=== PATIENT | female | born 1950 | race Caucasian/White ===

== ENCOUNTER → 2018-01-22 10:02 | Outpatient (CLI) | payer MEDICARE, SELFPAY ==
--- NOTE | 2018-01-22 10:08 | RAD_ITS ---
STUDY: X-RAY - PELVIS REASON FOR EXAM: Female, 68 years old. Chronic pain TECHNIQUE: One view of the pelvis was obtained. COMPARISON: None. FINDINGS: There is a non-specific bowel gas pattern. Normal visualized soft tissue structures. There is narrowing with cortical sclerosis and osteophyte formation of the sacroiliac joint consistent with degenerative osteoarthritic changes. Normal visualized bilateral superior and inferior pubic rami. Normal pubic symphysis. Normal ischial tuberosities. Normal visualized right femoral head. Normal right acetabulum. There is mild articular joint space narrowing of the right hip. Normal visualized left femoral head. Normal left acetabulum. There is mild articular joint space narrowing of the left hip. RAD/Pelvis 1 or 2 Views IMPRESSION: Mild arthrosis, no demonstrated fracture Electronically Signed: Bryan Pope MD at 17:54 EDT , Service support ,
[2018-01-22 12:16] LABS: Erythrocyte Sedimentation Rate 23 mm/hr (0-30)
[2018-01-22 12:26] LABS: Absolute Lymphocyte Count 1.44 X10^3/ul (0.83-4.51); Absolute Neutrophil Count 7.7 X10^3/uL (2.0-7.7); Basophil# 0.03 X10^3/uL; Basophil% 0.3 % (0-1); Eosinophil# 0.04 X10^3/uL; Eosinophils% 0.4 % (0-5); Hematocrit 40.2 % (37-47); Hemoglobin 12.7 g/dl (12.0-15.0); Lymphocyte # 1.44 X10^3/ul (4.0); Lymphocyte % 14.5 % (19-41); Mean Corp Hgb Conc 31.6 g/gl (32-36); Mean Corpuscular Volume 85.4 fL (81-99); Mean Platelet Vol. 10.2 fl (6.2-12.0); Monocyte# 0.74 X10^3/uL; Monocyte% 7.5 % (0-10); Neutrophil # 7.67 X10^3/uL (2.7-7.7); Neutrophil % 77.2 % (47-70); Platelet Count 367 K/mm3 (150-450); RBC Distribution Width CV 13.5 % (11.6-14.6); Red Blood Count 4.71 M/mm3 (4.2-5.4); White Blood Count 9.9 K/mm3 (4.4-11.0)
[2018-01-22 12:29] LABS: POSITIVE COUNT NO; POSITIVE DIFFERENTIAL NO; POSITIVE MORPHOLOGY NO
[2018-01-22 12:33] LABS: ALB/GLOB Ratio 0.9 RATIO (0.9-2.4); AST(SGOT) 20 U/L (15-37); Alanine Aminotransfer ALT/SGPT 20 U/L (13-56); Albumin, Serum 3.7 g/dL (3.2-5.0); Alkaline Phosphatase 105 U/L (45-117); Anion Gap 11 (5-15); BUN 17 mg/dL (7-18); BUN/Creat Ratio 14.8 RATIO (10-20); CRP 4.86 mg/L (0.0-3.0); Calcium,Total 8.9 mg/dL (8.5-10.1); Chloride 98 mmol/L (98-107); Creatinine, Serum 1.15 mg/dL (0.55-1.02); EST Glomerular Filtration Rate 50 mL/min (>60); Est Glom Filt Rate - Afr Amer 60 mL/min (>60); Globulin 4.1 g/dL (2.2-4.2); Glucose 124 mg/dL (74-106); Potassium 3.8 mmol/L (3.5-5.1); Protein, Total 7.8 g/dL (6.4-8.2); Rheumatoid Factor < 10.0 IU/mL (<15); Sodium Level 134 mmol/L (136-145)
[2018-01-23 17:47] LABS: SJOGREN'S Anti-SS-A test < 0.2 AI (0.0-0.9); SJOGREN'S Anti-SS-B test < 0.2 AI (0.0-0.9)
[2018-01-24 16:31] LABS: ANTINUCLEAR ANTIBODIES DIRECT Negative (Negative)
[2018-01-28 10:35] LABS: CCP IgG Antibodies 5 units (0-19); HEPATITIS B SURFACE AG Negative (Negative); HLA B27 Negative (.); Hep B Surface Antibodies Non Reactive (.); Hep C Antibodies <0.1 s/co ratio (0.0-0.9)
== END ==
PROVIDERS: Family Provider Family Medicine; PCP Family Medicine; Referring Provider Internal Medicine Rheumatology; Visit Provider Internal Medicine Rheumatology
DX: L40.59 Other psoriatic arthropathy (principal); L40.8 Other psoriasis; M47.897 Other spondylosis, lumbosacral region; Q66.7 Congenital pes cavus; K21.9 Gastro-esophageal reflux disease without esophagitis; F41.9 Anxiety disorder, unspecified; F32.89 Other specified depressive episodes; R00.0 Tachycardia, unspecified
CPT/HCPCS: 36415; 72170; 80053; 81374; 85025; 85652; 86038; 86140; 86200; 86235; 86431; 86706; 86803; 87340

== ENCOUNTER → 2018-05-13 13:59 | Outpatient (CLI) | payer MEDICARE, SELFPAY ==
[2018-05-13 16:00] LABS: Absolute Neutrophil Count 7.6 X10^3/uL (2.0-7.7); Basophil# 0.04 X10^3/uL; Basophil% 0.4 % (0-1); Eosinophil# 0.14 X10^3/uL; Eosinophils% 1.3 % (0-5); Hematocrit 40.6 % (37-47); Hemoglobin 12.6 g/dl (12.0-15.0); Lymphocyte % 19.1 % (19-41); Mean Corpuscular Hgb 26.7 pg (27.0-32.0); Mean Platelet Vol. 10.2 fl (6.2-12.0); Monocyte# 0.71 X10^3/uL; Monocyte% 6.8 % (0-10); Neutrophil # 7.55 X10^3/uL (2.7-7.7); Neutrophil % 72.2 % (47-70); Platelet Count 373 K/mm3 (150-450); RBC Distribution Width CV 14.1 % (11.6-14.6); RBC Distribution Width SD 44.3 fl (35.1-43.9); Red Blood Count 4.72 M/mm3 (4.2-5.4); White Blood Count 10.5 K/mm3 (4.4-11.0)
[2018-05-13 16:03] LABS: POSITIVE COUNT NO; POSITIVE DIFFERENTIAL NO; POSITIVE MORPHOLOGY NO
[2018-05-13 16:21] LABS: AST(SGOT) 16 U/L (15-37); Alanine Aminotransfer ALT/SGPT 20 U/L (13-56); Albumin, Serum 3.8 g/dL (3.2-5.0); Alkaline Phosphatase 85 U/L (45-117); Anion Gap 7 (5-15); BUN 13 mg/dL (7-18); BUN/Creat Ratio 12.1 RATIO (10-20); Calcium,Total 8.9 mg/dL (8.5-10.1); Chloride 99 mmol/L (98-107); Creatinine, Serum 1.07 mg/dL (0.55-1.02); EST Glomerular Filtration Rate 54 mL/min (>60); Est Glom Filt Rate - Afr Amer 65 mL/min (>60); Glucose 189 mg/dL (74-106); Protein, Total 7.8 g/dL (6.4-8.2); Sodium Level 131 mmol/L (136-145)
== END ==
PROVIDERS: Family Provider Family Medicine; PCP Family Medicine; Referring Provider Internal Medicine Rheumatology; Visit Provider Internal Medicine Rheumatology
DX: L40.59 Other psoriatic arthropathy (principal); L40.8 Other psoriasis; M47.897 Other spondylosis, lumbosacral region; Q66.7 Congenital pes cavus; K21.9 Gastro-esophageal reflux disease without esophagitis; F41.9 Anxiety disorder, unspecified; F32.89 Other specified depressive episodes; R00.0 Tachycardia, unspecified
CPT/HCPCS: 36415; 80053; 85025

== ENCOUNTER → 2018-10-28 | Outpatient (CLI) | payer MEDICARE, SELFPAY ==
[2018-10-28 13:57] LABS: Absolute Lymphocyte Count 1.49 X10^3/uL (0.83-4.51); Absolute Neutrophil Count 5.3 X10^3/uL (2.0-7.7); Basophil# 0.07 X10^3/uL; Basophil% 0.9 % (0-1); Eosinophil# 0.46 X10^3/uL; Eosinophils% 5.9 % (0-5); Hematocrit 38.9 % (37-47); Hemoglobin 12.5 g/dL (12.0-15.0); Lymphocyte # 1.49 X10^3/ul (4.0); Lymphocyte % 19.1 % (19-41); Mean Corp Hgb Conc 32.1 g/dL (32-36); Mean Corpuscular Hgb 27.7 pg (27.0-32.0); Mean Corpuscular Volume 86.1 fL (81-99); Monocyte# 0.43 X10^3/uL; Monocyte% 5.5 % (0-10); NRBC Flagged by Analyzer 0 % (0-5); Neutrophil # 5.33 X10^3/uL (2.7-7.7); Neutrophil % 68.5 % (47-70); Platelet Count 321 K/mm3 (150-450); RBC Distribution Width CV 12.9 % (11.6-14.6); RBC Distribution Width SD 39.9 fl (35.1-43.9); Red Blood Count 4.52 M/mm3 (4.2-5.4); White Blood Count 7.8 K/mm3 (4.4-11.0)
[2018-10-28 14:13] LABS: ALB/GLOB Ratio 0.9 RATIO (0.9-2.4); AST(SGOT) 11 U/L (15-37); Alanine Aminotransfer ALT/SGPT 18 U/L (13-56); Albumin, Serum 3.5 g/dL (3.2-5.0); Alkaline Phosphatase 94 U/L (45-117); Anion Gap 9 (5-15); BUN 13 mg/dL (7-18); BUN/Creat Ratio 12.7 RATIO (10-20); Calcium,Total 9.1 mg/dL (8.5-10.1); Chloride 99 mmol/L (98-107); Creatinine, Serum 1.02 mg/dL (0.55-1.02); EST Glomerular Filtration Rate 57 mL/min (>60); Est Glom Filt Rate - Afr Amer 69 mL/min (>60); Globulin 4.1 g/dL (2.2-4.2); Glucose 136 mg/dL (74-106); Potassium 3.9 mmol/L (3.5-5.1); Protein, Total 7.6 g/dL (6.4-8.2); Sodium Level 133 mmol/L (136-145)
== END | disposition home or self-care (01) ==
LOC: MTLAB 11:08
PROVIDERS: Family Provider Family Medicine; PCP Family Medicine; Referring Provider Internal Medicine Rheumatology; Visit Provider Internal Medicine Rheumatology
DX: L40.59 Other psoriatic arthropathy (principal); L40.8 Other psoriasis; M47.897 Other spondylosis, lumbosacral region; Q66.7 Congenital pes cavus; K21.9 Gastro-esophageal reflux disease without esophagitis; F41.9 Anxiety disorder, unspecified; F32.89 Other specified depressive episodes; R00.0 Tachycardia, unspecified
CPT/HCPCS: 36415; 80053; 85025

== ENCOUNTER → 2019-06-09 08:48 | Outpatient (CLI) | payer MEDICARE, SELFPAY ==
--- NOTE | 2019-06-09 08:51 | RAD_ITS ---
STUDY: X-RAY - LUMBOSACRAL SPINE REASON FOR EXAM: Female, 69 years old. PAIN TECHNIQUE: 7 view(s) of the lumbosacral spine were obtained, including lateral flexion and extension views. COMPARISON: None FINDINGS: Normal lumbar lordosis. There is a 25 degree dextroscoliosis of the lumbar spine centered at L3. There is normal alignment of the vertebrae. Prior cement augmentation of the T12 vertebral fracture noted. There is multilevel endplate spondylosis of the lumbar vertebrae. There is mild depression of the superior L3 vertebral endplate. The mildly sclerotic margins suggest this is chronic. There is multi-level degenerative disc disease with multi-level disc space narrowing. Degenerative arthroses of the bilateral mid to lower lumbar facet joints. Normal bilateral sacral ala, sacroiliac joints, and visualized sacrum. There is degenerative narrowing of the pubic symphysis. Surgical clips of prior cholecystectomy are noted in the right upper quadrant abdomen. There are fluid levels in the nondistended right and transverse colon, which could reflect liquid fecal material or a regional ileus. Contrast likely bullous projects in the left pelvic soft tissues. RAD/L/S Spine w Bend Min 6 Vw IMPRESSION: 1. Degenerative changes of the spine, as detailed above. 2. Prior cement augmentation of the T12 vertebral fracture. There is slight depression of the superior L3 vertebral endplate, likely chronic. 3. Prior cholecystectomy. 4. There is liquid fecal material in the right and transverse colon versus mild regional ileus without distention. Electronically Signed: Bryan Berg MD at 18:06 EDT , Service support ,
--- NOTE | 2019-06-09 08:51 | RAD_ITS ---
STUDY: X-RAY EXAMINATION: SCOLIOSIS SERIES REASON FOR EXAM: Female, 69 years old. PAIN TECHNIQUE: Frontal view(s) of the thoracolumbar spine were obtained in the upright standing position. COMPARISON: Lateral view of the thoracolumbar spine also done today FINDINGS: There is a 13.15 degree levoscoliosis of the thoracic spine with the apex of the convexity at the T10-11 level. There is a 21.4 degree dextroscoliosis of the lumbar spine with the apex of the convexity at the L3 level. Normal kyphosis of the thoracic spine. There is multilevel endplate spondylosis of the thoracic vertebrae. The patient has undergone prior cement augmentation of the T12 vertebral fracture. There is mild disc space narrowing of the lower most thoracic spine. Normal lordosis of the lumbar spine. There is multilevel endplate spondylosis of the lumbar vertebrae. There is minor depression of the superior L3 vertebral endplate. There is multilevel disc space narrowing of the lumbar spine. Density with a transverse band of lucency overlapping the lower thoracic spine and cardiac silhouette may be a hiatal hernia. Surgical clips in the right upper quadrant of the abdomen are consistent with prior cholecystectomy. Incidental note of fluid levels in the nondistended right and transverse colon, which may reflect liquid fecal material or mild generalized ileus. RAD/Scoliosis 1 view IMPRESSION: 1. Mild mid lumbar dextroscoliosis and mild compensatory lower thoracic levoscoliosis. 2. Prior cement augmentation of a T12 vertebral fracture. 3. Slight depression of the superior L3 vertebral endplate, age uncertain. 4. Multilevel degenerative changes of the thoracolumbar spine, as described. 5. Prior cholecystectomy. 6. Possible hiatal hernia. 7. Liquid fecal material in the right and transverse colon versus mild regional ileus without distention. Electronically Signed: Bryan Berg MD at 20:03 EDT , Service support ,
--- NOTE | 2019-06-09 09:07 | RAD_ITS ---
STUDY: X-RAY EXAMINATION: SCOLIOSIS SERIES REASON FOR EXAM: Female, 69 years old. Lateral scoliosis study, AP was done earlier this am TECHNIQUE: Lateral view(s) of the thoracolumbar spine was obtained in the upright standing position. COMPARISON: Frontal view of the thoracolumbar spine also done today. FINDINGS: There is a 13.15 degree levoscoliosis of the thoracic spine with the apex of the convexity at the T10-11 level. There is a 21.4 degree dextroscoliosis of the lumbar spine with the apex of the convexity at the L3 level. Normal kyphosis of the thoracic spine. There is multilevel endplate spondylosis of the thoracic vertebrae. The patient has undergone prior cement augmentation of the T12 vertebral fracture. There is mild disc space narrowing of the lower most thoracic spine. Normal lordosis of the lumbar spine. There is multilevel endplate spondylosis of the lumbar vertebrae. There is minor depression of the superior L3 vertebral endplate. There is multilevel disc space narrowing of the lumbar spine. Density with a transverse band of lucency overlapping the lower thoracic spine and cardiac silhouette may be a hiatal hernia. Surgical clips in the right upper quadrant of the abdomen are consistent with prior cholecystectomy. Incidental note of fluid levels in the nondistended right and transverse colon, which may reflect liquid fecal material or mild generalized ileus. RAD/Scoliosis 1 view IMPRESSION: 1. Mild mid lumbar dextroscoliosis and mild compensatory lower thoracic levoscoliosis. 2. Prior cement augmentation of a T12 vertebral fracture. 3. Slight depression of the superior L3 vertebral endplate, age uncertain. 4. Multilevel degenerative changes of the thoracolumbar spine, as described. 5. Prior cholecystectomy. 6. Possible hiatal hernia. 7. Liquid fecal material in the right and transverse colon versus mild regional ileus without distention. Electronically Signed: Bryan Berg MD at 20:05 EDT , Service support ,
== END ==
PROVIDERS: PCP Family Medicine; Referring Provider Orthopaedic Surgery; Visit Provider Orthopaedic Surgery
DX: M54.9 Dorsalgia, unspecified (principal)
CPT/HCPCS: 72081; 72114

== ENCOUNTER → 2019-07-03 11:51 | Outpatient (CLI) | payer MEDICARE, SELFPAY ==
[2019-06-09 08:49] VITALS: BMI 28.7
[2019-07-03 15:14] LABS: Absolute Lymphocyte Count 1.49 X10^3/uL (0.83-4.51); Absolute Neutrophil Count 5.3 X10^3/uL (2.0-7.7); Basophil# 0.05 X10^3/uL; Basophil% 0.6 % (0-1); Eosinophil# 0.39 X10^3/uL; Lymphocyte # 1.49 X10^3/ul (4.0); Mean Corp Hgb Conc 31.6 g/dL (32-36); Mean Corpuscular Hgb 27.8 pg (27.0-32.0); Mean Corpuscular Volume 88.2 fL (81-99); Mean Platelet Vol. 10.1 fl (6.2-12.0); Monocyte# 0.59 X10^3/uL; Monocyte% 7.5 % (0-10); NRBC Flagged by Analyzer 0 % (0-5); Neutrophil % 67.6 % (47-70); Platelet Count 342 K/mm3 (150-450); RBC Distribution Width CV 13.2 % (11.6-14.6); RBC Distribution Width SD 42.7 fl (35.1-43.9); Red Blood Count 4.31 M/mm3 (4.2-5.4); White Blood Count 7.8 K/mm3 (4.4-11.0)
[2019-07-03 16:23] LABS: AST(SGOT) 19 U/L (15-37); Alanine Aminotransfer ALT/SGPT 22 U/L (13-56); Albumin, Serum 3.7 g/dL (3.2-5.0); Alkaline Phosphatase 82 U/L (45-117); Anion Gap 9 (5-15); BUN 16 mg/dL (7-18); BUN/Creat Ratio 16.1 RATIO (10-20); CRP 5.89 mg/L (0.0-3.0); Calcium,Total 9.1 mg/dL (8.5-10.1); Chloride 101 mmol/L (98-107); Creatinine, Serum 0.99 mg/dL (0.55-1.02); EST Glomerular Filtration Rate 59 mL/min (>60); Est Glom Filt Rate - Afr Amer 71 mL/min (>60); Globulin 3.8 g/dL (2.2-4.2); Glucose 105 mg/dL (74-106); Potassium 4.4 mmol/L (3.5-5.1); Protein, Total 7.5 g/dL (6.4-8.2); Sodium Level 133 mmol/L (136-145)
[2019-07-03 21:19] LABS: Erythrocyte Sedimentation Rate 16 mm/hr (0-30)
== END ==
PROVIDERS: PCP Family Medicine; Referring Provider Internal Medicine Rheumatology; Visit Provider Internal Medicine Rheumatology
DX: L40.59 Other psoriatic arthropathy (principal); L40.8 Other psoriasis; M47.897 Other spondylosis, lumbosacral region; K21.9 Gastro-esophageal reflux disease without esophagitis; F41.9 Anxiety disorder, unspecified; F32.89 Other specified depressive episodes; R00.0 Tachycardia, unspecified
CPT/HCPCS: 36415; 80053; 85025; 85652; 86140

== ENCOUNTER 2019-07-19 13:58 | Emergency (ER) | payer MEDICARE, SELFPAY ==
[2019-06-09 08:49] VITALS: BMI 28.7
[2019-07-19 14:01] VITALS: BP 117/75; PULSE 72; RESP 18; TEMP 37; O2SAT 98; BMI 31.2
[2019-07-19 14:07] VITALS: BP 117/75; PULSE 71; RESP 16; O2SAT 98
--- NOTE | 2019-07-19 14:17 | EKG12_ITS ---
Test Reason : DIZZINESS Blood Pressure : / mmHG Vent. Rate : 070 BPM Atrial Rate : 070 BPM P-R Int : 192 ms QRS Dur : 096 ms QT Int : 426 ms P-R-T Axes : 054 030 047 degrees QTc Int : 460 ms Normal sinus rhythm Normal ECG Confirmed by NEO QUINONES, JENNIFER ([id number]), photographic editor MERLY HOGUE ([id number]) on 07/22/2019 9:30:37 AM Referred By: TRICIA Confirmed By:JENNIFER LARSON MD
--- NOTE | 2019-07-19 14:17 | CT_ITS ---
STUDY: CT BRAIN WITHOUT CONTRAST REASON FOR EXAM: Female, 69 years old. Dizziness today, no fall or injury. RADIATION DOSAGE (If Supplied By Facility): CTDIvol = ( 44.99 ) mGy, DLP = ( 745.49 ) mGycm TECHNIQUE: Transaxial CT imaging of the brain was performed without administration of intravenous contrast material. Individualized dose optimization techniques were used for this CT. COMPARISON: None. FINDINGS: There is cerebral atrophy with widening of the extra-axial spaces and ventricular dilatation. There are areas of decreased attenuation within the white matter tracts of the supratentorial brain, consistent with microvascular disease changes. There is no intracranial hemorrhage. There are no findings of an acute ischemic infarction. Normal soft tissue structures. Normal visualized paranasal sinuses. CT/Brain/Head without Contrast IMPRESSION: Chronic involutional changes of the brain. Electronically Signed: Bobby Brar MD at 15:07 EDT Tel , Service support ,
[2019-07-19] MEDS: diazePAM 5 MG Tablet 2.5 MG PO (14:34)
[2019-07-19] MEDS: 0.9% Normal Saline 1,000 ML 1000 ML IV (14:34)
--- NOTE | 2019-07-19 14:38 | ED.DCSUM_ITS ---
- ER Visit Summary Date of Service: 07/19/19 Chief Complaint: Dizziness History of Present Illness: The patient is a 69 F who presents with dizziness that began today. Patient states it began suddenly. Patient states she felt like she was going to pass out. Patient states this is worse when she stands up and tries to move. Patient states it is also worse when she moves her head. Patient states her dizziness improves when she lays down. Patient admits to a headache and generalized weakness. Patient admits to nausea but denies any vomiting. Patient admits to chronic neck and back pain but denies any worsening pain. Patient denies any chest pain or palpitations. Patient denies any shortness of breath or cough. Physical Examination: Vital signs are stable. Patient is afebrile. Patient is in no acute distress. Pupils are equal, round, and reactive to light bilateral ly. Extraocular muscles are intact. There is some mild nystagmus with right lateral gaze. Oral mucosa is pink and moist. Oropharynx is clear. Neck is supple. Trachea is midline. There is no JVD. Heart was regular rate and rhythm. Lungs are clear and equal bilaterally. Abdomen is soft. Bowel sounds are normal. There is no tenderness. Cranial nerves II through XII are intact. There are no focal motor or sensory deficits noted. Test Results: EKG showed normal sinus rhythm with a rate of 70. There are no acute ST or T wave changes. CBC, comprehensive metabolic profile, and urinalysis were obtained and were all within normal limits. CT scan of the brain was obtained. There is no acute intracranial abnormality. This was interpreted by the radiologist and myself. Emergency Department Course and Treatment: Patient was given IV fluids and oral Valium here. Orthostatic vital signs were obtained and were within normal limits. Patient attempted ambulation however, her right knee was giving out on her. X-rays of the right knee were obtained. There is no acute fracture. Patient was placed in a knee immobilizer. Patient was given a walker. Since the patient was unable to get her venous duplex done today, she was given a dose of Lovenox and an outpatient order for venous duplex of her right lower extremi ty was ordered. Patient was given a prescription for Valium to take as needed for her dizziness. Patient was instructed to follow-up tomorrow as an outpatient for venous duplex of her right lower extremity. Patient was instructed to follow-up with her primary care physician in 5 to 7 days. Patient understood and was agreeable with the plan. All questions were answered. Disposition: Discharge home Impression: 1. Vertigo 2. Right knee pain This note was generated with [employer] dictation software. It may contain incorrect words, spelling, and punctuation that were not noted in review of the chart prior to signing ED Disposition - Plan for ED Patient: Disposition: Home or Assisted Living Diagnosis: Vertigo, Posterior right knee pain Instructions: ED Vertigo Unspecified, ED Knee Pain [facility] Prescriptions: Diazepam [Valium] 2 mg PO TID PRN PRN #10 tab PRN Reason: Vertigo Prescription Printed Referrals: Michelle Hess MD [Primary Care Provider] - 3-5 Days
[2019-07-19 14:47] LABS: Absolute Lymphocyte Count 0.68 X10^3/uL (0.83-4.51); Absolute Neutrophil Count 9.5 X10^3/uL (2.0-7.7); Basophil# 0.03 X10^3/uL; Basophil% 0.3 % (0-1); Eosinophil# 0.01 X10^3/uL; Eosinophils% 0.1 % (0-5); Hematocrit 39.6 % (37-47); Hemoglobin 12.7 g/dL (12.0-15.0); Lymphocyte # 0.68 X10^3/ul (4.0); Lymphocyte % 6.3 % (19-41); Mean Corp Hgb Conc 32.1 g/dL (32-36); Mean Corpuscular Volume 87.2 fL (81-99); Mean Platelet Vol. 9.3 fl (6.2-12.0); Monocyte# 0.45 X10^3/uL; Monocyte% 4.2 % (0-10); NRBC Flagged by Analyzer 0 % (0-5); Neutrophil # 9.51 X10^3/uL (2.7-7.7); Neutrophil % 88.7 % (47-70); Platelet Count 305 K/mm3 (150-450); RBC Distribution Width CV 13.1 % (11.6-14.6); Red Blood Count 4.54 M/mm3 (4.2-5.4); White Blood Count 10.7 K/mm3 (4.4-11.0)
[2019-07-19 15:02] VITALS: BP 115/61; BP 128/74; BP 138/75; PULSE 72; PULSE 73; PULSE 80
--- NOTE | 2019-07-19 15:04 | ED.RN ---
PT'S RIGHT LEG GAVE OUT PER PT IT'S NEVER DONE THAT BEFORE WHEN PT WAS GETTING BACK INTO BED AFTER ORTHOSTATIC VITAL SIGNS WERE OBTAINED.
[2019-07-19 15:06] LABS: ALB/GLOB Ratio 0.9 RATIO (0.9-2.4); AST(SGOT) 17 U/L (15-37); Alanine Aminotransfer ALT/SGPT 20 U/L (13-56); Albumin, Serum 3.7 g/dL (3.2-5.0); Alkaline Phosphatase 87 U/L (45-117); Anion Gap 9 (5-15); BUN 19 mg/dL (7-18); BUN/Creat Ratio 17.9 RATIO (10-20); Calcium,Total 9.1 mg/dL (8.5-10.1); Chloride 99 mmol/L (98-107); Creatinine, Serum 1.06 mg/dL (0.55-1.02); EST Glomerular Filtration Rate 54 mL/min (>60); Est Glom Filt Rate - Afr Amer 66 mL/min (>60); Estimated Creatinine Clearance 44.44 ml/min; Globulin 4.1 g/dL (2.2-4.2); Glucose 153 mg/dL (74-106); Potassium 3.9 mmol/L (3.5-5.1); Protein, Total 7.8 g/dL (6.4-8.2); Sodium Level 134 mmol/L (136-145)
[2019-07-19 15:21] LABS: Bacteria 0 SEEN /hpf (None Seen); Mucous, Urine 0 SEEN /hpf (<or=2+); Red Blood Cells-Urine 0 SEEN /hpf (0-5); White Blood Cells 0 SEEN /hpf (0-5)
[2019-07-19 15:30] LABS: Color, Urine Yellow (Yellow); Glucose, Dipstick Normal (Normal); Ketone-Dipstick Negative (Negative); Leukocyte Esterase-Dipstick Negative /ul (Negative); Nitrite-Dipstick Negative (Negative); Occult Blood-Urine Negative /ul (Negative); Protein-Dipstick 15 mg/dl (Negative); Urine Bilirubin Dipstick Negative (Negative); Urine Clarity Sl. Cloudy (Clear); Urine Urobilinogen Normal (Normal); Urine pH 6.5 (5.0 - 8.0)
[2019-07-19 15:38] LABS: Squamous Epithelial Cells - UA 0-5 SEEN /hpf (5-10)
[2019-07-19 16:00] VITALS: BP 119/67; PULSE 70; RESP 16; O2SAT 98
--- NOTE | 2019-07-19 16:17 | RAD_ITS ---
STUDY: X-RAY - RIGHT KNEE REASON FOR EXAM: Female, 69 years old. Right knee pain. TECHNIQUE: 2 view(s) of the knee. COMPARISON: None. FINDINGS: No acute fracture, dislocation or osseous destruction. No significant joint space narrowing. No significant productive changes. Mild soft tissue swelling medially. IMPRESSION: No acute fracture or dislocation. Electronically Signed: Ammon Villatoro, at 16:57 EDT Tel , Service support , RAD/Knee 1 or 2 Views
[2019-07-19 17:59] VITALS: BP 132/68; PULSE 72; RESP 16; O2SAT 98
[2019-07-19] MEDS: Enoxaparin 80 MG/0.8 ML Syringe SC (18:01)
[2019-07-19 18:03] VITALS: BP 132/68; PULSE 72; RESP 18; O2SAT 96
== END 2019-07-19 18:10 | disposition home or self-care (01) ==
PROVIDERS: Emergency Provider Emergency Medicine; PCP Family Medicine
DX: R42 Dizziness and giddiness (principal); M25.561 Pain in right knee; F41.9 Anxiety disorder, unspecified; K21.9 Gastro-esophageal reflux disease without esophagitis
CPT/HCPCS: 70450; 73560; 80053; 81001; 85025; 93005; 96360; 96361; 96372; 99285; J7030; A4216

== ENCOUNTER → 2019-07-20 12:43 | Outpatient (CLI) | payer MEDICARE, SELFPAY ==
[2019-07-19 14:01] VITALS: BMI 31.2
--- NOTE | 2019-07-20 12:46 | VDLE_ITS ---
Reason For Study: pain RIGHT GSV is normal. CFV is compressible, spontaneous, phasic, competent and demonstrates normal augmentation. FV is compressible, spontaneous, phasic, competent and demonstrates normal augmentation. POP V is compressible, spontaneous, phasic, competent and demonstrates normal augmentation. T/P Trunk is compressible. PTV is compressible. RT PerV is compressible. Procedure Exam performed in department. The exam was abbreviated due to the COVID 19 protocol. The exam was diagnostic. Interpretation Summary Deep veins of the right lower extremity are patent and compressible segmentally. There is no evidence of right lower extremity deep vein thrombosis. Valvular competence appears intact within the proximal deep venous system on the right . The right great saphenous vein appears patent and compressible segmentally. Ordering Physician: Jourdan Atkins Performed By: Anibal Robbins RVT
== END ==
PROVIDERS: PCP Family Medicine; Referring Provider Emergency Medicine; Visit Provider Emergency Medicine
DX: M79.604 Pain in right leg (principal)
CPT/HCPCS: 93971

== ENCOUNTER → 2019-09-01 10:53 | Outpatient (CLI) | payer MEDICARE, SELFPAY ==
[2019-08-31 16:09] VITALS: BMI 31.2
[2019-09-01 11:09] LABS: Mucous, Urine 0 SEEN /hpf (<or=2+); Red Blood Cells-Urine 0 SEEN /hpf (0-5)
[2019-09-01 11:12] LABS: Color, Urine Yellow (Yellow); Glucose, Dipstick Normal (Normal); Ketone-Dipstick Negative (Negative); Leukocyte Esterase-Dipstick 500 /ul (Negative); Nitrite-Dipstick Negative (Negative); Occult Blood-Urine 25 /ul (Negative); Protein-Dipstick 30 mg/dl (Negative); Specific Gravity, Urine 1.015 (1.002-1.030); Urine Bilirubin Dipstick Negative (Negative); Urine Clarity Sl. Cloudy (Clear); Urine Urobilinogen Normal (Normal)
[2019-09-01 11:17] LABS: White Blood Cells >100 SEEN /hpf (0-5)
[2019-09-01 11:18] LABS: Bacteria 2+ /hpf (None Seen); Squamous Epithelial Cells - UA 0-5 SEEN /hpf (5-10)
== END ==
PROVIDERS: PCP Family Medicine; Referring Provider Physician Assistant Surgical; Visit Provider Physician Assistant Surgical
DX: N39.0 Urinary tract infection, site not specified (principal); R30.0 Dysuria
CPT/HCPCS: 81001; 87077; 87086; 87088; 87186

== ENCOUNTER → 2020-01-01 10:29 | Outpatient (CLI) | payer MEDICARE, SELFPAY ==
[2019-11-04 13:34] VITALS: BMI 31.2
[2020-01-01 12:25] LABS: Absolute Lymphocyte Count 1.35 X10^3/uL (0.83-4.51); Absolute Neutrophil Count 4.9 X10^3/uL (2.0-7.7); Basophil# 0.06 X10^3/uL; Basophil% 0.8 % (0-1); Eosinophil# 0.19 X10^3/uL; Eosinophils% 2.7 % (0-5); Hematocrit 39.2 % (37-47); Hemoglobin 12.6 g/dL (12.0-15.0); Lymphocyte # 1.35 X10^3/ul (4.0); Mean Corp Hgb Conc 32.1 g/dL (32-36); Mean Corpuscular Hgb 28.2 pg (27.0-32.0); Mean Corpuscular Volume 87.7 fL (81-99); Monocyte# 0.59 X10^3/uL; Monocyte% 8.3 % (0-10); NRBC Flagged by Analyzer 0 % (0-5); Neutrophil # 4.92 X10^3/uL (2.7-7.7); Neutrophil % 69.1 % (47-70); Platelet Count 323 K/mm3 (150-450); RBC Distribution Width SD 41.9 fl (35.1-43.9); Red Blood Count 4.47 M/mm3 (4.2-5.4); White Blood Count 7.1 K/mm3 (4.4-11.0)
[2020-01-01 12:38] LABS: AST(SGOT) 15 U/L (15-37); Alanine Aminotransfer ALT/SGPT 20 U/L (13-56); Albumin, Serum 3.8 g/dL (3.2-5.0); Alkaline Phosphatase 92 U/L (45-117); Anion Gap 4 (5-15); BUN 15 mg/dL (7-18); BUN/Creat Ratio 15.7 RATIO (10-20); Calcium,Total 9.3 mg/dL (8.5-10.1); Chloride 98 mmol/L (98-107); Creatinine, Serum 0.95 mg/dL (0.55-1.02); EST Glomerular Filtration Rate 61 mL/min (>60); Est Glom Filt Rate - Afr Amer 74 mL/min (>60); Globulin 3.9 g/dL (2.2-4.2); Glucose 99 mg/dL (74-106); Potassium 4.3 mmol/L (3.5-5.1); Protein, Total 7.7 g/dL (6.4-8.2); Sodium Level 129 mmol/L (136-145)
== END ==
PROVIDERS: PCP Family Medicine; Visit Provider Family Medicine
DX: R55 Syncope and collapse (principal); N18.30 Chronic kidney disease, stage 3 unspecified
CPT/HCPCS: 36415; 80053; 85025

== ENCOUNTER → 2020-04-26 13:24 | Outpatient (CLI) | payer MEDICARE, SELFPAY ==
[2019-11-04 13:34] VITALS: BMI 31.2
[2020-04-26 15:44] LABS: Urine Sodium 46 mmol/L (Not Establ.)
[2020-04-26 16:06] LABS: ALB/GLOB Ratio 0.9 RATIO (0.9-2.4); AST(SGOT) 15 U/L (15-37); Alanine Aminotransfer ALT/SGPT 24 U/L (13-56); Albumin, Serum 3.9 g/dL (3.2-5.0); Alkaline Phosphatase 98 U/L (45-117); Anion Gap 6 (5-15); BUN 18 mg/dL (7-18); BUN/Creat Ratio 15.5 RATIO (10-20); Calcium,Total 9.4 mg/dL (8.5-10.1); Chloride 99 mmol/L (98-107); Creatinine, Serum 1.16 mg/dL (0.55-1.02); EST Glomerular Filtration Rate 49 mL/min (>60); Est Glom Filt Rate - Afr Amer 59 mL/min (>60); Globulin 4.3 g/dL (2.2-4.2); Glucose 99 mg/dL (74-106); Potassium 4.4 mmol/L (3.5-5.1); Protein, Total 8.2 g/dL (6.4-8.2); Sodium Level 132 mmol/L (136-145)
== END ==
PROVIDERS: PCP Family Medicine; Visit Provider Family Medicine
DX: E87.1 Hypo-osmolality and hyponatremia (principal)
CPT/HCPCS: 36415; 80053; 84300

== ENCOUNTER → 2020-06-02 14:15 | Outpatient (CLI) | payer MEDICARE, SELFPAY ==
[2019-11-04 13:34] VITALS: BMI 31.2
[2020-06-02 16:34] LABS: Anion Gap 6 (5-15); BUN 17 mg/dL (7-18); BUN/Creat Ratio 16.3 RATIO (10-20); Calcium,Total 9.1 mg/dL (8.5-10.1); Chloride 100 mmol/L (98-107); Creatinine, Serum 1.04 mg/dL (0.55-1.02); EST Glomerular Filtration Rate 56 mL/min (>60); Est Glom Filt Rate - Afr Amer 67 mL/min (>60); Glucose 96 mg/dL (74-106); Potassium 4.1 mmol/L (3.5-5.1); Sodium Level 133 mmol/L (136-145)
== END ==
PROVIDERS: PCP Family Medicine; Visit Provider Family Medicine
DX: E87.1 Hypo-osmolality and hyponatremia (principal)
CPT/HCPCS: 36415; 80048

== ENCOUNTER 2022-02-07 11:23 | Observation (INO) | payer MEDICARE, SELFPAY ==
[2022-02-07] VITALS (16 sets, daily range): BP systolic 75–127; BP diastolic 49–81; PULSE 84–129; RESP 16–19; TEMP 36.3–37.1; O2SAT 93–100; BMI 28.0; BMI 26.6
--- NOTE | 2022-02-07 11:58 | EKG12_ITS ---
Test Reason : SVT/CP Blood Pressure : / mmHG Vent. Rate : 103 BPM Atrial Rate : 103 BPM P-R Int : 198 ms QRS Dur : 092 ms QT Int : 356 ms P-R-T Axes : 063 044 059 degrees QTc Int : 466 ms Sinus tachycardia Low voltage QRS Borderline ECG Confirmed by TRENA QUINONES, LELE ([id number]), sound editor LAURA HARRINGTON ([id number]) on 02/13/2022 9:28:49 A M Referred By: CARMEN Confirmed By:RYDER ALBRECHT MD
--- NOTE | 2022-02-07 11:59 | EDS_ITS ---
HPI History of Present Illness Chief Complaint: Chest Pain Detail of Chief Complaint: Chest pain that started around 7 AM Informant: patient Narrative Narrative: Patient presents the emergency department complaint chest pain that started ar ound 7 AM. Patient was getting ready to make breakfast. She complains of a dull ache currently in the center of her chest with some radiation into her left arm. She feels short of breath. She had some mild nausea but no vomiting. She denies diaphoresis. Her states that she had a similar episode about a month ago and was seen at another facility where she had a stress test. Patient thinks that she may have a history of SVT. On EMS arrival patient was thought to be in SVT and was given 6 mg of adenosine and then she converted to a sinus rhythm. Patient currently rates her chest pain a 7 out of 10. Prior Similar Symptoms: Yes PFSH PFSH Medical History (Updated 02/07/22 @ 15:[address] Harpreet Smith, DO) Arthritis Depression Fatigue GERD (gastroesophageal reflux disease) HTN (hypertension) Knee pain Shoulder pain Home Medications omeprazole 20 mg capsule,delayed release 40 mg PO DAILY 06/09/19 [History Last Taken Unknown] atenolol 50 mg tablet 25 mg PO DAILY 08/31/19 [History Last Taken Unknown] dicyclomine 10 mg capsule 20 mg PO BID 08/31/19 [History Last Taken Unknown] sertraline 25 mg tablet 100 mg PO DAILY 08/31/19 [History Last Taken Unknown] bupropion HCl 150 mg 24 hr tablet, extended release 150 mg PO DAILY 02/07/22 [History Last Taken Unknown] Allergy/AdvReac Type Severity Reaction Status Date / Time No Known Allergies Allergy Verified 02/07/22 11:24 Family History Other CVA (cerebral vascular accident) Cancer Heart disease Surgical History Hx of kyphoplasty (~2017) Social History (Updated 11/04/19 @ 14:11 by Arnold WEBB, PA) Smoking Status: Never smoker ROS ROS ED Review of Systems ROS Unobtainable: other Constitutional Constitutional ED: Reports lethargy; Denies chills, fever(s), sweats or weight loss Eyes Eyes: Denies blurry vision, change in vision or diplopia ENT ENT ED: Denies rhinorrhea or sore throat Cardiovascular Cardiovascular: Reports chest pain and racing heartbeat; Denies orthopnea Respiratory/Chest Respiratory/Chest: Reports dyspnea; Denies cough, dyspnea on exertion, orthopnea or sputum Gastrointestinal Gastrointestinal: Denies abdominal pain, diarrhea, nausea or vomiting Genitourinary Genitourinary ED: Denies dysuria, hematuria or urinary frequency Musculoskeletal Musculoskeletal: Denies arthralgias, back pain, myalgias or neck pain Integumentary Denies abscess, Abrasions or rash Neurologic Neurologic: Denies headache(s) or weakness Psychiatric Psychiatric: Denies anxiety, depression or suicidal thoughts Endocrine Endocrinology: Denies polydipsia, polyphagia or polyuria Hematologic/Lymphatic Hematologic/Lymphatic: Denies easy bleeding, easy bruising or lymphadenopathy Allergic/Immunologic Allergic/Immunologic ED: Denies mouth swelling, tongue swelling or urticaria EXAM Physical Exam Const Vital Signs: 02/07/22 11:25 02/07/22 11:28 02/07/22 12:10 Temperature 98.0 F Temperature Source Oral Pulse Rate 104 H 94 Respiratory Rate 19 H Respiratory Effort Short of Breath Respiratory Pattern Normal Blood Pressure 127/70 H 113/72 Blood Pressure Mean 89 Pulse Ox 100 Oxygen Delivery Method Room Air 02/07/22 12:11 02/07/22 13:18 02/07/22 13:20 Temperature Temperature Source Pulse Rate 84 Respiratory Rate 17 Respiratory Effort Respiratory Pattern Blood Pressure 101/51 L 97/70 Blood Pressure Mean 67 79 Pulse Ox 98 98 Oxygen Delivery Method Room Air Room Air 02/07/22 14:30 Temperature Temperature Source Pulse Rate 94 Respiratory Rate 16 Respiratory Effort Respiratory Pattern Blood Pressure 119/70 Blood Pressure Mean 86 Pulse Ox 100 Oxygen Delivery Method Room Air Positive well nourished and well developed General Appearance ED: well developed and NAD HEENT Reports TM's clear and moist mucous membranes normocephalic and atraumatic; Negative for trauma or tenderness Tympanic Membrane ED: Yes TM's clear Eyes PERRL and EOMs intact bilaterally General Eye ED: Negative for pale conjunctiva or scleral icterus Neck no lymphadenopathy, supple and no JVD General: Negative for tenderness Chest Wall inspection of chest normal and palpation of chest normal Chest: Negative for tenderness Resp normal respiratory effort and clear to auscultation bilaterally Effort and Inspection: Negative for respiratory distress or pain with movement Auscultation: Negative for rhonchi, wheezes or diminished lung sounds Cardio regular rate, regular rhythm, S1 normal heart sound, S2 normal heart sound and no murmurs Peripheral Pulses: pulses 2+ throughout GI normal to inspection, nondistended, normoactive bowel sounds, soft to palpation, non-tender, non-distended and no masses Back/Spine no CVA tenderness and no thoracic nor lumbar tenderness Extremity normal to inspection General Extremety ED: Negative for edema General Extremity: Negative for edema Neuro oriented x3, CN's II-XII intact bilaterally, no sensory deficits noted and gait normal Sensorium / Orientation: awake, alert, oriented to person, oriented to place and oriented to time Motor Exam: strength 5/5 throughout and strength abnormal Psych mental status grossly normal Skin no rashes or lesions noted and no wounds Heart Score History: Moderately Suspicious ECG: Normal Age: >/= 65 years Risk Factors: 1 or 2 Risk Factors Troponin: </= Normal Limit Score: 4 MDM MDM MDM Narrative Medical decision making narrative: IV line established on arrival. Patient received sublingual nitro which did not improve her pain. She was given morphine 4 mg IV and Zofran. Patient had a n ormal CBC with differential and chemistries were unremarkable. D-dimer was normal at 0.46. Troponin was normal at 10. Delta troponin did increase by 30 points to 40 at 2 hours. Discussed case with devulcanizer charger on-call who recommended obtaining CTA of the chest to rule out dissection which was performed and was negative for dissection or PE. Patient does have a moderate sized hiatal hernia. Case discussed with hospitalist will evaluate patient for admission. Patient did have SVT on EKG performed by EMS and this resolved with 6 mg of adenosine. Lab Data Attestation: I reviewed the patient's lab results. Labs: Laboratory Results - last 24 hr 02/07/22 02/07/22 02/07/22 11:35 11:35 11:35 WBC 8.3 RBC 4.73 Hgb 13.3 Hct 41.9 MCV 88.6 MCH 28.1 MCHC 31.7 L RDW Std Deviation 41.8 RDW Coeff of Nataliia 12.9 Plt Count 284 MPV 10.3 Immature Gran % (Auto) 0.400 Neut % (Auto) 77.8 H Lymph % (Auto) 16.1 L Miller % (Auto) 5.1 Eos % (Auto) 0.0 Baso % (Auto) 0.6 Absolute Neuts (auto) 6.5 Absolute Lymphs (auto) 1.34 Nucleated RBC % 0 D-Dimer Quant (PE/DVT) 0.46 Sodium 139 Potassium 3.9 Chloride 106 Carbon Dioxide 21.0 Anion Gap 12 BUN 12 Creatinine 1.17 H Estim Creat Clear Calc 40.09 Est GFR (MDRD) Af Amer 58 L Est GFR (MDRD) Non-Af 48 L BUN/Creatinine Ratio 10.3 Glucose 137 H Calcium 8.9 Troponin I High Sens 10 02/07/22 14:32 WBC RBC Hgb Hct MCV MCH MCHC RDW Std Deviation RDW Coeff of Nataliia Plt Count MPV Immature Gran % (Auto) Neut % (Auto) Lymph % (Auto) Miller % (Auto) Eos % (Auto) Baso % (Auto) Absolute Neuts (auto) Absolute Lymphs (auto) Nucleated RBC % D-Dimer Quant (PE/DVT) Sodium Potassium Chloride Carbon Dioxide Anion Gap BUN Creatinine Estim Creat Clear Calc Est GFR (MDRD) Af Amer Est GFR (MDRD) Non-Af BUN/Creatinine Ratio Glucose Calcium Troponin I High Sens 40 Radiography Diagnostic Testing: Clinical Impression(s) from Imaging Studies Chest X-Ray 02/07/22 12:45 IMPRESSION: Hyperinflation. The lungs are clear. Moderate-sized hiatal hernia. Electronically Signed: Fabian Massey MD at 13:01 EST , Chest CTA 02/07/22 13:33 IMPRESSION: No evidence of pulmonary embolism. Mild degree of increased markings at the lung bases suggestive of mild degree of bibasilar atelectasis. Moderate sized hiatal hernia. Electronically Signed: Fabian Massey MD at 14:53 EST , 1 view chest x-ray obtained interpreted by myself as no acute disease process but was noted to have a hiatal hernia. Radiology in agreement. EKG Initial EKG: Attestation: I personally reviewed and interpreted this EKG as follows: Comments: Sinus rhythm with a ventricular rate of 103 bpm with low voltage. No acute ST segment changes noted. Discharge Plan Triage Chief Complaint: Chest Pain ED Provider: Harpreet Smith Dx/Rx/DC Orders Clinical Impression: Chest pain, SVT (supraventricular tachycardia), Hernia, hiatal, History of hypertension Prescriptions: No Action omeprazole 20 mg capsule,delayed release(DR/EC) 40 mg PO DAILY sertraline 25 mg tablet 100 mg PO DAILY dicyclomine 10 mg capsule 20 mg PO BID atenolol 50 mg tablet 25 mg PO DAILY bupropion HCl 150 mg tablet extended release 24 hr 150 mg PO DAILY Primary Care Provider: Michelle Hess Referrals: Michelle Hess MD [Primary Care Provider] - Disposition Disposition: Acute Care [facility]
[2022-02-07] MEDS: Nitroglycerin SL (ED/IMG/CATH) 0.4 MG TABLET SL (12:10)
[2022-02-07] MEDS: 0.9% Normal Saline 1,000 ML 150 ML IV (12:10)
[2022-02-07 12:13] LABS: Absolute Lymphocyte Count 1.34 X10^3/uL (0.83-4.51); Absolute Neutrophil Count 6.5 X10^3/uL (2.0-7.7); Basophil# 0.05 X10^3/uL; Basophil% 0.6 % (0-1); Hematocrit 41.9 % (37-47); Hemoglobin 13.3 g/dL (12.0-15.0); Lymphocyte # 1.34 X10^3/ul (0.83-4.51); Lymphocyte % 16.1 % (19-41); Mean Corp Hgb Conc 31.7 g/dL (32-36); Mean Corpuscular Hgb 28.1 pg (27.0-32.0); Mean Corpuscular Volume 88.6 fL (81-99); Mean Platelet Vol. 10.3 fl (6.2-12.0); Monocyte# 0.42 X10^3/uL; Monocyte% 5.1 % (0-10); NRBC Flagged by Analyzer 0 % (0-5); Neutrophil # 6.46 X10^3/uL (2.7-7.7); Neutrophil % 77.8 % (47-70); Platelet Count 284 K/mm3 (150-450); RBC Distribution Width CV 12.9 % (11.6-14.6); RBC Distribution Width SD 41.8 fl (35.1-43.9); Red Blood Count 4.73 M/mm3 (4.2-5.4); White Blood Count 8.3 K/mm3 (4.4-11.0)
[2022-02-07 12:27] LABS: D-Dimer Quantitative (DVT/PE) 0.46 FEU/ug/m (0.27-0.49)
[2022-02-07 12:28] LABS: Anion Gap 12 (5-15); BUN 12 mg/dL (7-18); BUN/Creat Ratio 10.3 RATIO (10-20); Calcium,Total 8.9 mg/dL (8.5-10.1); Chloride 106 mmol/L (98-107); Creatinine, Serum 1.17 mg/dL (0.55-1.02); EST Glomerular Filtration Rate 48 mL/min (>60); Est Glom Filt Rate - Afr Amer 58 mL/min (>60); Estimated Creatinine Clearance 40.09 ml/min; Glucose 137 mg/dL (74-106); Potassium 3.9 mmol/L (3.5-5.1); Sodium Level 139 mmol/L (136-145); Troponin-I HS (w/2H Reflex) 10 pg/mL (3.0-54.0)
--- NOTE | 2022-02-07 12:45 | RAD_ITS ---
STUDY: X-RAY CHEST REASON FOR EXAM: Female, 72 years old. Chest pain TECHNIQUE: Single AP portable view of the chest. COMPARISON: None. FINDINGS: EKG electrodes are seen. Hyperinflation. The lungs are clear. There is no demonstrated pleural abnormality. Normal size heart. Normal mediastinum and paolo. Normal visualized pulmonary arteries. There is atherosclerotic calcification of the aortic arch with tortuosity. There are diffuse degenerative changes of the visualized thoracic spine. Normal visualized ribs, clavicles, and shoulders. Moderate sized hiatal hernia. Prior cholecystectomy. RAD/Chest 1 View (Portable) IMPRESSION: Hyperinflation. The lungs are clear. Moderate-sized hiatal hernia. Electronically Signed: Fabian Massey MD at 13:01 EST ,
[2022-02-07] MEDS: Ondansetron 4 MG/2 ML Vial IV ×2 (13:15→14:44)
[2022-02-07] MEDS: Morphine 4 MG/ML Syringe IV (13:16)
--- NOTE | 2022-02-07 13:33 | CT_ITS ---
STUDY: CTA CHEST REASON FOR EXAM: Female, 72 years old. Chest pain. RADIATION DOSAGE (If Supplied By Facility): CTDIvol = ( 9.17 ) mGy, DLP = ( 347.34 ) mGycm TECHNIQUE: The examination was performed with the intravenous administration of IV 100mL Isovue-370. Post-processing of the angiographic images was performed, with multiplanar reformation and 3D reconstruction. Individualized dose optimization techniques were used for this CT. COMPARISON: Comparison is made with prior chest radiograph done earlier today. FINDINGS: Normal enhancement of the main pulmonary artery and right and left pulmonary arteries. Normal enhancement of the bilateral peripheral pulmonary arteries. There is no demonstrated pulmonary embolism. There is atherosclerotic calcification of the aortic arch with tortuosity. There is no demonstrated aortic dissection. Minimal degree of anterior pericardial thickening. No coronary artery calcification. Normal mediastinum. Normal hilar regions. Normal visualized trachea and bronchi. Hyperinflation. Minimal increased markings at the lung bases suggestive of bibasilar atelectasis. Normal pleura. Normal chest wall structures. There are degenerative changes of thoracic spine. Prior vertebroplasty and loss of height of the L1 vertebrae. The patient is status post cholecystectomy. Moderate sized hiatal hernia. CT/CTA Chest W/WO Contrast IMPRESSION: No evidence of pulmonary embolism. Mild degree of increased markings at the lung bases suggestive of mild degree of bibasilar atelectasis. Moderate sized hiatal hernia. Electronically Signed: Fabian Massey MD at 14:53 EST ,
[2022-02-07 14:08] LABS: Reflex Troponin-HS? (from REC) Y
[2022-02-07 14:54] LABS: Troponin-I HS 40 pg/mL (3.0-54.0)
--- NOTE | 2022-02-07 15:09 | NURSING ---
PCU CARINA CP, SVT, HIATAL HERNIA
--- NOTE | 2022-02-07 15:25 | RAD_ITS ---
STUDY: X-RAY CHEST REASON FOR EXAM: Female, 72 years old. Chest pain TECHNIQUE: Single AP portable view of the chest. COMPARISON: Comparison is made with prior study 02/07/2022 at 12:45 PM. FINDINGS: EKG electrodes are seen. The lungs are clear and expanded. There is no demonstrated pleural abnormality. Normal size heart. Normal mediastinum and paolo. Normal visualized pulmonary arteries. Normal visualized aortic arch and descending thoracic aorta. Normal visualized thoracic spine. Normal visualized ribs, clavicles, and shoulders. Hiatal hernia. RAD/Chest 1 View (Portable) IMPRESSION: Stable examination. Electronically Signed: Fabian Massey MD at 15:47 EST ,
--- NOTE | 2022-02-07 15:43 | HP.PCM.HOS_ITS ---
HPI - General General Date of Admission: 02/07/22 Date of Service: 02/07/22 Chief Complaint: chest pain HPI Narrative DEBORA BOURGEOIS, is a 72 F who presents with chest pain. Chest pain began this morning around 7 while she was just standing around, not doing anything exertional. She had had some coffee but did not finish it. Normally she drinks about 4 cups/day. Chest pain was midsternal as well as involving her abdomen with associated nausea. Did radiate down her left arm. Patient had a similar spell 2 months ago and was seen at [facility] and had a chemical stress test there that was negative though did show EF is 48%. EMS was called and patient was noted to be in SVT. She did receive 6 mg of adenosine and she was normal sinus thereafter. Patient does complain of intermittent palpitations. She does not know the frequency but it is happened several times. [facility] Medical History (Updated 02/07/22 @ 15:[address] Jourdan Brasher DO) Arthritis Depression Fatigue GERD (gastroesophageal reflux disease) HTN (hypertension) Knee pain Shoulder pain Home Medications omeprazole 20 mg capsule,delayed release 40 mg PO DAILY 06/09/19 [History Last Taken Unknown] atenolol 50 mg tablet 25 mg PO DAILY 08/31/19 [History Last Taken Unknown] dicyclomine 10 mg capsule 20 mg PO BID 08/31/19 [History Last Taken Unknown] sertraline 25 mg tablet 100 mg PO DAILY 08/31/19 [History Last Taken Unknown] bupropion HCl 150 mg 24 hr tablet, extended release 150 mg PO DAILY 02/07/22 [History Last Taken Unknown] Allergy/AdvReac Type Severity Reaction Status Date / Time No Known Allergies Allergy Verified 02/07/22 11:24 Family History Other CVA (cerebral vascular accident) Cancer Heart disease Surgical History Hx of kyphoplasty (~2017) Social History Smoking Status: Never smoker Vital Signs Vital Signs Vital Signs: 02/07/22 11:25 02/07/22 11:28 02/07/22 12:10 Temperature 36.7 C Temperature Source Oral Pulse Rate 104 H 94 Respiratory Rate 19 H Respiratory Effort Short of Breath Respiratory Pattern Normal Blood Pressure 127/70 H 113/72 Blood Pressure Mean 89 Pulse Ox 100 Oxygen Delivery Method Room Air 02/07/22 12:11 02/07/22 13:18 02/07/22 13:20 Temperature Temperature Source Pulse Rate 84 Respiratory Rate 17 Respiratory Effort Respiratory Pattern Blood Pressure 101/51 L 97/70 Blood Pressure Mean 67 79 Pulse Ox 98 98 Oxygen Delivery Method Room Air Room Air 02/07/22 14:30 02/07/22 15:10 02/07/22 15:10 Temperature Temperature Source Pulse Rate 94 86 Respiratory Rate 16 16 Respiratory Effort Respiratory Pattern Blood Pressure 119/70 122/77 H Blood Pressure Mean 86 92 Pulse Ox 100 98 98 Oxygen Delivery Method Room Air Room Air Room Air 02/07/22 15:16 Temperature 37.1 C Temperature Source Oral Pulse Rate 85 Respiratory Rate 16 Respiratory Effort Respiratory Pattern Blood Pressure 114/73 Blood Pressure Mean 86 Pulse Ox 98 Oxygen Delivery Method Room Air Weight Weight: 78.9 kg Body Mass Index (BMI) 28.0 Physical Exam Const alert and no apparent distress HEENT normocephalic and head/scalp atraumatic Resp normal respiratory effort, no retractions, no use of accessory muscles and clear to auscultation bilaterally Cardio regular rate, regular rhythm, S1 normal heart sound and S2 normal heart sound GI normal to inspection, nondistended, normoactive bowel sounds, soft to palpation, non-tender and non-distended Extremity normal to inspection Results Lab / Micro Data Result Diagrams: 02/07/22 11:35 02/07/22 11:35 Labs: Laboratory Results - last 24 hr 02/07/22 11:35: WBC 8.3, RBC 4.73, Hgb 13.3, Hct 41.9, MCV 88.6, MCH 28.1, MCHC 31.7 L, RDW Std Deviation 41.8, RDW Coeff of Nataliia 12.9, Plt Count 284, MPV 10.3, Immature Gran % (Auto) 0.400, Neut % (Auto) 77.8 H, Lymph % (Auto) 16.1 L, [place] % (Auto) 5.1, Eos % (Auto) 0.0, Baso % (Auto) 0.6, Absolute Neuts (auto) 6.5, Absolute Lymphs (auto) 1.34, Nucleated RBC % 0 02/07/22 11:35: Sodium 139, Potassium 3.9, Chloride 106, Carbon Dioxide 21.0, Anion Gap 12, BUN 12, Creatinine 1.17 H, Estim Creat Clear Calc 40.09, Est GFR (MDRD) Af Amer 58 L, Est GFR (MDRD) Non-Af 48 L, BUN/Creatinine Ratio 10.3, Glucose 137 H, Calcium 8.9, Troponin I High Sens 10 02/07/22 11:35: D-Dimer Quant (PE/DVT) 0.46 02/07/22 14:32: Troponin I High Sens 40 Radiology Impression Chest X-Ray 02/07/22 12:45 IMPRESSION: Hyperinflation. The lungs are clear. Moderate-sized hiatal hernia. Electronically Signed: Fabian Massey MD at 13:01 EST , Chest CTA 02/07/22 13:33 IMPRESSION: No evidence of pulmonary embolism. Mild degree of increased markings at the lung bases suggestive of mild degree of bibasilar atelectasis. Moderate sized hiatal hernia. Electronically Signed: Fabian Massey MD at 14:53 EST , Assessment & Plan Assessment/Plan (1) Unstable angina: PLAN: Atypical presentation. Could be cardiac but cannot rule out being related with her hiatal hernia. Patient received aspirin in the field. Continue with aspirin. Patient had a stress test performed on December 08 [facility] it was negative showed an EF of 40% at that time. Cardiology on consultation. Discussed with Dr. Baker. He will evaluate to see if any additional cardiac intervention would be necessary. Check an echocardiogram (2) SVT (supraventricular tachycardia): PLAN: Transient but may be intermittent as patient does complain of intermittent palpitations. Monitor on telemetry Change her atenolol to metoprolol tartrate 50 mg twice daily PLAN: Plan Chronic conditions * Hiatal hernia: Continue PPI * Depression: Continue with bupropion and sertraline VTE prophylaxis: Not indicated as patient is observation status CODE STATUS: Addressed with patient and her . Patient is DNR Comfort Care arrest Charges/Coding Visit Charges OBSV E&M: 59479 Initial observation care L2
--- NOTE | 2022-02-07 16:06 | ECHOD_ITS ---
Reason For Study: Chest pain Procedure This was a 2D Doppler, Color Flow transthoracic echocardiogram. The exam was of adequate technical quality. Exam performed portable in patient room. Left Ventricle Normal LV size. Left ventricular systolic function is normal. The estimated ejection fraction is 70 %. No evidence for diastolic dysfunction. No regional wall motion abnormalities noted. Right Ventricle Normal RV size. Normal systolic function. Atria Normal left atrium. Normal right atrium. No doppler evidence for ASD. Mitral Valve There is no mitral annular calcification. Normal mitral valve. Tricuspid Valve Normal tricuspid valve. Mild (1+) eccentric tricuspid valve insufficiency. Right ventricular systolic pressure estimated to be 20 mmHg. Aortic Valve Trisinus/trileaflet aortic valve. Normal aortic valve. Pulmonic Valve The pulmonic valve is not well visualized. Great Vessels Normal sized aortic root. Pericardium/Pleural No pericardial effusion. MMode/2D Measurements & Calculations LVIDd: 4.0 cm IVSd: 0.95 cm Ao root diam: 3.0 cm LVIDs: 2.1 cm LVPWd: 0.68 cm RVDd: 3.1 cm FS: 47.4 % LAV(MOD-bp): 29.3 ml LVAd ap4: 16.3 cm2 LVAd ap2: 19.1 cm2 LAV(MOD-bp) Indexed: 15.5 ml/m2 LVLd ap4: 6.8 cm LVLd ap2: 6.7 cm LAV(MOD-sp2): 29.7 ml EDV(MOD-sp4): 34.1 ml EDV(MOD-sp2): 45.3 ml LAV(MOD-sp4): 26.6 ml EDV(sp4-el): 33.1 ml EDV(sp2-el): 45.9 ml LVAs ap4: 8.0 cm2 LVAs ap2: 10.3 cm2 LVLs ap4: 5.8 cm LVLs ap2: 5.8 cm ESV(MOD-sp4): 9.8 ml ESV(MOD-sp2): 15.1 ml ESV(sp4-el): 9.3 ml ESV(sp2-el): 15.3 ml EF(MOD-sp4): 71.2 % EF(MOD-sp2): 66.6 % EF(sp4-el): 71.8 % SV(MOD-sp4): 24.3 ml SV(MOD-sp2): 30.2 ml SV(sp4-el): 23.8 ml LA dimension(2D): 3.1 cm LA A4 area: 13.2 cm2 RA A4 area: 9.8 cm2 Doppler Measurements & Calculations MV E max yoandy: 73.4 cm/sec Lat Peak E' Yoandy: 10.4 cm/sec Med Peak E' Yoandy: 7.4 cm/sec MV A max yoandy: 59.7 cm/sec E/E' lat: 7.1 E/E' med: 9.9 MV E/A: 1.2 Ao V2 max: 118.9 cm/sec LV V1 max: 101.3 cm/sec PA V2 max: 91.7 cm/sec Ao max P.7 mmHg LV V1 max P.1 mmHg TR max yoandy: 207.5 cm/sec TR max P.3 mmHg ECHO/Echo Complete Interpretation Summary Left ventricular systolic function is normal. The estimated ejection fraction is 70 %. Mild (1+) eccentric tricuspid valve insufficiency. Right ventricular systolic pressure estimated to be 20 mmHg. No evidence for diastolic dysfunction. Ordering Physician: Jourdan Brasher Referring Physician: Michelle Hess Performed By: Jessica Brizuela, JACKY
--- NOTE | 2022-02-07 17:09 | PCM.CONS.C ---
Assessment & Plan Assessment/Plan (1) Unstable angina: PLAN: The patient is thought to have symptoms compatible with unstable angina pectoris as there is been no other etiology, with the exception of potentially her hiatal hernia and GERD, to explain her symptoms. Her cardiac enzymes have been negative. Her ECG is demonstrated no acute ECG changes. Her previous noninvasive studies from the outside hospital are noted above. Her chest CT scan did not demonstrate evidence of thromboembolic disease or great vessel disease to explain her symptoms. Thus she has been recommended for further cardiovascular evaluation with diagnostic cardiac catheterization to evaluate for any obvious angiographically or hemodynamically significant CAD that may not of been detected on her noninvasive studies that would explain her symptoms. The procedure and risks have been discussed with her. She was agreeable to this approach. In the interim she will continue medical management as deemed appropriate. (2) SVT (supraventricular tachycardia): PLAN: The patient has a history of SVT. 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 At the present time she will continue medical therapy with her beta-vicente. Over time she can be considered for referral to electrophysiology for consideration for EPS/RFA. (3) History of hypertension: PLAN: The patient's blood pressure will need to be monitored with medications adjusted accordingly. (4) Hernia, hiatal: PLAN: Plan The patient does have a hiatal hernia. Its been reported as at least moderate in the size. She does appear to have a history of symptoms related to it. She may need a ventral evaluation by general surgery as to whether or not there is any other nonmedical options to assist with her hiatal hernia. Addt'l Comments The above was discussed and reviewed with the patient, her spouse, Dr. Soriano of the [facility] emergency department staff and Dr. Brasher of the [facility] staff. This note was generated using a voice recognition system and there may be incorrect words, spelling or punctuation that were not noted when reviewing the office note prior to saving. HPI Consult Data Date of Consult: 02/07/22 HPI Narrative HPI Narrative: DEBORA BOURGEOIS, is a 72 year old white female who presents for evaluation of chest discomfort and SVT. The patient states that she has had chest discomfort for at least the last 3 years. It usually involves her upper chest and radiates to her left upper extremity. It can be associated with the sensation of nausea. It is not usually associated with acute shortness of breath/dyspnea or diaphoresis. She does not complain of a history of orthopnea, PND, peripheral pitting edema, near-syncope or syncope. She states she does not even sense her SVT. Her states it appears to occur when she has her chest discomfort. It appears she was evaluated recently in November of this year at [facility] in [facility]. According to the information obtained she underwent evaluation with a transthoracic echocardiogram. This demonstrated the left ventricle to be normal with an estimated LVEF of 60 to 65%. There was trace MR reported. There was no pericardial effusion reported. The aortic root was reported as normal. She also underwent evaluation with a pharmacologic stress nuclear imaging study. Per the report this was considered negative for evidence of stress-induced myocardial ischemia or infarction. The reported LVEF was 48%. She also had a chest x-ray reported at that time. There did not appear to be any acute cardiopulmonary disease process reported. Today she had recurrent discomfort. She was evaluated by the EMS. She was noted to be in an underlying SVT. She received IV adenosine. According to the cardiac rhythm strips it appeared she had abrupt termination of her SVT and return to sinus rhythm. However despite her return to sinus rhythm she is continue to complain of her chest discomfort as noted above. Thus she underwent additional evaluation with a chest CTA. Per the report there was no evidence of pulmonary embolism, no aortic dissection, atherosclerotic calcification of the aortic arch, no coronary artery calcification reported, and a moderate sized hiatal hernia reported. She states she is aware of the hiatal hernia. She has been on medical management. She states she attempts to avoid foods that will irritate this. She also states that the head of her bed has been elevated to assist with her hiatal hernia. She believes she was told years ago that she was not a candidate at that time for any type of surgical intervention. Her ECG demonstrated sinus tachycardia with low voltage QRS. It appeared to demonstrate findings compatible with a hiatal hernia but otherwise no acute cardiopulmonary findings. In the emergency department she was treated medically. This did include IV morphine. [facility] Medical History (Updated 02/07/22 @ 15:[address] Jourdan Brasher, ) Arthritis Depression Fatigue GERD (gastroesophageal reflux disease) HTN (hypertension) Knee pain Shoulder pain Home Medications omeprazole 20 mg capsule,delayed release 40 mg PO DAILY 06/09/19 [History Last Taken Unknown] atenolol 50 mg tablet 25 mg PO DAILY 08/31/19 [History Last Taken Unknown] dicyclomine 10 mg capsule 20 mg PO BID 08/31/19 [History Last Taken Unknown] sertraline 25 mg tablet 100 mg PO DAILY 08/31/19 [History Last Taken Unknown] bupropion HCl 150 mg 24 hr tablet, extended release 150 mg PO DAILY 02/07/22 [History Last Taken Unknown] Allergy/AdvReac Type Severity Reaction Status Date / Time No Known Allergies Allergy Verified 02/07/22 11:24 Family History Other CVA (cerebral vascular accident) Cancer Heart disease Surgical History Hx of kyphoplasty (~2017) Social History Smoking Status: Never smoker ROS Constitutional Constitutional: Reports as per HPI Eyes Eyes: Reports as per HPI ENT HEENT: Reports as per HPI Cardiovascular Cardiovascular: Reports chest pain, chest pain at rest and nausea Respiratory/Chest Respiratory/Chest: Reports as per HPI Gastrointestinal Gastrointestinal: Reports dyspepsia Genitourinary Genitourinary: Reports as per HPI Musculoskeletal Musculoskeletal: Reports as per HPI Integumentary Integumentary: Reports as per HPI Neurologic Neurologic: Reports as per HPI Psychiatric Psychiatric: Reports as per HPI Physical Exam Const alert, oriented x3 and no apparent distress Orientation / Consciousness: awake HEENT normocephalic, head/scalp atraumatic and hearing grossly normal bilaterally Eyes PERRL, EOMs intact bilaterally, conjunctivae normal and no scleral icterus Neck full ROM, supple and no JVD Carotids: normal carotid upstroke Resp normal respiratory effort and clear to auscultation bilaterally Cardio regular rate, regular rhythm, S1 normal heart sound and S2 normal heart sound Palpation: normal PMI GI normal to inspection, nondistended, normoactive bowel sounds Extremity no pedal edema Skin no rashes or lesions noted Psych mental status grossly normal Risk Stratification Risk Stratification Applicable: Yes Age >/= 65: Yes >/= 3 CAD Risk Factors (HTN, HLD, DM, family hx of CAD, or current smoker): No Aspirin Use in the Past 7 Days: No Severe Angina (>/= episodes in 24 hours): Yes EKG ST Changes >/= 0.5mm: No Positive Cardiac Marker: No JUDITH Risk Stratification Score: 2 JUDITH % Risk: 8% Risk Procedure Criteria Type of Procedure Procedure Type: Elective Elective Risks - COVID COVID Risk Discussion: The surgeon/proceduralist and patient have discussed in detail the risk of exposure to and/or potential harm posed by the COVID-19 virus with having a surgery/procedure at this time versus the risk of delaying the surgery/procedure. It is not possible to know either the risk of delaying the surgery or procedure or chance of getting an infection with perfect accuracy, but a joint decision was made between the patient and the surgeon/proceduralist to proceed at this time with the scheduled surgery/procedure as indicated on the consent form. Objective Data Vital Signs: Vital Signs Temp Pulse Resp BP Pulse Ox O2 Del Method 98.7 F 85 16 114/73 98 Room Air 02/07/22 15:16 02/07/22 15:16 02/07/22 15:16 02/07/22 15:16 02/07/22 15:16 02/07/22 16:28 Oxygen Delivery Method Room Air Weight: 164 lb 14.492 oz Body Mass Index (BMI) 26.6 Intake & Output: Intake and Output for Last 24 Hours 02/05/22 02/06/22 02/07/22 23:59 23:59 23:59 Intake Total 1000 / 1000 Balance 1000 / 1000 Lab / Micro Data Result Diagrams: 02/07/22 11:35 02/07/22 11:35 Labs: Laboratory Results - last 24 hr 02/07/22 11:35: WBC 8.3, RBC 4.73, Hgb 13.3, Hct 41.9, MCV 88.6, MCH 28.1, MCHC 31.7 L, RDW Std Deviation 41.8, RDW Coeff of Nataliia 12.9, Plt Count 284, MPV 10.3, Immature Gran % (Auto) 0.400, Neut % (Auto) 77.8 H, Lymph % (Auto) 16.1 L, [place] % (Auto) 5.1, Eos % (Auto) 0.0, Baso % (Auto) 0.6, Absolute Neuts (auto) 6.5, Absolute Lymphs (auto) 1.34, Nucleated RBC % 0 02/07/22 11:35: Sodium 139, Potassium 3.9, Chloride 106, Carbon Dioxide 21.0, Anion Gap 12, BUN 12, Creatinine 1.17 H, Estim Creat Clear Calc 40.09, Est GFR (MDRD) Af Amer 58 L, Est GFR (MDRD) Non-Af 48 L, BUN/Creatinine Ratio 10.3, Glucose 137 H, Calcium 8.9, Troponin I High Sens 10 02/07/22 11:35: D-Dimer Quant (PE/DVT) 0.46 02/07/22 14:32: Troponin I High Sens 40 Cardiology Labs/Tests 02/07/22 11:35: WBC 8.3, RBC 4.73, Hgb 13.3, Hct 41.9, MCV 88.6, MCH 28.1, MCHC 31.7 L, Plt Count 284, MPV 10.3, Immature Gran % (Auto) 0.400, Neut % (Auto) 77.8 H, Lymph % (Auto) 16.1 L, [place] % (Auto) 5.1, Eos % (Auto) 0.0, Baso % (Auto) 0.6, Absolute Neuts (auto) 6.5, Nucleated RBC % 0 02/07/22 11:35: Sodium 139, Potassium 3.9, Chloride 106, Carbon Dioxide 21.0, Anion Gap 12, BUN 12, Creatinine 1.17 H, Est GFR (MDRD) Af Amer 58 L, Est GFR (MDRD) Non-Af 48 L, BUN/Creatinine Ratio 10.3, Glucose 137 H, Calcium 8.9 02/07/22 11:35: D-Dimer Quant (PE/DVT) 0.46 Rhythm: Sinus rhythm EKG: As noted above ECHO: As noted above Stress Test: As noted Radiography Diagnostic Testing: Radiology Impression Chest X-Ray 02/07/22 12:45 IMPRESSION: Hyperinflation. The lungs are clear. Moderate-sized hiatal hernia. Electronically Signed: Fabian Massey MD at 13:01 EST , Chest CTA 02/07/22 13:33 IMPRESSION: No evidence of pulmonary embolism. Mild degree of increased markings at the lung bases suggestive of mild degree of bibasilar atelectasis. Moderate sized hiatal hernia. Electronically Signed: Fabian Massey MD at 14:53 EST , Chest X-Ray 02/07/22 15:25 IMPRESSION: Stable examination. Electronically Signed: Fabian Massey MD at 15:47 EST ,
[2022-02-07] MEDS: Nitroglycerin Oint 1 INCH PACKET 0.5 INCH TD (18:25)
[2022-02-07] MEDS: Ensure Plus High Protein 120 ML LIQUID PO (18:30)
--- NOTE | 2022-02-07 18:35 | EKG12_ITS ---
Test Reason : cp Blood Pressure : / mmHG Vent. Rate : 082 BPM Atrial Rate : 082 BPM P-R Int : 200 ms QRS Dur : 092 ms QT Int : 358 ms P-R-T Axes : 059 011 049 degrees QTc Int : 418 ms Normal sinus rhythm Low voltage QRS Borderline ECG When compared with ECG of 07-FEB-2022 11:27, MANUAL COMPARISON REQUIRED, DATA IS UNCONFIRMED Confirmed by SANDOVAL QUINONES, GAVIOTA ([id number]), society editor LAURA HARRINGTON ([id number]) on 02/16/2022 7:21:58 AM Referred By: Gilda Confirmed By:GAVIOTA NICK MD
--- NOTE | 2022-02-07 18:40 | EKG12_ITS ---
Test Reason : cp Blood Pressure : / mmHG Vent. Rate : 124 BPM Atrial Rate : 125 BPM P-R Int : 000 ms QRS Dur : 102 ms QT Int : 340 ms P-R-T Axes : 000 043 126 degrees QTc Int : 488 ms Atrial fibrillation Nonspecific T wave abnormality Abnormal ECG When compared with ECG of 07-FEB-2022 17:32, MANUAL COMPARISON REQUIRED, DATA IS UNCONFIRMED Confirmed by SANDOVAL QUINONES, GAVIOTA ([id number]), editor department LAURA HARRINGTON ([id number]) on 02/20/2022 11:12:21 AM Referred By: Confirmed By:GAVIOTA NICK MD
[2022-02-07 18:48] LABS: Troponin-I HS 51 pg/mL (3.0-54.0)
[2022-02-07] MEDS: Ketorolac 15 MG/ML Vial IV (19:27)
[2022-02-07] MEDS: Enoxaparin 80 MG/0.8 ML Syringe 70 MG SC (19:27)
[2022-02-08] VITALS (26 sets, daily range): BP systolic 81–143; BP diastolic 50–74; PULSE 76–115; RESP 14–20; TEMP 36.6–36.8; O2SAT 93–100; BMI 26.6
--- NOTE | 2022-02-08 00:22 | PCM.HOSP.N ---
Hospitalist Note Patient with low BP, administered 500 cc bolus with repeat 105/81. Patient with recent transition to metoprolol 50 mg BID. Will hold metoprolol 50 mg and trial 25 mg x 1 as recent transition from atenolol for SVT. Rate currently 120s.
[2022-02-08] MEDS: 0.9% Saline Lock 10 ML Syringe IV (00:40)
[2022-02-08] MEDS: Ondansetron 4 MG/2 ML Vial IV ×2 (00:40→16:11)
[2022-02-08 04:32] LABS: Absolute Lymphocyte Count 1.77 X10^3/uL (0.83-4.51); Basophil# 0.06 X10^3/uL; Basophil% 0.8 % (0-1); Hematocrit 36.2 % (37-47); Hemoglobin 11.7 g/dL (12.0-15.0); Lymphocyte # 1.77 X10^3/ul (0.83-4.51); Lymphocyte % 24.2 % (19-41); Mean Corp Hgb Conc 32.3 g/dL (32-36); Mean Corpuscular Hgb 28.5 pg (27.0-32.0); Mean Corpuscular Volume 88.1 fL (81-99); Mean Platelet Vol. 10.4 fl (6.2-12.0); Monocyte# 0.45 X10^3/uL; Monocyte% 6.2 % (0-10); NRBC Flagged by Analyzer 0 % (0-5); Neutrophil # 5.02 X10^3/uL (2.7-7.7); Neutrophil % 68.7 % (47-70); Platelet Count 246 K/mm3 (150-450); RBC Distribution Width CV 13.3 % (11.6-14.6); Red Blood Count 4.11 M/mm3 (4.2-5.4); White Blood Count 7.3 K/mm3 (4.4-11.0)
[2022-02-08 05:05] LABS: Anion Gap 5 (5-15); BUN 12 mg/dL (7-18); BUN/Creat Ratio 10.7 RATIO (10-20); Calcium,Total 8.6 mg/dL (8.5-10.1); Chloride 108 mmol/L (98-107); Cholesterol 120 mg/dL (200); Creatinine, Serum 1.12 mg/dL (0.55-1.02); EST Glomerular Filtration Rate 51 mL/min (>60); Est Glom Filt Rate - Afr Amer 61 mL/min (>60); Estimated Creatinine Clearance 41.88 ml/min; Glucose 92 mg/dL (74-106); High Density Lipoprotein 54 mg/dL; Potassium 4.7 mmol/L (3.5-5.1); Sodium Level 138 mmol/L (136-145); Triglycerides 123 mg/dL; Very Low Density Lipoprotein 25 mg/dL (5-40)
[2022-02-08] MEDS: Aspirin E.C. 81 MG Tablet PO (05:27)
--- NOTE | 2022-02-08 07:23 | NURSING ---
This RN gave report to agricultural labor camp manager.
--- NOTE | 2022-02-08 08:39 | PN.CARD_ITS ---
Subjective Subjective The patient stated last evening she had episodes of her chest discomfort. She had been treated medically from a cardiac and noncardiac standpoint. From a noncardiac standpoint this included an attempt at anti-inflammatory therapy with IV Toradol. She states this may have helped somewhat . The patient is now status post diagnostic cardiac catheterization. In brief, her left ventriculogram demonstrated what appeared to be overall preserved LV wall motion and systolic function/LVEF. Her coronary anatomy demonstrated no angiographically significant/obstructive CAD. Objective Data Vital Signs: Vital Signs Temp Pulse Resp BP Pulse Ox O2 Del Method 97.9 F 81 18 99/60 98 Room Air 02/08/22 06:52 02/08/22 07:00 02/08/22 06:52 02/08/22 06:52 02/08/22 06:52 02/08/22 06:52 Oxygen Delivery Method Room Air Weight: 164 lb 14.492 oz Body Mass Index (BMI) 26.6 Intake & Output: Intake and Output for Last 24 Hours 02/06/22 02/07/22 02/08/22 23:59 23:59 23:59 Intake Total 1900 / 1900 Balance 1900 / 190 Lab / Micro Data Result Diagrams: 02/08/22 03:50 02/08/22 03:50 Labs: Laboratory Results - last 24 hr 02/07/22 11:35: WBC 8.3, RBC 4.73, Hgb 13.3, Hct 41.9, MCV 88.6, MCH 28.1, MCHC 31.7 L, RDW Std Deviation 41.8, RDW Coeff of Nataliia 12.9, Plt Count 284, MPV 10.3, Immature Gran % (Auto) 0.400, Neut % (Auto) 77.8 H, Lymph % (Auto) 16.1 L, [place] % (Auto) 5.1, Eos % (Auto) 0.0, Baso % (Auto) 0.6, Absolute Neuts (auto) 6.5, Absolute Lymphs (auto) 1.34, Nucleated RBC % 0 02/07/22 11:35: Sodium 139, Potassium 3.9, Chloride 106, Carbon Dioxide 21.0, Anion Gap 12, BUN 12, Creatinine 1.17 H, Estim Creat Clear Calc 40.09, Est GFR (MDRD) Af Amer 58 L, Est GFR (MDRD) Non-Af 48 L, BUN/Creatinine Ratio 10.3, Glucose 137 H, Calcium 8.9, Troponin I High Sens 10 02/07/22 11:35: D-Dimer Quant (PE/DVT) 0.46 02/07/22 14:32: Troponin I High Sens 40 02/07/22 18:10: Troponin I High Sens 51 02/08/22 03:50: WBC 7.3, RBC 4.11 L, Hgb 11.7 L, Hct 36.2 L, MCV 88.1, MCH 28.5, MCHC 32.3, RDW Std Deviation 43.0, RDW Coeff of Nataliia 13.3, Plt Count 246, MPV 10.4, Immature Gran % (Auto) 0.100, Neut % (Auto) 68.7, Lymph % (Auto) 24.2, [place] % (Auto) 6.2, Eos % (Auto) 0.0, Baso % (Auto) 0.8, Absolute Neuts (auto) 5.0, Absolute Lymphs (auto) 1.77, Nucleated RBC % 0 02/08/22 03:50: Sodium 138, Potassium 4.7, Chloride 108 H, Carbon Dioxide 25.0, Anion Gap 5, BUN 12, Creatinine 1.12 H, Estim Creat Clear Calc 41.88, Est GFR (MDRD) Af Amer 61, Est GFR (MDRD) Non-Af 51 L, BUN/Creatinine Ratio 10.7, Glucose 92, Calcium 8.6, Triglycerides 123, Cholesterol 120, LDL Cholesterol 41, VLDL Cholesterol 25, HDL Cholesterol 54 Cardiology Labs/Tests 02/07/22 11:35: WBC 8.3, RBC 4.73, Hgb 13.3, Hct 41.9, MCV 88.6, MCH 28.1, MCHC 31.7 L, Plt Count 284, MPV 10.3, Immature Gran % (Auto) 0.400, Neut % (Auto) 77.8 H, Lymph % (Auto) 16.1 L, [place] % (Auto) 5.1, Eos % (Auto) 0.0, Baso % (Auto) 0.6, Absolute Neuts (auto) 6.5, Nucleated RBC % 0 02/07/22 11:35: Sodium 139, Potassium 3.9, Chloride 106, Carbon Dioxide 21.0, Anion Gap 12, BUN 12, Creatinine 1.17 H, Est GFR (MDRD) Af Amer 58 L, Est GFR (MDRD) Non-Af 48 L, BUN/Creatinine Ratio 10.3, Glucose 137 H, Calcium 8.9 02/07/22 11:35: D-Dimer Quant (PE/DVT) 0.46 02/08/22 03:50: WBC 7.3, RBC 4.11 L, Hgb 11.7 L, Hct 36.2 L, MCV 88.1, MCH 28.5, MCHC 32.3, Plt Count 246, MPV 10.4, Immature Gran % (Auto) 0.100, Neut % (Auto) 68.7, Lymph % (Auto) 24.2, [place] % (Auto) 6.2, Eos % (Auto) 0.0, Baso % (Auto) 0.8, Absolute Neuts (auto) 5.0, Nucleated RBC % 0 02/08/22 03:50: Sodium 138, Potassium 4.7, Chloride 108 H, Carbon Dioxide 25.0, Anion Gap 5, BUN 12, Creatinine 1.12 H, Est GFR (MDRD) Af Amer 61, Est GFR (MDRD) Non-Af 51 L, BUN/Creatinine Ratio 10.7, Glucose 92, Calcium 8.6, Triglycerides 123, Cholesterol 120, LDL Cholesterol 41, VLDL Cholesterol 25, HDL Cholesterol 54 Rhythm: Sinus rhythm/sinus tachycardia Radiography Diagnostic Testing: Radiology Impression Chest X-Ray 02/07/22 12:45 IMPRESSION: Hyperinflation. The lungs are clear. Moderate-sized hiatal hernia. Electronically Signed: Fabian Massey MD at 13:01 EST , Chest CTA 02/07/22 13:33 IMPRESSION: No evidence of pulmonary embolism. Mild degree of increased markings at the lung bases suggestive of mild degree of bibasilar atelectasis. Moderate sized hiatal hernia. Electronically Signed: Fabian Massey MD at 14:53 EST , Chest X-Ray 02/07/22 15:25 IMPRESSION: Stable examination. Electronically Signed: Fabian Massey MD at 15:47 EST , Physical Exam Const alert, oriented x3 and no apparent distress Orientation / Consciousness: awake HEENT normocephalic, head/scalp atraumatic and hearing grossly normal bilaterally Eyes PERRL, EOMs intact bilaterally, conjunctivae normal and no scleral icterus Neck full ROM, supple and no JVD Carotids: normal carotid upstroke Resp normal respiratory effort and clear to auscultation bilaterally Cardio regular rate, regular rhythm, S1 normal heart sound and S2 normal heart sound Palpation: normal PMI GI normal to inspection, nondistended, normoactive bowel sounds Extremity no pedal edema Extremity Narrative: Right radial artery area: Positive TR band in place Skin no rashes or lesions noted Psych mental status grossly normal Assessment & Plan Assessment/Plan (1) Unstable angina: PLAN: The patient has undergone further objective cardiovascular evaluation. Her cardiac enzymes have remained negative. Her ECGs have demonstrated no acute ST/T wave changes. Her cardiac catheterization has demonstrated no angiographically significant/obstructive CAD. Thus there is concern that her symptoms are not related to underlying cardiovascular disease based upon her cardiac catheterization findings and no obvious evidence of ongoing myopericarditis. Thus she should be considered for further noncardiac evaluation of her chest discomfort. (2) SVT (supraventricular tachycardia): PLAN: The patient has a history of SVT. 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 At the present time she will continue medical therapy with her beta-vicente. Over time she can be considered for referral to electrophysiology for consideration for EPS/RFA. (3) History of hypertension: PLAN: The patient's blood pressure will need to be monitored with medications adjusted accordingly. (4) Hernia, hiatal: PLAN: Plan The patient does have a hiatal hernia. Its been reported as at least moderate in the size. She does appear to have a history of symptoms related to it. She may need a ventral evaluation by general surgery as to whether or not there is any other nonmedical options to assist with her hiatal hernia. Addt'l Comments The above was discussed and reviewed with the patient. This note was generated using a voice recognition system and there may be incorrect words, spelling or punctuation that were not noted when reviewing the office note prior to saving. Procedure Criteria Type of Procedure Procedure Type: Elective Elective Risks - COVID COVID Risk Discussion: The surgeon/proceduralist and patient have discussed in detail the risk of ex posure to and/or potential harm posed by the COVID-19 virus with having a surgery/procedure at this time versus the risk of delaying the surgery/procedure. It is not possible to know either the risk of delaying the surgery or procedure or chance of getting an infection with perfect accuracy, but a joint decision was made between the patient and the surgeon/proceduralist to proceed at this time with the scheduled surgery/procedure as indicated on the consent form.
--- NOTE | 2022-02-08 08:55 | CL.D_ITS ---
Patient Name: DEBORA BOURGEOIS Study Date: 02/08/2022 Performing: Balaji Baker MD Ht: 66 inches 167.64 cm : 1950 Wt: 165.1 lbs 74.8 kg Age: 72 Gender: female BSA: 1.84 PROCEDURE(S) PERFORMED DC01-(03082)LHC/COR/LV CLINICAL PROFILE AND INDICATIONS Indications: Worsening Angina, Suspected CAD, Cardiac Arrythmia Heart Failure: None Stress/Imaging Date: 12/01/2021tress Test with SPECT MPI: Negative Angina Classification Anginal Classification w/in 2 Weeks: CCS IV CAD Presentations: Unstable angina. CONCLUSIONS Normal Left Ventricular End Diastolic Pressure Normal LV size, wall motion,and systolic function LVEF: by LV gram 65 % Single vessel CAD of the RCA: non obstructive RECOMMENDATIONS Risk factor modification Medical therapy DESCRIPTION OF PROCEDURE The patient arrived to the procedure lab. The risks and benefits of the procedure as well as a full description of our services here and current unavailability of surgical backup were fully explained to the patient and/or their significant other prior to the catheterization. The Timeout was completed, verifying the correct patient and procedure. The patient's procedural site was prepped and draped in the usual fashion. Local anesthetic was given subcutaneously to right radial region with Lidocaine 2%. Using a modified Seldinger technique, arterial access was obtained via the right radial artery, a 6Fr sheath was inserted. Left Coronary Artery selective angiography was performed in multiple views using a 5 Fr. 4.0 Sherman catheter. Right Coronary Artery selective angiography was then performed in multiple views using a 5 Fr. 4.0 Sherman catheter. Left Ventriculography was performed in BALDWIN projection using a 5 Fr. Pigtail catheter. LV to AO pullback pressures were then recorded.The arterial sheath was pulled and a TR Band was applied for hemostasis. 10cc of air CORONARY ANGIOGRAPHY DOMINANCE: Right Dominant LEFT HEART ASSESSMENT Left Ventricular Ejection Fraction: by LV Gram 65 % Normal LV wall motion Normal Left Ventricular End Diastolic Pressure LVEDP: 10 mmHg LEFT MAIN: Angiographically normal LEFT ANTERIOR DESCENDING ARTERY: Angiographically normal CIRCUMFLEX ARTERY: Angiographically normal RIGHT CORONARY ARTERY: PROX RCA: Mild luminal irregularities AORTIC ROOT: Angiographically normal COMPLICATIONS No Complications PROCEDURE MEDICATIONS Fentanyl 50 mcg IV Versed 1 mg IV Oxygen: 2 L/min via nasal cannula Benadryl 50 mg IV @ 02/08/2022 08:34:40 Heparin given IA 02/08/2022 08:20:47 Verapamil 2.5mg, Ntg 100mcgs, 3000 units of Heparin given IA 02/08/2022 08:20:47 SUMMARY OF HEMODYNAMIC DATA Time AIR REST ECG 07:42:43 Art 125/61 (85) 08:02:22 AO 95/57 (77) SA 08:22:58 LV 114/-6, 14 08:27:54 LV 120/-9, 10 08:28:00 LV 113/-7, 12 08:28:44 LVp 110/-9, 11 08:28:51 AOp 114/45 (76) 08:28:56 Signed By Balaji Baker MD On 02/08/2022 08:55:01 Balaji Baker MD
[2022-02-08] MEDS: 0.9% Normal Saline 1,000 ML 75 ML IV ×2 (09:18→20:29)
[2022-02-08] MEDS: Ensure Plus High Protein 120 ML LIQUID PO ×3 (09:55→17:42)
[2022-02-08] MEDS: Pantoprazole Sodium 40 MG Tablet PO (09:58)
[2022-02-08] MEDS: Dicyclomine 10 MG Capsule 20 MG PO ×2 (09:58→22:37)
[2022-02-08] MEDS: Sertraline 100 MG Tablet PO (09:59)
[2022-02-08] MEDS: buPROPion (XL) 150 MG TABLET.XL PO (09:59)
[2022-02-08] MEDS: Calcium Carbonate 500 MG Tablet 1000 MG PO ×2 (11:47→16:00)
[2022-02-08] MEDS: Nitroglycerin Oint 1 INCH PACKET 0.5 INCH TD (13:12)
--- NOTE | 2022-02-08 15:21 | CASEMGMT ---
KLAUS CM in to complete MEJIA form with patient. RN YELENA explained MEJIA form to patient, patient voiced understanding. Patient signed MEJIA form and filed in chart. Patient provided with copy of signed MEJIA Form. Patient had no further questions or concerns at this time.
--- NOTE | 2022-02-08 17:04 | PN.HOSP_ITS ---
Subjective Subjective Follow-up as being/unstable angina/SVT: Patient was seen and examined. She underwent cardiac cath today that was e ssentially negative. Medical therapy was recommended. Discussed with cardiology, possible EPS referral later. Objective Data Objective Data Vital Signs: Vital Signs Temp Pulse Resp BP Pulse Ox O2 Del Method 97.9 F 97 16 143/74 H 97 Room Air 02/08/22 16:05 02/08/22 16:05 02/08/22 16:05 02/08/22 16:05 02/08/22 16:05 02/08/22 16:05 Oxygen Delivery Method Room Air Weight: 74.8 kg Body Mass Index (BMI) 26.6 Intake & Output: Intake and Output for Last 24 Hours 02/06/22 02/07/22 02/08/22 23:59 23:59 23:59 Intake Total 1899 / 1899 413.25 / 413.25 Balance 1899 413.25 / 413.25 Lab / Micro Data Result Diagrams: 02/08/22 03:50 02/08/22 03:50 Labs: Laboratory Results - last 24 hr 02/07/22 18:10: Troponin I High Sens 51 02/08/22 03:50: WBC 7.3, RBC 4.11 L, Hgb 11.7 L, Hct 36.2 L, MCV 88.1, MCH 28.5, MCHC 32.3, RDW Std Deviation 43.0, RDW Coeff of Nataliia 13.3, Plt Count 246, MPV 10.4, Immature Gran % (Auto) 0.100, Neut % (Auto) 68.7, Lymph % (Auto) 24.2, [place] % (Auto) 6.2, Eos % (Auto) 0.0, Baso % (Auto) 0.8, Absolute Neuts (auto) 5.0, Absolute Lymphs (auto) 1.77, Nucleated RBC % 0 02/08/22 03:50: Sodium 138, Potassium 4.7, Chloride 108 H, Carbon Dioxide 25.0, Anion Gap 5, BUN 12, Creatinine 1.12 H, Estim Creat Clear Calc 41.88, Est GFR (MDRD) Af Amer 61, Est GFR (MDRD) Non-Af 51 L, BUN/Creatinine Ratio 10.7, Glucose 92, Calcium 8.6, Triglycerides 123, Cholesterol 120, LDL Cholesterol 41, VLDL Cholesterol 25, HDL Cholesterol 54 Physical Exam Narrative Physical exam: General: Alert, Oriented x3, Cooperative, appears frail HEENT: Atraumatic Oral: Moist Mucosa Neck: Supple Lungs: Clear to auscultation Cardiovascular: HS I+II, regular, no murmurs Abdomen: Bowel Sounds Present, Soft, Non Tender Extremities: No edema Skin: No rashes, No breakdown Neurological: Grossly intact Psych/Mental Status: Appropriate Assessment & Plan Assessment/Plan (1) Unstable angina: (2) Chest pain: (3) SVT (supraventricular tachycardia): PLAN: Plan 1. Acute chest pain/unstable angina status post cardiac cath that was unremarkable Continue aspirin, metoprolol 2. SVT, being medically managed, continue beta-vicente 3. Depression, continue bupropion, Zoloft 4. DVT PPx- SCDs Charges/Coding Visit Charges OBSV E&M: 18320 Subsequent observation care L3
[2022-02-08] MEDS: Metoprolol Tartrate 50 MG Tablet PO (22:37)
[2022-02-09 03:27] VITALS: BP 121/59; PULSE 74; RESP 18; TEMP 37; O2SAT 95
[2022-02-09 05:00] VITALS: PULSE 73
[2022-02-09 06:40] VITALS: BP 132/66; PULSE 69
[2022-02-09 07:00] VITALS: PULSE 77
[2022-02-09 08:22] VITALS: PULSE 72
[2022-02-09] MEDS: Aspirin E.C. 81 MG Tablet PO (08:22)
[2022-02-09] MEDS: Metoprolol Tartrate 50 MG Tablet PO (08:22)
[2022-02-09] MEDS: Pantoprazole Sodium 40 MG Tablet PO (08:22)
[2022-02-09] MEDS: Dicyclomine 10 MG Capsule 20 MG PO (08:22)
[2022-02-09] MEDS: buPROPion (XL) 150 MG TABLET.XL PO (08:22)
[2022-02-09] MEDS: Calcium Carbonate 500 MG Tablet 1000 MG PO (08:22)
[2022-02-09] MEDS: Sertraline 100 MG Tablet PO (08:23)
--- NOTE | 2022-02-09 09:00 | PN.CARD_ITS ---
Subjective Subjective The patient is awake and alert. She denies any new acute complaints. Objective Data Vital Signs: Vital Signs Temp Pulse Resp BP Pulse Ox O2 Del Method 98.6 F 72 18 132/66 H 95 Room Air 02/09/22 03:27 02/09/22 08:22 02/09/22 03:27 02/09/22 06:40 02/09/22 03:27 02/09/22 03:30 Oxygen Delivery Method Room Air Weight: 164 lb 14.492 oz Body Mass Index (BMI) 26.6 Intake & Output: Intake and Output for Last 24 Hours 02/07/22 02/08/22 02/09/22 23:59 23:59 23:59 Intake Total 1900 / 1900 1372.00 / 1372.00 Balance 1900 / 1900 1372.00 / 1372.00 Lab / Micro Data Result Diagrams: 02/08/22 03:50 02/08/22 03:50 Cardiology Labs/Tests Rhythm: Sinus rhythm Radiography Diagnostic Testing: Radiology Impression Echocardiogram 02/07/22 16:06 Interpretation Summary Left ventricular systolic function is normal. The estimated ejection fraction is 70 %. Mild (1+) eccentric tricuspid valve insufficiency. Right ventricular systolic pressure estimated to be 20 mmHg. No evidence for diastolic dysfunction. Ordering Physician: Jourdan Brasher Referring Physician: Michelle Hess Performed By: Jessica Brizuela RDCS Physical Exam Const alert, oriented x3 and no apparent distress Orientation / Consciousness: awake HEENT normocephalic, head/scalp atraumatic and hearing grossly normal bilaterally Eyes PERRL, EOMs intact bilaterally, conjunctivae normal and no scleral icterus Neck full ROM, supple and no JVD Carotids: normal carotid upstroke Resp normal respiratory effort and clear to auscultation bilaterally Cardio regular rate, regular rhythm, S1 normal heart sound and S2 normal heart sound Palpation: normal PMI GI normal to inspection, nondistended, normoactive bowel sounds Extremity no pedal edema Extremity Narrative: Right radial artery area: Pulse 2+/4+: No bruit: No hematoma Skin no rashes or lesions noted Psych mental status grossly normal Assessment & Plan Assessment/Plan (1) Unstable angina: PLAN: The patient has undergone further objective cardiovascular evaluation. Her cardiac enzymes have remained negative. Her ECGs have demonstrated no acute ST/T wave changes. Her echocardiogram appeared to demonstrate overall preserved left ventricular size, wall motion, and systolic function (please see official report). Her cardiac catheterization has demonstrated no angiographically significant/obstructive CAD. Thus, it does not appear that the patient's symptoms are related to concerns of underlying atherosclerotic coronary disease, mild pericardial disease, great vessel disease, or thromboembolic disease. Thus she should be considered for further noncardiac evaluation of her chest discomfort. (2) SVT (supraventricular tachycardia): PLAN: The patient has a history of SVT. 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 At the present time she will continue medical therapy with her beta-vicente. Over time she can be considered for referral to electrophysiology for c onsideration for EPS/RFA. (3) History of hypertension: PLAN: The patient's blood pressure will need to be monitored with medications adjusted accordingly. (4) Hernia, hiatal: PLAN: Plan The patient does have a hiatal hernia. Its been reported as at least moderate in the size. She does appear to have a history of symptoms related to it. She may need a ventral evaluation by general surgery as to whether or not there is any other nonmedical options to assist with her hiatal hernia. Addt'l Comments The patient's case was discussed and reviewed with the patient and Dr. Cespedes. Thank you for allowing me to participate in the care of your patient. Please don't hesitate to call if any issues arise. This note was generated using a voice recognition system and there may be incorrect words, spelling or punctuation that were not noted when reviewing the office note prior to saving. Procedure Criteria Type of Procedure Procedure Type: Elective Elective Risks - COVID COVID Risk Discussion: The surgeon/proceduralist and patient have discussed in detail the risk of exposure to and/or potential harm posed by the COVID-19 virus with having a surgery/procedure at this time versus the risk of delaying the surgery/procedure. It is not possible to know either the risk of delaying the surgery or procedure or chance of getting an infection with perfect accuracy, but a joint decision was made between the patient and the surgeon/proceduralist to proceed at this time with the scheduled surgery/procedure as indicated on the consent form.
[2022-02-09 09:25] VITALS: BP 131/70; PULSE 70; RESP 14; TEMP 36.6; O2SAT 97
--- NOTE | 2022-02-09 10:52 | DCINST_ITS ---
Discharge Instructions Diet Discharge Diet: Low fat / Low cholesterol and 2000 mg Sodium Diet Activity Discharge Activity: Return to Normal Activity Follow Up Care Test Results: Test results from this visit will be discussed in further detail at your follow- up appointment, if applicable. Discharge Plan Admission Admit Date/Time: 02/07/22 15:33 Primary Reason for Your Visit: Chest pain Attending Provider: Jodie Cespedes Primary Care Provider: Michelle Hess Consulting Providers: Balaji Baker ; Jourdan Brasher Instructions Additional Instructions / Restrictions: Continue with all your medications as prescribed. Follow-up with your primary care doctor within 1 week. Follow-up with cardiology within 1 to 2 weeks. Discharge Orders/Prescriptions Prescriptions: Continued omeprazole 20 mg capsule,delayed release(DR/EC) 40 mg PO DAILY sertraline 25 mg tablet 100 mg PO DAILY dicyclomine 10 mg capsule 20 mg PO BID atenolol 50 mg tablet 25 mg PO DAILY bupropion HCl 150 mg tablet extended release 24 hr 150 mg PO DAILY Referrals / Follow Up: Michelle Hess MD [Primary Care Provider] - In 1 Week Balaji Baker MD [Med Staff - Active Staff] - Within 1 Week Disposition Disposition (needs filled in before D/C Order can be placed): Home, Self Care
--- NOTE | 2022-02-09 10:54 | PCM.DC.SUM ---
Providers Date of Admission: 02/07/22 Date of Discharge: 02/09/22 Primary Care Physician: Dr. Michelle Hess MD Consultations 02/07/22 16:06 Consult: Cardiology Routine Consulting Provider: Balaji Baker Reason for Consult: chest pain EMERGENT Consult: No MD Notified: Yes Date Notified: 02/07/22 Time Notified: 15:41 Method of Notification: Verbal Reason For Visit: UNSTABLE ANGINA Diagnosis Discharge Diagnosis (1) Unstable angina: Status: Acute Code(s): I20.0 - Unstable angina (2) SVT (supraventricular tachycardia): Status: Acute Code(s): I47.1 - Supraventricular tachycardia (3) History of hypertension: Status: Acute Code(s): Z86.79 - Personal history of other diseases of the circulatory system (4) Hernia, hiatal: Status: Acute Code(s): K44.9 - Diaphragmatic hernia without obstruction or gangrene Plan 1. Acute chest pain/unstable angina status post cardiac cath that was unremarkable Continue aspirin, metoprolol 2. SVT, being medically managed, continue beta-vicente 3. Depression, continue bupropion, Zoloft 4. DVT PPx- SCDs Medications at Discharge Home Medications omeprazole 20 mg capsule,delayed release 40 mg PO DAILY 06/09/19 dicyclomine 10 mg capsule 20 mg PO BID 08/31/19 sertraline 25 mg tablet 100 mg PO DAILY 08/31/19 bupropion HCl 150 mg 24 hr tablet, extended release 150 mg PO DAILY 02/07/22 metoprolol tartrate 50 mg tablet 50 mg PO BID 30 days #60 tabs 02/09/22 Hospital Course Operations None Procedures 2-D Echocardiogram and Cardiac catheterization Summary of Care Provided Minutes Spent on Discharge: 35 Hospital Course: 72-year-old female with past medical history of hypertension, GERD who comes in with complaints of chest pain that began on the morning of admission. Chest pain was midsternal, involved the abdomen, associated with nausea, radiated to left arm. Patient stated that she had a similar episode 2 months ago and had a stress test that was negative. Patient was found to be in SVT when the EMS got there. She received 6 mg of adenosine and was in normal sinus rhythm subsequently. Patient was admitted to the progressive care unit, cardiology was consulted for unstable angina as patient had persistent chest pain. CT of the chest did not show any acute PE. EKG did not show any acute ST-T change. Patient underwent cardiac catheterization 02/08/2022 that was unremarkable. 2D echo showed EF of 70%. Patient's chest discomfort improved with Tums. She was discharged on metoprolol instead of atenolol. She will follow-up with cardiology within 1 to 2 weeks. She was asked to follow-up for further evaluation of her moderate size hiatal hernia seen on CT of the chest. Physical Exam Narrative Physical exam: General: Alert, Oriented x3, Cooperative, appears frail HEENT: Atraumatic Oral: Moist Mucosa Neck: Supple Lungs: Clear to auscultation Cardiovascular: HS I+II, regular, no murmurs Abdomen: Bowel Sounds Present, Soft, Non Tender Extremities: No edema Skin: No rashes, No breakdown Neurological: Grossly intact Psych/Mental Status: Appropriate Weight / BMI Weight Weight: 74.8 kg Body Mass Index (BMI) 26.6 ABG / Lab / Microbiology Data Result Diagrams: 02/08/22 03:50 02/08/22 03:50 Radiography Diagnostic Testing: Radiology Impression Echocardiogram 02/07/22 16:06 Interpretation Summary Left ventricular systolic function is normal. The estimated ejection fraction is 70 %. Mild (1+) eccentric tricuspid valve insufficiency. Right ventricular systolic pressure estimated to be 20 mmHg. No evidence for diastolic dysfunction. Ordering Physician: Jourdan Brasher Referring Physician: Michelle Hess Performed By: Jessica Brizuela RDCS D/C Instructions Discharge Diet: Low fat / Low cholesterol and 2000 mg Sodium Diet Meaningful Use Info Meaningful Use Diagnoses (Choose all that apply): None applicable Discharge Plan Admission Admit Date/Time: 02/07/22 15:33 Primary Reason for Your Visit: Chest pain Attending Provider: Jodie Cespedes Primary Care Provider: Michelle Hess Consulting Providers: Balaji Baker ; Jourdan Brasher Instructions Additional Instructions / Restrictions: Continue with all your medications as prescribed. Follow-up with your primary care doctor within 1 week. Follow-up with cardiology within 1 to 2 weeks. Discharge Orders/Prescriptions Prescriptions: New metoprolol tartrate 50 mg tablet 50 mg PO BID 30 Days Qty: 60 0RF Continued omeprazole 20 mg capsule,delayed release(DR/EC) 40 mg PO DAILY sertraline 25 mg tablet 100 mg PO DAILY dicyclomine 10 mg capsule 20 mg PO BID bupropion HCl 150 mg tablet extended release 24 hr 150 mg PO DAILY Discontinued atenolol 50 mg tablet 25 mg PO DAILY Referrals / Follow Up: Michelle Hess MD [Primary Care Provider] - In 1 Week Balaji Baker MD [Med Staff - Active Staff] - Within 1 Week Disposition Disposition (needs filled in before D/C Order can be placed): Home, Self Care Charges/Coding Visit Charges Inpatient E&M: 37827 Disch Hosp
== END 2022-02-09 10:46 | disposition home or self-care (01) ==
LOC: ED 15:08 → PCU 16:01
PROVIDERS: Emergency Provider Emergency Medicine; PCP Family Medicine; Visit Provider Internal Medicine
DX: I25.110 Atherosclerotic heart disease of native coronary artery with unstable angina pectoris (principal); K44.9 Diaphragmatic hernia without obstruction or gangrene; I10 Essential (primary) hypertension; I95.9 Hypotension, unspecified; M19.90 Unspecified osteoarthritis, unspecified site; F32.A Depression, unspecified; Z79.899 Other long term (current) drug therapy; K21.9 Gastro-esophageal reflux disease without esophagitis
CPT/HCPCS: 36415; 71045; 71275; 80048; 80061; 84484; 85025; 85379; 93005; 93306; 93458; 96361; 96372; 96374; 96375; 96376; 97802; 99152; 99153; 99218; 99285; J7030; J7040; Q9967; A4216; C1769; C1894; G0378; J2405

== ENCOUNTER 2022-02-23 02:26 | Inpatient (IN) | payer MEDICARE, SELFPAY ==
[2022-02-23] VITALS (16 sets, daily range): BP systolic 100–161; BP diastolic 57–94; PULSE 67–87; RESP 18–20; TEMP 36.7–36.8; O2SAT 94–100; BMI 25.9
--- NOTE | 2022-02-23 03:20 | EKG12_ITS ---
Test Reason : CP ADMIT Blood Pressure : / mmHG Vent. Rate : 075 BPM Atrial Rate : 075 BPM P-R Int : 178 ms QRS Dur : 082 ms QT Int : 410 ms P-R-T Axes : 070 032 083 degrees QTc Int : 457 ms Normal sinus rhythm Nonspecific T wave abnormality Abnormal ECG When compared with ECG of 07-FEB-2022 18:40, Sinus rhythm has replaced Atrial fibrillation Vent. rate has decreased BY 49 BPM Nonspecific T wave abnormality now evident in Anterior leads Confirmed by GAVIOTA NICK MD ([id number]), material expeditor LAURA HARRINGTON ([id number]) on 02/26/2022 11:27:59 AM Referred By: Confirmed By:GAVIOTA NICK MD
--- NOTE | 2022-02-23 03:30 | PCM.HP.STD ---
HPI - General General Date of Admission: 02/23/22 Date of Service: 02/23/22 Chief Complaint: Chest pain HPI Narrative DEBORA BOURGEOIS, is a 72-year-old female with a significant history of unstable angina; hypertension and SVT who was transferred from [facility]. Reportedly patient reported to [facility] with chest pain. Associated with her symptoms was nausea and vomiting. Also patient does has had some shortness of breath. Patient report that her chest pain is substernal. The chest pain started suddenly on the same day of presentation (02/22/2022) to [facility]. The chest pain was persistent. She described chest pain as sharp. The chest pain was nonradiating. Intensity of the pain was 7 out of 10. She denies any aggravating or ameliorating factors to the chest pain. Initial high-sensitivity troponin at [facility] was 16.9. It increased to 38 and then 49.7 and then 57.1. Because patient follows up with cardiology and had heart cath (02/09/2020) at [facility]; [facility] ED physician discussed with Dr. Stratton hair designer. Per hair designer recommendation patient was given Lovenox and transferred to our hospital. Labs at [facility] included a white count of 16.3; H&H of 14/41; platelet of 475; sodium of 132; potassium 3.3; and creatinine of 1.23. [facility] Medical History Arthritis Depression Fatigue GERD (gastroesophageal reflux disease) HTN (hypertension) Knee pain Shoulder pain Home Medications omeprazole 20 mg capsule,delayed release 40 mg PO DAILY 06/09/19 [History Last Taken Unknown] dicyclomine 10 mg capsule 20 mg PO BID 08/31/19 [History Last Taken Unknown] sertraline 25 mg tablet 100 mg PO DAILY 08/31/19 [History Last Taken Unknown] bupropion HCl 150 mg 24 hr tablet, extended release 150 mg PO DAILY 02/07/22 [History Last Taken Unknown] metoprolol tartrate 50 mg tablet 50 mg PO BID 30 days #60 tabs 02/09/22 [Rx Last Taken Unknown] Allergy/AdvReac Type Severity Reaction Status Date / Time No Known Allergies Allergy Verified 02/07/22 11:24 Family History Other CVA (cerebral vascular accident) Cancer Heart disease Surgical History Hx of kyphoplasty (~2017) Social History Smoking Status: Never smoker ROS ROS Narrative Pertinent positives and pertinent negatives as noted in HPI. All other systems were reviewed and are negative Vital Signs Vital Signs Vital Signs: 02/23/22 02:43 02/23/22 03:00 02/23/22 03:23 Temperature 98.3 F Temperature Source Oral Pulse Rate 76 80 Respiratory Rate 20 H Respiratory Effort Normal Respiratory Depth Normal Respiratory Pattern Normal Blood Pressure 110/66 Blood Pressure Mean 80 Blood Pressure Source Monitor Blood Pressure Position Supine Blood Pressure Location Right Arm Pulse Ox 100 Oxygen Delivery Method Nasal Cannula Nasal Cannula Oxygen Flow Rate (L/min) 2 2 Weight Weight: 72.9 kg Body Mass Index (BMI) 25.9 Physical Exam Narrative Physical exam: General: Well-nourished, well-developed. Head: Normocephalic, atraumatic, no tenderness Eyes: Vision is grossly intact. EOMI ENT, no trauma, moist mucous membranes, no rhinorrhea Neck: Nontender, full range of motion. CVS: Regular rate and rhythm. S1-S2 present. No murmur, gallop or rub. Respiratory : Increased work of breathing. Clear to auscultation bilaterally, chest wall nontender, no wheezing Abdomen: Soft, nontender, nondistended, normal bowel sounds, no masses : Deferred Back: Nontender, no CVA tenderness, no midline spinal tenderness, deformities, step-offs Extremities: Nontender full range of motion, no trauma Skin: Normal color, no trauma, abrasions Neuro: Alert, oriented, cranial nerves II through XII grossly intact. Psychiatry: Normal mood. Normal affect. Not depressed. Not anxious. Assessment & Plan Assessment/Plan (1) NSTEMI, initial episode of care: PLAN: Plan Non-STEMI Place on a monitored bed at progressive care unit D-dimer at outside hospital 276 (normal 0-230) CT chest with contrast for PE at outside hospital no evidence of pulmonary embolism, no evidence of acute pulmonary abnormality, large hiatal hernia. Actual EKG tracing was independently visualized. EKG tracing showed T wave flattening in multiple leads which is unchanged from previous (02/07/2022) ASA 81 mg p.o. daily ordered SL NTG 0.4 mg prn as needed for chest pain ordered Morphine as needed for pain ordered Serial cardiac enzymes ordered Stat EKG as needed for chest pain Therapeutic dose of subcutaneous Lovenox ordered. Cardiology consult. On last hospitalization atenolol will change metoprolol. Metoprolol continued. HTN Blood pressure is stable Home metoprolol continued. Trend blood pressures. Depression Stable Hypokalemia Potassium 3.3 at outside hospital ED. Trend. DVT prophylaxis: Not indicated since the patient's is on Lovenox for non-STEMI. Charges/Coding Visit Charges Inpatient E&M: 81857 Init Hosp L2
[2022-02-23] MEDS: 0.9% Saline Lock 10 ML Syringe IV ×3 (04:13→12:41)
[2022-02-23] MEDS: Ondansetron 4 MG/2 ML Vial IV ×2 (04:14→12:24)
[2022-02-23] MEDS: Morphine 2 MG/ML Syringe IV ×2 (04:14→12:41)
[2022-02-23 05:06] LABS: Troponin-I HS 52 pg/mL (3.0-54.0)
[2022-02-23 05:16] LABS: Anion Gap 10 (5-15); BUN 15 mg/dL (7-18); BUN/Creat Ratio 14.9 RATIO (10-20); Calcium,Total 9.3 mg/dL (8.5-10.1); Chloride 95 mmol/L (98-107); Creatinine, Serum 1.01 mg/dL (0.55-1.02); EST Glomerular Filtration Rate 57 mL/min (>60); Est Glom Filt Rate - Afr Amer 69 mL/min (>60); Estimated Creatinine Clearance 46.44 ml/min; Glucose 113 mg/dL (74-106); Potassium 2.8 mmol/L (3.5-5.1); Sodium Level 133 mmol/L (136-145)
[2022-02-23 05:29] LABS: Absolute Lymphocyte Count 1.39 X10^3/uL (0.83-4.51); Absolute Neutrophil Count 10.9 X10^3/uL (2.0-7.7); Basophil# 0.02 X10^3/uL; Basophil% 0.2 % (0-1); Hematocrit 36.4 % (37-47); Hemoglobin 11.7 g/dL (12.0-15.0); Lymphocyte # 1.39 X10^3/ul (0.83-4.51); Lymphocyte % 10.5 % (19-41); Mean Corp Hgb Conc 32.1 g/dL (32-36); Mean Corpuscular Hgb 27.6 pg (27.0-32.0); Mean Corpuscular Volume 85.8 fL (81-99); Mean Platelet Vol. 9.9 fl (6.2-12.0); Monocyte# 0.91 X10^3/uL; Monocyte% 6.9 % (0-10); NRBC Flagged by Analyzer 0 % (0-5); Neutrophil # 10.92 X10^3/uL (2.7-7.7); Neutrophil % 82.1 % (47-70); Platelet Count 393 K/mm3 (150-450); RBC Distribution Width SD 40.3 fl (35.1-43.9); Red Blood Count 4.24 M/mm3 (4.2-5.4); White Blood Count 13.3 K/mm3 (4.4-11.0)
[2022-02-23 06:55] LABS: Troponin-I HS 50 pg/mL (3.0-54.0)
[2022-02-23] MEDS: Aspirin E.C. 81 MG Tablet PO (07:02)
[2022-02-23] MEDS: Metoprolol Tartrate 50 MG Tablet PO ×2 (07:02→20:48)
--- NOTE | 2022-02-23 07:51 | STEWCON_ITS ---
Reason For Study: Chest Pain Stress Results Protocol: Dobutamine Stress Echo With Definity Maximum Predicted HR: 147 bpm Target HR: 125 bpm % Maximum Predicted HR: 82 % Heart Stage Duration Rate BP Comment (mm:ss) (bpm) Baseline 62 117/666/10 Chest Pain; 3 ML Diluted Definity DSE 10 MCG 3:27 62 108/516/10 Chest Pain DSE 20 MCG 3:00 76 109/486/10 Chest Pain DSE 30 MCG 3:00 101 106/53Atropine 0.25 MG IVP At 8:40 Min; 6/10 Chest Pain DSE 40 7/10 Chest Pain; Vomitting; Dobutamine Terminiated D/T Hyperdynamic MCG 1:00 120 90/45Function Seen on Echo Recovery 86 107/606/10 Chest Pain Stress Duration: 10:27 mm:ss Maximum Stress HR: 120 bpm METS: 1 Baseline Echocardiogram Findings Stress Echo Wall motion Data Resting WM Intermediate WM Stress WM ECHO/Stress Test Echo W/Contrast Interpretation Summary Dobutamine stress echocardiogram. 72-year-old lady with a history of probable noncardiac chest pain.. Rest EKG demonstrates normal sinus rhythm with a rate of 68 bpm normal interval s are noted resting blood pressure is 117/66 mmHg. Dobutamine infusion was started at 10 mcg/kg/min and increased to a peak of 30 mcg/kg/min. 0.25 mg of atropine was administered. The patient attain ed a maximum heart rate of 120 bpm which was 81% of max impacted heart rate the maximum workload w as 1 metabolic equivalent. At rest and at peak infusion nonspecific ST changes were noted we d id not meet the criteria for ischemia. No clinical angina was noted. The test was terminated du e to termination of the test. Stress echocardiogram. Resting and stress echocardiographic images were obtaine d with Definity enhancement. The baseline echocardiogram demonstrated an ejection fraction of 6 0% with a low dose improving to 65% and a high dose at 80% with new chamber obliteration. No new w all motion abnormalities were noted to suggest ischemia. Conclusion: Dobutamine stress echo with no evidence of ischemia at an appropriate heart rat e. Ordering Physician: Atul Stratton Referring Physician: Atul Stratton Performed By: Lizzie Goncalves, JACKY, RVT
[2022-02-23] MEDS: Potassium Chloride Oral Tablet 20 MEQ 40 MEQ PO (08:32)
[2022-02-23] MEDS: Potassium Chloride 10mEq/100mL 10 MEQ/100 ML IV.SOLN. 100 MEQ IV BOLUS ×4 (08:32→15:02)
--- NOTE | 2022-02-23 09:12 | CON.PCM.CA_ITS ---
Assessment & Plan Assessment/Plan (1) Chest pain: PLAN: She presents with chest pain which is constant and likely noncardiac in etiology. Her cardiac enzymes here are normal. I will suggest that in view of her normal cardiac catheterization less than 2 weeks ago we perform some form of noninvasive stress testing and depending on the findings further recommendations will be made. I do not think that this is coronary in origin. Dobutamine stress echo demonstrated no evidence of ischemia. On the basis of the above I would recommend we discharged for outpatient follow-up. (2) History of hypertension: PLAN: She has a history of hypertension and the plan to be to continue the current medical therapy. (3) Hernia, hiatal: PLAN: She has a history of hiatal hernia. I would suggest that if her stress test is normal we aggressively manage this. HPI Consult Data Date of Consult: 02/23/22 HPI Narrative HPI Narrative: DEBORA BOURGEOIS, is a 72 F who presents to the emergency room in [facility] with chest discomfort. They apparently said that she has been having chest discomfort for over 2 days. According to them her cardiac enzyme pattern in the was abnormal and due to the relentless chest discomfort they decided to transfer her to the hospital here for further evaluation and management. She had been seen here on February [address] Balaji Baker MD and underwent a cardiac catheterization. This was reviewed and demonstrated no significant obstructive coronary disease. The ejection fraction was noted to be normal. Medical therapy was recommended. She also has a history of supraventricular tachyarrhythmia. In addition she does have a history of hiatal hernia and had discomfort that she points to is constant and epigastric. She has also had an echocardiogram in November of this year which demonstrated preserved ejection fraction of 60 to 65% with no evidence of pericardial effusion and trace mitral regurgitation. She has also had a chest CTA which demonstrated no evidence of coronary calcification and a moderate size hiatal hernia. EKG here was normal with no acute changes and cardiac enzymes high-sensitivity by markers here were negative x3. [facility] Medical History (Updated 02/23/22 @ 09:[address] Atul Stratton MD) Arthritis Depression Fatigue GERD (gastroesophageal reflux disease) HTN (hypertension) Knee pain Shoulder pain Home Medications omeprazole 20 mg capsule,delayed release 40 mg PO DAILY 06/09/19 [History Last Taken Unknown] dicyclomine 10 mg capsule 20 mg PO BID 08/31/19 [History Last Taken Unknown] sertraline 25 mg tablet 100 mg PO DAILY 08/31/19 [History Last Taken Unknown] bupropion HCl 150 mg 24 hr tablet, extended release 150 mg PO DAILY 02/07/22 [History Last Taken Unknown] metoprolol tartrate 50 mg tablet 50 mg PO BID 30 days #60 tabs 02/09/22 [Rx Last Taken Unknown] Allergy/AdvReac Type Severity Reaction Status Date / Time No Known Allergies Allergy Verified 02/07/22 11:24 Family History Other CVA (cerebral vascular accident) Cancer Heart disease Surgical History Hx of kyphoplasty (~2017) Social History Smoking Status: Never smoker ROS Constitutional Constitutional: Denies fever(s) or weight loss Eyes Eyes: Reports systems reviewed and no addt'l complaints, except as documented ENT HEENT: Reports systems reviewed and no addt'l complaints, except as documented Cardiovascular Cardiovascular: Reports chest pain at rest and chest pain with activity; Denies dyspnea at rest, dyspnea on exertion, edema, palpitations or paroxysmal nocturnal dyspnea Respiratory/Chest Respiratory/Chest: Denies dyspnea on exertion, productive cough, shortness of breath at rest or shortness of breath with exertion Gastrointestinal Gastrointestinal: Denies change in bowel habits, nausea, vomiting or weight changes Genitourinary Genitourinary: Denies difficulty urinating Musculoskeletal Musculoskeletal: Denies joint stiffness or muscle weakness Integumentary Integumentary: Denies lesions Neurologic Neurologic: Denies dizziness or syncope Psychiatric Psychiatric: Denies anxiety Endocrine Endocrinology: Denies excessive sweating or fatigue Hematologic/Lymphatic Hematologic/Lymphatic: Denies anemia Allergic/Immunologic Allergic/Immunologic: Denies seasonal rhinorrhea Physical Exam Const alert, oriented x3 and no apparent distress General Appearance: cooperative HEENT hearing grossly normal bilaterally Head and Scalp: atraumatic Eyes EOMs intact bilaterally Neck General: normal visual inspection Chest inspection of chest normal and palpation of chest normal Resp normal respiratory effort Auscultation: clear to auscultation bilaterally Cardio regular rate, regular rhythm, S1 normal heart sound and S2 normal heart sound Jugular Venous Distention: JVD GI normal to inspection, nondistended, normoactive bowel sounds Extremity normal capillary refill and no pedal edema Peripheral Pulses: Yes pulses 2+ throughout and femoral pulses present Skin no rashes or lesions noted Neuro oriented x3 and CN's II-XII intact bilaterally Psych Appearance: grossly normal and appropriate Risk Stratification Risk Stratification Applicable: Yes Age >/= 65: Yes >/= 3 CAD Risk Factors (HTN, HLD, DM, family hx of CAD, or current smoker): No Aspirin Use in the Past 7 Days: No Severe Angina (>/= episodes in 24 hours): No EKG ST Changes >/= 0.5mm: No Positive Cardiac Marker: No JUDITH Risk Stratification Score: 1 JUDITH % Risk: 5% Risk Objective Data Vital Signs: Vital Signs Temp Pulse Resp BP Pulse Ox O2 Del Method O2 Flow Rate 98.1 F 72 20 H 112/72 99 Room Air 2 02/23/22 05:13 02/23/22 07:02 02/23/22 05:13 02/23/22 05:13 02/23/22 05:13 02/23/22 07:29 02/23/22 03:23 Oxygen Flow Rate (L/min) 2 Oxygen Delivery Method Room Air Weight: 160 lb 11.472 oz Body Mass Index (BMI) 25.9 Intake & Output: Intake and Output for Last 24 Hours 02/21/22 02/22/22 02/23/22 23:59 23:59 23:59 Intake Total 120 / 120 Balance 120 / 120 Lab / Micro Data Result Diagrams: 02/23/22 04:42 02/23/22 04:42 Labs: Laboratory Results - last 24 hr 02/23/22 04:32: Troponin I High Sens 52 02/23/22 04:42: WBC 13.3 H, RBC 4.24, Hgb 11.7 L, Hct 36.4 L, MCV 85.8, MCH 27.6, MCHC 32.1, RDW Std Deviation 40.3, RDW Coeff of Nataliia 13.0, Plt Count 393, MPV 9.9, Immature Gran % (Auto) 0.300, Neut % (Auto) 82.1 H, Lymph % (Auto) 10.5 L, Coal % (Auto) 6.9, Eos % (Auto) 0.0, Baso % (Auto) 0.2, Absolute Neuts (auto) 10.9 H, Absolute Lymphs (auto) 1.39, Nucleated RBC % 0 02/23/22 04:42: Sodium 133 L, Potassium 2.8 L, Chloride 95 L, Carbon Dioxide 28.0, Anion Gap 10, BUN 15, Creatinine 1.01, Estim Creat Clear Calc 46.44, Est GFR (MDRD) Af Amer 69, Est GFR (MDRD) Non-Af 57 L, BUN/Creatinine Ratio 14.9, Glucose 113 H, Calcium 9.3 02/23/22 06:19: Troponin I High Sens 50 02/23/22 07:30: Magnesium 2.0 Cardiology Labs/Tests 02/23/22 04:42: WBC 13.3 H, RBC 4.24, Hgb 11.7 L, Hct 36.4 L, MCV 85.8, MCH 27.6, MCHC 32.1, Plt Count 393, MPV 9.9, Immature Gran % (Auto) 0.300, Neut % (Auto) 82.1 H, Lymph % (Auto) 10.5 L, Coal % (Auto) 6.9, Eos % (Auto) 0.0, Baso % (Auto) 0.2, Absolute Neuts (auto) 10.9 H, Nucleated RBC % 0 02/23/22 04:42: Sodium 133 L, Potassium 2.8 L, Chloride 95 L, Carbon Dioxide 28.0, Anion Gap 10, BUN 15, Creatinine 1.01, Est GFR (MDRD) Af Amer 69, Est GFR (MDRD) Non-Af 57 L, BUN/Creatinine Ratio 14.9, Glucose 113 H, Calcium 9.3 02/23/22 07:30: Magnesium 2.0 Rhythm: EKG: ECHO: Stress Test: Cardiac Cath: PCI: CT Surgery: Holter monitor: EPS: PPM: CXR: Chest CT Scan:
[2022-02-23] MEDS: FLU VACC QS2022-23(6MOS UP)/PF 60 MCG/0.5 ML SYRINGE IM (10:14)
[2022-02-23] MEDS: Dicyclomine 10 MG Capsule 20 MG PO ×2 (10:21→20:48)
[2022-02-23] MEDS: Sertraline 100 MG Tablet PO (10:21)
[2022-02-23] MEDS: Pantoprazole Sodium 40 MG Tablet PO ×2 (10:21→20:48)
[2022-02-23] MEDS: buPROPion (XL) 150 MG TABLET.XL PO (10:26)
[2022-02-23 10:58] LABS: Troponin-I HS 42 pg/mL (3.0-54.0)
--- NOTE | 2022-02-23 12:19 | EKG12_ITS ---
Test Reason : Blood Pressure : / mmHG Vent. Rate : 074 BPM Atrial Rate : 074 BPM P-R Int : 194 ms QRS Dur : 082 ms QT Int : 428 ms P-R-T Axes : 069 039 063 degrees QTc Int : 475 ms Normal sinus rhythm with sinus arrhythmia Normal ECG When compared with ECG of 23-FEB-2022 03:21, MANUAL COMPARISON REQUIRED, DATA IS UNCONFIRMED Confirmed by SANDOVAL QUINONES, GAVIOTA ([id number]), editorial specialist LAURA HARRINGTON ([id number]) on 02/27/2022 9:09:56 AM Referred By: CARINA Confirmed By:GAVIOTA NICK MD
[2022-02-23] MEDS: Nitroglycerin (INPATIENT USE) 0.4 MG TAB.SUBL SL ×3 (12:22→12:33)
--- NOTE | 2022-02-23 13:21 | CT_ITS ---
STUDY: CT CHEST WITH CONTRAST REASON FOR EXAM: Female, 72 years old. Chest pain RADIATION DOSAGE (If Supplied By Facility): CTDIvol = ( 11.15 ) mGy, DLP = ( 415.18 ) mGycm TECHNIQUE: Transaxial imaging was performed following intravenous administration of IV 100mL Isovue-370. Multiplanar coronal and sagittal images were reformatted. Individualized dose optimization techniques were used for this CT. COMPARISON: February 07, 2022 FINDINGS: CHEST There is mild lower lung linear scarring or atelectasis. There is no demonstrated pleural abnormality. Normal heart and pericardium. There is wall thickening of the esophagus. There is a large hiatal hernia. Normal hilar regions. Normal unenhanced pulmonary arteries. There is atherosclerotic calcification of the aortic arch with tortuosity and elongation of the aortic arch and descending thoracic aorta. There is degenerative change of the spine. There is compression fracture T12 with prior kyphoplasty There are cholecystectomy clips. CT/Chest WITH Contrast IMPRESSION: Lower lung scarring or atelectasis. No focal infiltrate. Hiatal hernia. Electronically Signed: Candido Mcclellan MD at 14:45 EST ,
[2022-02-23] MEDS: Mag Hydrox/Al Hydrox/Simeth 30 ML UDC PO (13:23)
--- NOTE | 2022-02-23 13:32 | PCM.PN.HOSP ---
Subjective Subjective Follow-up on chest pain/acute non-STEMI/severe hypokalemia: Patient was seen and examined. She complains of severe chest pain, substernal, dull, 9 out of 10, radiates to the back. Denies any dizziness or palpitations or diaphoresis. Patient underwent stress echo today that was unremarkable. Objective Data Objective Data Vital Signs: Vital Signs Temp Pulse Resp BP Pulse Ox O2 Del Method O2 Flow Rate 98.3 F 81 18 134/85 H 100 Room Air 2 02/23/22 12:39 02/23/22 12:39 02/23/22 12:39 02/23/22 12:39 02/23/22 12:39 02/23/22 12:39 02/23/22 03:23 Oxygen Flow Rate (L/min) 2 Oxygen Delivery Method Room Air Weight: 72.9 kg Body Mass Index (BMI) 25.9 Intake & Output: Intake and Output for Last 24 Hours 02/21/22 02/22/22 02/23/22 23:59 23:59 23:59 Intake Total 520 / 520 Balance 520 / 520 Medical Nutrition Assessment Dietitian: Malnutrition Criteria Met Start: 02/23/22 08:53 Freq: Status: Active Protocol: Document 02/23/22 08:53 (Rec: 02/23/22 08:53 [id number]) Nutrition Malnutrition Evidence of Malnutrition Exists Yes Malnutrition (severe): Chronic Evidenced By Suboptimal Energy Intake ( Severe),Weight Loss (Severe) Clinical Problem Chronic Disease or Condition Related Malnutrition Etiology severe, chronic malnutrition related to decreased appetite Signs/Symptoms as evidenced by pt reports of unintentional 19.3#/11% wt loss x 3 months; estimated PO intake meeting <75% of estimated energy needs x 3 months Status Active Problem Recommendation Dietitian Recommendations/Changes cardiac diet when medically indicated; will offer Ensure TID w/ meals for additional calories/protein if consumed when diet advanced given signs /symptoms of malnutrition. Lab / Micro Data Result Diagrams: 02/23/22 04:42 02/23/22 04:42 Labs: Laboratory Results - last 24 hr 02/23/22 04:32: Troponin I High Sens 52 02/23/22 04:42: WBC 13.3 H, RBC 4.24, Hgb 11.7 L, Hct 36.4 L, MCV 85.8, MCH 27.6, MCHC 32.1, RDW Std Deviation 40.3, RDW Coeff of Nataliia 13.0, Plt Count 393, MPV 9.9, Immature Gran % (Auto) 0.300, Neut % (Auto) 82.1 H, Lymph % (Auto) 10.5 L, Upson % (Auto) 6.9, Eos % (Auto) 0.0, Baso % (Auto) 0.2, Absolute Neuts (auto) 10.9 H, Absolute Lymphs (auto) 1.39, Nucleated RBC % 0 02/23/22 04:42: Sodium 133 L, Potassium 2.8 L, Chloride 95 L, Carbon Dioxide 28.0, Anion Gap 10, BUN 15, Creatinine 1.01, Estim Creat Clear Calc 46.44, Est GFR (MDRD) Af Amer 69, Est GFR (MDRD) Non-Af 57 L, BUN/Creatinine Ratio 14.9, Glucose 113 H, Calcium 9.3 02/23/22 06:19: Troponin I High Sens 50 02/23/22 07:30: Magnesium 2.0 02/23/22 10:25: Troponin I High Sens 42 Radiography Diagnostic Testing: Radiology Impression Stress Echocardiogram 02/23/22 07:51 Interpretation Summary Dobutamine stress echocardiogram. 72-year-old lady with a history of probable noncardiac chest pain.. Rest EKG demonstrates normal sinus rhythm with a rate of 68 bpm normal intervals are noted resting blood pressure is 117/66 mmHg. Dobutamine infusion was started at 10 mcg/kg/min and increased to a peak of 30 mcg/kg/min. 0.25 mg of atropine was administered. The patient attained a maximum heart rate of 120 bpm which was 81% of max impacted heart rate the maximum workload was 1 metabolic equivalent. At rest and at peak infusion nonspecific ST changes were noted we did not meet the criteria for ischemia. No clinical angina was noted. The test was terminated due to termination of the test. Stress echocardiogram. Resting and stress echocardiographic images were obtained with Definity enhancement. The baseline echocardiogram demonstrated an ejection fraction of 60% with a low dose improving to 65% and a high dose at 80% with new chamber obliteration. No new wall motion abnormalities were noted to suggest ischemia. Conclusion: Dobutamine stress echo with no evidence of ischemia at an appropriate heart rate. Ordering Physician: Atul Stratton Referring Physician: Atul Stratton Performed By: Lizzie Goncalves, JACKY, RVT Physical Exam Narrative Physical exam: General: Alert, Oriented x3, Cooperative, in mild distress HEENT: Atraumatic Oral: Moist Mucosa Neck: Supple Lungs: Diminished to auscultation Cardiovascular: HS I+II, regular, no murmurs Abdomen: Bowel Sounds Present, Soft, Non Tender Extremities: No edema Skin: No rashes, No breakdown Neurological: Grossly intact Psych/Mental Status: Appropriate Assessment & Plan Assessment/Plan (1) NSTEMI, initial episode of care: PLAN: Plan 1. Acute chest pain/non-STEMI, likely type II, Stress echo done today showed EF of 81%, no ischemic changes Cardiology consulted, continue aspirin, metoprolol 2. Persistent chest pain, likely secondary to esophagitis Large hiatal hernia, seen on CT abdominal/ pelvis Continue pantoprazole 40 mg p.o. twice daily, Mylanta as needed GI consult 3. Hypokalemia, replaced, recheck in a.m. 4. Hypertension, continue on metoprolol 5. Depression, continue bupropion, Zoloft 6. Severe protein calorie malnutrition, payroll coordinator consulted, continue supplements 7. DVT PPx - Lovenox SC daily Charges/Coding Visit Charges Inpatient E&M: 83351 Subs Hosp L3
[2022-02-23] MEDS: 0.9% Normal Saline 1,000 ML 125 ML IV ×2 (17:09→23:47)
--- NOTE | 2022-02-23 17:30 | CASEMGMT ---
RN YELENA SOLAR SALES ADVISOR CM to room to meet with patient for initial transition planning/care coordination assessment. KLAUS KIRK introduced self and role at [facility]. Pt voices understanding and consents to assessment at this time. Pt resting in bed in no distress at this time. Pt is A/O at this time and answers all questions appropriately. Care providers, pharmacy, and demographics verified/updated at this time. PCP: Specialists: Preferred Pharmacy: Insurance: Prescription Benefit: Living Will/HPOA: Pt does not currently have LW/HCPOA and declines info at this time. Pt made aware that he can contact SW as an out-pt and make appt in the future if he decides he would like to talk with someone about this or would like to utilize [facility] social work for advanced directive completion. Given [place] Worker Rac card with information and contact number. Pt expresses understanding. States does not have LW or HCPOA . Interested in more information but states does not want to talk with SW at this time to complete paperwork. Provided information on advanced directives and given [employer] rac card with number to call if chooses in the future to utilize [facility] social work for advanced directive completion. Educated patient that, if patient so chooses, can come back to [facility] and meet with a SW as an outpatient to complete health care advanced directives. Patient expresses understanding. LNOK: Living Arrangements: Transportation: Pt states drives self and states no transportation concerns at this time. DME: Denies using any DME and denies needs. States has the following DME: Pt states no need for further DME at this time. HHC/SNF: Pt wishes to return home and states has no concerns with going home at time of discharge. Pt states does not smoke or drink ETOH. CM to follow for home oxygen needs and any further discharge planning/needs. Pt voices no further concerns/needs at this time. Advised pt to ask for CM if any further questions/concerns/needs arise. Voices understanding. PLAN: Mary Beth BELL RN, CM
--- NOTE | 2022-02-23 18:00 | CASEMGMT ---
RN YELENA POLE CLASSIFIER CM to room to meet with patient for initial transition planning/care coordination assessment. KLAUS KIRK introduced self and role at [facility]. Pt voices understanding and consents to assessment at this time. Pt resting in bed in no distress at this time. @ bedside. Pt is A/O at this time and answers all questions appropriately. Care providers, pharmacy, and demographics verified/updated at this time. PCP:Dr Hess Specialists:[facility]--pt's 1st appt scheduled for Feb 28. Preferred Pharmacy: [facility] [place] [facility] Insurance: [employer] Prescription Benefit: Yes Living Will/HPOA: Has both LW and HCPOA, who is her [place] LNOK: , [place] Living Arrangements: Lives w/ in ranch-style home w/2 stairs to enter. Pt states does not usually go to the basement. Independent w/ADL's. Pt and share home mgmt tasks. Transportation: Pt states drives self and states no transportation concerns at this time. also drives. DME:States has the following DME: shower chair, cane. Has walker available, but does not use. Pt states no need for further DME at this time. HHC/SNF: No hx of either. No needs identified. Pt wishes to return home and states has no concerns with going home at time of discharge. CM to follow for any discharge planning/needs. Pt voices no further concerns/needs at this time. Advised pt to ask for CM if any further questions/concerns/needs arise. Voices understanding. PLAN: Home Mary Beth BELL RN, CM
[2022-02-24 02:41] VITALS: BP 114/62; PULSE 69; RESP 20; TEMP 36.8; O2SAT 93
[2022-02-24 03:00] VITALS: PULSE 69
[2022-02-24 04:36] VITALS: BP 130/58; PULSE 75; RESP 20; TEMP 36.6; O2SAT 95
[2022-02-24] MEDS: Enoxaparin 40 MG/0.4 ML Syringe SC (04:44)
[2022-02-24 07:00] VITALS: PULSE 75
[2022-02-24] MEDS: 0.9% Normal Saline 1,000 ML 125 ML IV (07:14)
--- NOTE | 2022-02-24 09:17 | PN.CARD_ITS ---
Subjective Subjective Patient seen and evaluated. Appears to be doing much better at this time. Has some element of sore throat. Objective Data Vital Signs: Vital Signs Temp Pulse Resp BP Pulse Ox O2 Del Method O2 Flow Rate 97.9 F 75 20 H 130/58 H 95 Room Air 2 02/24/22 04:36 02/24/22 07:00 02/24/22 04:36 02/24/22 04:36 02/24/22 04:36 02/24/22 08:27 02/23/22 03:23 Oxygen Flow Rate (L/min) 2 Oxygen Delivery Method Room Air Weight: 160 lb 11.472 oz Body Mass Index (BMI) 25.9 Intake & Output: Intake and Output for Last 24 Hours 02/22/22 02/23/22 02/24/22 23:59 23:59 23:59 Intake Total 1948.17 / 1948.17 931.25 / 931.25 Balance 1948.17 / 1948.17 931.25 / 931.25 Lab / Micro Data Result Diagrams: 02/23/22 04:42 02/23/22 04:42 Labs: Laboratory Results - last 24 hr 02/23/22 10:25: Troponin I High Sens 42 Cardiology Labs/Tests Rhythm: EKG: ECHO: Stress Test: Cardiac Cath: PCI: CT Surgery: Holter monitor: EPS: PPM: CXR: Chest CT Scan: Radiography Diagnostic Testing: Radiology Impression Stress Echocardiogram 02/23/22 07:51 Interpretation Summary Dobutamine stress echocardiogram. 72-year-old lady with a history of probable noncardiac chest pain.. Rest EKG demonstrates normal sinus rhythm with a rate of 68 bpm normal intervals are noted resting blood pressure is 117/66 mmHg. Dobutamine infusion was started at 10 mcg/kg/min and increased to a peak of 30 mcg/kg/min. 0.25 mg of atropine was administered. The patient attained a maximum heart rate of 120 bpm which was 81% of max impacted heart rate the maximum workload was 1 metabolic equivalent. At rest and at peak infusion nonspecific ST changes were noted we did not meet the criteria for ischemia. No clinical angina was noted. The test was terminated due to termination of the test. Stress echocardiogram. Resting and stress echocardiographic images were obtained with Definity enhancement. The baseline echocardiogram demonstrated an ejection fraction of 60% with a low dose improving to 65% and a high dose at 80% with new chamber obliteration. No new wall motion abnormalities were noted to suggest ischemia. Conclusion: Dobutamine stress echo with no evidence of ischemia at an appropriate heart rate. Ordering Physician: Atul Stratton Referring Physician: Atul Stratton Performed By: Lizzie Goncalves, RDCS, RVT Chest CT 02/23/22 13:21 IMPRESSION: Lower lung scarring or atelectasis. No focal infiltrate. Hiatal hernia. Electronically Signed: Candido Mcclellan MD at 14:45 EST , Physical Exam Const alert, oriented x3 and no apparent distress General Appearance: cooperative HEENT hearing grossly normal bilaterally Head and Scalp: atraumatic Eyes EOMs intact bilaterally Neck General: normal visual inspection Chest inspection of chest normal and palpation of chest normal Resp normal respiratory effort Auscultation: clear to auscultation bilaterally Cardio regular rate, regular rhythm, S1 normal heart sound and S2 normal heart sound Jugular Venous Distention: JVD GI normal to inspection, nondistended, normoactive bowel sounds Extremity normal capillary refill and no pedal edema Peripheral Pulses: Yes pulses 2+ throughout and femoral pulses present Skin no rashes or lesions noted Neuro oriented x3 and CN's II-XII intact bilaterally Psych Appearance: grossly normal and appropriate Assessment & Plan Assessment/Plan (1) Chest pain: PLAN: She presents with chest pain which is constant and likely noncardiac in etiology. Her cardiac enzymes here are normal. * She had undergone cardiac catheterization 2 weeks ago which had demonstrated essentially normal coronary arteries. Stress test performed during this visit demonstrated no evidence of ischemia. In addition she does have a large hiatal hernia. I suspect this is where the majority of her discomfort is coming from. She would need a GI evaluation at some point. * She can follow with cardiology as an outpatient. (2) History of hypertension: PLAN: She has a history of hypertension and the plan to be to continue the current medical therapy. (3) Hernia, hiatal: PLAN: She has a history of hiatal hernia.
[2022-02-24 09:29] LABS: Absolute Lymphocyte Count 0.84 X10^3/uL (0.83-4.51); Absolute Neutrophil Count 11.3 X10^3/uL (2.0-7.7); Basophil# 0.03 X10^3/uL; Basophil% 0.2 % (0-1); Hemoglobin 9.9 g/dL (12.0-15.0); Lymphocyte # 0.84 X10^3/ul (0.83-4.51); Lymphocyte % 6.5 % (19-41); Mean Corp Hgb Conc 30.9 g/dL (32-36); Mean Corpuscular Volume 90.7 fL (81-99); Mean Platelet Vol. 9.7 fl (6.2-12.0); Monocyte# 0.74 X10^3/uL; Monocyte% 5.7 % (0-10); NRBC Flagged by Analyzer 0 % (0-5); Neutrophil # 11.26 X10^3/uL (2.7-7.7); Neutrophil % 87.1 % (47-70); Platelet Count 333 K/mm3 (150-450); RBC Distribution Width CV 13.3 % (11.6-14.6); RBC Distribution Width SD 43.8 fl (35.1-43.9); Red Blood Count 3.53 M/mm3 (4.2-5.4); White Blood Count 12.9 K/mm3 (4.4-11.0)
[2022-02-24 09:35] VITALS: BP 119/66; PULSE 80; RESP 16; TEMP 36.7; O2SAT 100
[2022-02-24] MEDS: Metoprolol Tartrate 50 MG Tablet PO (09:35)
[2022-02-24] MEDS: Sertraline 100 MG Tablet PO (09:35)
[2022-02-24] MEDS: Dicyclomine 10 MG Capsule 20 MG PO (09:35)
[2022-02-24] MEDS: buPROPion (XL) 150 MG TABLET.XL PO (09:35)
[2022-02-24] MEDS: Pantoprazole Sodium 40 MG Tablet PO (09:35)
[2022-02-24] MEDS: Aspirin E.C. 81 MG Tablet PO (09:36)
[2022-02-24 09:57] LABS: ALB/GLOB Ratio 0.7 RATIO (0.9-2.4); AST(SGOT) 11 U/L (15-37); Alanine Aminotransfer ALT/SGPT 13 U/L (13-56); Albumin, Serum 2.5 g/dL (3.2-5.0); Alkaline Phosphatase 61 U/L (45-117); Anion Gap 5 (5-15); BUN 11 mg/dL (7-18); BUN/Creat Ratio 13.9 RATIO (10-20); Calcium,Total 8.4 mg/dL (8.5-10.1); Chloride 109 mmol/L (98-107); Creatinine, Serum 0.79 mg/dL (0.55-1.02); EST Glomerular Filtration Rate 75 mL/min (>60); Est Glom Filt Rate - Afr Amer 91 mL/min (>60); Globulin 3.8 g/dL (2.2-4.2); Glucose 112 mg/dL (74-106); Potassium 4.1 mmol/L (3.5-5.1); Protein, Total 6.3 g/dL (6.4-8.2); Sodium Level 138 mmol/L (136-145)
--- NOTE | 2022-02-24 10:26 | DCINST_ITS ---
Discharge Instructions Diet Discharge Diet: Low fat / Low cholesterol and 2000 mg Sodium Diet Activity Discharge Activity: Return to Normal Activity Follow Up Care Test Results: Test results from this visit will be discussed in further detail at your follow- up appointment, if applicable. Discharge Plan Admission Admit Date/Time: 02/23/22 10:27 Primary Reason for Your Visit: Acute chest pain Attending Provider: Jodie Cespedes Primary Care Provider: Michelle Hess Consulting Providers: Atul Stratton ; Louis Gilbert Instructions Additional Instructions / Restrictions: Take note of your new medications. Follow-up with your PCP within 1 week. Follow-up with GI - Dr. Metz within 1 month. Discharge Orders/Prescriptions Prescriptions: New pantoprazole 40 mg Tablet,Delayed Release (Dr/Ec) 40 mg PO BID 30 Days Qty: 60 0RF Continued sertraline 25 mg tablet 100 mg PO DAILY dicyclomine 10 mg capsule 20 mg PO BID bupropion HCl 150 mg tablet extended release 24 hr 150 mg PO DAILY metoprolol tartrate 50 mg tablet 50 mg PO BID 30 Days Qty: 60 0RF Discontinued omeprazole 20 mg capsule,delayed release(DR/EC) 40 mg PO DAILY Referrals / Follow Up: Michelle Hess MD [Primary Care Provider] - In 1 Week Juaquin Metz DO [Med Staff - Active Staff] - Within 1 Month Disposition Disposition (needs filled in before D/C Order can be placed): Home, Self Care
--- NOTE | 2022-02-24 10:30 | DS.PCM_ITS ---
Providers Date of Admission: 02/23/22 Date of Discharge: 02/24/22 Primary Care Physician: Dr. Michelle Hess MD Consultations 02/23/22 03:25 Consult: Cardiology Routine Consulting Provider: Atul Stratton Reason for Consult: Chest Pain EMERGENT Consult: No Notified: Yes Date Notified: 02/23/22 Time Notified: 06:23 Method of Notification: Text 02/23/22 16:51 Consult: Gastroenterology Routine Consulting Provider: [facility] Reason for Consult: Esophagitis EMERGENT Consult: No Notified: Yes Date Notified: 02/23/22 Time Notified: 16:57 Method of Notification: Text Reason For Visit: CHEST PAIN Diagnosis Discharge Diagnosis (1) Chest pain: Status: Acute Code(s): R07.9 - Chest pain, unspecified (2) History of hypertension: Status: Acute Code(s): Z86.79 - Personal history of other diseases of the circulatory system (3) Hernia, hiatal: Status: Acute Code(s): K44.9 - Diaphragmatic hernia without obstruction or gangrene Plan 1. Acute chest pain 2. Acute NSTEMI, Type 2 3. Esophagitis 4. Hypokalemia 5. Hypertension 6. Depression 7. Severe protein calorie malnutrition Medications at Discharge Home Medications dicyclomine 10 mg capsule 20 mg PO BID 08/31/19 sertraline 25 mg tablet 100 mg PO DAILY 08/31/19 bupropion HCl 150 mg 24 hr tablet, extended release 150 mg PO DAILY 02/07/22 metoprolol tartrate 50 mg tablet 50 mg PO BID 30 days #60 tabs 02/09/22 pantoprazole 40 mg tablet,delayed release 40 mg PO BID 30 days #60 tabs 02/24/22 Hospital Course Operations None Procedures Stress test Summary of Care Provided Minutes Spent on Discharge: 35 Hospital Course: 72-year-old female with past medical history of hypertension, unstable angina, SVT who was admitted to the hospital as a transfer from [facility]. Patient had presented with complaints of chest pain, nausea and vomiting. She describes the chest pain as substernal, persistent, sharp, nonradiating. High- sensitivity troponin done today was 16.9-->38-->49.7-->57.1. Her white cell count was 16.3, hemoglobin 14, platelet 475, sodium 132, potassium 3.2, creatinine 1.23. EKG had shown nonspecific ST-T changes. Patient was admitted to the progressive care unit, started on aspirin, therapeutic Lovenox. Potassium was replaced. Patient underwent stress echo that was unremarkable. She continued to have persistent chest pain. CTA of the chest was negative for acute PE or any severe compromise of her hiatal hernia. It showed a large hiatal hernia. Her esophagus appeared also inflamed. Patient was started on IV PPI and Mylanta. She generally improved. She was recommended to follow-up with her primary care doctor and also with GI as outpatient. She was asked to stay on a PPI. Physical Exam Narrative Physical exam: General: Alert, Oriented x3, Cooperative, appears improved HEENT: Atraumatic Oral: Moist Mucosa Neck: Supple Lungs: Diminished to auscultation Cardiovascular: HS I+II, regular, no murmurs Abdomen: Bowel Sounds Present, Soft, Non Tender Extremities: No edema Skin: No rashes, No breakdown Neurological: Grossly intact Psych/Mental Status: Appropriate Medical Records Data Medical Nutrition Assessment Dietitian: Malnutrition Criteria Met Start: 02/23/22 08:53 Freq: Status: Active Protocol: Document 02/23/22 08:53 AG (Rec: 02/23/22 08:53 AG [id number]) Nutrition Malnutrition Evidence of Malnutrition Exists Yes Malnutrition (severe): Chronic Evidenced By Suboptimal Energy Intake ( Severe),Weight Loss (Severe) Clinical Problem Chronic Disease or Condition Related Malnutrition Etiology severe, chronic malnutrition related to decreased appetite Signs/Symptoms as evidenced by pt reports of unintentional 19.3#/11% wt loss x 3 months; estimated PO intake meeting <75% of estimated energy needs x 3 months Status Active Problem Recommendation Dietitian Recommendations/Changes cardiac diet when medically indicated; will offer Ensure TID w/ meals for additional calories/protein if consumed when diet advanced given signs /symptoms of malnutrition. Weight / BMI Weight Weight: 72.9 kg Body Mass Index (BMI) 25.9 ABG / Lab / Microbiology Data Result Diagrams: 02/24/22 09:06 02/24/22 09:06 Laboratory: Laboratory Results - last 24 hr 02/23/22 10:25: Troponin I High Sens 42 02/24/22 09:06: WBC 12.9 H, RBC 3.53 L, Hgb 9.9 L, Hct 32.0 L, MCV 90.7 D, MCH 28.0, MCHC 30.9 L, RDW Std Deviation 43.8, RDW Coeff of Nataliia 13.3, Plt Count 333, MPV 9.7, Immature Gran % (Auto) 0.500, Neut % (Auto) 87.1 H, Lymph % (Auto) 6.5 L, Cass % (Auto) 5.7, Eos % (Auto) 0.0, Baso % (Auto) 0.2, Absolute Neuts (auto) 11.3 H, Absolute Lymphs (auto) 0.84, Nucleated RBC % 0 02/24/22 09:06: Sodium 138, Potassium 4.1, Chloride 109 H, Carbon Dioxide 24.0, Anion Gap 5, BUN 11, Creatinine 0.79, Estim Creat Clear Calc 46.90, Est GFR (MDRD) Af Amer 91, Est GFR (MDRD) Non-Af 75, BUN/Creatinine Ratio 13.9, Glucose 112 H, Calcium 8.4 L, Total Bilirubin 0.40, AST 11 L, ALT 13, Alkaline Phosphatase 61, Total Protein 6.3 L, Albumin 2.5 L, Globulin 3.8, Albumin/Globulin Ratio 0.7 L Radiography Diagnostic Testing: Radiology Impression Stress Echocardiogram 02/23/22 07:51 Interpretation Summary Dobutamine stress echocardiogram. 72-year-old lady with a history of probable noncardiac chest pain.. Rest EKG demonstrates normal sinus rhythm with a rate of 68 bpm normal intervals are noted resting blood pressure is 117/66 mmHg. Dobutamine infusion was started at 10 mcg/kg/min and increased to a peak of 30 mcg/kg/min. 0.25 mg of atropine was administered. The patient attained a maximum heart rate of 120 bpm which was 81% of max impacted heart rate the maximum workload was 1 metabolic equivalent. At rest and at peak infusion nonspecific ST changes were noted we did not meet the criteria for ischemia. No clinical angina was noted. The test was terminated due to termination of the test. Stress echocardiogram. Resting and stress echocardiographic images were obtained with Definity enhancement. The baseline echocardiogram demonstrated an ejection fraction of 60% with a low dose improving to 65% and a high dose at 80% with new chamber obliteration. No new wall motion abnormalities were noted to suggest ischemia. Conclusion: Dobutamine stress echo with no evidence of ischemia at an appropriate heart rate. Ordering Physician: Atul Stratton Referring Physician: Atul Stratton Performed By: Lizzie Goncalves, JACKY, RVT Chest CT 02/23/22 13:21 IMPRESSION: Lower lung scarring or atelectasis. No focal infiltrate. Hiatal hernia. Electronically Signed: Candido Mcclellan MD at 14:45 EST Reading Location ID and State: [address] [place] [address] , Service support , D/C Instructions Discharge Diet: Low fat / Low cholesterol and 2000 mg Sodium Diet Meaningful Use Info Meaningful Use Diagnoses (Choose all that apply): None applicable Discharge Plan Admission Admit Date/Time: 02/23/22 10:27 Primary Reason for Your Visit: Acute chest pain Attending Provider: Jodie Cespedes Primary Care Provider: Michelle Hess Consulting Providers: Atul Stratton ; Louis Gilbert Instructions Additional Instructions / Restrictions: Take note of your new medications. Follow-up with your PCP within 1 week. Follow-up with GI - Dr. Metz within 1 month. Discharge Orders/Prescriptions Prescriptions: New pantoprazole 40 mg Tablet,Delayed Release (Dr/Ec) 40 mg PO BID 30 Days Qty: 60 0RF Continued sertraline 25 mg tablet 100 mg PO DAILY dicyclomine 10 mg capsule 20 mg PO BID bupropion HCl 150 mg tablet extended release 24 hr 150 mg PO DAILY metoprolol tartrate 50 mg tablet 50 mg PO BID 30 Days Qty: 60 0RF Discontinued omeprazole 20 mg capsule,delayed release(DR/EC) 40 mg PO DAILY Referrals / Follow Up: Michelle Hess MD [Primary Care Provider] - In 1 Week Juaquin Metz DO [Med Staff - Active Staff] - Within 1 Month Disposition Disposition (needs filled in before D/C Order can be placed): Home, Self Care Charges/Coding Visit Charges Inpatient E&M: 52164 Disch Hosp
== END 2022-02-24 11:21 | disposition home or self-care (01) | DRG 391 ==
PROVIDERS: Admitting Provider Hospitalist; PCP Family Medicine; Visit Provider Internal Medicine
DX: K21.00 Gastro-esophageal reflux disease with esophagitis, without bleeding (principal); I21.A1 Myocardial infarction type 2; E43 Unspecified severe protein-calorie malnutrition; E87.6 Hypokalemia; I10 Essential (primary) hypertension; K44.9 Diaphragmatic hernia without obstruction or gangrene; R07.9 Chest pain, unspecified; Z79.82 Long term (current) use of aspirin; Z82.3 Family history of stroke; F32.A Depression, unspecified; Z68.25 Body mass index [BMI] 25.0-25.9, adult; Z86.79 Personal history of other diseases of the circulatory system; Z23 Encounter for immunization
CPT/HCPCS: 36415; 71260; 80048; 80053; 83735; 84484; 85025; 93005; 93017; 93350; 97802; G0008; J7030; J7040; Q9957; Q9967; 90686; A4216; C8928; J2405

== ENCOUNTER 2022-03-02 08:01 | Emergency (ER) | payer MEDICARE, SELFPAY ==
[2022-03-02 08:02] VITALS: BP 119/69; PULSE 86; RESP 15; TEMP 36.5; O2SAT 95; BMI 26.6
[2022-03-02 08:05] VITALS: BP 119/69; PULSE 86; RESP 15; TEMP 36.5; O2SAT 95
--- NOTE | 2022-03-02 08:17 | EKG12_ITS ---
Test Reason : CHEST PAIN Blood Pressure : / mmHG Vent. Rate : 085 BPM Atrial Rate : 085 BPM P-R Int : 170 ms QRS Dur : 084 ms QT Int : 396 ms P-R-T Axes : 061 014 047 degrees QTc Int : 471 ms Normal sinus rhythm Normal ECG Confirmed by SANDOVAL QUINONES, GAVIOTA ([id number]), order editor LAURA HARRINGTON ([id number]) on 03/06/2022 11:39:39 AM Referred By: Confirmed By:GAVIOTA NICK MD
--- NOTE | 2022-03-02 08:18 | EDS_ITS ---
HPI History of Present Illness Chief Complaint: Chest Pain Informant: patient and EMS Narrative Narrative: 72-year-old female presenting to the emergency room for chest pain. The patient was recently admitted for chest pain, and had a negative stress echo. Started on PPI therapy for esophagitis he says she states that for the past 7 hours she has had a constant chest pressure. It does not make her short of breath or sweating. or [place] is negative she notes that she has had a cough since yesterday with a sore throat. No sputum production. No vomiting or diarrhea. [facility] Medical History (Updated 03/02/22 @ 09:[address] Dex Vences DO) Arthritis Depression Fatigue GERD (gastroesophageal reflux disease) HTN (hypertension) Knee pain Shoulder pain Home Medications dicyclomine 10 mg capsule 20 mg PO BID 08/31/19 [History Last Taken Unknown] sertraline 25 mg tablet 100 mg PO DAILY 08/31/19 [History Last Taken Unknown] bupropion HCl 150 mg 24 hr tablet, extended release 150 mg PO DAILY 02/07/22 [History Last Taken Unknown] metoprolol tartrate 50 mg tablet 50 mg PO BID 30 days #60 tabs 02/09/22 [Rx Last Taken Unknown] pantoprazole 40 mg tablet,delayed release 40 mg PO BID 30 days #60 tabs 02/24/22 [Rx Last Taken Unknown] Allergy/AdvReac Type Severity Reaction Status Date / Time No Known Allergies Allergy Verified 03/02/22 08:06 Family History Other CVA (cerebral vascular accident) Cancer Heart disease Surgical History Hx of kyphoplasty (~2017) Social History (Updated 03/02/22 @ 08:[address] Dex Vences DO) Smoking Status: Never smoker substance use type: does not use ROS ROS ED Constitutional Constitutional ED: Denies chills or weight loss Eyes Eyes: Denies change in vision or diplopia ENT ENT ED: Reports sore throat; Denies ear pain or rhinorrhea Cardiovascular Cardiovascular: Reports chest pain; Denies orthopnea, palpitations or racing heartbeat Respiratory/Chest Respiratory/Chest: Reports cough; Denies dyspnea or orthopnea Gastrointestinal Gastrointestinal: Denies abdominal pain, diarrhea, nausea or vomiting Genitourinary Genitourinary ED: Denies dysuria, hematuria or urinary frequency Musculoskeletal Musculoskeletal: Denies arthralgias or myalgias Integumentary Denies abscess or rash Neurologic Neurologic: Denies headache(s) or weakness Psychiatric Psychiatric: Denies anxiety, depression, suicidal ideation or suicidal thoughts Endocrine Endocrinology: Denies polydipsia, polyphagia or polyuria Allergic/Immunologic Allergic/Immunologic ED: Denies mouth swelling, tongue swelling or urticaria EXAM Physical Exam Const Vital Signs: 03/02/22 08:02 03/02/22 08:05 03/02/22 08:06 Temperature 97.7 F L 97.7 F L Temperature Source Temporal Temporal Pulse Rate 86 86 Respiratory Rate 15 15 Respiratory Effort Normal Non-Labored Respiratory Pattern Normal Blood Pressure 119/69 119/69 Blood Pressure Mean 85 85 Pulse Ox 95 95 Oxygen Delivery Method Room Air Room Air 03/02/22 08:30 03/02/22 08:30 Temperature Temperature Source Pulse Rate 85 Respiratory Rate 16 Respiratory Effort Respiratory Pattern Blood Pressure Blood Pressure Mean Pulse Ox 93 Oxygen Delivery Method Room Air Positive well nourished and well developed General Appearance ED: well developed HEENT Reports normocephalic, head/scalp atraumatic and moist mucous membranes Eyes PERRL and EOMs intact bilaterally Neck no lymphadenopathy, supple and no JVD Resp normal respiratory effort and clear to auscultation bilaterally Cardio regular rate, regular rhythm and no murmurs GI normal to inspection, nondistended, normoactive bowel sounds and non-tender Palpation: soft Back/Spine no CVA tenderness and normal ROM Extremity normal to inspection General Extremety ED: Negative for edema General Extremity: Negative for edema Neuro oriented x3 and CN's II-XII intact bilaterally Sensorium / Orientation: alert Motor Exam: strength 5/5 throughout Psych mental status grossly normal Mood & Affect: Negative for depressed or tearful Skin no rashes or lesions noted and no wounds MDM MDM MDM Narrative Medical decision making narrative: ASIC blood work was obtained. Troponin of 59. Chest x-ray on my interpretation shows no acute findings. EKG is a normal sinus rhythm. She is influenza A positive. Patient received a breathing treatment. At this point I think the patient can be discharged home with supportive care Lab Data Attestation: I reviewed the patient's lab results. Labs: Laboratory Results - last 24 hr 03/02/22 03/02/22 08:30 08:30 WBC 7.1 RBC 4.65 Hgb 12.8 Hct 38.7 MCV 83.2 MCH 27.5 MCHC 33.1 RDW Std Deviation 39.2 RDW Coeff of Nataliia 13.1 Plt Count 422 MPV 9.6 Immature Gran % (Auto) 0.300 Neut % (Auto) 79.8 H Lymph % (Auto) 10.5 L Burke % (Auto) 9.0 Eos % (Auto) 0.0 Baso % (Auto) 0.4 Absolute Neuts (auto) 5.7 Absolute Lymphs (auto) 0.75 L Nucleated RBC % 0 Sodium 132 L Potassium 2.9 L Chloride 97 L Carbon Dioxide 25.0 Anion Gap 10 BUN 12 Creatinine 0.85 Estim Creat Clear Calc 55.18 Est GFR (MDRD) Af Amer 84 Est GFR (MDRD) Non-Af 70 BUN/Creatinine Ratio 14.1 Glucose 105 Calcium 9.0 Troponin I High Sens 59 H Radiography Diagnostic Testing: Clinical Impression(s) from Imaging Studies Chest X-Ray 03/02/22 08:37 IMPRESSION: Mild increased markings at the left lung base suggestive of linear atelectasis with blunting of the left costophrenic angle. Hiatal hernia. Electronically Signed: Fabian Massey MD at 9:30 EST Reading Location ID and State: [address] [place] [address] , Service support , Discharge Plan Triage Chief Complaint: Chest Pain ED Provider: Dex Vences Dx/Rx/DC Orders Clinical Impression: Chest pain, Influenza A Instructions: ED Influenza (Adult) Prescriptions: No Action sertraline 25 mg tablet 100 mg PO DAILY dicyclomine 10 mg capsule 20 mg PO BID bupropion HCl 150 mg tablet extended release 24 hr 150 mg PO DAILY metoprolol tartrate 50 mg tablet 50 mg PO BID 30 Days Qty: 60 0RF pantoprazole 40 mg Tablet,Delayed Release (Dr/Ec) 40 mg PO BID 30 Days Qty: 60 0RF Primary Care Provider: Michelle Hess Referrals: Michelle Hess MD [Primary Care Provider] - As Needed Disposition Disposition: Home, Self Care
[2022-03-02] MEDS: Ipratropium/Albuterol Sulfate 3 ML AMPUL.NEB INHALATION (08:29)
[2022-03-02 08:30] VITALS: PULSE 85; RESP 16; O2SAT 93
--- NOTE | 2022-03-02 08:37 | RAD_ITS ---
STUDY: X-RAY CHEST REASON FOR EXAM: Female, 72 years old. Chest pain TECHNIQUE: Single AP portable view of the chest. COMPARISON: Comparison is made with prior study dated 02/22/2022. FINDINGS: EKG electrodes are seen. Stable elevation of the left hemidiaphragm with blunting of the left costophrenic angle. Minimal linear atelectasis at the left lung base. Normal size heart. Normal mediastinum and paolo. Normal visualized pulmonary arteries. There is atherosclerotic calcification of the aortic arch with tortuosity. There are diffuse degenerative changes of the visualized thoracic spine. There is degenerative osteoarthritis of the bilateral shoulders. Hiatal hernia. RAD/Chest 1 View (Portable) IMPRESSION: Mild increased markings at the left lung base suggestive of linear atelectasis with blunting of the left costophrenic angle. Hiatal hernia. Electronically Signed: Fabian Massey MD at 9:30 EST ,
[2022-03-02 08:39] LABS: Absolute Lymphocyte Count 0.75 X10^3/uL (0.83-4.51); Absolute Neutrophil Count 5.7 X10^3/uL (2.0-7.7); Basophil# 0.03 X10^3/uL; Basophil% 0.4 % (0-1); Hematocrit 38.7 % (37-47); Hemoglobin 12.8 g/dL (12.0-15.0); Lymphocyte # 0.75 X10^3/ul (0.83-4.51); Lymphocyte % 10.5 % (19-41); Mean Corp Hgb Conc 33.1 g/dL (32-36); Mean Corpuscular Hgb 27.5 pg (27.0-32.0); Mean Corpuscular Volume 83.2 fL (81-99); Mean Platelet Vol. 9.6 fl (6.2-12.0); Monocyte# 0.64 X10^3/uL; NRBC Flagged by Analyzer 0 % (0-5); Neutrophil # 5.67 X10^3/uL (2.7-7.7); Neutrophil % 79.8 % (47-70); Platelet Count 422 K/mm3 (150-450); RBC Distribution Width CV 13.1 % (11.6-14.6); RBC Distribution Width SD 39.2 fl (35.1-43.9); Red Blood Count 4.65 M/mm3 (4.2-5.4); White Blood Count 7.1 K/mm3 (4.4-11.0)
[2022-03-02 08:59] LABS: Anion Gap 10 (5-15); BUN 12 mg/dL (7-18); BUN/Creat Ratio 14.1 RATIO (10-20); Chloride 97 mmol/L (98-107); Creatinine, Serum 0.85 mg/dL (0.55-1.02); EST Glomerular Filtration Rate 70 mL/min (>60); Est Glom Filt Rate - Afr Amer 84 mL/min (>60); Estimated Creatinine Clearance 55.18 ml/min; Glucose 105 mg/dL (74-106); Potassium 2.9 mmol/L (3.5-5.1); Sodium Level 132 mmol/L (136-145); Troponin-I HS (w/2H Reflex) 59 pg/mL (3.0-54.0)
[2022-03-02 09:52] VITALS: BP 113/63; PULSE 89; RESP 20; O2SAT 95
[2022-03-02 10:32] LABS: Reflex Troponin-HS? (from REC) Y
== END 2022-03-02 09:54 | disposition home or self-care (01) ==
PROVIDERS: Emergency Provider Emergency Medicine; PCP Family Medicine; Visit Provider Emergency Medicine
DX: R07.9 Chest pain, unspecified (principal); J10.1 Influenza due to other identified influenza virus with other respiratory manifestations
CPT/HCPCS: 99285; 71045; 80048; 84484; 85025; 87428; 93005; 94640

== ENCOUNTER 2022-03-02 19:36 | Emergency (ER) | payer MEDICARE, SELFPAY ==
[2022-03-02 19:38] VITALS: BP 95/71; PULSE 137; RESP 26; TEMP 36.2; O2SAT 93; BMI 26.7
--- NOTE | 2022-03-02 20:15 | RAD_ITS ---
STUDY: X-RAY CHEST REASON FOR EXAM: Female, 72 years old. Chest pain. Weakness and palpitations. Influenza positive. TECHNIQUE: Single AP portable view of the chest. COMPARISON: March 02, 2022 (0838 hours) FINDINGS: The lungs are unchanged. There is minimally increased markings at the left lung base. There is no demonstrated pleural abnormality. Normal size heart. Normal mediastinum and paolo. Normal visualized pulmonary arteries. Normal visualized aortic arch and descending thoracic aorta. There are diffuse degenerative changes of the visualized thoracic spine. Normal visualized ribs, clavicles, and shoulders. Retrocardiac hiatal hernia. There is no demonstrated abnormality of the visualized soft tissue structures of the upper abdomen. RAD/Chest 1 View (Portable) IMPRESSION: No interval change. Electronically Signed: Jaime Walker DO at 20:42 EST ,
[2022-03-02] MEDS: 0.9% Normal Saline 1,000 ML 999 ML IV (20:16)
[2022-03-02 20:21] LABS: Absolute Lymphocyte Count 1.01 X10^3/uL (0.83-4.51); Absolute Neutrophil Count 9.5 X10^3/uL (2.0-7.7); Basophil# 0.02 X10^3/uL; Basophil% 0.2 % (0-1); Hematocrit 39.2 % (37-47); Hemoglobin 12.9 g/dL (12.0-15.0); Lymphocyte # 1.01 X10^3/ul (0.83-4.51); Lymphocyte % 8.9 % (19-41); Mean Corp Hgb Conc 32.9 g/dL (32-36); Mean Corpuscular Hgb 27.7 pg (27.0-32.0); Mean Corpuscular Volume 84.3 fL (81-99); Mean Platelet Vol. 9.2 fl (6.2-12.0); Monocyte# 0.81 X10^3/uL; Monocyte% 7.1 % (0-10); NRBC Flagged by Analyzer 0 % (0-5); Neutrophil # 9.45 X10^3/uL (2.7-7.7); Neutrophil % 83.3 % (47-70); Platelet Count 484 K/mm3 (150-450); RBC Distribution Width CV 13.1 % (11.6-14.6); RBC Distribution Width SD 40.1 fl (35.1-43.9); Red Blood Count 4.65 M/mm3 (4.2-5.4); White Blood Count 11.4 K/mm3 (4.4-11.0)
[2022-03-02] MEDS: dilTIAZem 25 MG/5 ML Vial 10 MG IV BOLUS (20:21)
--- NOTE | 2022-03-02 20:36 | EDS_ITS ---
HPI <TRACEY Ritchie - Last Filed: 03/02/22 22:30> History of Present Illness Chief Complaint: Weakness Narrative Narrative: Patient presents with her daughter today with diffuse chest pain that she states is worsened with coughing and breathing. Patient has Afib RVR per EMS. Daughter states her mom has slight dementia and is not the best historian. Patient presented earlier today with a similar complaint of chest pain and tested positive for flu A and was ultimately discharged home this afternoon. Earlier this evening patient became nauseous and started vomiting and began to feel more weak prompting her to return. She has been unable to keep much fluid and food down. Patient states she does feel slightly short of breath but denies abdominal pain, diarrhea, and fever. PFSH <TRACEY Ritchie - Last Filed: 03/02/22 22:30> [facility] Medical History (Updated 03/02/22 @ 22:[address] Irving Good, DO) Arthritis Depression Fatigue GERD (gastroesophageal reflux disease) HTN (hypertension) Knee pain Shoulder pain Home Medications dicyclomine 10 mg capsule 20 mg PO BID 08/31/19 [History Last Taken Unknown] sertraline 25 mg tablet 100 mg PO DAILY 08/31/19 [History Last Taken Unknown] apixaban 5 mg (74 tabs) tablets in a dose pack (Eliquis DVT-PE Treat 30D Start) 5 mg PO BID #74 tabs 03/02/22 [Rx Last Taken Unknown] atenolol 25 mg tablet 25 mg PO BID #60 tabs 03/02/22 [Rx Last Taken Unknown] atenolol 25 mg tablet 25 mg PO DAILY 03/02/22 [History Last Taken Unknown] duloxetine 20 mg capsule,delayed release sprinkle 20 mg PO DAILY 03/02/22 [History Last Taken Unknown] omeprazole 20 mg capsule,delayed release 20 mg PO BID 03/02/22 [History Last Taken Unknown] Allergy/AdvReac Type Severity Reaction Status Date / Time No Known Allergies Allergy Verified 03/02/22 08:06 Family History Other CVA (cerebral vascular accident) Cancer Heart disease Surgical History Hx of kyphoplasty (~2017) Social History Smoking Status: Never smoker substance use type: does not use ROS <TRACEY Ritchie - Last Filed: 03/02/22 22:30> ROS ED Constitutional Constitutional ED: Denies chills, fever(s) or sweats Eyes Eyes: Denies blurry vision, change in vision or diplopia ENT ENT ED: Denies nasal congestion, rhinorrhea or sore throat Cardiovascular Cardiovascular: Reports chest pain and racing heartbeat; Denies palpitations Respiratory/Chest Respiratory/Chest: Reports cough, dyspnea, shortness of breath at rest and shortness of breath with exertion; Denies wheezing Gastrointestinal Gastrointestinal: Reports nausea and vomiting; Denies abdominal pain, diarrhea or hematemesis Genitourinary Genitourinary ED: Denies dysuria, hematuria or urinary frequency Musculoskeletal Musculoskeletal: Denies arthralgias, myalgias or neck pain Integumentary Denies abscess, Abrasions or rash Neurologic Neurologic: Reports weakness; Denies headache(s) or paresthesias Psychiatric Psychiatric: Denies anxiety or depression EXAM <TRACEY Ritchie - Last Filed: 03/02/22 22:30> Physical Exam Const Vital Signs: 03/02/22 19:38 03/02/22 19:51 03/02/22 21:52 Temperature 97.2 F L Temperature Source Temporal Pulse Rate 137 H 107 H Respiratory Rate 26 H 16 Respiratory Effort Normal Non-Labored Blood Pressure 95/71 102/73 Blood Pressure Mean 79 82 Pulse Ox 93 98 Oxygen Delivery Method Room Air Room Air Positive well nourished and well developed Constitutional Narrative: Patient appears uncomfortable. General Appearance ED: well developed HEENT Reports TM's clear and dry mucous membranes Negative for trauma or tenderness Tympanic Membrane ED: Yes TM's clear Mouth ED: Yes dry mucous membranes Mouth: dry mucous membranes Eyes PERRL and EOMs intact bilaterally Neck no lymphadenopathy, supple and no JVD General: Negative for tenderness Chest Wall inspection of chest normal and palpation of chest normal Resp Resp Narrative: Slightly tachypneic. Crackles in all lung delgado from mucous. Cardio no murmurs Rate: tachycardic Rhythm: abnormal rhythm irregularly irregular (Atrial fibrillation. ) GI non-tender, non-distended and no masses Palpation: soft Back/Spine no CVA tenderness Cervical Spine: Negative for cervical spine tenderness Thoracic Spine / Upper Back: Negative for thoracic spinal tenderness Lumbar Spine / Lower Back: Negative for lumbar spinal tenderness Extremity normal to inspection Neuro no sensory deficits noted Sensorium / Orientation: alert Motor Exam: strength 5/5 throughout Psych mental status grossly normal Skin no rashes or lesions noted, no wounds and skin turgor normal <Dr. Irving Good DO - Last Filed: 03/02/22 23:11> Physical Exam Const Vital Signs: 03/02/22 19:38 03/02/22 19:51 03/02/22 21:52 Temperature 97.2 F L Temperature Source Temporal Pulse Rate 137 H 107 H Respiratory Rate 26 H 16 Respiratory Effort Normal Non-Labored Blood Pressure 95/71 102/73 Blood Pressure Mean 79 82 Pulse Ox 93 98 Oxygen Delivery Method Room Air Room Air MDM <TRACEY Ritchie - Last Filed: 03/02/22 22:30> [facility] MDM Narrative Medical decision making narrative: Upon arrival patient was tachycardic at 137 and was given a dose of Cardizem which then dropped her heart rate to 107. Patient has been given potassium replacement. Lab Data Attestation: I reviewed the patient's lab results. Lab results narrative: Hypokalemia. Troponin 36. Elevated white blood count compared to this morning. Elevated platelets compared to this morning. Elevated neutrophils and decreased lymphocytes. Labs: Laboratory Results - last 24 hr 03/02/22 03/02/22 03/02/22 19:48 19:49 19:49 WBC 11.4 H RBC 4.65 Hgb 12.9 Hct 39.2 MCV 84.3 MCH 27.7 MCHC 32.9 RDW Std Deviation 40.1 RDW Coeff of Nataliia 13.1 Plt Count 484 H MPV 9.2 Immature Gran % (Auto) 0.500 Neut % (Auto) 83.3 H Lymph % (Auto) 8.9 L [place] % (Auto) 7.1 Eos % (Auto) 0.0 Baso % (Auto) 0.2 Absolute Neuts (auto) 9.5 H Absolute Lymphs (auto) 1.01 Nucleated RBC % 0 D-Dimer Quant (PE/DVT) Cancelled Sodium 133 L Potassium 2.6 L* Chloride 98 Carbon Dioxide 24.0 Anion Gap 11 BUN 16 Creatinine 1.04 H Estim Creat Clear Calc 45.10 Est GFR (MDRD) Af Amer 67 Est GFR (MDRD) Non-Af 55 L BUN/Creatinine Ratio 15.4 Glucose 152 H Lactic Acid Calcium 9.3 Magnesium Total Bilirubin 0.30 AST 22 ALT 23 Alkaline Phosphatase 64 Troponin I High Sens 36 Total Protein 7.2 Albumin 2.8 L Globulin 4.4 H Albumin/Globulin Ratio 0.6 L Urine Color Urine Clarity Urine pH Ur Specific [place] Urine Protein Urine Glucose (UA) Urine Ketones Urine Occult Blood Urine Nitrite Urine Bilirubin Urine Urobilinogen Ur Leukocyte Esterase Urine RBC Urine WBC Ur Squamous Epith Cells Urine Bacteria Hyaline Casts Urine Mucus 03/02/22 03/02/22 03/02/22 19:49 20:40 21:27 WBC RBC Hgb Hct MCV MCH MCHC RDW Std Deviation RDW Coeff of Nataliia Plt Count MPV Immature Gran % (Auto) Neut % (Auto) Lymph % (Auto) [place] % (Auto) Eos % (Auto) Baso % (Auto) Absolute Neuts (auto) Absolute Lymphs (auto) Nucleated RBC % D-Dimer Quant (PE/DVT) Sodium Potassium Chloride Carbon Dioxide Anion Gap BUN Creatinine Estim Creat Clear Calc Est GFR (MDRD) Af Amer Est GFR (MDRD) Non-Af BUN/Creatinine Ratio Glucose Lactic Acid 1.5 Calcium Magnesium 2.0 Total Bilirubin AST ALT Alkaline Phosphatase Troponin I High Sens Total Protein Albumin Globulin Albumin/Globulin Ratio Urine Color Yellow Urine Clarity Cloudy Urine pH 5.0 Ur Specific [place] 1.020 Urine Protein 30 H Urine Glucose (UA) Normal Urine Ketones 50 H Urine Occult Blood 150 H Urine Nitrite Negative Urine Bilirubin 1 H Urine Urobilinogen Normal Ur Leukocyte Esterase 500 H Urine RBC 0-5 SEEN Urine WBC 0-5 SEEN Ur Squamous Epith Cells 5-10 SEEN Urine Bacteria 2+ Hyaline Casts 0-5 SEEN Urine Mucus 0 SEEN Radiography Diagnostic Testing: Clinical Impression(s) from Imaging Studies Chest X-Ray 03/02/22 20:15 IMPRESSION: No interval change. Electronically Signed: Jaime Walker DO at 20:42 EST Reading Location ID and State: [facility] / [place] Tel [phone], Service support , Chest x-ray reviewed. I agree with radiologist impressions. This has also been reviewed by attending ED physician. EKG Initial EKG: Attestation: I personally reviewed and interpreted this EKG as follows: Interpretation: Atrial Fibrillation Comments: [address] elevation. This has also been reviewed by attending ED physician. <Dr. Irving Good, DO - Last Filed: 03/02/22 23:11> [facility] Lab Data Labs: Laboratory Results - last 24 hr 03/02/22 03/02/22 03/02/22 19:48 19:49 19:49 WBC 11.4 H RBC 4.65 Hgb 12.9 Hct 39.2 MCV 84.3 MCH 27.7 MCHC 32.9 RDW Std Deviation 40.1 RDW Coeff of Nataliia 13.1 Plt Count 484 H MPV 9.2 Immature Gran % (Auto) 0.500 Neut % (Auto) 83.3 H Lymph % (Auto) 8.9 L [place] % (Auto) 7.1 Eos % (Auto) 0.0 Baso % (Auto) 0.2 Absolute Neuts (auto) 9.5 H Absolute Lymphs (auto) 1.01 Nucleated RBC % 0 D-Dimer Quant (PE/DVT) Cancelled Sodium 133 L Potassium 2.6 L* Chloride 98 Carbon Dioxide 24.0 Anion Gap 11 BUN 16 Creatinine 1.04 H Estim Creat Clear Calc 45.10 Est GFR (MDRD) Af Amer 67 Est GFR (MDRD) Non-Af 55 L BUN/Creatinine Ratio 15.4 Glucose 152 H Lactic Acid Calcium 9.3 Magnesium Total Bilirubin 0.30 AST 22 ALT 23 Alkaline Phosphatase 64 Troponin I High Sens 36 Total Protein 7.2 Albumin 2.8 L Globulin 4.4 H Albumin/Globulin Ratio 0.6 L Urine Color Urine Clarity Urine pH Ur Specific [place] Urine Protein Urine Glucose (UA) Urine Ketones Urine Occult Blood Urine Nitrite Urine Bilirubin Urine Urobilinogen Ur Leukocyte Esterase Urine RBC Urine WBC Ur Squamous Epith Cells Urine Bacteria Hyaline Casts Urine Mucus 03/02/22 03/02/22 03/02/22 19:49 20:40 21:27 WBC RBC Hgb Hct MCV MCH MCHC RDW Std Deviation RDW Coeff of Nataliia Plt Count MPV Immature Gran % (Auto) Neut % (Auto) Lymph % (Auto) [place] % (Auto) Eos % (Auto) Baso % (Auto) Absolute Neuts (auto) Absolute Lymphs (auto) Nucleated RBC % D-Dimer Quant (PE/DVT) Sodium Potassium Chloride Carbon Dioxide Anion Gap BUN Creatinine Estim Creat Clear Calc Est GFR (MDRD) Af Amer Est GFR (MDRD) Non-Af BUN/Creatinine Ratio Glucose Lactic Acid 1.5 Calcium Magnesium 2.0 Total Bilirubin AST ALT Alkaline Phosphatase Troponin I High Sens Total Protein Albumin Globulin Albumin/Globulin Ratio Urine Color Yellow Urine Clarity Cloudy Urine pH 5.0 Ur Specific [place] 1.020 Urine Protein 30 H Urine Glucose (UA) Normal Urine Ketones 50 H Urine Occult Blood 150 H Urine Nitrite Negative Urine Bilirubin 1 H Urine Urobilinogen Normal Ur Leukocyte Esterase 500 H Urine RBC 0-5 SEEN Urine WBC 0-5 SEEN Ur Squamous Epith Cells 5-10 SEEN Urine Bacteria 2+ Hyaline Casts 0-5 SEEN Urine Mucus 0 SEEN Radiography Diagnostic Testing: Clinical Impression(s) from Imaging Studies Chest X-Ray 03/02/22 20:15 IMPRESSION: No interval change. Electronically Signed: Jaime Walker DO at 20:42 EST Reading Location ID and State: [address] [place] [address] Tel [phone], Service support , Treatment and Re-Evaluation Narrative: This patient was seen with a PA/ABALONE PROCESSOR Individually assessed they patient including history and physical. I have reviewed everything on the chart that is available and agree with the documentation provided by the PA/ABALONE PROCESSOR including discussion about the assessment, treatment plan, discussion, and return precautions. Patient presenting with chest pain. Initial EKG showed atrial fibrillation with a ventricular rate of 123 beats per without sign of ST elevation or depression. Patient has history of SVT and she is on atenolol. She did not take this this evening. She was seen earlier in the ED after several hours of chest pain and essentially sent home. She recently had a cardiac catheterization which showed angiographically normal vessels. She had a stress test which was normal, she had a echocardiogram which was also normal. She had a cardiac evaluation in the hospital here at [place]. I do not believe she needs further cardiac testing. Initially she was tachycardic and after 10 mg of Cardizem her heart rate improved. She is now sinus rhythm from 70-80 on the monitor. Her CBC shows a mild leukocytosis 11.4. Hemoglobin hematocrit are stable. Platelets slightly elevated at 484. Creatinine slightly elevated from earlier she was given a liter of IV fluids. Potassium again is low at 2.6. She was given 40 mEq of potassium here in the ED. Her magnesium level was normal. Patient did test positive for influenza a earlier today. She would be outside the treatment window for this as his symptoms have been going on for several days. Atrial fib rillation is new. I spoke with Dr. Gorman who recommended increasing her atenolol to twice a day. She will also be started on Eliquis. Risk benefits were discussed with her at length. She acknowledged understanding. Discharge Plan Triage Chief Complaint: Weakness ED Midlevel Provider: Alvina Winn ED Provider: Irving Good Dx/Rx/DC Orders Clinical Impression: Influenza A, Chest pain, Hypokalemia, A-fib Prescriptions: New atenolol 25 mg tablet 25 mg PO BID Qty: 60 0RF Eliquis DVT-PE Treat 30D Start 5 mg (74 tabs) tablets,dose pack 5 mg PO BID Qty: 74 0RF Rx Instructions: 10 mg p.o. twice daily x1 week then 5 mg p.o. twice daily No Action sertraline 25 mg tablet 100 mg PO DAILY dicyclomine 10 mg capsule 20 mg PO BID atenolol 25 mg tablet 25 mg PO DAILY omeprazole 20 mg Capsule,Delayed Release(Dr/Ec) 20 mg PO BID duloxetine 20 mg Capsule, Delayed Rel Sprinkle 20 mg PO DAILY Primary Care Provider: Michelle Hess Referrals: Michelle Hess MD [Primary Care Provider] - Disposition Disposition: Home, Self Care
--- NOTE | 2022-03-02 20:41 | EKG12_ITS ---
Test Reason : DYSRHYTHMIA Blood Pressure : / mmHG Vent. Rate : 123 BPM Atrial Rate : 120 BPM P-R Int : 000 ms QRS Dur : 082 ms QT Int : 316 ms P-R-T Axes : 000 025 054 degrees QTc Int : 452 ms Atrial fibrillation Abnormal ECG Confirmed by SANDOVAL QUINONES, GAVIOTA ([id number]), medical transcription editor LARUA HARRINGTON ([id number]) on 03/06/2022 11:56:00 AM Referred By: VALENTINA Confirmed By:GAVIOTA NICK MD
[2022-03-02] MEDS: Ondansetron 4 MG/2 ML Vial IV (20:45)
[2022-03-02 20:54] LABS: ALB/GLOB Ratio 0.6 RATIO (0.9-2.4); AST(SGOT) 22 U/L (15-37); Alanine Aminotransfer ALT/SGPT 23 U/L (13-56); Albumin, Serum 2.8 g/dL (3.2-5.0); Alkaline Phosphatase 64 U/L (45-117); Anion Gap 11 (5-15); BUN 16 mg/dL (7-18); BUN/Creat Ratio 15.4 RATIO (10-20); Calcium,Total 9.3 mg/dL (8.5-10.1); Chloride 98 mmol/L (98-107); Creatinine, Serum 1.04 mg/dL (0.55-1.02); EST Glomerular Filtration Rate 55 mL/min (>60); Est Glom Filt Rate - Afr Amer 67 mL/min (>60); Globulin 4.4 g/dL (2.2-4.2); Glucose 152 mg/dL (74-106); Potassium 2.6 mmol/L (3.5-5.1); Protein, Total 7.2 g/dL (6.4-8.2); Sodium Level 133 mmol/L (136-145); Troponin-I HS 36 pg/mL (3.0-54.0)
[2022-03-02 21:21] LABS: Lactic Acid 1.5 mmol/L (0.4-1.9)
[2022-03-02 21:31] LABS: Mucous, Urine 0 SEEN /hpf (<or=2+)
[2022-03-02 21:38] LABS: Color, Urine Yellow (Yellow); Glucose, Dipstick Normal (Normal); Ketone-Dipstick 50 mg/dl (Negative); Leukocyte Esterase-Dipstick 500 /ul (Negative); Nitrite-Dipstick Negative (Negative); Occult Blood-Urine 150 /ul (Negative); Protein-Dipstick 30 mg/dl (Negative); Urine Bilirubin Dipstick 1 mg/dL (Negative); Urine Clarity Cloudy (Clear); Urine Urobilinogen Normal (Normal)
[2022-03-02 21:43] LABS: Hyaline Cast 0-5 SEEN /lpf (0-5)
[2022-03-02 21:44] LABS: Red Blood Cells-Urine 0-5 SEEN /hpf (0-5); Squamous Epithelial Cells - UA 5-10 SEEN /hpf (5-10); White Blood Cells 0-5 SEEN /hpf (0-5)
[2022-03-02 21:45] LABS: Bacteria 2+ /hpf (None Seen)
[2022-03-02] MEDS: Potassium Chloride Oral Tablet 20 MEQ 40 MEQ PO (21:51)
[2022-03-02 21:52] VITALS: BP 102/73; PULSE 107; RESP 16; O2SAT 98
[2022-03-02] MEDS: APIXABAN 5 MG TABLET 10 MG PO (23:31)
[2022-03-02] MEDS: Atenolol 25 MG Tablet PO (23:31)
== END 2022-03-02 23:41 | disposition home or self-care (01) ==
PROVIDERS: Physician Assistant; Emergency Provider Student in an Organized Health Care Education/Training Program; PCP Family Medicine; Visit Provider Student in an Organized Health Care Education/Training Program
DX: J10.1 Influenza due to other identified influenza virus with other respiratory manifestations (principal); I48.91 Unspecified atrial fibrillation; R07.9 Chest pain, unspecified; E87.6 Hypokalemia; K21.9 Gastro-esophageal reflux disease without esophagitis; Z79.899 Other long term (current) drug therapy
CPT/HCPCS: 71045; 80048; 80053; 81001; 83605; 83735; 84484; 85025; 87428; 93005; 94640; 96374; 96375; 99284; 99285; A4216; J2405

== ENCOUNTER 2022-03-10 16:02 | Inpatient (IN) | payer MEDICARE, SELFPAY ==
[2022-03-10] VITALS (7 sets, daily range): BP systolic 108–138; BP diastolic 54–74; PULSE 55–74; RESP 15–20; TEMP 36.6–37.1; O2SAT 97–100; BMI 27.9
--- NOTE | 2022-03-10 16:26 | EKG12_ITS ---
Test Reason : Blood Pressure : / mmHG Vent. Rate : 062 BPM Atrial Rate : 062 BPM P-R Int : 152 ms QRS Dur : 084 ms QT Int : 450 ms P-R-T Axes : 064 034 059 degrees QTc Int : 456 ms Normal sinus rhythm Normal ECG Confirmed by SANDOVAL QUINONES, GAVIOTA ([id number]), medical transcription editor LAURA HARRINGTON ([id number]) on 03/13/2022 11:20:45 AM Referred By: Confirmed By:GAVIOTA NICK MD
--- NOTE | 2022-03-10 16:28 | EX.ED.DYSGE1 ---
HPI History of Present Illness Chief Complaint: General Illness Informant: patient and spouse/S.O. Onset/Context/Timing Onset: Weeks Context: Gradual Onset Timing: Continuous Current Severity: Moderate Maximum Severity: Moderate Narrative Narrative: 72-year-old female history of A. fib on Eliquis and hypertension. She has been ill for the last 2 weeks. She has been seen in the hospital at least once but not admitted. states that she just progressively gets worse they feel that she is dehydrated. Is it is getting more weak to the point she is unable to even stand and walk in the last 2 days. She has been having diarrhea to the point where she soils her self. No vomiting previously was having fevers which have resolved. She was told somewhere along the line in the last 2 weeks that she had influenza but does not know if she was tested. She denies any dysuria. Prior similar symptoms: Yes Recent Illness/Hospitalization: No [facility] Medical History (Updated 03/10/22 @ 17:[address] Stephanie Oconnell, DO) Arthritis Depression Fatigue GERD (gastroesophageal reflux disease) HTN (hypertension) Knee pain Shoulder pain Home Medications dicyclomine 10 mg capsule 20 mg PO BID 08/31/19 [History Last Taken Unknown] sertraline 25 mg tablet 100 mg PO DAILY 08/31/19 [History Last Taken Unknown] apixaban 5 mg (74 tabs) tablets in a dose pack (Eliquis DVT-PE Treat 30D Start) 5 mg PO BID #74 tabs 03/02/22 [Rx Last Taken Unknown] atenolol 25 mg tablet 25 mg PO BID #60 tabs 03/02/22 [Rx Last Taken Unknown] atenolol 25 mg tablet 25 mg PO DAILY 03/02/22 [History Last Taken Unknown] duloxetine 20 mg capsule,delayed release sprinkle 20 mg PO DAILY 03/02/22 [History Last Taken Unknown] omeprazole 20 mg capsule,delayed release 20 mg PO BID 03/02/22 [History Last Taken Unknown] Allergy/AdvReac Type Severity Reaction Status Date / Time No Known Allergies Allergy Verified 03/02/22 08:06 Family History Other CVA (cerebral vascular accident) Cancer Heart disease Surgical History Hx of kyphoplasty (~2017) Social History Smoking Status: Never smoker substance use type: does not use ROS ROS ED ROS Narrative Diarrhea. Weakness. Review of Systems ROS Unobtainable: Denies due to encephalopathy Constitutional Constitutional ED: Reports fever(s) and subjective; Denies chills Eyes Eyes: Denies blurry vision ENT ENT ED: Denies ear pain or rhinorrhea Cardiovascular Cardiovascular: Denies chest pain Respiratory/Chest Respiratory/Chest: Reports cough Gastrointestinal Gastrointestinal: Reports diarrhea; Denies abdominal pain, constipation, melena, nausea or vomiting Genitourinary Genitourinary ED: Denies dysuria or hematuria Musculoskeletal Musculoskeletal: Denies arthralgias Integumentary Denies abscess Neurologic Neurologic: Denies headache(s) Psychiatric Psychiatric: Denies anxiety Endocrine Endocrinology: Denies cold intolerance Hematologic/Lymphatic Hematologic/Lymphatic: Reports none Allergic/Immunologic Allergic/Immunologic ED: Denies mouth swelling or tongue swelling EXAM Physical Exam Narrative Exam Narrative: 72-year-old female vital signs are stable. Her pulse ox high percent on room air. She does not appear to be hypoxic. H EENT exam dry mucous membranes. Neck nontender no lymphadenopathy. Lungs [place] right base. No rales or wheezing. Heart regular rhythm rate about 65 no murmur. Chest were nontender. Abdomen soft nontender. Normal bowel sounds no peritoneal signs. Moving all 4 extremities. Normal regional account director strength. Normal dorsi plantar flexion there is no edema. Back nontender. Neurologically she is awake and alert. No focal motor deficits. I did not attempt to stand the patient. Const Vital Signs: 03/10/22 16:02 03/10/22 16:03 03/10/22 16:06 Temperature 98.2 F Temperature Source Oral Pulse Rate 74 58 L Respiratory Rate 15 19 H Respiratory Effort Normal Respiratory Pattern Normal Blood Pressure 138/66 H Blood Pressure Mean 90 Pulse Ox 97 100 Oxygen Delivery Method Room Air Room Air 03/10/22 17:09 Temperature 98.2 F Temperature Source Temporal Pulse Rate 55 L Respiratory Rate 20 H Respiratory Effort Respiratory Pattern Blood Pressure 108/74 Blood Pressure Mean 85 Pulse Ox 97 Oxygen Delivery Method Room Air Positive well nourished and well developed; Negative for obese, cachectic, contractures or unkempt General Appearance ED: well developed and NAD; Negative for unkempt, cachectic, contractures, cyanotic or diaphoretic Nutritional Appearance: Negative for cachectic or obese HEENT Reports dry mucous membranes; Denies moist mucous membranes Negative for trauma or tenderness Mouth ED: Yes dry mucous membranes Mouth: dry mucous membranes Eyes PERRL and EOMs intact bilaterally General Eye ED: Negative for pale conjunctiva or scleral icterus Neck no lymphadenopathy, supple and no JVD General: Negative for tenderness Chest Wall inspection of chest normal and palpation of chest normal Chest: Negative for other Resp normal respiratory effort and clear to auscultation bilaterally Effort and Inspection: Negative for retractions Auscultation: Negative for rales, rhonchi or wheezes Cardio regular rate, regular rhythm, S1 normal heart sound, S2 normal heart sound and no murmurs GI normal to inspection, nondistended, normoactive bowel sounds, non-tender, non-distended and no masses Inspection: Negative for abdominal distention Auscultation: normoactive bowel sounds Palpation: soft; Negative for tender, guarding, mass or rebound tenderness present Back/Spine no CVA tenderness General Back: Negative for CVA tenderness Cervical Spine: Negative for cervical spine tenderness Thoracic Spine / Upper Back: Negative for thoracic spinal tenderness or paraspinal muscle tenderness Lumbar Spine / Lower Back: Negative for lumbar spinal tenderness Extremity normal to inspection General Extremety ED: Negative for tenderness Neuro oriented x3 and CN's II-XII intact bilaterally Sensorium / Orientation: alert; Negative for orientation impaired Motor Exam: strength 5/5 throughout; Negative for general weakness or strength abnormal Psych mental status grossly normal Appearance: Negative for unkempt Attitude: No agitated Mood & Affect: Negative for depressed or anxious Skin no rashes or lesions noted and no wounds Rashes: No rashes noted Trauma: Negative for abrasion Wounds: Negative for wounds noted MDM MDM MDM Narrative Medical decision making narrative: 72-year-old female has been ill for 2 weeks. Think she either has a viral syndrome and possibly had influenza. Now she has a cough, generalized weakness diarrhea and feels dehydrated. She is too weak to even get up walk at home. She will be started on IV fluids. Screening labs and chest x-ray are being obtained. I do agree clinically she looks dehydrated. She may or may not have pneumonia versus other etiologies. She will need to be admitted. Repeat exam unchanged. Patient was tested around 8 days ago and had influenza A. I spoken to the hospitalist and she will be admitted for further thrive, general weakness, diarrhea, influenza and unable to ambulate. Patient was treated with IV fluids for dehydration. She will be started on Rocephin for UTI. Hospitalist will admit her. Lab Data Attestation: I reviewed the patient's lab results. Lab results narrative: CBC shows an elevated white count of 14.1. H&H 12.7 and 30.6. Lactic acid 1.1. Chest x-ray negative. Lactic acid is normal 1.1. Chemistries show potassium of 3.1. Gap of 12. BUN of 20 creatinine 0.8. Glucose 94. Urinalysis looks infected with bacteria 4+ 5-10 white cells positive nitrates and dehydration with ketones. Urine culture be sent. She will be started on antibiotics. Labs: Laboratory Results - last 24 hr 03/10/22 03/10/22 03/10/22 16:01 16:07 16:07 WBC 14.1 H RBC 4.55 Hgb 12.7 Hct 38.6 MCV 84.8 MCH 27.9 MCHC 32.9 RDW Std Deviation 40.1 RDW Coeff of Nataliia 13.3 Plt Count 470 H MPV 10.9 Immature Gran % (Auto) 0.400 Neut % (Auto) 79.9 H Lymph % (Auto) 10.2 L Hawkins % (Auto) 9.2 Eos % (Auto) 0.0 Baso % (Auto) 0.3 Absolute Neuts (auto) 11.3 H Absolute Lymphs (auto) 1.44 Nucleated RBC % 0 Sodium 139 Potassium 3.1 L Chloride 105 Carbon Dioxide 22.0 Anion Gap 12 BUN 20 H Creatinine 0.84 Estim Creat Clear Calc 55.84 Est GFR (MDRD) Af Amer 86 Est GFR (MDRD) Non-Af 71 BUN/Creatinine Ratio 23.9 H Glucose 94 Lactic Acid 1.1 Calcium 9.3 Urine Color Urine Clarity Urine pH Ur Specific Paulina Urine Protein Urine Glucose (UA) Urine Ketones Urine Occult Blood Urine Nitrite Urine Bilirubin Urine Urobilinogen Ur Leukocyte Esterase Urine RBC Urine WBC Ur Squamous Epith Cells Urine Bacteria Urine Mucus 03/10/22 17:00 WBC RBC Hgb Hct MCV MCH MCHC RDW Std Deviation RDW Coeff of Nataliia Plt Count MPV Immature Gran % (Auto) Neut % (Auto) Lymph % (Auto) Hawkins % (Auto) Eos % (Auto) Baso % (Auto) Absolute Neuts (auto) Absolute Lymphs (auto) Nucleated RBC % Sodium Potassium Chloride Carbon Dioxide Anion Gap BUN Creatinine Estim Creat Clear Calc Est GFR (MDRD) Af Amer Est GFR (MDRD) Non-Af BUN/Creatinine Ratio Glucose Lactic Acid Calcium Urine Color Yellow Urine Clarity Sl. Cloudy Urine pH 6.0 Ur Specific Paulina 1.020 Urine Protein 30 H Urine Glucose (UA) Normal Urine Ketones 150 A* Urine Occult Blood 10 H Urine Nitrite Positive H Urine Bilirubin 1 H Urine Urobilinogen 4 H Ur Leukocyte Esterase 100 H Urine RBC 0 SEEN Urine WBC 5-10 SEEN Ur Squamous Epith Cells 0 SEEN Urine Bacteria 4+ Urine Mucus 0 SEEN Radiography Chest X-Ray - ED: 1 View, Read by ED Physician, Heart, Lungs, Mediastinum, Bony Structures, No Acute Disease and Chronic Changes Diagnostic Testing: Clinical Impression(s) from Imaging Studies Chest X-Ray 03/10/22 16:37 IMPRESSION: Poor inspiration with some bibasilar atelectasis. Electronically Signed: Jamarcus Cook MD at 17:04 EST , Chest x-ray, portable, single view interpreted by myself and radiologist shows no acute abnormality. Rhythm Strip Rhythm Strip: Sinus Rhythm Rate: 88 Ectopy: None EKG Initial EKG: Attestation: I personally reviewed and interpreted this EKG as follows: Interpretation: Sinus Rhythm and No Acute Injury Pattern Comments: Normal sinus rhythm rate 88 no acute signs of IL or ischemia. Discharge Plan Dx/Rx/DC Orders Clinical Impression: Generalized weakness, Unable to ambulate, Acute dehydration, Influenza A, Diarrhea, Chronic anticoagulation, Acute UTI Disposition Disposition: [facility]
[2022-03-10] MEDS: 0.9% Normal Saline 1,000 ML 1000 ML IV ×2 (16:33→17:35)
--- NOTE | 2022-03-10 16:37 | RAD_ITS ---
STUDY: X-RAY CHEST REASON FOR EXAM: Female, 72 years old. productive cough TECHNIQUE: Single AP portable view of the chest. COMPARISON: 03/02/2022 FINDINGS: Poor inspiration with some bibasilar atelectasis. There is no demonstrated pleural abnormality. There is moderate cardiac enlargement. Normal mediastinum and paolo. Normal visualized pulmonary arteries. Normal visualized aortic arch and descending thoracic aorta. Normal visualized thoracic spine. Normal visualized ribs, clavicles, and shoulders. There is no demonstrated abnormality of the visualized soft tissue structures of the upper abdomen. RAD/Chest 1 View (Portable) IMPRESSION: Poor inspiration with some bibasilar atelectasis. Electronically Signed: Jamarcus Cook MD at 17:04 EST ,
[2022-03-10 16:43] LABS: Absolute Lymphocyte Count 1.44 X10^3/uL (0.83-4.51); Absolute Neutrophil Count 11.3 X10^3/uL (2.0-7.7); Basophil# 0.04 X10^3/uL; Basophil% 0.3 % (0-1); Hematocrit 38.6 % (37-47); Hemoglobin 12.7 g/dL (12.0-15.0); Lymphocyte # 1.44 X10^3/ul (0.83-4.51); Lymphocyte % 10.2 % (19-41); Mean Corp Hgb Conc 32.9 g/dL (32-36); Mean Corpuscular Hgb 27.9 pg (27.0-32.0); Mean Corpuscular Volume 84.8 fL (81-99); Mean Platelet Vol. 10.9 fl (6.2-12.0); Monocyte% 9.2 % (0-10); NRBC Flagged by Analyzer 0 % (0-5); Neutrophil # 11.28 X10^3/uL (2.7-7.7); Neutrophil % 79.9 % (47-70); Platelet Count 470 K/mm3 (150-450); RBC Distribution Width CV 13.3 % (11.6-14.6); RBC Distribution Width SD 40.1 fl (35.1-43.9); Red Blood Count 4.55 M/mm3 (4.2-5.4); White Blood Count 14.1 K/mm3 (4.4-11.0)
[2022-03-10 16:52] LABS: Lactic Acid 1.1 mmol/L (0.4-1.9)
[2022-03-10 17:02] LABS: Mucous, Urine 0 SEEN /hpf (<or=2+); Red Blood Cells-Urine 0 SEEN /hpf (0-5); Squamous Epithelial Cells - UA 0 SEEN /hpf (5-10)
--- NOTE | 2022-03-10 17:11 | HP.PCM.HOS_ITS ---
HPI - General General Date of Admission: 03/10/22 Date of Service: 03/10/22 Chief Complaint: Generalized weakness HPI Narrative DEBOAR BOURGEOIS, is a 72 F who presented to the emergency department was coming hospital on 03/10/2022 with a chief complaint of generalized weakness and concern for dehydration. Patient reports that she was seen in the emergency department earlier within the last 2 weeks and diagnosed with flu a at that time. It appears upon review of documentation that she presented with weakness at that time as well and was having some difficulty cough with coughing and breathing. Her daughter did report at that time she has some slight dementia and is not the best historian. She was sent home at that time and then repre sented in the evening because she developed some nausea and vomiting. She was in A. fib at that time and was given some Cardizem and her rate was controlled and then she eventually self converted to normal sinus rhythm. They did increase her atenolol at that time and she was started on Eliquis. She was not given Tamiflu as her symptoms at this time of presentation were outside of the window for treatment. Since that point time her reports that she is progressively gotten worse and within the last 2 days she has been unable to even stand or walk. She has been having some diarrhea to the point where she soils herself but no vomiting. She was not on antibiotics anytime recently. She has had no ongoing fever or chills and no dysuria. Some cough with some productivity. She does not complain of any nausea and states her p.o. intake is down just because she does not feel like eating. She has general malaise and generalized weakness. Vital signs at the time of presentation demonstrate temperature of 98.2, heart rate of 58, blood pressure of 138/66, respiratory rate was 19, oxygen saturations 100% on room air. CBC shows a mild leukocytosis with a white count of 14.1 and a thrombocytosis with a platelet count of 470,000 as well as a left shift with a 79.9% neutrophilia. Her lactic acid was 1.1. Her chemistry panel showed normal renal function with a slightly elevated BUN and hypokalemia with a potassium of 3.1 but was otherwise unremarkable.. Her UA demonstrated dehydration with a specific gravity of 1.02 elevated ketones at 150, occult blood, nitrite, leuk esterase with 5-10 white blood cells per high-power field as well as 4+ bacteria. Her chest x-ray shows bibasilar atelectasis and poor inspiratory effort but no infiltrate or any other cardiopulmonary abnormality. EKG was normal sinus rhythm with a heart rate of 88 and no ectopy. Given her inability to ambulate and decreased ability to take care of herself at home she was admitted for ongoing treatment. [facility] Medical History (Updated 03/10/22 @ 17:[address] Stephanie Oconnell DO) Arthritis Chronic anticoagulation Depression Fatigue GERD (gastroesophageal reflux disease) Hernia, hiatal HTN (hypertension) Knee pain Shoulder pain SVT (supraventricular tachycardia) Home Medications dicyclomine 10 mg capsule 20 mg PO BID 08/31/19 [History Last Taken Unknown] sertraline 25 mg tablet 100 mg PO DAILY 08/31/19 [History Last Taken Unknown] apixaban 5 mg (74 tabs) tablets in a dose pack ([employer] DVT-PE Treat 30D Start) 5 mg PO BID #74 tabs 03/02/22 [Rx Last Taken Unknown] atenolol 25 mg tablet 25 mg PO BID #60 tabs 03/02/22 [Rx Last Taken Unknown] atenolol 25 mg tablet 25 mg PO DAILY 03/02/22 [History Last Taken Unknown] duloxetine 20 mg capsule,delayed release sprinkle 20 mg PO DAILY 03/02/22 [History Last Taken Unknown] omeprazole 20 mg capsule,delayed release 20 mg PO BID 03/02/22 [History Last Taken Unknown] Allergy/AdvReac Type Severity Reaction Status Date / Time No Known Allergies Allergy Verified 03/02/22 08:06 Family History Other CVA (cerebral vascular accident) Cancer Heart disease Surgical History Hx of kyphoplasty (~2017) Social History (Updated 03/10/22 @ 17:[address] Stephanie Oconnell DO) household members: spouse housing: house Smoking Status: Never smoker alcohol intake: never substance use type: does not use ROS Constitutional Constitutional: Reports anorexia, fatigue, malaise and weakness; Denies change in weight, chills, fever(s), night sweats or other Eyes Eyes: Denies blurry vision, change in eye color, change in vision, discharge from eye(s), double vision, erythema, eye pain, loss of vision or other ENT HEENT: Denies abnormal hearing, dysphagia, ear pain, epistaxis, headache(s), hearing loss, nasal congestion, nasal discharge, post nasal drip, sinus pressure, sore throat or other Cardiovascular Cardiovascular: Denies chest pain, claudication, dyspnea on exertion, edema, lightheadedness, orthopnea, palpitations, paroxysmal nocturnal dyspnea, rapid heart rate, syncope or other Respiratory/Chest Respiratory/Chest: Reports cough and productive cough; Denies dyspnea, excessive phlegm production, hemoptysis, shortness of breath at rest, shortness of breath with exertion, wheezing or other Gastrointestinal Gastrointestinal: Reports diarrhea; Denies abdominal pain, coffee ground emesis, constipation, dyspepsia, hematemesis, hematochezia, loose stools, melena, naus ea, vomiting or other Genitourinary Genitourinary: Denies burning urination, difficulty urinating, dysuria, hematuria, nocturia, urinary frequency, urinary hesitancy, urinary incontinence, urinary urgency or other Musculoskeletal Musculoskeletal: Reports myalgias; Denies arthralgias, back pain, joint pain, joint stiffness, joint swelling, neck pain or other Neurologic Neurologic: Denies abnormal gait, abnormal speech, confusion, disequilibrium, dizziness, focal weakness, headache(s), numbness, paresthesias, seizure-like activity, seizures, syncope, tingling, tremor(s) or other Psychiatric Psychiatric: Reports depression; Denies anxiety, homicidal ideation, suicidal ideation or other Endocrine Endocrinology: Denies change in body appearance, cold intolerance, excessive sweating, heat intolerance, polydipsia, polyuria or other Hematologic/Lymphatic Hematologic/Lymphatic: Denies anemia, easy bleeding, easy bruising, lymphadenopathy or other Allergic/Immunologic Allergic/Immunologic: Denies rhinitis, hives, eczemia, asthma or other Vital Signs Vital Signs Vital Signs: 03/10/22 16:02 03/10/22 16:03 03/10/22 16:06 Temperature 98.2 F Temperature Source Oral Pulse Rate 74 58 L Respiratory Rate 15 19 H Respiratory Effort Normal Respiratory Pattern Normal Blood Pressure 138/66 H Blood Pressure Mean 90 Pulse Ox 97 100 Oxygen Delivery Method Room Air Room Air Weight Weight: 78.6 kg Body Mass Index (BMI) 27.9 Physical Exam Const alert, oriented x3 and no apparent distress Constitutional Narrative: Elderly white female lying in bed, at bedside, patient appears ill but nontoxic General Appearance: cooperative HEENT normocephalic, head/scalp atraumatic and hearing grossly normal bilaterally HEENT Narrative: Dentition is poor, Mallampati is 2, mucous membranes are slightly dry, no thrush Eyes PERRL, EOMs intact bilaterally and conjunctivae normal Eyes Narrative: No scleral icterus Neck no lymphadenopathy, supple, no JVD and no carotid bruits Neck Narrative: Trachea midline, neck is short and thick, no thyroid enlargement Resp normal respiratory effort, no retractions, no use of accessory muscles and clear to auscultation bilaterally Auscultation: Negative for crackles, rhonchi or wheezes Cardio regular rate, regular rhythm, S1 normal heart sound, S2 normal heart sound, no murmurs, no rub, no gallops and no clicks GI normal to inspection, nondistended, normoactive bowel sounds, soft to palpation and non-tender Extremity no clubbing, cyanosis or edema Extremity Narrative: 2+ pedal pulses Skin no rashes or lesions noted, no wounds, skin turgor normal, no jaundice, no petechiae and no mottling Neuro oriented x3, CN's II-XII intact bilaterally, moves all extremities and no focal motor deficits Neuro Narrative: Significant generalized weakness but no focal deficits Sensorium / Orientation: awake, alert, oriented to person, oriented to place and oriented to time Speech: speech normal Psych Psych Narrative: Affect is flat Results Lab / Micro Data Result Diagrams: 03/10/22 16:07 03/10/22 16:07 Labs: Laboratory Results - last 24 hr 03/10/22 16:01: Lactic Acid 1.1 03/10/22 16:07: WBC 14.1 H, RBC 4.55, Hgb 12.7, Hct 38.6, MCV 84.8, MCH 27.9, MCHC 32.9, RDW Std Deviation 40.1, RDW Coeff of Nataliia 13.3, Plt Count 470 H, MPV 10.9, Immature Gran % (Auto) 0.400, Neut % (Auto) 79.9 H, Lymph % (Auto) 10.2 L, Rice % (Auto) 9.2, Eos % (Auto) 0.0, Baso % (Auto) 0.3, Absolute Neuts (auto) 11.3 H, Absolute Lymphs (auto) 1.44, Nucleated RBC % 0 Radiology Impression Chest X-Ray 03/10/22 16:37 IMPRESSION: Poor inspiration with some bibasilar atelectasis. Electronically Signed: Jamarcus Cook MD at 17:04 EST , Assessment & Plan Assessment/Plan (1) Generalized weakness: (2) Unable to ambulate: (3) Influenza A: (4) Diarrhea: (5) Urinary tract infection: QUALIFIERS: Hematuria presence: without hematuria Urinary tract infection type: acute cystitis Qualified Code(s): N30.00 - Acute cystitis without hematuria (6) Leukocytosis: (7) Hypokalemia: (8) Acute dehydration: PLAN: Plan Debility/inability ambulate -Likely related to decreased p.o. intake, recent influenza infection, urinary tract infection, ongoing diarrhea -We will address the above -Consult PT/OT -May need placement at discharge depending on progress with therapy services Influenza A -Symptoms for almost 2 weeks now -Flu symptoms seem to be improving overall -Patient with cough--> check strep pneumo and Legionella antigens/check sputum culture -Patient will currently be on ceftriaxone for UTI will broaden coverage if any positive results from above -Mucinex -Acapella/I-S -We will give another liter IV fluids after ER bolus at 75 cc/h then reevaluate -Out of the window for Tamiflu -Continue supportive care -On room air with oxygen saturations at 97% Probable urinary tract infection -UA is consistent with UTI -Obtain culture -Start ceftriaxone 1 g daily Poor p.o. intake without malnutrition -Start supplements -Patient without any GI symptoms other than diarrhea -No abdominal pain, nausea, or vomiting -Strongly encourage p.o. intake even if she is not all that hungry Diarrhea -Check enteric panel -Check C. difficile -If the above are negative will start Imodium -Check TSH Hypokalemia -40 mill equivalents p.o. potassium -Repeat lab in a.m. Leukocytosis -Multifactorial -See above -Repeat CBC in a.m. PAF -Currently normal sinus rhythm -Monitor clinically -Continue home beta-vicente -Continue home Eliquis GERD -Continue home PPI Depression -Continue home duloxetine -Continue home sertraline Osteoarthritis -As needed Tylenol DVT prophylaxis -apixaban CODE STATUS -DNR CCA with no intubation -Check a.m. magnesium level Charges/Coding Visit Charges Inpatient E&M: 22807 Init Hosp L3
[2022-03-10 17:22] LABS: Color, Urine Yellow (Yellow); Glucose, Dipstick Normal (Normal); Leukocyte Esterase-Dipstick 100 /ul (Negative); Nitrite-Dipstick Positive (Negative); Occult Blood-Urine 10 /ul (Negative); Protein-Dipstick 30 mg/dl (Negative); Urine Bilirubin Dipstick 1 mg/dL (Negative); Urine Clarity Sl. Cloudy (Clear); Urine Urobilinogen 4 mg/dl (Normal)
[2022-03-10 17:23] LABS: Ketone-Dipstick 150 mg/dl (Negative)
[2022-03-10 17:26] LABS: Anion Gap 12 (5-15); BUN 20 mg/dL (7-18); BUN/Creat Ratio 23.9 RATIO (10-20); Calcium,Total 9.3 mg/dL (8.5-10.1); Chloride 105 mmol/L (98-107); Creatinine, Serum 0.84 mg/dL (0.55-1.02); EST Glomerular Filtration Rate 71 mL/min (>60); Est Glom Filt Rate - Afr Amer 86 mL/min (>60); Estimated Creatinine Clearance 55.84 ml/min; Glucose 94 mg/dL (74-106); Potassium 3.1 mmol/L (3.5-5.1); Sodium Level 139 mmol/L (136-145)
[2022-03-10 17:32] LABS: Bacteria 4+ /hpf (None Seen); White Blood Cells 5-10 SEEN /hpf (0-5)
--- NOTE | 2022-03-10 18:31 | ED.RN ---
Called pharmacy for the rocephin but another person took patient to the floor so will tube to floor when it arrives
[2022-03-10] MEDS: Potassium Chloride Oral Tablet 20 MEQ 40 MEQ PO (19:00)
[2022-03-10] MEDS: Ceftriaxone 1 GM/50 ML BAG IV (19:43)
[2022-03-10] MEDS: guaiFENesin 600 MG Tablet PO (19:54)
[2022-03-10] MEDS: Lactated Ringers 1,000 ML 75 ML IV (20:20)
[2022-03-10] MEDS: Menthol/Lanolin/Calamine/Znox 113 GM Tube 1 APPLIC TOPICAL (22:20)
--- NOTE | 2022-03-10 22:27 | NURSING ---
walked into pt room. bath wipes all over the floor. Pt had bm in diaper and had it off. Pt cleaned herself up. Then told this nurse she didn't know why this happen. bed exit applied. Informed pt we have to know when she has bm so we can test it. Pt verbalized understanding. Bm on sheet. sheet removed
[2022-03-11] VITALS (7 sets, daily range): BP systolic 106–122; BP diastolic 43–57; PULSE 59–83; RESP 18; TEMP 36.7–37.2; O2SAT 98–100
[2022-03-11 06:02] LABS: Absolute Lymphocyte Count 0.95 X10^3/uL (0.83-4.51); Absolute Neutrophil Count 8.1 X10^3/uL (2.0-7.7); Basophil# 0.03 X10^3/uL; Basophil% 0.3 % (0-1); Eosinophil# 0.01 X10^3/uL; Eosinophils% 0.1 % (0-5); Hematocrit 33.1 % (37-47); Hemoglobin 10.8 g/dL (12.0-15.0); Lymphocyte # 0.95 X10^3/ul (0.83-4.51); Lymphocyte % 9.5 % (19-41); Mean Corp Hgb Conc 32.6 g/dL (32-36); Mean Corpuscular Hgb 28.3 pg (27.0-32.0); Mean Corpuscular Volume 86.9 fL (81-99); Mean Platelet Vol. 10.3 fl (6.2-12.0); Monocyte# 0.84 X10^3/uL; Monocyte% 8.4 % (0-10); NRBC Flagged by Analyzer 0 % (0-5); Neutrophil % 81.2 % (47-70); Platelet Count 318 K/mm3 (150-450); RBC Distribution Width CV 13.3 % (11.6-14.6); RBC Distribution Width SD 41.4 fl (35.1-43.9); Red Blood Count 3.81 M/mm3 (4.2-5.4)
[2022-03-11 06:43] LABS: ALB/GLOB Ratio 0.7 RATIO (0.9-2.4); AST(SGOT) 18 U/L (15-37); Alanine Aminotransfer ALT/SGPT 13 U/L (13-56); Albumin, Serum 2.4 g/dL (3.2-5.0); Alkaline Phosphatase 52 U/L (45-117); Anion Gap 10 (5-15); BUN 12 mg/dL (7-18); BUN/Creat Ratio 20.3 RATIO (10-20); Calcium,Total 8.1 mg/dL (8.5-10.1); Chloride 107 mmol/L (98-107); Creatinine, Serum 0.59 mg/dL (0.55-1.02); EST Glomerular Filtration Rate 106 mL/min (>60); Est Glom Filt Rate - Afr Amer 128 mL/min (>60); Globulin 3.6 g/dL (2.2-4.2); Glucose 86 mg/dL (74-106); Magnesium 1.5 mg/dL (1.6-2.6); Phosphorus 2.6 mg/dL (2.5-4.9); Potassium 3.1 mmol/L (3.5-5.1); Sodium Level 137 mmol/L (136-145); Thyroid Stim Hormone (TSH) 0.82 uIU/mL (0.358-3.74)
[2022-03-11] MEDS: Potassium Chloride Oral Tablet 20 MEQ 40 MEQ PO (08:45)
[2022-03-11] MEDS: guaiFENesin 600 MG Tablet PO ×2 (08:45→22:48)
[2022-03-11] MEDS: Ceftriaxone 1 GM/50 ML BAG IV (11:36)
[2022-03-11] MEDS: 0.9% Saline Lock 10 ML Syringe IV ×3 (11:37→22:48)
--- NOTE | 2022-03-11 13:40 | PN.HOSP_ITS ---
Subjective Subjective Patient states she may feel little bit better today. Has not ordered breakfast as she states she just does not feel like eating. I strongly encouraged her to try to eat some so she does not continue not to have any nutrition. She is taking in fluids. No diarrhea since admission. Has not yet been out of bed and therapy services has not yet been by to see her. Objective Data Objective Data Vital Signs: Vital Signs Temp Pulse Resp BP Pulse Ox O2 Del Method 98.1 F 59 L 18 106/46 L 100 Room Air 03/11/22 11:23 03/11/22 11:23 03/11/22 11:23 03/11/22 11:23 03/11/22 11:23 03/11/22 11:23 Oxygen Delivery Method Room Air Weight: 78.6 kg Body Mass Index (BMI) 27.9 Intake & Output: Intake and Output for Last 24 Hours 03/09/22 03/10/22 03/11/22 23:59 23:59 23:59 Intake Total 2109 Balance 2109 Lab / Micro Data Result Diagrams: 03/11/22 05:46 03/11/22 05:46 Labs: Laboratory Results - last 24 hr 03/10/22 16:01: Lactic Acid 1.1 03/10/22 16:07: WBC 14.1 H, RBC 4.55, Hgb 12.7, Hct 38.6, MCV 84.8, MCH 27.9, MCHC 32.9, RDW Std Deviation 40.1, RDW Coeff of Nataliia 13.3, Plt Count 470 H, MPV 10.9, Immature Gran % (Auto) 0.400, Neut % (Auto) 79.9 H, Lymph % (Auto) 10.2 L, Twiggs % (Auto) 9.2, Eos % (Auto) 0.0, Baso % (Auto) 0.3, Absolute Neuts (auto) 1 1.3 H, Absolute Lymphs (auto) 1.44, Nucleated RBC % 0 03/10/22 16:07: Sodium 139, Potassium 3.1 L, Chloride 105, Carbon Dioxide 22.0, Anion Gap 12, BUN 20 H, Creatinine 0.84, Estim Creat Clear Calc 55.84, Est GFR (MDRD) Af Amer 86, Est GFR (MDRD) Non-Af 71, BUN/Creatinine Ratio 23.9 H, Glucose 94, Calcium 9.3 03/10/22 17:00: Urine Color Yellow, Urine Clarity Sl. Cloudy, Urine pH 6.0, Ur Specific Hendricks 1.020, Urine Protein 30 H, Urine Glucose (UA) Normal, Urine Ketones 150 A*, Urine Occult Blood 10 H, Urine Nitrite Positive H, Urine Bilirubin 1 H, Urine Urobilinogen 4 H, Ur Leukocyte Esterase 100 H, Urine RBC 0 SEEN, Urine WBC 5-10 SEEN, Ur Squamous Epith Cells 0 SEEN, Urine Bacteria 4+, Urine Mucus 0 SEEN 03/11/22 05:46: WBC 10.0, RBC 3.81 L, Hgb 10.8 L, Hct 33.1 L, MCV 86.9, MCH 28.3, MCHC 32.6, RDW Std Deviation 41.4, RDW Coeff of Nataliia 13.3, Plt Count 318, MPV 10.3, Immature Gran % (Auto) 0.500, Neut % (Auto) 81.2 H, Lymph % (Auto) 9.5 L, Twiggs % (Auto) 8.4, Eos % (Auto) 0.1, Baso % (Auto) 0.3, Absolute Neuts (auto) 8.1 H, Absolute Lymphs (auto) 0.95, Nucleated RBC % 0 03/11/22 05:46: Sodium 137, Potassium 3.1 L, Chloride 107, Carbon Dioxide 20.0 L , Anion Gap 10, BUN 12, Creatinine 0.59, Estim Creat Clear Calc 46.90, Est GFR (MDRD) Af Amer 128, Est GFR (MDRD) Non-Af 106, BUN/Creatinine Ratio 20.3 H, Glucose 86, Calcium 8.1 L, Phosphorus 2.6, Magnesium 1.5 L, Total Bilirubin 0.50, AST 18, ALT 13, Alkaline Phosphatase 52, Total Protein 6.0 L, Albumin 2.4 L, Globulin 3.6, Albumin/Globulin Ratio 0.7 L, TSH 0.82 Micro: Microbiology 03/10/22 17:00 Urine, Catheterized Urine Culture - Preliminary Presumptive E. coli 03/10/22 17:00 Urine, Random Legionella Antigen - Final 03/10/22 17:00 Urine, Random Streptococcus pneumoniae Antigen (M - Final Radiography Diagnostic Testing: Radiology Impression Chest X-Ray 03/10/22 16:37 IMPRESSION: Poor inspiration with some bibasilar atelectasis. Electronically Signed: Jamarcus Cook MD at 17:04 EST , Rhythm Strip Rhythm Strip: Sinus Rhythm Rate: 88 Ectopy: None Physical Exam Const alert, oriented x3 and no apparent distress Constitutional Narrative: Elderly white female lying in bed, at bedside, patient does appear of is she feeling somewhat better today, affect is still flat General Appearance: cooperative HEENT normocephalic, head/scalp atraumatic and hearing grossly normal bilaterally HEENT Narrative: Mallampati 2, no thrush Resp normal respiratory effort, no retractions, no use of accessory muscles and clear to auscultation bilaterally Auscultation: Negative for crackles, rhonchi or wheezes Cardio regular rate, regular rhythm, S1 normal heart sound, S2 normal heart sound, no murmurs, no rub, no gallops and no clicks GI normal to inspection, nondistended, normoactive bowel sounds, soft to palpation and non-tender Extremity no clubbing, cyanosis or edema Extremity Narrative: 2+ pedal pulses Neuro oriented x3, moves all extremities and no focal motor deficits Neuro Narrative: Significant generalized weakness but no focal deficits Sensorium / Orientation: awake, alert, oriented to person, oriented to place and oriented to time Speech: speech normal Psych Psych Narrative: Affect is flat Assessment & Plan Assessment/Plan (1) Generalized weakness: (2) Unable to ambulate: (3) Influenza A: (4) Diarrhea: (5) Urinary tract infection: QUALIFIERS: Urinary tract infection type: acute cystitis Hematu hortencia presence: without hematuria Qualified Code(s): N30.00 - Acute cystitis without hematuria (6) Leukocytosis: (7) Hypokalemia: (8) Acute dehydration: (9) Hypomagnesemia: PLAN: Plan Debility/inability ambulate -Likely related to decreased p.o. intake, recent influenza infection, urinary tract infection, ongoing diarrhea -We will address the above -Consult PT/OT--> still pending -May need placement at discharge depending on progress with therapy services Influenza A -Symptoms for almost 2 weeks now -Flu symptoms seem to be improving overall -Patient with cough--> check strep pneumo and Legionella antigens/check sputum culture -Patient will currently be on ceftriaxone for UTI will broaden coverage if any positive results from above -Mucinex -Acapella/I-S -Out of the window for Tamiflu -Continue supportive care -On room air with oxygen saturations at 97% E. coli urinary tract infection -UA is consistent with UTI -Culture shows E. coli with greater than 100,000 CFU per mL -Continue ceftriaxone 1 g daily await sensitivities Poor p.o. intake without malnutrition -Continue supplements -Patient without any GI symptoms other than diarrhea -No abdominal pain, nausea, or vomiting -Strongly encourage p.o. intake even if she is not all that hungry--> discussed with her again today and encouraged her to order food, also discussed with nursing so that they could continually encourage her Diarrhea -Resolved -Unable to obtain enteric panel or C. difficile as she is not had any liquid stool since admission -He was states within normal limits Hypokalemia - remains hypokalemic with a potassium of 3.1 -Repeat 40 mill equivalent oral dosing -Replace magnesium -Repeat lab in a.m. Hypomagnesemia -IV mag bolus -Repeat lab in a.m. Leukocytosis -Resolved PAF -Remains in normal sinus rhythm -Monitor clinically -Continue home beta-vicente -Continue home Eliquis GERD -Continue home PPI Depression -Continue home duloxetine -Continue home sertraline Osteoarthritis -As needed Tylenol DVT prophylaxis -apixaban CODE STATUS -DNR CCA with no intubation Charges/Coding Visit Charges Inpatient E&M: 83928 Subs Hosp L2
[2022-03-11] MEDS: Ondansetron 4 MG/2 ML Vial IV (14:02)
[2022-03-12] VITALS (10 sets, daily range): BP systolic 112–133; BP diastolic 56–65; PULSE 60–68; RESP 16–18; TEMP 36.5–37.2; O2SAT 93–99
[2022-03-12 06:32] LABS: Absolute Neutrophil Count 5.7 X10^3/uL (2.0-7.7); Basophil# 0.02 X10^3/uL; Basophil% 0.3 % (0-1); Eosinophil# 0.01 X10^3/uL; Eosinophils% 0.1 % (0-5); Hematocrit 33.6 % (37-47); Hemoglobin 10.9 g/dL (12.0-15.0); Lymphocyte % 11.2 % (19-41); Mean Corp Hgb Conc 32.4 g/dL (32-36); Mean Corpuscular Hgb 28.2 pg (27.0-32.0); Mean Platelet Vol. 10.6 fl (6.2-12.0); Monocyte# 0.57 X10^3/uL; NRBC Flagged by Analyzer 0 % (0-5); Neutrophil # 5.74 X10^3/uL (2.7-7.7); Neutrophil % 80.1 % (47-70); Platelet Count 305 K/mm3 (150-450); RBC Distribution Width CV 13.5 % (11.6-14.6); RBC Distribution Width SD 41.8 fl (35.1-43.9); Red Blood Count 3.86 M/mm3 (4.2-5.4); White Blood Count 7.2 K/mm3 (4.4-11.0)
[2022-03-12 07:00] LABS: Anion Gap 6 (5-15); BUN 7 mg/dL (7-18); BUN/Creat Ratio 10.8 RATIO (10-20); Calcium,Total 8.3 mg/dL (8.5-10.1); Chloride 107 mmol/L (98-107); Creatinine, Serum 0.65 mg/dL (0.55-1.02); EST Glomerular Filtration Rate 95 mL/min (>60); Est Glom Filt Rate - Afr Amer 115 mL/min (>60); Glucose 97 mg/dL (74-106); Magnesium 1.9 mg/dL (1.6-2.6); Potassium 3.2 mmol/L (3.5-5.1); Sodium Level 138 mmol/L (136-145)
[2022-03-12] MEDS: Potassium Chloride Oral Tablet 20 MEQ 40 MEQ PO (08:45)
[2022-03-12] MEDS: guaiFENesin 600 MG Tablet PO ×2 (08:45→21:02)
[2022-03-12] MEDS: Ceftriaxone 1 GM/50 ML BAG IV (09:44)
[2022-03-12] MEDS: 0.9% Saline Lock 10 ML Syringe IV ×3 (09:44→21:02)
--- NOTE | 2022-03-12 11:00 | CASEMGMT ---
Addendum entered by Kristyn Mckenzie 03/12/22 14:11: KLAUS KIRK back into pt room to check on plan for dc. Pt states she has not had a chance to discuss with her yet. She states she will yet today and RN YELENA will check back tomorrow. Original Note: KLAUS KIRK Assessment: Face to Face with pt for initial transition planning/care coordination assessment. RN YELENA introduced self and role at [facility], pt voices understanding and consents to assessment. Pt is A/O x4 and answers all questions appropriately at this time. Pt lying in bed in no distress. Pt at bedside. Care providers, pharmacy, and demographics verified/updated. Admitting Dx: debility/inability to ambulate PCP:Jimena Specialists:Pt denies. [facility] Insurance: [employer] [facility] Prescription Benefit: yes LNOK: [place] Trinidad, ; Rhona Awad, dtr Living Arrangements: Pt lives with in a single story house with 2 steps to enter with a rail as well as a ramp. Pt reports she is I in ADL's at home. She denies concerns at home. Transportation: Pt drives self and denies concerns with transportation. DME/HHC/SNF: Pt has a cane that she uses and a FWW that she does not. Pt denies hx of HHC or SNF stays. Pt states no concerns with going home at time of dc. Discussed therapy options as pt admitting dx is debility and inability to ambulate. Pt denies need for this although is shaking his head yes. Patient was provided a list of HHC providers including quality and resource use data and consistent with the patient?s preferred geographic region, medical needs, and insurance network were provided from the [employer] Guide. Pt and to discuss if she feels she could go to outpt therapy or need HHC. KLAUS KIRK to check back. Pt states no further concerns/needs. CM to follow. Advised pt to ask CM if any further question/concerns/needs arise, voices understanding. Pt Goal: Home Plan: Home with HHC therapy vs outpt
[2022-03-12] MEDS: Ondansetron 4 MG/2 ML Vial IV (12:23)
--- NOTE | 2022-03-12 14:35 | PN.HOSP_ITS ---
Subjective Subjective Patient seen and examined. was by her bedside. She still complained of feeling weak and had a cough which was nonproductive. She had no other complaints and review of symptoms otherwise negative. Objective Data Objective Data Vital Signs: Vital Signs Temp Pulse Resp BP Pulse Ox O2 Del Method 97.7 F L 68 16 133/59 H 99 Room Air 03/12/22 14:31 03/12/22 14:31 03/12/22 14:31 03/12/22 14:31 03/12/22 14:31 03/12/22 14:31 Oxygen Delivery Method Room Air Weight: 173 lb 4.533 oz Body Mass Index (BMI) 27.9 Intake & Output: Intake and Output for Last 24 Hours 03/10/22 03/11/22 03/12/22 23:59 23:59 23:59 Intake Total 2109 2714 / 2714 500 / 500 Output Total 150 / 150 Balance 21094 / 4 350 / 350 Lab / Micro Data Result Diagrams: 03/12/22 06:16 03/12/22 06:16 Labs: Laboratory Results - last 24 hr 03/12/22 06:16: WBC 7.2, RBC 3.86 L, Hgb 10.9 L, Hct 33.6 L, MCV 87.0, MCH 28.2, MCHC 32.4, RDW Std Deviation 41.8, RDW Coeff of Nataliia 13.5, Plt Count 305, MPV 10.6, Immature Gran % (Auto) 0.300, Neut % (Auto) 80.1 H, Lymph % (Auto) 11.2 L, T[place] % (Auto) 8.0, Eos % (Auto) 0.1, Baso % (Auto) 0.3, Absolute Neuts (auto) 5.7, Absolute Lymphs (auto) 0.80 L, Nucleated RBC % 0 03/12/22 06:16: Sodium 138, Potassium 3.2 L, Chloride 107, Carbon Dioxide 25.0, Anion Gap 6, BUN 7, Creatinine 0.65, Estim Creat Clear Calc 46.90, Est GFR (MDRD) Af Amer 115, Est GFR (MDRD) Non-Af 95, BUN/Creatinine Ratio 10.8, Glucose 97, Calcium 8.3 L, Magnesium 1.9 Micro: Microbiology 03/10/22 17:00 Urine, Catheterized Urine Culture - Final Presumptive E. coli 03/10/22 17:00 Urine, Random Legionella Antigen - Final 03/10/22 17:00 Urine, Random Streptococcus pneumoniae Antigen (M - Final Rhythm Strip Rhythm Strip: Sinus Rhythm Rate: 88 Ectopy: None Physical Exam Const alert, oriented x3 and no apparent distress HEENT head/scalp atraumatic, moist oral mucous membranes and oropharynx normal Mouth: oral and palatal mucosa normal Eyes PERRL, EOMs intact bilaterally and conjunctivae normal Neck no lymphadenopathy and supple Resp normal respiratory effort, no retractions, no use of accessory muscles and clear to auscultation bilaterally Cardio regular rate, regular rhythm, S1 normal heart sound, S2 normal heart sound and no murmurs GI normal to inspection, nondistended, normoactive bowel sounds, soft to palpation, non-tender and non-distended Palpation: tender Extremity normal to inspection, full ROM and no clubbing, cyanosis or edema Neuro oriented x3, CN's II-XII intact bilaterally, moves all extremities and no focal motor deficits Sensorium / Orientation: awake and alert Motor Exam: strength 5/5 throughout Psych affect normal Assessment & Plan Assessment/Plan (1) Hypomagnesemia: (2) Hypokalemia: (3) Generalized weakness: (4) Influenza A: PLAN: Plan #Debility due to UTI and influenza infection * PT.OT On board. Was out of window for tamiflu * fall precautions * #Influenza infection * was out of window for tamiflu * still coughing * on breathing treatment with bronchodilators. * oxygen as needed, and titrate oxygen to maintain sats >90% * * #E coli: urine culture grew E coli. On IV ceftriaxone #Decreased oral intake * encourage oral intake. * #Diarrhea: improving. Encourage oral intake. #Hypokalemia: potassium is 3.2. Will replace and trend. #Hypomagnesemia: resolved #Paroxysmal afib: on metoprolol. On eliquis #GERD: On PPI #Depression: On duloxetine and sertraline #osteoarthritis: on tylenol DVT prophylaxis; on eliquis Charges/Coding Visit Charges Inpatient E&M: 13371 Subs Hosp L2
[2022-03-13] VITALS (8 sets, daily range): BP systolic 96–129; BP diastolic 52–64; PULSE 62–77; RESP 14–18; TEMP 36.3–36.9; O2SAT 97–100
[2022-03-13 06:55] LABS: Absolute Lymphocyte Count 0.88 X10^3/uL (0.83-4.51); Absolute Neutrophil Count 6.8 X10^3/uL (2.0-7.7); Basophil# 0.03 X10^3/uL; Basophil% 0.4 % (0-1); Hematocrit 32.6 % (37-47); Hemoglobin 10.7 g/dL (12.0-15.0); Lymphocyte # 0.88 X10^3/ul (0.83-4.51); Lymphocyte % 10.5 % (19-41); Mean Corp Hgb Conc 32.8 g/dL (32-36); Mean Corpuscular Hgb 28.4 pg (27.0-32.0); Mean Corpuscular Volume 86.5 fL (81-99); Mean Platelet Vol. 11.2 fl (6.2-12.0); Monocyte# 0.64 X10^3/uL; Monocyte% 7.6 % (0-10); NRBC Flagged by Analyzer 0 % (0-5); Neutrophil # 6.81 X10^3/uL (2.7-7.7); Neutrophil % 81.1 % (47-70); POSITIVE COUNT YES; Platelet Count 303 K/mm3 (150-450); RBC Distribution Width CV 13.8 % (11.6-14.6); RBC Distribution Width SD 42.4 fl (35.1-43.9); Red Blood Count 3.77 M/mm3 (4.2-5.4); White Blood Count 8.4 K/mm3 (4.4-11.0)
[2022-03-13 06:59] LABS: Differential Indicated SCAN CRITERIA MET
[2022-03-13 07:35] LABS: Anion Gap 11 (5-15); BUN 8 mg/dL (7-18); BUN/Creat Ratio 13.3 RATIO (10-20); Calcium,Total 8.7 mg/dL (8.5-10.1); Chloride 107 mmol/L (98-107); EST Glomerular Filtration Rate 104 mL/min (>60); Est Glom Filt Rate - Afr Amer 126 mL/min (>60); Glucose 89 mg/dL (74-106); Potassium 2.9 mmol/L (3.5-5.1); Sodium Level 140 mmol/L (136-145)
[2022-03-13] MEDS: Potassium Chloride 10mEq/100mL 10 MEQ/100 ML IV.SOLN. 100 MEQ IV BOLUS ×4 (08:18→12:25)
[2022-03-13] MEDS: guaiFENesin 600 MG Tablet PO ×2 (08:22→21:37)
[2022-03-13] MEDS: Cefdinir 300 MG Capsule PO ×2 (08:29→21:37)
[2022-03-13] MEDS: APIXABAN 5 MG TABLET PO ×2 (10:03→21:37)
--- NOTE | 2022-03-13 10:29 | ST.MBS ---
Modified Barium Swallow - Patient Information Study Date: 03/13/22 Study Time: 14:00 Direct Billable Minutes: 70 Total Minutes procedure & reportin Diagnosis: Acute dehydration (E86.0), Influenza A (J10.1) Referring Physician: Melania Gates Reason for Referral: Objectively assess swallow function, assess risk for aspiration, and determine recommendations for least restrictive diet textures and compensatory strategies to improve safety of swallow. Medical History: Samir Trinidad is a 72-year-old female who presented to the [facility] ED 03/10/2022 with a chief complaint of generalized weakness and concern for dehydration. Patient reports that she was seen in the emergency department within the last 2 weeks and diagnosed with flu a at that time. At that time, she had presented with weakness, cough, and difficulty breathing. She was sent home and represented with nausea and vomiting. She was found to be in A. fib and was treated with Cardizem. Since that ED visit, reports she has gotten progressively worse and that she could not stand or walk in the past two days. Associated with her symptoms is diarrhea, but no vomiting. Her chest x-ray shows bibasilar atelectasis and poor inspiratory effort but no infiltrate or any other cardiopulmonary abnormality. She was admitted for management of generalized weakness and influenza A amongst other comorbidities. PMH includes dementia (per daughter), depression, fatigue, GERD, hiatal hernia, HTN, and SVT. SEE EMR for full PMH. Patient was referred for ST consult 03/13/2022. Pt had intermittent wet vocal quality with thin liquids and delayed cough. She regurgitated 3/5 sips. Coughing and regurgitation of 1/2 puree trials. [employer] recommended a Modified Barium Swallow Study to be completed to objectively assess pharyngoesophageal swallow function. Pt has a history of GERD and hiatal hernia. Reports a 30 lb weight loss over the past 6 months. Suspect etiology of dysphagia to be esophageal in nature w/ potential penetration of thin liquid during intake and risk for penetration/aspiration of retrograde bolus flow postprandially. Recommend to continue current diet of regular textures/thin liquids pending MBS completion as the patient is self-limiting her own intake. Current Diet Ordered: Regular textures / Thin liquids Dentition: Partials - upper partials - not with patient for the study Mental Status: WNL - Able to follow commands appropriately for the study Respiratory Status: Oxygenating on Room Air - Penetration-Aspiration Scale Penetration-Aspiration Scale: OBJECTIVE ASSESSMENT OF SWALLOW FUNCTION (QUANTITATIVE ? PER TRIAL): PENETRATION / ASPIRATION SCALE (MELARA): 1 = does not enter airway 2 = enters airway/above vocal folds/ejected 3 = enters airway/above vocal folds/not ejected 4 = enters airway/contacts vocal folds/ejected 5 = enters airway/contacts vocal folds/not ejected 6 = enters airway/below vocal folds/ejected 7 = enters airway/below vocal folds/not ejected despite effort 8 = enters airway/below vocal folds/no effort VIDEOFLOROSCOPIC SCALE SCORE (MELARA): Grade I = aspiration of material that has penetrated into the laryngeal vestibule, intact cough reflex Grade II = aspiration < 10 % of the bolus, intact cough reflex Grade III = aspiration of < 10 % of the bolus, reduced cough reflex or aspiration of > 10 % of the bolus, intact cough reflex Grade IV = aspiration of > 10 % of the bolus, reduced cough reflex - Penetration-Aspiration Scale Score Thin Liquid via teaspoon Result: 1= does not enter airway Thin Liquid via teaspoon Trial 2 Result: 2= enter airway/above vocal folds/ejected Thin Liquid via small single sip from cup with esophageal screen Result: 2= enter airway/above vocal folds/ejected Thin Liquid via sequential sips from cup Result: 2= enter airway/above vocal folds/ejected [place] Thick Liquid via small single sip from cup Result: 1= does not enter airway [place] Thick Liquid via small single sip from cup Result: 1= does not enter airway Pudding via teaspoon Result: 1= does not enter airway 1/2 Cookie with esophageal screen Result: 1= does not enter airway Thin Liquid via sequential sips from straw Result: 2= enter airway/above vocal folds/ejected - Oral Phase Labial Seal: No Labial Escape Tongue Control During Bolus Hold: Posterior escape of less than half of bolus Bolus Preparation/Mastication: Slow prolonged chewing/mashing with complete recollection Bolus Transport/Lingual Motion: Delayed initiation of tongue motion Oral Residue: Residue collection on oral structures - cleared independently with use of second swallow as needed - Pharyngeal Phase Initiation of Pharyngeal Swallow: Bolus head in pyriforms - thin Soft Palate Elevation: No bolus between soft palate and pharyngeal wall Laryngeal Elevation: Partial superior movement thyroid cart/partial apprx aryt-epig petiole Anterior Hyoid Excursion: Partial anterior movement Epiglottic Movement: Complete inversion Laryngeal Vestibule Closure at Height of Swallow: Incomplete; narrow column of air/contrast in laryngeal vestibule Pharyngeal Stripping Wave: Present - diminished Pharyngoesophageal Segment Opening: Parital distension and partial duration; parital obstruction of flow Tongue Base Retraction: Narrow column of contrast between tongue base & post. pharyngeal wall Pharyngeal Residue: Trace residue within or on pharyngeal structures - Esophageal Phase Esophageal Clearance: Complete clearance - trace cookie coating in mid esophagus - Treatment Strategies Effects of treatment strategies attemped:: N/A - Diagnosis/Impression Diagnosis: Mild oropharyngeal phase dysphagia (R13.12) Impression: The oral phase is primarily marked by... -Decreased bolus control with <1/2 of the bolus spilling posteriorly to the pyriforms prior to swallow onset observed with thin liquids. -Prolonged, but adequate mastication of cookie. The pharyngeal phase is primarily marked by... -Mildly decreased airway closure during the swallow due to mildly decreased anterior hyoid excursion and laryngeal elevation. -Mildly decreased tongue base retraction and pharyngeal stripping wave with resulting trace-mild pharyngeal residues after the swallow. -Trace laryngeal penetration of various thin liquid trials, which fully ejected from the laryngeal vestibule after the swallow. No aspiration observed during the study. - Recommendations Diet: Regular Textures, Thin Liquids Compensatory Strategies: Small Bites, Small Sips, Slow Rate, Sitting upright, Remain sitting upright for 30 minutes after PO intake Recommend Repeat Modified Barium Swallow: No Need for Skilled Speech Therapy Services: Yes Comment: Will recommend the patient for continued dysphagia therapy to address mild deficits in oropharyngeal swallow function. Will recommend the patient for oropharyngeal strengthening to improve tongue base retraction, laryngeal elevation, hyoid excursion, and pharyngeal contraction (Clarice, CTAR, Alberto, Effortful). The patient would benefit from education regarding recommended compensatory strategies to decrease risk for reflux and aspiration. Would also consider the patient for reflux management education. Education Completed: 1. Described result of evaluation., 2. Pt understands evaluation & agrees with goals and treatment plan., 7. Pt requires further education on strategies & risks. Comment: [employer] reviewed results and recommendations of Mini ENRIQUE, including esophageal screens revealing trace retention of cookie, timely esophageal clearance, no retrograde flow of barium observed. Per RN, pt has significantly decreased regurgitation from yesterday. Would strongly consider GI consult if worsening regurgitation; however, based on MBSS and improving reflux symptoms per RN, it is not warranted at this time. - Status Active ST Patient: Active - Contact Information [facility] Speech Therapy:: Padmini Perkins M.A. [facility] Speech-Language Pathologist [facility] [address] [place] [address] [email or web address] [phone] 03/13/22 10:45
--- NOTE | 2022-03-13 11:06 | PN.HOSP_ITS ---
Subjective Subjective Patient seen and examined. She had no active complaints today. Per nurse, patient has been having some problems with swallowing. Speech therapy on board. Review of systems otherwise negative. Objective Data Objective Data Vital Signs: Vital Signs Temp Pulse Resp BP Pulse Ox O2 Del Method 97.4 F L 62 16 112/60 100 Room Air 03/13/22 08:04 03/13/22 08:04 03/13/22 08:04 03/13/22 08:04 03/13/22 08:04 03/13/22 08:04 Oxygen Delivery Method Room Air Weight: 173 lb 4.533 oz Body Mass Index (BMI) 27.9 Intake & Output: Intake and Output for Last 24 Hours 03/11/22 03/12/22 03/13/22 23:59 23:59 23:59 Intake Total 2714 / 2714 900 / 900 400 / 400 Output Total 150 / 150 Balance 2714 / 2714 750 / 750 400 / 400 Lab / Micro Data Result Diagrams: 03/13/22 06:30 03/13/22 06:30 Labs: Laboratory Results - last 24 hr 03/13/22 06:30: WBC 8.4, RBC 3.77 L, Hgb 10.7 L, Hct 32.6 L, MCV 86.5, MCH 28.4, MCHC 32.8, RDW Std Deviation 42.4, RDW Coeff of Nataliia 13.8, Plt Count 303, MPV 11.2, Immature Gran % (Auto) 0.400, Neut % (Auto) 81.1 H, Lymph % (Auto) 10.5 L, Mills % (Auto) 7.6, Eos % (Auto) 0.0, Baso % (Auto) 0.4, Absolute Neuts (auto) 6.8, Absolute Lymphs (auto) 0.88, Nucleated RBC % 0 03/13/22 06:30: Sodium 140, Potassium 2.9 L, Chloride 107, Carbon Dioxide 22.0, Anion Gap 11, BUN 8, Creatinine 0.60, Estim Creat Clear Calc 46.90, Est GFR (MDRD) Af Amer 126, Est GFR (MDRD) Non-Af 104, BUN/Creatinine Ratio 13.3, Glucose 89, Calcium 8.7 Micro: Microbiology 03/10/22 17:00 Urine, Catheterized Urine Culture - Final Presumptive E. coli 03/10/22 17:00 Urine, Random Legionella Antigen - Final 03/10/22 17:00 Urine, Random Streptococcus pneumoniae Antigen (M - Final Rhythm Strip Rhythm Strip: Sinus Rhythm Rate: 88 Ectopy: None Physical Exam Const alert, oriented x3 and no apparent distress Constitutional Narrative: Elderly white female lying in bed, at bedside, patient does appear of is she feeling somewhat better today, affect is still flat General Appearance: cooperative HEENT normocephalic, head/scalp atraumatic, hearing grossly normal bilaterally, moist oral mucous membranes and oropharynx normal Head and Scalp: normocephalic Mouth: oral and palatal mucosa normal Eyes PERRL, EOMs intact bilaterally and conjunctivae normal Eyes Narrative: No scleral icterus Neck no lymphadenopathy, supple, no JVD and no carotid bruits Resp normal respiratory effort, no retractions, no use of accessory muscles and clear to auscultation bilaterally Auscultation: Negative for crackles, rhonchi or wheezes Cardio regular rate, regular rhythm, S1 normal heart sound, S2 normal heart sound, no murmurs, no rub, no gallops and no clicks GI normal to inspection, nondistended, normoactive bowel sounds, soft to palpation, non-tender and non-distended Palpation: tender Extremity normal to inspection, full ROM and no clubbing, cyanosis or edema Skin no rashes or lesions noted, no wounds, skin turgor normal, no jaundice, no petechiae and no mottling Neuro oriented x3, CN's II-XII intact bilaterally, moves all extremities and no focal motor deficits Sensorium / Orientation: awake, alert, oriented to person, oriented to place and oriented to time Speech: speech normal Motor Exam: strength 5/5 throughout Psych Psych Narrative: Affect is flat Assessment & Plan Assessment/Plan (1) Hypomagnesemia: (2) Hypokalemia: (3) Generalized weakness: (4) Influenza A: PLAN: Plan #Debility due to UTI and influenza infection * PT.OT On board. Was out of window for tamiflu * fall precautions * #Influenza infection * was out of window for tamiflu * coughing has improved * breathing treatment with bronchodilators. * oxygen as needed, and titrate oxygen to maintain sats >90% * * #E coli: urine culture grew E coli. On IV ceftriaxone; switched to PO cefdinir today #Dysphagia * patient complaining of difficulty with swallowing. * Speech therapy on board. For modified barium swallow today. * #Diarrhea: Resolved. #Hypokalemia: Potassium is 2.9 today. Replace and trend. Check magnesium. #Hypomagnesemia: resolved #Paroxysmal afib: on metoprolol. On eliquis #GERD: On PPI #Depression: On duloxetine and sertraline #osteoarthritis: on tylenol DVT prophylaxis; on eliquis Charges/Coding Visit Charges Inpatient E&M: 45499 Subs Hosp L2
--- NOTE | 2022-03-13 11:37 | CASEMGMT ---
KLAUS CM in to pt room, at bedside, pt states she is not interested in any therapy whether it be at home or outpt. Pt states they have equipment at home pt can use. Deny further homegoing needs.
[2022-03-13 11:42] LABS: Magnesium 1.9 mg/dL (1.6-2.6)
--- NOTE | 2022-03-13 14:10 | NURSING ---
pt to x ray
[2022-03-13] MEDS: Dicyclomine 10 MG Capsule 20 MG PO ×2 (15:22→21:37)
[2022-03-13] MEDS: Acetaminophen 325 MG Tablet 650 MG PO (17:36)
[2022-03-13] MEDS: Atorvastatin Calcium 10 MG Tablet PO (21:37)
[2022-03-13] MEDS: Pantoprazole Sodium 20 MG Tablet PO (21:37)
[2022-03-13] MEDS: Atenolol 25 MG Tablet PO (21:37)
[2022-03-14 02:45] VITALS: BP 119/65; PULSE 60; RESP 14; TEMP 36.6; O2SAT 99
[2022-03-14 04:12] VITALS: BP 119/65; PULSE 60; RESP 14; TEMP 36.6; O2SAT 99
[2022-03-14] MEDS: Menthol/Lanolin/Calamine/Znox 113 GM Tube 1 APPLIC TOPICAL (06:10)
[2022-03-14] MEDS: Dicyclomine 10 MG Capsule 20 MG PO ×2 (06:10→11:07)
[2022-03-14 07:52] LABS: Absolute Lymphocyte Count 0.87 X10^3/uL (0.83-4.51); Absolute Neutrophil Count 4.8 X10^3/uL (2.0-7.7); Basophil# 0.04 X10^3/uL; Basophil% 0.6 % (0-1); Hematocrit 32.5 % (37-47); Hemoglobin 10.4 g/dL (12.0-15.0); Lymphocyte # 0.87 X10^3/ul (0.83-4.51); Lymphocyte % 14.1 % (19-41); Mean Corpuscular Hgb 27.7 pg (27.0-32.0); Mean Corpuscular Volume 86.7 fL (81-99); Monocyte# 0.51 X10^3/uL; Monocyte% 8.2 % (0-10); NRBC Flagged by Analyzer 0 % (0-5); Neutrophil # 4.76 X10^3/uL (2.7-7.7); Neutrophil % 76.9 % (47-70); Platelet Count 310 K/mm3 (150-450); RBC Distribution Width CV 13.9 % (11.6-14.6); RBC Distribution Width SD 42.9 fl (35.1-43.9); Red Blood Count 3.75 M/mm3 (4.2-5.4); White Blood Count 6.2 K/mm3 (4.4-11.0)
[2022-03-14 08:14] LABS: Anion Gap 5 (5-15); BUN 7 mg/dL (7-18); BUN/Creat Ratio 13.1 RATIO (10-20); Calcium,Total 8.6 mg/dL (8.5-10.1); Chloride 107 mmol/L (98-107); Creatinine, Serum 0.54 mg/dL (0.55-1.02); EST Glomerular Filtration Rate 119 mL/min (>60); Est Glom Filt Rate - Afr Amer 144 mL/min (>60); Glucose 91 mg/dL (74-106); Potassium 3.1 mmol/L (3.5-5.1); Sodium Level 137 mmol/L (136-145)
[2022-03-14 08:16] VITALS: O2SAT 95
[2022-03-14 08:57] VITALS: BP 114/64; PULSE 60; RESP 18; TEMP 36.7; O2SAT 97
[2022-03-14] MEDS: guaiFENesin 600 MG Tablet PO (09:06)
[2022-03-14] MEDS: Cefdinir 300 MG Capsule PO (09:06)
[2022-03-14] MEDS: APIXABAN 5 MG TABLET PO (09:06)
[2022-03-14] MEDS: Atenolol 25 MG Tablet PO (09:07)
[2022-03-14] MEDS: Pantoprazole Sodium 20 MG Tablet PO (09:07)
[2022-03-14] MEDS: Sertraline 100 MG Tablet PO (09:07)
--- NOTE | 2022-03-14 10:31 | DS.PCM_ITS ---
Providers Date of Admission: 03/10/22 Date of Discharge: 03/14/22 Primary Care Physician: Dr. Michelle Hess MD Reason For Visit: DEBILITY/INABILITY TO AMBULATE Diagnosis Discharge Diagnosis (1) Hypomagnesemia: Status: Acute Code(s): E83.42 - Hypomagnesemia (2) Hypokalemia: Status: Acute Code(s): E87.6 - Hypokalemia (3) Generalized weakness: Status: Acute Code(s): R53.1 - Weakness (4) Influenza A: Status: Acute Code(s): J10.1 - Influenza due to other identified influenza virus with other respiratory manifestations Medications at Discharge Home Medications dicyclomine 10 mg capsule 20 mg PO ACHS Check with primary doctor 08/31/19 sertraline 25 mg tablet 100 mg PO DAILY depression 08/31/19 apixaban 5 mg (74 tabs) tablets in a dose pack (Vizibility DVT-PE Treat 30D Start) 5 mg PO BID #74 tabs 03/02/22 omeprazole 20 mg capsule,delayed release 20 mg PO BID gerd 03/02/22 atenolol 25 mg tablet 25 mg PO BID heart 03/13/22 atorvastatin 10 mg tablet 10 mg PO QHS cholesterol 03/13/22 pantoprazole 40 mg tablet,delayed release 40 mg PO DAILY gerd 03/13/22 cefdinir 300 mg capsule 300 mg PO Q12 #3 caps 03/14/22 potassium chloride 20 mEq tablet,extended release 40 meq PO DAILY #10 tabs 03/14/22 Hospital Course Operations None Procedures - (modified barium swallow) Summary of Care Provided Minutes Spent on Discharge: 45 Hospital Course: Patient is a 72 y/o F with a PMh as outlined who was admitted via the ED on 03/14/2022 with a complaint of generalised weakness. She had been seen in the ED ~ 2 weeks ago and was diagnosed with influenza. She was discharged home at that time. She subsequently presented again with the above mentioned symptoms and was found to be iun afib. She wasnt given tamiflu. She was discharged home but came back again because she had deteriorated and gotten weaker at home, so brought her back to the hospital. She had some associated diarrhea, but denied fever or chills. She was admitted and managed for debility and weakness due to influenza infection. She was out of window for tamiflu . SHe was hydrated with IVF. Hospital course was complicated by hypokalemia and hypomagnesemia, and also had UTI per urinalysis. She was started on IV ceftriaxone. Urine culture grew E coli. Hospital course was complicated by dysphagia; modified barium swallow showed mild oropharyngeal dysphagia. SHe was put on a modified diet; she remained stable and was discharged home on 03/14/2022. She is to follow up with her PCP within 1-2 weeks. Patient seen and examined. She had no active complaints and felt much better. Review of systems is otherwise negative. Labs and vitals reviewed. Home meds reviewed and reconciled. She was discharged on PO cefdinir to complete a course of antibiotics. Physical Exam Const alert, oriented x3 and no apparent distress General Appearance: cooperative and comfortable Orientation / Consciousness: awake Exam Limitations: no limitations HEENT normocephalic, head/scalp atraumatic, hearing grossly normal bilaterally, moist oral mucous membranes and oropharynx normal Mouth: oral and palatal mucosa normal Eyes PERRL, EOMs intact bilaterally and conjunctivae normal Eyes Narrative: No scleral icterus Neck no lymphadenopathy, supple, no JVD and no carotid bruits Resp normal respiratory effort, no retractions, no use of accessory muscles and clear to auscultation bilaterally Auscultation: Negative for crackles, rhonchi or wheezes Cardio regular rate, regular rhythm, S1 normal heart sound, S2 normal heart sound, no murmurs, no rub, no gallops and no clicks GI normal to inspection, nondistended, normoactive bowel sounds, soft to palpation, non-tender and non-distended Palpation: tender Extremity normal to inspection, full ROM and no clubbing, cyanosis or edema Skin no rashes or lesions noted, no wounds, skin turgor normal, no jaundice, no petechiae and no mottling Neuro oriented x3, CN's II-XII intact bilaterally, moves all extremities and no focal motor deficits Sensorium / Orientation: awake, alert, oriented to person, oriented to place and oriented to time Speech: speech normal Motor Exam: strength 5/5 throughout Psych affect normal Psych Narrative: Affect is flat Weight / BMI Weight Weight: 173 lb 4.533 oz Body Mass Index (BMI) 27.9 ABG / Lab / Microbiology Data Result Diagrams: 03/14/22 06:38 03/14/22 06:38 Laboratory: Laboratory Results - last 24 hr 03/13/22 06:30: Magnesium 1.9 03/14/22 06:38: WBC 6.2, RBC 3.75 L, Hgb 10.4 L, Hct 32.5 L, MCV 86.7, MCH 27.7, MCHC 32.0, RDW Std Deviation 42.9, RDW Coeff of Nataliia 13.9, Plt Count 310, MPV 11.0, Immature Gran % (Auto) 0.200, Neut % (Auto) 76.9 H, Lymph % (Auto) 14.1 L, Amelia % (Auto) 8.2, Eos % (Auto) 0.0, Baso % (Auto) 0.6, Absolute Neuts (auto) 4.8, Absolute Lymphs (auto) 0.87, Nucleated RBC % 0 03/14/22 06:38: Sodium 137, Potassium 3.1 L, Chloride 107, Carbon Dioxide 25.0, Anion Gap 5, BUN 7, Creatinine 0.54 L, Estim Creat Clear Calc 46.90, Est GFR (MDRD) Af Amer 144, Est GFR (MDRD) Non-Af 119, BUN/Creatinine Ratio 13.1, Glucose 91, Calcium 8.6 Microbiology: Microbiology 03/10/22 17:00 Urine, Catheterized Urine Culture - Final Presumptive E. coli 03/10/22 17:00 Urine, Random Legionella Antigen - Final 03/10/22 17:00 Urine, Random Streptococcus pneumoniae Antigen (M - Final D/C Instructions Discharge Diet: Low fat / Low cholesterol Weight Bearing Status: Weight bearing as tolerated Call your doctor if you observe: Shortness of breath, Dizziness, Swelling in the ankles, Chest pain and Increased palpitations (irregular heartbeat) Meaningful Use Info Meaningful Use Diagnoses (Choose all that apply): None applicable Discharge Plan Admission Admit Date/Time: 03/10/22 17:27 Primary Reason for Your Visit: debility, dysphagia Attending Provider: Melania Gates Primary Care Provider: Michelle Hess Consulting Providers: Stephanie Oconnell Instructions Patient Instructions: ED Weakness (Uncertain Cause) Discharge Orders/Prescriptions Prescriptions: New cefdinir 300 mg Capsule 300 mg PO Q12 Qty: 3 0RF potassium chloride 20 mEq tablet extended release 40 meq PO DAILY Qty: 10 0RF Continued sertraline 25 mg tablet 100 mg PO DAILY dicyclomine 10 mg capsule 20 mg PO ACHS omeprazole 20 mg Capsule,Delayed Release(Dr/Ec) 20 mg PO BID Eliquis DVT-PE Treat 30D Start 5 mg (74 tabs) tablets,dose pack 5 mg PO BID Qty: 74 0RF Rx Instructions: 10 mg p.o. twice daily x1 week then 5 mg p.o. twice daily atenolol 25 mg tablet 25 mg PO BID pantoprazole 40 mg Tablet,Delayed Release (Dr/Ec) 40 mg PO DAILY atorvastatin 10 mg tablet 10 mg PO QHS Referrals / Follow Up: Michelle Hess MD [Primary Care Provider] - 03/22/22 2:40 pm Disposition Disposition (needs filled in before D/C Order can be placed): Home Health Service Charges/Coding Visit Charges Inpatient E&M: 53881 Disch Hosp
--- NOTE | 2022-03-14 10:46 | CASEMGMT ---
Noted pt has dc in. RN CM in to pt room, pt present, pt denies homegoing needs.
--- NOTE | 2022-03-14 12:31 | PHA.DC.MC ---
Pharmacy Service has performed discharge medication reconciliation and counseling for this patient. 1. CEFDINIR 300MG PO BID 2. POTASSIUM CHLORIDE 40MEQ PO DAILY X 5 DAYS The patient's discharge medication list was reviewed for discrepancies and discrepancies were resolved. Home Medications dicyclomine 10 mg capsule 20 mg PO ACHS Check with primary doctor 08/31/19 sertraline 25 mg tablet 100 mg PO DAILY depression 08/31/19 apixaban 5 mg (74 tabs) tablets in a dose pack ([email or web address] DVT-PE Treat 30D Start) 5 mg PO BID #74 tabs 03/02/22 omeprazole 20 mg capsule,delayed release 20 mg PO BID gerd 03/02/22 atenolol 25 mg tablet 25 mg PO BID heart 03/13/22 atorvastatin 10 mg tablet 10 mg PO QHS cholesterol 03/13/22 pantoprazole 40 mg tablet,delayed release 40 mg PO DAILY gerd 03/13/22 cefdinir 300 mg capsule 300 mg PO Q12 #3 caps 03/14/22 potassium chloride 20 mEq tablet,extended release 40 meq PO DAILY #10 tabs 03/14/22 The patient was counseled on the following discharge medications and changes in medications for homegoing were reviewed. The Reason for Use, instructions for use, and potential side effects were reviewed for all new medications. The patient's questions regarding all of their medications were answered. The patient was able to verbally demonstrate an understanding of their discharge medications.
== END 2022-03-14 11:30 | disposition home or self-care (01) | DRG 194 ==
LOC: ED 17:14 → MS3 17:49
PROVIDERS: Admitting Provider Internal Medicine; Emergency Provider Emergency Medicine; PCP Family Medicine; Visit Provider Student in an Organized Health Care Education/Training Program
DX: J10.1 Influenza due to other identified influenza virus with other respiratory manifestations (principal); N30.00 Acute cystitis without hematuria; E83.42 Hypomagnesemia; I48.0 Paroxysmal atrial fibrillation; E86.0 Dehydration; E87.6 Hypokalemia; K21.9 Gastro-esophageal reflux disease without esophagitis; I10 Essential (primary) hypertension; M19.90 Unspecified osteoarthritis, unspecified site; B96.20 Unspecified Escherichia coli [E. coli] as the cause of diseases classified elsewhere; F32.A Depression, unspecified; Z66 Do not resuscitate; Z79.01 Long term (current) use of anticoagulants; Z79.899 Other long term (current) drug therapy; R13.12 Dysphagia, oropharyngeal phase
CPT/HCPCS: 36415; 71045; 74230; 80048; 80053; 81001; 83605; 83735; 84100; 84443; 85025; 87086; 87088; 87186; 87449; 92610; 92611; 93005; 94667; 94668; 97110; 97162; 97165; 97530; 97535; 97802; 99285; J7030; J7120; A4216; J2405

== ENCOUNTER 2022-03-19 10:22 | Emergency (ER) | payer MEDICARE, SELFPAY ==
[2022-03-19 10:23] VITALS: BP 112/85; PULSE 64; RESP 15; TEMP 36.4; O2SAT 100; BMI 27.4
[2022-03-19 10:25] VITALS: BP 112/85; PULSE 64; RESP 15; TEMP 36.4; O2SAT 100
--- NOTE | 2022-03-19 10:53 | EKG12_ITS ---
Test Reason : CP Blood Pressure : / mmHG Vent. Rate : 063 BPM Atrial Rate : 063 BPM P-R Int : 160 ms QRS Dur : 078 ms QT Int : 400 ms P-R-T Axes : 047 016 058 degrees QTc Int : 409 ms Normal sinus rhythm Low voltage QRS Borderline ECG Confirmed by NEO QUINONES, JENNIFER ([id number]), department editor LAURA HARRINGTON ([id number]) on 03/21/2022 10:44:37 AM Referred By: ROB Confirmed By:JENNIFER LARSON MD
--- NOTE | 2022-03-19 10:54 | EDS_ITS ---
HPI History of Present Illness Chief Complaint: Chest Pain Informant: patient and spouse/S.O. Onset/Context/Timing Onset: Today and Hours Activity at onset: gradual Timing: Continuous Quality: Positive for Dull Location: Substernal and Left Chest Current Severity: Mild Maximum Severity: Mild Worsened By: Nothing Relieved By: Nothing Associated Symptoms: Negative for Nausea, Vomiting, Diaphoresis, Dyspnea, Cough, Fever, Lightheadedness, Acid Reflux or Palpitations Narrative Narrative: 72-year-old female history of A. fib, hypertension, SVT on Eliquis. Recent admission for UTI on 1209. States she was discharged last Saturday. Complaining of a lower sternal left-sided chest discomfort. Does not radiate to her neck, back or jaw. No associated shortness of breath, diaphoresis or nausea. States she typically does not get pain like this. states she does have a hiatal hernia. Prior Similar Symptoms: No Recent Illness/Hospitalization: No CVD Risk Factors: Positive for Hypertension; Negative for Diabetes, Hypercholesterolemia or Smoking PE Risk Factors: Positive for Recent Immobilization; Negative for Recent Travel/Surgery, Prior DVT or PE, Cancer or OCP + Smoking + >/=35 TAD Risk Factors: Positive for Marfan's Syndrome PFSH PFS Medical History Arthritis Chronic anticoagulation Depression Fatigue GERD (gastroesophageal reflux disease) Hernia, hiatal HTN (hypertension) Knee pain Shoulder pain SVT (supraventricular tachycardia) Home Medications dicyclomine 10 mg capsule 20 mg PO ACHS Check with primary doctor 08/31/19 [History Last Taken 03/10/22] sertraline 25 mg tablet 100 mg PO DAILY depression 08/31/19 [History Last Taken 03/10/22] apixaban 5 mg (74 tabs) tablets in a dose pack (Eliquis DVT-PE Treat 30D Start) 5 mg PO BID #74 tabs 03/02/22 [Rx Last Taken 03/10/22] omeprazole 20 mg capsule,delayed release 20 mg PO BID gerd 03/02/22 [History Last Taken 03/10/22] atenolol 25 mg tablet 25 mg PO BID heart 03/13/22 [History Last Taken 03/10/22] atorvastatin 10 mg tablet 10 mg PO QHS cholesterol 03/13/22 [History Last Taken 03/10/22] pantoprazole 40 mg tablet,delayed release 40 mg PO DAILY gerd 03/13/22 [History Last Taken 03/10/22] cefdinir 300 mg capsule 300 mg PO Q12 #3 caps 03/14/22 [Rx Last Taken Unknown] potassium chloride 20 mEq tablet,extended release 40 meq PO DAILY #10 tabs 03/14/22 [Rx Last Taken Unknown] Allergy/AdvReac Type Severity Reaction Status Date / Time No Known Allergies Allergy Verified 03/19/22 10:29 Family History Other CVA (cerebral vascular accident) Cancer Heart disease Surgical History Hx of kyphoplasty (~2017) Social History household members: spouse housing: house Smoking Status: Never smoker alcohol intake: never substance use type: does not use ROS ROS ED ROS Narrative Chest pain. No other symptoms. Review of Systems ROS Unobtainable: Denies due to encephalopathy Constitutional Constitutional ED: Denies chills or fever(s) Eyes Eyes: Reports none; Denies blurry vision ENT ENT ED: Denies ear pain, rhinorrhea or sore throat Cardiovascular Cardiovascular: Reports as per HPI and chest pain; Denies palpitations or racing heartbeat Respiratory/Chest Respiratory/Chest: Denies cough or dyspnea Gastrointestinal Gastrointestinal: Denies abdominal pain, nausea or vomiting Genitourinary Genitourinary ED: Denies dysuria or hematuria Musculoskeletal Musculoskeletal: Denies arthralgias or back pain Integumentary Denies abscess or Abrasions Neurologic Neurologic: Denies headache(s) Psychiatric Psychiatric: Denies anxiety Endocrine Endocrinology: Denies cold intolerance Hematologic/Lymphatic Hematologic/Lymphatic: Denies easy bleeding Allergic/Immunologic Allergic/Immunologic ED: Denies mouth swelling or tongue swelling EXAM Physical Exam Narrative Exam Narrative: 72-year-old female no acute distress. Vital signs stable afebrile. Pulse ox high percent on room air no hypoxia. H EENT exam unremarkable. Neck nontender no JVD. Lungs clear to auscultation bilaterally. Heart regular rhythm rate about 65 no murmur. Abdomen soft nontender normal bowel sounds no peritoneal signs. Chest wall she does have some reproducible sternal left-sided chest discomfort. There is no ecchymosis or bruising. No subcu air or crepitance. Moving all 4 extremities. Calves are nontender without edema or cords. Radial pulses are equal symmetrical. 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 Normal dorsi plantar flexion. Neurologically she is awake and alert with no focal motor deficits. Const Vital Signs: 03/19/22 10:23 03/19/22 10:25 03/19/22 10:29 Temperature 97.6 F L 97.6 F L Temperature Source Temporal Temporal Pulse Rate 64 64 Respiratory Rate 15 15 Respiratory Effort Normal Non-Labored Blood Pressure 112/85 H 112/85 H Blood Pressure Mean 94 94 Pulse Ox 100 100 Oxygen Delivery Method Room Air Room Air 03/19/22 10:59 03/19/22 11:24 03/19/22 12:07 Temperature Temperature Source Pulse Rate 63 62 Respiratory Rate 17 19 H Respiratory Effort Blood Pressure 114/80 105/69 Blood Pressure Mean 91 81 Pulse Ox 96 96 Oxygen Delivery Method Room Air Room Air Room Air Positive well nourished and well developed; Negative for obese, cachectic, contractures or unkempt General Appearance ED: well developed and NAD; Negative for unkempt, cachectic, contractures or pallor Nutritional Appearance: Negative for cachectic or obese HEENT Reports moist mucous membranes normocephalic and atraumatic; Negative for trauma or tenderness Eyes PERRL and EOMs intact bilaterally General Eye ED: Negative for pale conjunctiva or scleral icterus Neck no lymphadenopathy, supple and no JVD General: Negative for tenderness Chest Wall inspection of chest normal and palpation of chest normal Chest: Negative for tenderness Resp normal respiratory effort and clear to auscultation bilaterally Effort and Inspection: Negative for respiratory distress Auscultation: Negative for rales, rhonchi or wheezes Cardio regular rate, regular rhythm, S1 normal heart sound, S2 normal heart sound and no murmurs Rate: Negative for bradycardia or tachycardic Rhythm: Negative for abnormal rhythm Peripheral Pulses: pulses 2+ throughout GI normal to inspection, nondistended, normoactive bowel sounds, soft to palpation, non-tender, non-distended and no masses Auscultation: Negative for hyperactive bowel sounds Palpation: Negative for splenomegaly, mass or other Back/Spine no CVA tenderness and no thoracic nor lumbar tenderness General Back: Negative for CVA tenderness Cervical Spine: Negative for cervical spine tenderness Extremity normal to inspection General Extremety ED: Negative for edema or pulses abnormal General Extremity: Negative for edema or pulses abnormal Neuro oriented x3 and CN's II-XII intact bilaterally Sensorium / Orientation: awake, alert, oriented to person, oriented to place and oriented to time; Negative for confused, lethargic or stuporous Motor Exam: strength 5/5 throughout Psych mental status grossly normal Appearance: Negative for unkempt Attitude: No agitated Mood & Affect: Negative for depressed or anxious Skin no rashes or lesions noted and no wounds General Skin Exam: Negative for jaundice or pallor Rashes: No rashes noted Trauma: abrasion and laceration Heart Score History: Slightly/Non-Suspicious ECG: Normal Age: >/= 65 years Risk Factors: 1 or 2 Risk Factors Troponin: </= Normal Limit Score: 3 MDM MDM MDM Narrative Medical decision making narrative: 72-year-old with atypical chest pain. There is some reproducible chest wall pain. She undergo a cardiac work-up. She has a history of hiatal hernia will also be given a GI cocktail Protonix and see if that does anything for her discomfort. Exam otherwise is benign. Repeat exam patient doing well at 12:30 PM. We went over all of her test results her and her and myself. I think this is from her hiatal hernia. Her symptoms improved after the Protonix and GI cocktail. They do not want a wait for a second troponin and she will be discharged home. Lab Data Attestation: I reviewed the patient's lab results. Lab results narrative: CBC unremarkable. White count of 7.5. H&H 12.6 and 39. Electrolytes show a gap of 8 and a normal BUN and creatinine. First troponin 7. Chest x-ray shows chronic changes no hiatal hernia. Labs: Laboratory Results - last 24 hr 03/19/22 03/19/22 10:50 10:50 WBC 7.5 RBC 4.52 Hgb 12.6 Hct 39.3 MCV 86.9 MCH 27.9 MCHC 32.1 RDW Std Deviation 44.8 H RDW Coeff of Nataliia 14.5 Plt Count 353 MPV 10.9 Immature Gran % (Auto) 0.400 Neut % (Auto) 73.3 H Lymph % (Auto) 16.5 L [place] % (Auto) 9.3 Eos % (Auto) 0.0 Baso % (Auto) 0.5 Absolute Neuts (auto) 5.5 Absolute Lymphs (auto) 1.23 Nucleated RBC % 0 Sodium 135 L Potassium 4.4 Chloride 103 Carbon Dioxide 24.0 Anion Gap 8 BUN 12 Creatinine 0.88 Estim Creat Clear Calc 53.30 Est GFR (MDRD) Af Amer 81 Est GFR (MDRD) Non-Af 67 BUN/Creatinine Ratio 13.7 Glucose 112 H Calcium 9.2 Troponin I High Sens 7 Radiography Chest X-Ray - ED: 1 View, Read by ED Physician, Read by Radiologist, Heart, Lungs, Mediastinum, Bony Structures, No Acute Disease and Chronic Changes Diagnostic Testing: Clinical Impression(s) from Imaging Studies Chest X-Ray 03/19/22 11:05 IMPRESSION: Large hiatal hernia. Stable mild increased markings in the medial aspect of the left lung base suggestive of scarring. Electronically Signed: Fbaian Massey MD at 11:25 EST , Chest x-ray, portable, single view interpreted both by myself and radiologist shows hiatal hernia. Chronic changes. No acute process. Rhythm Strip Rhythm Strip: Sinus Rhythm Rate: 63 Ectopy: None EKG Initial EKG: Attestation: I personally reviewed and interpreted this EKG as follows: Interpretation: Sinus Rhythm and No Acute Injury Pattern Comments: Normal sinus rhythm rate of 63 no acute signs of RI or ischemia. Discharge Plan Triage Chief Complaint: Chest Pain ED Provider: Raul Dixon Dx/Rx/DC Orders Clinical Impression: Chest pain, Acid reflux Instructions: ED Chest Pain, Uncertain Cause, ED GERD (Adult) Prescriptions: No Action sertraline 25 mg tablet 100 mg PO DAILY dicyclomine 10 mg capsule 20 mg PO ACHS omeprazole 20 mg Capsule,Delayed Release(Dr/Ec) 20 mg PO BID Eliquis DVT-PE Treat 30D Start 5 mg (74 tabs) tablets,dose pack 5 mg PO BID Qty: 74 0RF Rx Instructions: 10 mg p.o. twice daily x1 week then 5 mg p.o. twice daily atenolol 25 mg tablet 25 mg PO BID pantoprazole 40 mg Tablet,Delayed Release (Dr/Ec) 40 mg PO DAILY atorvastatin 10 mg tablet 10 mg PO QHS cefdinir 300 mg Capsule 300 mg PO Q12 Qty: 3 0RF potassium chloride 20 mEq tablet extended release 40 meq PO DAILY Qty: 10 0RF Primary Care Provider: Michelle Hess Referrals: Michelle Hess MD [Primary Care Provider] - 3-5 Days if not improving Activity Restrictions/Additional Instructions: Chest pain you had seems to be secondary to your hiatal hernia and reflux. Your labs, EKG and chest x-ray are unremarkable. I do not think this is your heart. Continue your Prilosec. Follow-up with your doctor if not improving or return if worse. Disposition Disposition: Home, Self Care
[2022-03-19] MEDS: Pantoprazole Sodium 40 MG Tablet PO (11:04)
[2022-03-19 11:05] LABS: Absolute Lymphocyte Count 1.23 X10^3/uL (0.83-4.51); Absolute Neutrophil Count 5.5 X10^3/uL (2.0-7.7); Basophil# 0.04 X10^3/uL; Basophil% 0.5 % (0-1); Hematocrit 39.3 % (37-47); Hemoglobin 12.6 g/dL (12.0-15.0); Lymphocyte # 1.23 X10^3/ul (0.83-4.51); Lymphocyte % 16.5 % (19-41); Mean Corp Hgb Conc 32.1 g/dL (32-36); Mean Corpuscular Hgb 27.9 pg (27.0-32.0); Mean Corpuscular Volume 86.9 fL (81-99); Mean Platelet Vol. 10.9 fl (6.2-12.0); Monocyte# 0.69 X10^3/uL; Monocyte% 9.3 % (0-10); NRBC Flagged by Analyzer 0 % (0-5); Neutrophil # 5.46 X10^3/uL (2.7-7.7); Neutrophil % 73.3 % (47-70); Platelet Count 353 K/mm3 (150-450); RBC Distribution Width CV 14.5 % (11.6-14.6); RBC Distribution Width SD 44.8 fl (35.1-43.9); Red Blood Count 4.52 M/mm3 (4.2-5.4); White Blood Count 7.5 K/mm3 (4.4-11.0)
--- NOTE | 2022-03-19 11:05 | RAD_ITS ---
STUDY: X-RAY CHEST REASON FOR EXAM: Female, 72 years old. Chest pain TECHNIQUE: Single AP portable view of the chest. COMPARISON: Comparison is made with prior examination dated 03/10/2022. FINDINGS: EKG electrodes are seen. Stable mild increased markings at the left lung base suggestive of a linear atelectasis and/or scarring. There is no demonstrated pleural abnormality. Normal size heart. Normal mediastinum and paolo. Normal visualized pulmonary arteries. There is atherosclerotic calcification of the aortic arch with tortuosity. There are diffuse degenerative changes of the visualized thoracic spine. Normal visualized ribs, clavicles, and shoulders. Large hiatal hernia. RAD/Chest 1 View (Portable) IMPRESSION: Large hiatal hernia. Stable mild increased markings in the medial aspect of the left lung base suggestive of scarring. Electronically Signed: Fabian Massey MD at 11:25 EST ,
[2022-03-19] MEDS: Mag Hydrox/Al Hydrox/Simeth 30 ML UDC PO (11:06)
[2022-03-19 11:22] LABS: Anion Gap 8 (5-15); BUN 12 mg/dL (7-18); BUN/Creat Ratio 13.7 RATIO (10-20); Calcium,Total 9.2 mg/dL (8.5-10.1); Chloride 103 mmol/L (98-107); Creatinine, Serum 0.88 mg/dL (0.55-1.02); EST Glomerular Filtration Rate 67 mL/min (>60); Est Glom Filt Rate - Afr Amer 81 mL/min (>60); Glucose 112 mg/dL (74-106); Potassium 4.4 mmol/L (3.5-5.1); Sodium Level 135 mmol/L (136-145); Troponin-I HS (w/2H Reflex) 7 pg/mL (3.0-54.0)
[2022-03-19 11:24] VITALS: BP 114/80; PULSE 63; RESP 17; O2SAT 96
[2022-03-19 12:07] VITALS: BP 105/69; PULSE 62; RESP 19; O2SAT 96
[2022-03-19 12:59] LABS: Reflex Troponin-HS? (from REC) Y
== END 2022-03-19 13:57 | disposition home or self-care (01) ==
PROVIDERS: Emergency Provider Emergency Medicine; PCP Family Medicine; Visit Provider Emergency Medicine
DX: R07.9 Chest pain, unspecified (principal); I48.91 Unspecified atrial fibrillation; Q87.40 Marfan syndrome, unspecified; K21.9 Gastro-esophageal reflux disease without esophagitis; K44.9 Diaphragmatic hernia without obstruction or gangrene; I10 Essential (primary) hypertension; Z79.01 Long term (current) use of anticoagulants; N39.0 Urinary tract infection, site not specified
CPT/HCPCS: 71045; 80048; 84484; 85025; 93005; 99285; A4216

== ENCOUNTER 2022-04-06 13:33 | Inpatient (IN) | payer MEDICARE, SELFPAY ==
[2022-04-06 13:34] VITALS: BP 132/75; PULSE 67; RESP 18; TEMP 36.6; O2SAT 100; BMI 27.4
[2022-04-06 14:37] VITALS: BP 122/83; PULSE 65; RESP 16; O2SAT 98
[2022-04-06 15:03] LABS: Absolute Lymphocyte Count 1.71 X10^3/uL (0.83-4.51); Basophil# 0.05 X10^3/uL; Basophil% 0.5 % (0-1); Hematocrit 36.2 % (37-47); Hemoglobin 11.5 g/dL (12.0-15.0); Lymphocyte # 1.71 X10^3/ul (0.83-4.51); Lymphocyte % 18.3 % (19-41); Mean Corp Hgb Conc 31.8 g/dL (32-36); Mean Corpuscular Hgb 27.6 pg (27.0-32.0); Mean Corpuscular Volume 86.8 fL (81-99); Mean Platelet Vol. 9.7 fl (6.2-12.0); Monocyte# 0.52 X10^3/uL; Monocyte% 5.6 % (0-10); NRBC Flagged by Analyzer 0 % (0-5); Neutrophil # 7.03 X10^3/uL (2.7-7.7); Neutrophil % 75.3 % (47-70); Platelet Count 374 K/mm3 (150-450); RBC Distribution Width CV 14.6 % (11.6-14.6); Red Blood Count 4.17 M/mm3 (4.2-5.4); White Blood Count 9.3 K/mm3 (4.4-11.0)
[2022-04-06 15:09] LABS: Anion Gap 6 (5-15); BUN 11 mg/dL (7-18); BUN/Creat Ratio 13.8 RATIO (10-20); Calcium,Total 8.7 mg/dL (8.5-10.1); Chloride 106 mmol/L (98-107); EST Glomerular Filtration Rate 75 mL/min (>60); Est Glom Filt Rate - Afr Amer 91 mL/min (>60); Estimated Creatinine Clearance 58.63 ml/min; Glucose 103 mg/dL (74-106); Potassium 3.6 mmol/L (3.5-5.1); Sodium Level 136 mmol/L (136-145)
--- NOTE | 2022-04-06 15:19 | ED.VIS.GI ---
HPI HPI - GI History of Present Illness Chief Complaint: Abd Pain Informant: patient Abdominal Pain/Flank Pain Onset: Yesterday Context: Gradual Onset Timing: Continuous Quality: Aching and Sharp Location: Diffuse Worsened by: - (Deep breathing) Relieved by: Nothing Nausea/Vomiting/Emesis GI Symptom: Negative for Nausea or Vomiting Diarrhea/Melena/Hematochezia GI Symptom: Negative for Diarrhea, Melena or Hematochezia Associated Symptoms Associated Symptoms: Negative for Dysuria, Frequency or Hematuria Narrative Narrative: Patient presents with abdominal pain that began yesterday. Patient states that it is gradually gotten worse. Patient describes the pain as aching but sharp at times. Patient states her pain is constant. Patient states her pain is diffuse across her entire abdomen. Patient states her pain radiates up into her chest. Patient states her pain is worse with deep breathing. Patient denies any nausea or vomiting. Patient denies any diarrhea, melena, or hematochezia. Patient denies any dysuria, hematuria, or frequency. [facility] Medical History (Updated 04/06/22 @ 19:[address] Jourdan Atkins, ) Arthritis Chronic anticoagulation Depression Fatigue GERD (gastroesophageal reflux disease) Hernia, hiatal HTN (hypertension) Hypokalemia Knee pain Shoulder pain SVT (supraventricular tachycardia) Home Medications dicyclomine 10 mg capsule 20 mg PO ACHS Check with primary doctor 08/31/19 [History Last Taken 03/10/22] sertraline 25 mg tablet 100 mg PO DAILY depression 08/31/19 [History Last Taken 03/10/22] apixaban 5 mg (74 tabs) tablets in a dose pack (Eliquis DVT-PE Treat 30D Start) 5 mg PO BID #74 tabs 03/02/22 [Rx Last Taken 03/10/22] omeprazole 20 mg capsule,delayed release 20 mg PO BID gerd 03/02/22 [History Last Taken 03/10/22] atenolol 25 mg tablet 25 mg PO BID heart 03/13/22 [History Last Taken 03/10/22] atorvastatin 10 mg tablet 10 mg PO QHS cholesterol 03/13/22 [History Last Taken 03/10/22] pantoprazole 40 mg tablet,delayed release 40 mg PO DAILY gerd 03/13/22 [History Last Taken 03/10/22] cefdinir 300 mg capsule 300 mg PO Q12 #3 caps 03/14/22 [Rx Last Taken Unknown] potassium chloride 20 mEq tablet,extended release 40 meq PO DAILY #10 tabs 03/14/22 [Rx Last Taken Unknown] Allergy/AdvReac Type Severity Reaction Status Date / Time No Known Allergies Allergy Verified 04/06/22 13:34 Family History Other CVA (cerebral vascular accident) Cancer Heart disease Surgical History (Updated 04/06/22 @ 15:[address] Jourdan Atkins DO) Hx of cholecystectomy Hx of hysterectomy Hx of kyphoplasty (~2017) Social History household members: spouse housing: house Smoking Status: Never smoker alcohol intake: never substance use type: does not use ROS ROS ED Constitutional Constitutional ED: Denies chills or fever(s) Eyes Eyes: Denies blurry vision or change in vision ENT ENT ED: Denies rhinorrhea or sore throat Cardiovascular Cardiovascular: Reports chest pain; Denies palpitations Respiratory/Chest Respiratory/Chest: Denies cough or dyspnea Gastrointestinal Gastrointestinal: Reports abdominal pain; Denies nausea or vomiting Genitourinary Genitourinary ED: Denies dysuria or hematuria Musculoskeletal Musculoskeletal: Reports back pain; Denies neck pain Integumentary Denies abscess or rash Neurologic Neurologic: Denies headache(s) or weakness Allergic/Immunologic Allergic/Immunologic ED: Denies mouth swelling or urticaria EXAM Physical Exam Const Vital Signs: 04/06/22 13:34 04/06/22 14:37 04/06/22 16:18 Temperature 97.8 F Temperature Source Temporal Pulse Rate 67 65 61 Respiratory Rate 18 16 18 Blood Pressure 132/75 H 122/83 H Blood Pressure Mean 94 96 Pulse Ox 100 98 98 Oxygen Delivery Method Room Air Room Air Room Air 04/06/22 18:21 Temperature Temperature Source Pulse Rate 87 Respiratory Rate 16 Blood Pressure 140/89 H Blood Pressure Mean 106 Pulse Ox 99 Oxygen Delivery Method Positive well nourished and well developed General Appearance ED: well developed HEENT Reports moist mucous membranes Neck supple and no JVD Resp normal respiratory effort and clear to auscultation bilaterally Cardio regular rate and regular rhythm GI normal to inspection, nondistended, normoactive bowel sounds Palpation: soft and tender epigastric, LLQ, RLQ, LUQ, RUQ, periumbilical and suprapubic; Negative for guarding or rebound tenderness present Extremity normal to inspection General Extremety ED: Negative for edema or tenderness General Extremity: Negative for edema Neuro oriented x3, CN's II-XII intact bilaterally and no sensory deficits noted Sensorium / Orientation: alert Motor Exam: strength 5/5 throughout Psych mental status grossly normal Skin no rashes or lesions noted MDM MDM MDM Narrative Medical decision making narrative: Patient was given IV fluids, morphine, and Zofran here. EKG was obtained. On my interpretation, it showed a normal sinus rhythm with occasional PACs with a rate of 61. GA interval, QRS interval, and QTc intervals were all normal. [place] was normal. There are no acute ST or T wave changes. CBC shows a slight anemia with a hemoglobin of 11.5 and hematocrit 36.2. Basic metabolic profile was obtained and was within normal limits. Hepatic profile was obtained and was within normal limits. Lipase was normal. Urinalysis does not show any evidence of urinary tract infection or hematuria. CT scan of the abdomen pelvis was obtained. On my interpretation, there is some distention of the large bowel. There are no air-fluid levels. There is no free intraperitoneal air. Radiologist also interpreted the CT scan and noticed thickening of the descending colon which may represent colitis. There is also borderline distention possibly due to a stricture at the site of her previous diverticulitis creating a developing obstruction. There is no abscess or perforation. Patient was given a repeat dose of morphine. Case was discussed with Dr. Estrada from general surgery. He will be in to evaluate the patient. Patient was started on Cipro and Flagyl. Dr. Estrada was in to evaluate the patient and he will admit the patient to his service. Patient understood and was agreeable with the plan. All questions were answered. Lab Data Attestation: I reviewed the patient's lab results. Labs: Laboratory Results - last 24 hr 04/06/22 04/06/22 04/06/22 14:42 14:42 14:42 WBC 9.3 RBC 4.17 L Hgb 11.5 L Hct 36.2 L MCV 86.8 MCH 27.6 MCHC 31.8 L RDW Std Deviation 47.0 H RDW Coeff of Nataliia 14.6 Plt Count 374 MPV 9.7 Immature Gran % (Auto) 0.300 Neut % (Auto) 75.3 H Lymph % (Auto) 18.3 L [place] % (Auto) 5.6 Eos % (Auto) 0.0 Baso % (Auto) 0.5 Absolute Neuts (auto) 7.0 Absolute Lymphs (auto) 1.71 Nucleated RBC % 0 Sodium 136 Potassium 3.6 Chloride 106 Carbon Dioxide 24.0 Anion Gap 6 BUN 11 Creatinine 0.80 Estim Creat Clear Calc 58.63 Est GFR (MDRD) Af Amer 91 Est GFR (MDRD) Non-Af 75 BUN/Creatinine Ratio 13.8 Glucose 103 Calcium 8.7 Total Bilirubin 0.20 Direct Bilirubin 0.10 AST 23 ALT 17 Alkaline Phosphatase 84 Troponin I High Sens 5 Total Protein 6.6 Albumin 2.6 L Globulin 4.0 Lipase 282 Urine Color Urine Clarity Urine pH Ur Specific [place] Urine Protein Urine Glucose (UA) Urine Ketones Urine Occult Blood Urine Nitrite Urine Bilirubin Urine Urobilinogen Ur Leukocyte Esterase Urine RBC Urine WBC Ur Squamous Epith Cells Urine Bacteria Urine Mucus 04/06/22 16:08 WBC RBC Hgb Hct MCV MCH MCHC RDW Std Deviation RDW Coeff of Nataliia Plt Count MPV Immature Gran % (Auto) Neut % (Auto) Lymph % (Auto) [place] % (Auto) Eos % (Auto) Baso % (Auto) Absolute Neuts (auto) Absolute Lymphs (auto) Nucleated RBC % Sodium Potassium Chloride Carbon Dioxide Anion Gap BUN Creatinine Estim Creat Clear Calc Est GFR (MDRD) Af Amer Est GFR (MDRD) Non-Af BUN/Creatinine Ratio Glucose Calcium Total Bilirubin Direct Bilirubin AST ALT Alkaline Phosphatase Troponin I High Sens Total Protein Albumin Globulin Lipase Urine Color Yellow Urine Clarity Clear Urine pH 6.0 Ur Specific [place] 1.015 Urine Protein 15 H Urine Glucose (UA) Normal Urine Ketones Negative Urine Occult Blood Negative Urine Nitrite Negative Urine Bilirubin Negative Urine Urobilinogen 1 H Ur Leukocyte Esterase 100 H Urine RBC 0 SEEN Urine WBC 0-5 SEEN Ur Squamous Epith Cells 0-5 SEEN Urine Bacteria 0 SEEN Urine Mucus 0 SEEN Radiography Diagnostic Testing: Clinical Impression(s) from Imaging Studies Abdomen/Pelvis CT 04/06/22 15:24 IMPRESSION: Wall thickening and inflammation of the proximal sigmoid colon at the site of previous diverticulitis. There is mild thickening of the wall of the descending colon may represent colitis. The ascending transverse colon borderline distended possibly due to a stricture at the site of previous diverticulitis creating a developing obstruction. There is no abscess or perforation. Further evaluation with colonoscopy may be beneficial. Electronically Signed: Antoine Martinez MD at 17:52 EST , EKG Initial EKG: Attestation: I personally reviewed and interpreted this EKG as follows: Interpretation: Sinus Rhythm (61) and No Acute Injury Pattern Prior EKG tracings: available for review Prior: Unchanged (03/19/2022) Discharge Plan Dx/Rx/DC Orders Clinical Impression: Colitis, Large bowel obstruction Disposition Disposition: Acute Care Hospital [facility]
--- NOTE | 2022-04-06 15:24 | CT_ITS ---
EXAM: CT ABDOMEN AND PELVIS WITH INTRAVENOUS CONTRAST CLINICAL INDICATION: PAIN TECHNIQUE: Helically acquired images were obtained of the abdomen and pelvis with intravenous contrast. This CT exam was performed using one or more of the following dose reduction techniques: automated exposure control, adjustment of the mA and/or kV according to patient size, and/or use of iterative reconstruction technique. This report was created using [employer] report generation technology. CONTRAST: Oral and amp;amp;amp;amp; IV Gastrografin and amp;amp;amp;amp; 100mL Isovue-300 COMPARISON: 02/22/2022 FINDINGS: LOWER THORAX: There is a moderate size hiatal hernia. Lung bases are clear. No cardiomegaly. No significant pericardial effusion. ABDOMEN: LIVER: Unremarkable. Homogeneous. No focal mass. GALLBLADDER AND BILE DUCTS: There are surgical clips from a cholecystectomy. The patient is status post cholecystectomy. No intra- or extrahepatic biliary ductal dilation. PANCREAS: Unremarkable. No focal cystic or solid mass. SPLEEN: Unremarkable. Normal size without focal cystic or solid mass. ADRENALS: Unremarkable. No nodules. KIDNEYS AND URETERS: Unremarkable. Normal renal size and position. No hydronephrosis. STOMACH AND BOWEL: There is inflammation and wall thickening of the proximal sigmoid colon. There is also mild wall thickening of the descending colon which may be due to residual diverticulitis and colitis. There is borderline distention of more proximal colon possibly due to a stricture at the site of previous infection. There is no abscess or perforation. PELVIS: APPENDIX: No evidence of acute appendicitis. BLADDER: Unremarkable. REPRODUCTIVE: Unremarkable as visualized. No mass. ABDOMEN and PELVIS: INTRAPERITONEAL SPACE: Unremarkable. No ascites or other fluid collection. No free air. BONES/JOINTS: Unremarkable. No suspicious lytic or blastic abnormality. SOFT TISSUES: Unremarkable. No discrete abdominal or pelvic wall hernia. VASCULATURE: Unremarkable. Abdominal aorta is non-dilated. LYMPH NODES: Unremarkable. No enlarged lymph nodes. CT/Abdomen/Pelvis WITH Contrast IMPRESSION: Wall thickening and inflammation of the proximal sigmoid colon at the site of previous diverticulitis. There is mild thickening of the wall of the descending colon may represent colitis. The ascending transverse colon borderline distended possibly due to a stricture at the site of previous diverticulitis creating a developing obstruction. There is no abscess or perforation. Further evaluation with colonoscopy may be beneficial. Electronically Signed: Antoine Martinez MD at 17:52 EST ,
--- NOTE | 2022-04-06 15:24 | EKG12_ITS ---
Test Reason : ABD PAIN Blood Pressure : / mmHG Vent. Rate : 061 BPM Atrial Rate : 061 BPM P-R Int : 162 ms QRS Dur : 080 ms QT Int : 436 ms P-R-T Axes : 028 027 046 degrees QTc Int : 438 ms Sinus rhythm with Premature atrial complexes Otherwise normal ECG Confirmed by TREAN QUINONES, LELE ([id number]), medical transcription editor LAURA HARRINGTON ([id number]) on 04/09/2022 11:03:58 AM Referred By: Confirmed By:RYDER ALBRECHT MD
[2022-04-06] MEDS: Morphine 4 MG/ML Syringe IV ×2 (15:56→18:21)
[2022-04-06] MEDS: Ondansetron 4 MG/2 ML Vial IV ×2 (15:56→22:02)
[2022-04-06 16:13] LABS: Bacteria 0 SEEN /hpf (None Seen); Mucous, Urine 0 SEEN /hpf (<or=2+); Red Blood Cells-Urine 0 SEEN /hpf (0-5)
[2022-04-06 16:14] LABS: Color, Urine Yellow (Yellow); Glucose, Dipstick Normal (Normal); Ketone-Dipstick Negative (Negative); Leukocyte Esterase-Dipstick 100 /ul (Negative); Nitrite-Dipstick Negative (Negative); Occult Blood-Urine Negative /ul (Negative); Protein-Dipstick 15 mg/dl (Negative); Specific Gravity, Urine 1.015 (1.002-1.030); Urine Bilirubin Dipstick Negative (Negative); Urine Clarity Clear (Clear); Urine Urobilinogen 1 mg/dl (Normal)
[2022-04-06 16:18] VITALS: PULSE 61; RESP 18; O2SAT 98
[2022-04-06 16:54] LABS: Squamous Epithelial Cells - UA 0-5 SEEN /hpf (5-10); White Blood Cells 0-5 SEEN /hpf (0-5)
[2022-04-06 17:36] LABS: AST(SGOT) 23 U/L (15-37); Alanine Aminotransfer ALT/SGPT 17 U/L (13-56); Albumin, Serum 2.6 g/dL (3.2-5.0); Alkaline Phosphatase 84 U/L (45-117); Lipase 282 U/L (73-393); Protein, Total 6.6 g/dL (6.4-8.2); Troponin-I HS 5 pg/mL (3.0-54.0)
[2022-04-06 18:21] VITALS: BP 140/89; PULSE 87; RESP 16; O2SAT 99
--- NOTE | 2022-04-06 20:26 | HP.PCM_ITS ---
HPI - General General Date of Admission: 04/06/22 Date of Service: 04/06/22 Chief Complaint: Progressive abdominal pain HPI Narrative DEBORA TRINIDAD, is a 72 F who presents to [facility] with her with complaints of moderate to severe abdominal pain over the last 2 days. Patient's provides much of the history during this encounter. He estimates that pain actually began 4 days prior to this and a more mild int ensity. Patient denies any associated nausea or vomiting. She also reports that she has having normal bowel movements. Her last normal bowel movement was yesterday. She denies noting any blood with these bowel movements. She continues to pass gas. She reports that her abdominal discomfort is somewhat improved since coming to the ER, but openly admits she is cautiously optimistic given that she has not moved much since arriving. ER work-up notable for CBC with normal white blood cell count, but CT imaging of the abdomen pelvis demonstrated wall thickening of the descending colon and poss ible sigmoid colitis/diverticulitis with possible developing large bowel obstruction secondary to a stricture in the sigmoid colon. Patient admits to a history of diverticulitis, but states that her last episode of this diagnosis was approximately a year ago. She required a hospitalization the first episode she had of this diagnosis approximately 5 years ago. She reports an interval colonoscopy, but is uncertain as to the exact date. She does relate that this was in the last [address] Mooney. Neither she nor her are able to comment on the results of this exam. Past surgical history for the abdomen/pelvis includes: Remote open cholecystectomy and remote vaginal hysterectomy There is no known family history of colon cancer or other GI diagnoses. Patient confirms a recent history of illness with a admission last month for symptoms related to an influenza infection. Prior to that she was evaluated at our facility for complaints of chest pain. She was worked up for possible unstable angina and SVT/paroxysmal atrial fibrillation. She reportedly underwent a heart catheterization which was clean, but she was prescribed a course of anticoagulation. Mr. Trinidad reports that this was completed just 2 days ago. She remains on atenolol for her arrhythmia. Through the acute above complaints and recent hospitalizations, and Mrs. Trinidad state that she is not been able to eat well and report a 30 pound weight loss since February 13, 2022. [facility] Medical History (Updated 04/06/22 @ 20:[address] Brennan Estrada MD) Arrhythmia Arthritis Chronic anticoagulation Depression Fatigue GERD (gastroesophageal reflux disease) Hernia, hiatal HTN (hypertension) Hypokalemia Knee pain Shoulder pain SVT (supraventricular tachycardia) Home Medications dicyclomine 10 mg capsule 20 mg PO ACHS PRN BOWELS 08/31/19 [History Last Taken 03/10/22] omeprazole 20 mg capsule,delayed release 20 mg PO BID GERD 03/02/22 [History Last Taken 04/05/22] atenolol 25 mg tablet 25 mg PO DAILY HEART 03/13/22 [History Last Taken 04/05/22] pantoprazole 40 mg tablet,delayed release 40 mg PO DAILY GERD 03/13/22 [History Last Taken 04/05/22] bupropion HCl 150 mg 24 hr tablet, extended release 150 mg PO DAILY DEPRESSION 04/06/22 [History Last Taken 04/05/22] multivitamin 1 tab PO DAILY HEALTH MAINTENANCE 04/06/22 [History Last Taken Unknown] nitrofurantoin monohydrate/macrocrystals 100 mg capsule 100 mg PO DAILY PRN UTI 04/06/22 [History Last Taken Unknown] potassium chloride 20 mEq tablet,extended release 20 meq PO DAILY SUPPLEMENT 04/06/22 [History Last Taken 04/05/22] sertraline 100 mg tablet 100 mg PO DAILY DEPRESSION 04/06/22 [History Last Taken 04/05/22] Allergy/AdvReac Type Severity Reaction Status Date / Time No Known Allergies Allergy Verified 04/06/22 13:34 Family History Other CVA (cerebral vascular accident) Cancer Heart disease Surgical History (Updated 04/06/22 @ 15:[address] Jourdan Atkins DO) Hx of cholecystectomy Hx of hysterectomy Hx of kyphoplasty (~2017) Social History household members: spouse housing: house Smoking Status: Never smoker alcohol intake: never substance use type: does not use ROS Constitutional Constitutional: Reports anorexia, change in weight and weight loss; Denies chills or fever(s) Cardiovascular Cardiovascular: Denies chest pain Gastrointestinal Gastrointestinal: Reports abdominal pain; Denies constipation, diarrhea, hematochezia, melena, nausea or vomiting Genitourinary Genitourinary: Denies dysuria or urinary urgency Vital Signs Vital Signs Vital Signs: 04/06/22 13:34 04/06/22 14:37 04/06/22 16:18 Temperature 97.8 F Temperature Source Temporal Pulse Rate 67 65 61 Respiratory Rate 18 16 18 Blood Pressure 132/75 H 122/83 H Blood Pressure Mean 94 96 Pulse Ox 100 98 98 Oxygen Delivery Method Room Air Room Air Room Air 04/06/22 18:21 Temperature Temperature Source Pulse Rate 87 Respiratory Rate 16 Blood Pressure 140/89 H Blood Pressure Mean 106 Pulse Ox 99 Oxygen Delivery Method Weight Weight: 170 lb Body Mass Index (BMI) 27.4 Physical Exam Const alert, oriented x3, no apparent distress and well nourished Constitutional Narrative: Affect mildly blunted General Appearance: cooperative Resp normal respiratory effort GI GI Narrative: Well-healed right subcostal incision. Nondistended. Soft and tender to palpation with voluntary guarding when palpating the left lower quadrant. Results Lab / Micro Data Result Diagrams: 04/06/22 14:42 04/06/22 14:42 Labs: Laboratory Results - last 24 hr 04/06/22 14:42: WBC 9.3, RBC 4.17 L, Hgb 11.5 L, Hct 36.2 L, MCV 86.8, MCH 27.6, MCHC 31.8 L, RDW Std Deviation 47.0 H, RDW Coeff of Nataliia 14.6, Plt Count 374, MPV 9.7, Immature Gran % (Auto) 0.300, Neut % (Auto) 75.3 H, Lymph % (Auto) 18.3 L, [place] % (Auto) 5.6, Eos % (Auto) 0.0, Baso % (Auto) 0.5, Absolute Neuts (auto) 7.0, Absolute Lymphs (auto) 1.71, Nucleated RBC % 0 04/06/22 14:42: Sodium 136, Potassium 3.6, Chloride 106, Carbon Dioxide 24.0, Anion Gap 6, BUN 11, Creatinine 0.80, Estim Creat Clear Calc 58.63, Est GFR (MDRD) Af Amer 91, Est GFR (MDRD) Non-Af 75, BUN/Creatinine Ratio 13.8, Glucose 103, Calcium 8.7 04/06/22 14:42: Total Bilirubin 0.20, Direct Bilirubin 0.10, AST 23, ALT 17, Alkaline Phosphatase 84, Troponin I High Sens 5, Total Protein 6.6, Albumin 2.6 L, Globulin 4.0, Lipase 282 04/06/22 16:08: Urine Color Yellow, Urine Clarity Clear, Urine pH 6.0, Ur Specific [place] 1.015, Urine Protein 15 H, Urine Glucose (UA) Normal, Urine Ketones Negative, Urine Occult Blood Negative, Urine Nitrite Negative, Urine Bilirubin Negative, Urine Urobilinogen 1 H, Ur Leukocyte Esterase 100 H, Urine RBC 0 SEEN, Urine WBC 0-5 SEEN, Ur Squamous Epith Cells 0-5 SEEN, Urine Bacteria 0 SEEN, Urine Mucus 0 SEEN Radiology Impression Abdomen/Pelvis CT 04/06/22 15:24 IMPRESSION: Wall thickening and inflammation of the proximal sigmoid colon at the site of previous diverticulitis. There is mild thickening of the wall of the descending colon may represent colitis. The ascending transverse colon borderline distended possibly due to a stricture at the site of previous diverticulitis creating a developing obstruction. There is no abscess or perforation. Further evaluation with colonoscopy may be beneficial. Electronically Signed: Antoine Martinez MD at 17:52 EST , Assessment & Plan Assessment/Plan (1) Diverticulitis large intestine w/o perforation or abscess w/o bleeding: PLAN: This is a 72-year-old female with probable recurrent diverticulitis. Although this is technically uncomplicated diverticulitis without any signs of perforation or abscess, it is potentially causing a stricture in this portion of the colon as the more proximal colon is slightly dilated. Fortunately patient is having ongoing bowel function. On exam patient is tender, but not peritonea l. She has a past history of colonoscopy within the last 5 years?but results are not remembered. With this clinical information and impression, I recommended that we proceed with conservative management upfront to include bowel rest and IV antibiotic therapy. To better study the effects of this r ecurrent inflammation, I am anticipating a repeat CT of the abdomen pelvis with per rectum contrast. Neuro: As needed Dilaudid Pulm/CV: Incentive spirometer, antiarrhythmic agent per hospitalist on consult, telemetry FEN/GI: Monitor daily electrolytes, strict n.p.o., maintenance IV fluids, Protonix 40 mg daily, trend abdominal exam, anticipate repeat CT with CT contrast : No current issues Heme/ID: Trend CBC, initiate empiric coverage with Cipro Flagyl Endo: No current issues Proph: Apply SCDs, await recommendations from consulting hospitalist regarding patient's recent anticoagulation Dispo: Admit to inpatient (2) Large bowel obstruction: PLAN: Radiographically patient has mild dilatation of the proximal large bowel, however, patient is having ongoing bowel movements and flatus. Last known bowel movement was yesterday. As above, anticipate repeat CT with p.o. contrast to better assess for narrowing of sigmoid colon. (3) Stricture of colon: PLAN: Anticipating repeat CT abdomen pelvis with p.o. contrast to assess this issue (4) Arrhythmia: PLAN: Patient with past history of SVT and atrial fibrillation currently on atenolol. Awaiting consultation recommendations for inpatient management while patient is n.p.o. Patient with telemetry disposition. (5) Weight loss: PLAN: Patient and reporting near 30 pound unintentional weight loss secondary to chronic illness. However, review of the chart patient's weight has remained relatively stable from weights obtained in 2020. Therefore this history is somewhat dubious. Planning to obtain prealbumin level in a.m.
--- NOTE | 2022-04-06 20:31 | PCM.PN.HOSP ---
Subjective Subjective Patient is a 72-year-old female with a significant history of depression/anxiety who presents emergency department with abdominal pain and for which CT of abdomen and pelvis showed a borderline distention of ascending transverse and developing obstruction; for which internal medicine service has been consulted because of a previous cardiac history. Reportedly patient previously was diagnosed with SVT versus paroxysmal A. fib and completed a course of Eliquis. Heart cath returned clear. Patient is currently on atenolol Objective Data Objective Data Vital Signs: Vital Signs Temp Pulse Resp BP Pulse Ox O2 Del Method 97.8 F 87 16 140/89 H 99 Room Air 04/06/22 13:34 04/06/22 18:21 04/06/22 18:21 04/06/22 18:21 04/06/22 18:21 04/06/22 16:18 Oxygen Delivery Method Room Air Weight: 77.111 kg Body Mass Index (BMI) 27.4 Lab / Micro Data Result Diagrams: 04/06/22 14:42 04/06/22 14:42 Labs: Laboratory Results - last 24 hr 04/06/22 14:42: WBC 9.3, RBC 4.17 L, Hgb 11.5 L, Hct 36.2 L, MCV 86.8, MCH 27.6, MCHC 31.8 L, RDW Std Deviation 47.0 H, RDW Coeff of Nataliia 14.6, Plt Count 374, MPV 9.7, Immature Gran % (Auto) 0.300, Neut % (Auto) 75.3 H, Lymph % (Auto) 18.3 L, [place] % (Auto) 5.6, Eos % (Auto) 0.0, Baso % (Auto) 0.5, Absolute Neuts (auto) 7.0, Absolute Lymphs (auto) 1.71, Nucleated RBC % 0 04/06/22 14:42: Sodium 136, Potassium 3.6, Chloride 106, Carbon Dioxide 24.0, Anion Gap 6, BUN 11, Creatinine 0.80, Estim Creat Clear Calc 58.63, Est GFR (MDRD) Af Amer 91, Est GFR (MDRD) Non-Af 75, BUN/Creatinine Ratio 13.8, Glucose 103, Calcium 8.7 04/06/22 14:42: Total Bilirubin 0.20, Direct Bilirubin 0.10, AST 23, ALT 17, Alkaline Phosphatase 84, Troponin I High Sens 5, Total Protein 6.6, Albumin 2.6 L, Globulin 4.0, Lipase 282 04/06/22 16:08: Urine Color Yellow, Urine Clarity Clear, Urine pH 6.0, Ur Specific [place] 1.015, Urine Protein 15 H, Urine Glucose (UA) Normal, Urine Ketones Negative, Urine Occult Blood Negative, Urine Nitrite Negative, Urine Bilirubin Negative, Urine Urobilinogen 1 H, Ur Leukocyte Esterase 100 H, Urine RBC 0 SEEN, Urine WBC 0-5 SEEN, Ur Squamous Epith Cells 0-5 SEEN, Urine Bacteria 0 SEEN, Urine Mucus 0 SEEN Radiography Diagnostic Testing: Radiology Impression Abdomen/Pelvis CT 04/06/22 15:24 IMPRESSION: Wall thickening and inflammation of the proximal sigmoid colon at the site of previous diverticulitis. There is mild thickening of the wall of the descending colon may represent colitis. The ascending transverse colon borderline distended possibly due to a stricture at the site of previous diverticulitis creating a developing obstruction. There is no abscess or perforation. Further evaluation with colonoscopy may be beneficial. Electronically Signed: Antoine Martinez MD at 17:52 EST , Physical Exam Narrative Physical exam: General: Well-nourished, well-developed. Head: Normocephalic, atraumatic, no tenderness Eyes: Vision is grossly intact. EOMI ENT, no trauma, moist mucous membranes, no rhinorrhea Neck: Nontender, No thyromegaly. CVS: Regular rate and rhythm. S1-S2 present. No murmur, gallop or rub. Respiratory : clear to auscultation bilaterally, chest wall nontender, no wheezing Abdomen: Soft, nontender, nondistended, normal bowel sounds, no masses : Deferred Back: Nontender, no CVA tenderness, no midline spinal tenderness, deformities, step-offs Extremities: Nontender full range of motion, no trauma Skin: Normal color, no trauma, abrasions Neuro: Alert, oriented, cranial nerves II through XII grossly intact. Psychiatry: Normal mood. Normal affect. Not depressed. Not anxious. Assessment & Plan Assessment/Plan (1) Stricture of colon: (2) Arrhythmia: (3) Large bowel obstruction: PLAN: Plan Large bowel obstruction General surgery to manage History of arrhythmia Review of records shows that cardiac cath on 02/08/2022 showed normal coronaries. Was seen by cardiology in late January 2022 and chest pain at that time was seen to be likely noncardiac. Dobutamine stress echo showed no evidence of ischemia. EKG showed sinus rhythm with PACs. Change atenolol p.o. to metoprolol IV. Placed on telemetry. History of anemia Stable DVT prophylaxis SCDs ordered Charges/Coding Visit Charges Inpatient E&M: 39911 Init Hosp L2
[2022-04-06] MEDS: metroNIDAZOLE 500 MG/100 ML BAG 100 MG IV (20:41)
[2022-04-06] MEDS: Ciprofloxacin 400 MG/200 ML BAG 200 MG IV (20:51)
[2022-04-06 20:54] VITALS: BP 112/72; PULSE 68; RESP 16; TEMP 36.8; O2SAT 95
--- NOTE | 2022-04-06 21:12 | EX.EMERGENCY ---
EMERGENCY DOCUMENTATION INITIATED: Date: 03/28/22 Time: 0900 Emergency documentation initiated 04/06/21@2115
[2022-04-06 21:20] VITALS: BMI 25.0
[2022-04-06 21:34] VITALS: BP 115/69; PULSE 65; RESP 16; TEMP 37; O2SAT 97
[2022-04-06] MEDS: 0.9% Normal Saline 1,000 ML 125 ML IV (22:04)
[2022-04-07] VITALS (9 sets, daily range): BP systolic 99–126; BP diastolic 52–67; PULSE 60–71; RESP 16–18; TEMP 36.6–36.9; O2SAT 97–100
[2022-04-07 05:42] LABS: Absolute Lymphocyte Count 1.11 X10^3/uL (0.83-4.51); Absolute Neutrophil Count 6.4 X10^3/uL (2.0-7.7); Basophil# 0.03 X10^3/uL; Basophil% 0.4 % (0-1); Hematocrit 31.4 % (37-47); Hemoglobin 9.8 g/dL (12.0-15.0); Lymphocyte # 1.11 X10^3/ul (0.83-4.51); Lymphocyte % 13.7 % (19-41); Mean Corp Hgb Conc 31.2 g/dL (32-36); Mean Corpuscular Hgb 28.2 pg (27.0-32.0); Mean Corpuscular Volume 90.5 fL (81-99); Monocyte# 0.49 X10^3/uL; Monocyte% 6.1 % (0-10); NRBC Flagged by Analyzer 0 % (0-5); Neutrophil # 6.42 X10^3/uL (2.7-7.7); Neutrophil % 79.4 % (47-70); Platelet Count 247 K/mm3 (150-450); RBC Distribution Width SD 49.3 fl (35.1-43.9); Red Blood Count 3.47 M/mm3 (4.2-5.4); White Blood Count 8.1 K/mm3 (4.4-11.0)
[2022-04-07] MEDS: metroNIDAZOLE 500 MG/100 ML BAG 100 MG IV ×3 (05:51→21:47)
[2022-04-07] MEDS: 0.9% Normal Saline 1,000 ML 125 ML IV ×2 (05:51→17:20)
[2022-04-07 06:09] LABS: ALB/GLOB Ratio 0.6 RATIO (0.9-2.4); AST(SGOT) 18 U/L (15-37); Alanine Aminotransfer ALT/SGPT 15 U/L (13-56); Alkaline Phosphatase 69 U/L (45-117); Anion Gap 6 (5-15); BUN 10 mg/dL (7-18); BUN/Creat Ratio 14.7 RATIO (10-20); Chloride 108 mmol/L (98-107); Creatinine, Serum 0.68 mg/dL (0.55-1.02); EST Glomerular Filtration Rate 90 mL/min (>60); Est Glom Filt Rate - Afr Amer 109 mL/min (>60); Globulin 3.3 g/dL (2.2-4.2); Glucose 101 mg/dL (74-106); Prealbumin 13.8 mg/dL (20.0-40.0); Protein, Total 5.3 g/dL (6.4-8.2); Sodium Level 137 mmol/L (136-145)
--- NOTE | 2022-04-07 09:18 | CT_ITS ---
INDICATION: f/u CT 04/06 w possible sigmoid stricture -- RECTAL CONTRAST EXAMINATION: CT ABDOMEN AND PELVIS WITHOUT CONTRAST - CT Abdomen And Pelvis W/O Contrast Injection TECHNIQUE: Helically acquired images were obtained of the abdomen and pelvis without oral or IV contrast. A radiation dose optimization technique was used for this scan. IV Contrast dosage and agent: None. Oral contrast: None. COMPARISON: None. FINDINGS: LOWER CHEST: Increased atelectatic changes both lower lungs. No cardiomegaly or pericardial effusion. LIVER: Homogeneous. No focal mass. GALLBLADDER AND BILIARY TREE: Status post cholecystectomy. No intra- or extrahepatic biliary ductal dilation. PANCREAS: No focal cystic or solid mass. SPLEEN: Normal size without focal cystic or solid mass. ADRENAL GLANDS: No nodules. KIDNEYS AND URETERS: Normal renal size and position. No hydronephrosis. PERITONEUM: No ascites or free air. No other fluid collection. BOWEL: Moderate size hiatal hernia. Normal caliber small bowel loops. Reticulosis of the sigmoid colon. Persistent focal thickening with adjacent stranding of the descending colon essentially unchanged the prior exam. The appendix is unremarkable. LYMPH NODES: No enlarged mesenteric or retroperitoneal lymph nodes. VESSELS: Aorta is non-dilated. URINARY BLADDER: Unremarkable. REPRODUCTIVE ORGANS: Absent uterus consistent with with previous hysterectomy. No free fluid. ABDOMINAL WALL: No discrete abdominal or pelvic wall hernia. BONES: Compression fracture of T12 vertebra with vertebroplasty. Degenerative changes of the spine. CT/Abdomen/Pelvis without Cont IMPRESSION: 1. Persistent focal thickening and narrowing of a segment of the descending and proximal sigmoid colon could be due to focal diverticulitis or less likely colitis. Underlying tumor cannot be excluded. Further evaluation with colonoscopy when clinically feasible is recommended. 2. No evidence of drainable abscess or free air. Electronically Signed: Familia Oliveira MD at 13:31 EST ,
--- NOTE | 2022-04-07 09:21 | PN.SURG_ITS ---
Subjective Subjective Patient seen and examined during AM rounds. She is found resting quietly in bed. This morning nursing reports that overnight nursing communicated patient had a small volume emesis, but has been fine since administration of Zofran. Patient and patient's are in the room this morning. Jointly, they state that patient seems better today. Patient states that her abdominal pain is less and that she is now hungry. They reiterate their desire to avoid a colostomy if at all possible. Objective Data Objective Data Vital Signs: Vital Signs Temp Pulse Resp BP Pulse Ox O2 Del Method 97.9 F 67 18 106/55 L 97 Room Air 04/07/22 05:53 04/07/22 05:53 04/07/22 05:53 04/07/22 05:53 04/07/22 05:53 04/07/22 05:53 Oxygen Delivery Method Room Air Weight: 154 lb 12.232 oz Body Mass Index (BMI) 25.0 Intake & Output: Intake and Output for Last 24 Hours 04/05/22 04/06/22 04/07/22 23:59 23:59 23:59 Intake Total 800 / 800 1072.92 / 1072.92 Balance 800 / 800 1072.92 / 1072.92 Lab / Micro Data Result Diagrams: 04/07/22 04:45 04/07/22 04:45 Labs: Laboratory Results - last 24 hr 04/06/22 14:42: WBC 9.3, RBC 4.17 L, Hgb 11.5 L, Hct 36.2 L, MCV 86.8, MCH 27.6, MCHC 31.8 L, RDW Std Deviation 47.0 H, RDW Coeff of Nataliia 14.6, Plt Count 374, MPV 9.7, Immature Gran % (Auto) 0.300, Neut % (Auto) 75.3 H, Lymph % (Auto) 18.3 L, [place] % (Auto) 5.6, Eos % (Auto) 0.0, Baso % (Auto) 0.5, Absolute Neuts (auto) 7.0, Absolute Lymphs (auto) 1.71, Nucleated RBC % 0 04/06/22 14:42: Sodium 136, Potassium 3.6, Chloride 106, Carbon Dioxide 24.0, Anion Gap 6, BUN 11, Creatinine 0.80, Estim Creat Clear Calc 58.63, Est GFR (MDRD) Af Amer 91, Est GFR (MDRD) Non-Af 75, BUN/Creatinine Ratio 13.8, Glucose 103, Calcium 8.7 04/06/22 14:42: Total Bilirubin 0.20, Direct Bilirubin 0.10, AST 23, ALT 17, Alkaline Phosphatase 84, Troponin I High Sens 5, Total Protein 6.6, Albumin 2.6 L, Globulin 4.0, Lipase 282 04/06/22 16:08: Urine Color Yellow, Urine Clarity Clear, Urine pH 6.0, Ur Specific [place] 1.015, Urine Protein 15 H, Urine Glucose (UA) Normal, Urine Ketones Negative, Urine Occult Blood Negative, Urine Nitrite Negative, Urine Bilirubin Negative, Urine Urobilinogen 1 H, Ur Leukocyte Esterase 100 H, Urine RBC 0 SEEN, Urine WBC 0-5 SEEN, Ur Squamous Epith Cells 0-5 SEEN, Urine Bacteria 0 SEEN, Urine Mucus 0 SEEN 04/07/22 04:45: WBC 8.1, RBC 3.47 L, Hgb 9.8 L, Hct 31.4 L, MCV 90.5, MCH 28.2, MCHC 31.2 L, RDW Std Deviation 49.3 H, RDW Coeff of Nataliia 15.0 H, Plt Count 247, MPV 10.0, Immature Gran % (Auto) 0.400, Neut % (Auto) 79.4 H, Lymph % (Auto) 13.7 L, [place] % (Auto) 6.1, Eos % (Auto) 0.0, Baso % (Auto) 0.4, Absolute Neuts (auto) 6.4, Absolute Lymphs (auto) 1.11, Nucleated RBC % 0 04/07/22 04:45: Sodium 137, Potassium 4.0, Chloride 108 H, Carbon Dioxide 23.0, Anion Gap 6, BUN 10, Creatinine 0.68, Estim Creat Clear Calc 46.90, Est GFR (MDRD) Af Amer 109, Est GFR (MDRD) Non-Af 90, BUN/Creatinine Ratio 14.7, Glucose 101, Calcium 8.0 L, Total Bilirubin 0.30, AST 18, ALT 15, Alkaline Phosphatase 69, Total Protein 5.3 L, Albumin 2.0 L, Globulin 3.3, Albumin/Globulin Ratio 0.6 L, Prealbumin 13.8 L Radiography Diagnostic Testing: Radiology Impression Abdomen/Pelvis CT 04/06/22 15:24 IMPRESSION: Wall thickening and inflammation of the proximal sigmoid colon at the site of previous diverticulitis. There is mild thickening of the wall of the descending colon may represent colitis. The ascending transverse colon borderline distended possibly due to a stricture at the site of previous diverticulitis creating a developing obstruction. There is no abscess or perforation. Further evaluation with colonoscopy may be beneficial. Electronically Signed: Antoine Martinez MD at 17:52 EST , Physical Exam Const no apparent distress Resp normal respiratory effort GI GI Narrative: Abdomen nondistended, soft, minimal tenderness of the left lower quadrant?otherwise unremarkable exam Assessment & Plan Assessment/Plan (1) Diverticulitis large intestine w/o perforation or abscess w/o bleeding: PLAN: This is a 72-year-old female with probable recurrent diverticulitis. Although this is technically uncomplicated diverticulitis without any signs of perforation or abscess, it is potentially causing a stricture in this portion of the colon as the more proximal colon is slightly dilated. Fortunately patient is having ongoing bowel function. On exam patient today patient has significant improvement of her discomfort and there seems to be less abdominal distention. Furthermore, she is reporting an appetite. Given this improvement, I am encouraged that the inflammatory process of her colon is improved as well. Still, I would like to better understand whether the narrowing of the sigmoid is clinically significant and wish to pursue CT of the abdomen pelvis with [place] contrast. If narrowing is not overly tight, would plan for gradual diet advancement. Plan has been relayed to family and they fully wish to avoid inpatient surgery. Neuro: As needed Dilaudid Pulm/CV: Incentive spirometer, antiarrhythmic agent per hospitalist on consult, telemetry FEN/GI: Monitor daily electrolytes, strict n.p.o., maintenance IV fluids, Protonix 40 mg daily, trend abdominal exam, repeat CT with [place] contrast : No current issues Heme/ID: Trend CBC, continue empiric coverage with Cipro Flagyl Endo: No current issues Proph: Apply SCDs, await recommendations from consulting hospitalist regarding patient's recent anticoagulation Dispo: Admit to inpatient (2) Large bowel obstruction: PLAN: Radiographically patient has mild dilatation of the proximal large bowel, however, patient is having ongoing bowel movements and flatus. Last known bowel movement was yesterday. As above, repeat CT with p.o. contrast to better assess for narrowing of sigmoid colon. (3) Stricture of colon: PLAN: Repeat CT abdomen pelvis with p.o. contrast to assess this issue (4) Arrhythmia: PLAN: Patient with past history of SVT and atrial fibrillation currently on atenolol. Medicine has patient on metoprolol and lieu of atenolol. Patient al so on continuous telemetry. (5) Weight loss: PLAN: Patient and reporting near 30 pound unintentional weight loss secondary to chronic illness. However, review of the chart patient's weight has remained relatively stable from weights obtained in 2020. Yet, when further scrutinizing his records both of the weights from most recent hospitalizations were reported by or estimated by patient. Objective measurement of patient's weight overnight did find her to be nearly 20 pounds down from prior baseline. Further, her prealbumin today is quite low at 13.8. With these findings I would be reluctant to perform a primary anastomosis in the event that patient requires inpatient surgery. If patient's CT findings today are permissive, will plan to reinitiate a liquid diet with protein supplementation. Charges/Coding Visit Charges Inpatient E&M: 31594 Subs Hosp L2
[2022-04-07] MEDS: Ondansetron 4 MG/2 ML Vial IV ×2 (09:35→15:53)
[2022-04-07] MEDS: 0.9% Saline Lock 10 ML Syringe IV ×2 (09:37→10:54)
[2022-04-07] MEDS: Ciprofloxacin 400 MG/200 ML BAG 200 MG IV ×2 (10:54→21:47)
--- NOTE | 2022-04-07 14:46 | CASEMGMT ---
KLAUS KIRK Assessment: Face to Face with pt for initial transition planning/care coordination assessment. RN YELENA introduced self and role at [facility], pt voices understanding and consents to assessment. Pt is A/O x4 and answers all questions appropriately at this time. Pt sitting up in bed in no distress with at bedside. Care providers, pharmacy, and demographics verified/updated. Admitting Dx: colitis PCP:Jimena Specialists:Pt denies. Preferred Pharmacy: [facility] [place] Insurance: [employer] [facility] Prescription Benefit: yes LNOK: [place], ; Rhona Awad, dtr Living Arrangements: Pt lives with in a single story home with 2 steps to enter with a rail or a ramp. Pt reports she is I in ADL's and denies concerns at home. Transportation: Pt drives self and denies concerns with transportation. DME/HHC/SNF: Pt has a cane and FWW at home but does not use. Pt denies hx of HHC or SNF stays. Pt states no concerns with going home at time of dc. Pt states no further concerns/needs. CM to follow. Advised pt to ask CM if any further question/concerns/needs arise, voices understanding. Pt Goal: Home Plan: Home
--- NOTE | 2022-04-07 14:48 | PCM.PN.HOSP ---
Subjective Subjective Follow-up on medical management for patient with bowel obstruction: Patient was seen and examined. She was said to be nauseous and vomited earlier in the day. She was progressed on clear liquid diet she however had a [employer] sandwich this evening. She denied any abdominal pain. Blood pressures and heart rate are controlled Objective Data Objective Data Vital Signs: Vital Signs Temp Pulse Resp BP Pulse Ox O2 Del Method 97.8 F 60 16 113/61 97 Room Air 04/07/22 11:18 04/07/22 12:45 04/07/22 11:18 04/07/22 12:45 04/07/22 11:18 04/07/22 11:18 Oxygen Delivery Method Room Air Weight: 70.2 kg Body Mass Index (BMI) 25.0 Intake & Output: Intake and Output for Last 24 Hours 04/05/22 04/06/22 04/07/22 23:59 23:59 23:59 Intake Total 800 / 800 1482.92 / 1482.92 Balance 800 / 800 1482.92 / 1482.92 Medical Nutrition Assessment Dietitian: Malnutrition Criteria Met Start: 04/07/22 10:59 Freq: Status: Active Protocol: Document 04/07/22 10:59 SLA (Rec: 04/07/22 10:59 SLA [id number]) Nutrition Malnutrition Evidence of Malnutrition Exists Yes Malnutrition (severe): Acute Illness/Injury Evidenced By Suboptimal Energy Intake ( Severe),Weight Loss (Severe) Intake Problem Inadequate Oral Intake Etiology related to GI dysfunction: 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 Status Active Problem Recommendation Dietitian Recommendations/Changes As medically able, rec ALAINA to liberal regular d/t signs and symptoms of malnutrition As medically able, rec Ensure Plus High Protein 120 ml 4x/ day w/ medpass for increased nutrition if consumed Rec consider supplemental nutrition support if NPO expected >3 days - consult for rec prn Lab / Micro Data Result Diagrams: 04/07/22 04:45 04/07/22 04:45 Labs: Laboratory Results - last 24 hr 04/06/22 14:42: WBC 9.3, RBC 4.17 L, Hgb 11.5 L, Hct 36.2 L, MCV 86.8, MCH 27.6, MCHC 31.8 L, RDW Std Deviation 47.0 H, RDW Coeff of Nataliia 14.6, Plt Count 374, MPV 9.7, Immature Gran % (Auto) 0.300, Neut % (Auto) 75.3 H, Lymph % (Auto) 18.3 L, [place] % (Auto) 5.6, Eos % (Auto) 0.0, Baso % (Auto) 0.5, Absolute Neuts (auto) 7.0, Absolute Lymphs (auto) 1.71, Nucleated RBC % 0 04/06/22 14:42: Sodium 136, Potassium 3.6, Chloride 106, Carbon Dioxide 24.0, Anion Gap 6, BUN 11, Creatinine 0.80, Estim Creat Clear Calc 58.63, Est GFR (MDRD) Af Amer 91, Est GFR (MDRD) Non-Af 75, BUN/Creatinine Ratio 13.8, Glucose 103, Calcium 8.7 04/06/22 14:42: Total Bilirubin 0.20, Direct Bilirubin 0.10, AST 23, ALT 17, Alkaline Phosphatase 84, Troponin I High Sens 5, Total Protein 6.6, Albumin 2.6 L, Globulin 4.0, Lipase 282 04/06/22 16:08: Urine Color Yellow, Urine Clarity Clear, Urine pH 6.0, Ur Specific [place] 1.015, Urine Protein 15 H, Urine Glucose (UA) Normal, Urine Ketones Negative, Urine Occult Blood Negative, Urine Nitrite Negative, Urine Bilirubin Negative, Urine Urobilinogen 1 H, Ur Leukocyte Esterase 100 H, Urine RBC 0 SEEN, Urine WBC 0-5 SEEN, Ur Squamous Epith Cells 0-5 SEEN, Urine Bacteria 0 SEEN, Urine Mucus 0 SEEN 04/07/22 04:45: WBC 8.1, RBC 3.47 L, Hgb 9.8 L, Hct 31.4 L, MCV 90.5, MCH 28.2, MCHC 31.2 L, RDW Std Deviation 49.3 H, RDW Coeff of Nataliia 15.0 H, Plt Count 247, MPV 10.0, Immature Gran % (Auto) 0.400, Neut % (Auto) 79.4 H, Lymph % (Auto) 13.7 L, [place] % (Auto) 6.1, Eos % (Auto) 0.0, Baso % (Auto) 0.4, Absolute Neuts (auto) 6.4, Absolute Lymphs (auto) 1.11, Nucleated RBC % 0 04/07/22 04:45: Sodium 137, Potassium 4.0, Chloride 108 H, Carbon Dioxide 23.0, Anion Gap 6, BUN 10, Creatinine 0.68, Estim Creat Clear Calc 46.90, Est GFR (MDRD) Af Amer 109, Est GFR (MDRD) Non-Af 90, BUN/Creatinine Ratio 14.7, Glucose 101, Calcium 8.0 L, Total Bilirubin 0.30, AST 18, ALT 15, Alkaline Phosphatase 69, Total Protein 5.3 L, Albumin 2.0 L, Globulin 3.3, Albumin/Globulin Ratio 0.6 L, Prealbumin 13.8 L Radiography Diagnostic Testing: Radiology Impression Abdomen/Pelvis CT 04/06/22 15:24 IMPRESSION: Wall thickening and inflammation of the proximal sigmoid colon at the site of previous diverticulitis. There is mild thickening of the wall of the descending colon may represent colitis. The ascending transverse colon borderline distended possibly due to a stricture at the site of previous diverticulitis creating a developing obstruction. There is no abscess or perforation. Further evaluation with colonoscopy may be beneficial. Electronically Signed: Antoine Martinez MD at 17:52 EST , Abdomen/Pelvis CT 04/07/22 09:18 IMPRESSION: 1. Persistent focal thickening and narrowing of a segment of the descending and proximal sigmoid colon could be due to focal diverticulitis or less likely colitis. Underlying tumor cannot be excluded. Further evaluation with colonoscopy when clinically feasible is recommended. 2. No evidence of drainable abscess or free air. Electronically Signed: Familia Oliveira MD at 13:31 EST , Physical Exam Narrative Physical exam: General: Alert, Oriented x3, Cooperative, No apparent distress HEENT: Atraumatic Oral: Moist Mucosa Neck: Supple Lungs: Clear to auscultation Cardiovascular: HS I+II, regular, no murmurs Abdomen: Bowel Sounds Present, Soft, Non Tender Extremities: No edema Skin: No rashes, No breakdown Neurological: Grossly intact Psych/Mental Status: Appropriate Assessment & Plan Assessment/Plan (1) Diverticulitis large intestine w/o perforation or abscess w/o bleeding: (2) Large bowel obstruction: PLAN: Plan 1. Acute uncomplicated diverticulitis without perforation or abscess/acute large bowel obstruction Patient is currently on clear liquid diet Continue on IV antibiotics, IV fluid Follow-up on general surgery recommendations 2. History of SVTs, history of CAD, patient denies any chest pain Patient was on atenolol; on IV metoprolol now on account of n.p.o. Will switch back to atenolol p.o. as patient is able to take liquid diet 3. Anemia, acute on chronic likely secondary to hemodilution Will need to trend 4. DVT prophylaxis?heparin subcu Charges/Coding Visit Charges Inpatient E&M: 87048 Subs Hosp L2
[2022-04-07] MEDS: Ensure Clear 120 ML Liquid PO (17:18)
--- NOTE | 2022-04-07 17:52 | NURSING ---
This RN entered patients room and assessed patient eating a [employer] burrito. Patient stated her brought it. agreed. About 3/4 burrito was eaten by patient. discarded remaining 1/4 burrito. Patient and verbally agreed knowing the ordered diet was clear liquid only and acknowledged why it was clear only. Patient agreed to understanding that nausea and vomiting may follow due to her actions. Diet restrictions was verbally reinforced with patient and acknowledging and agreeing to said teaching.
[2022-04-07] MEDS: Heparin Injection (Vial) 5,000 UNIT/ML VIAL 5000 UNIT SC (21:42)
[2022-04-08 02:00] VITALS: PULSE 61
[2022-04-08] MEDS: 0.9% Normal Saline 1,000 ML 125 ML IV ×2 (02:39→14:05)
[2022-04-08 05:00] VITALS: BP 120/67; PULSE 61; RESP 16; TEMP 36.6; O2SAT 98
[2022-04-08] MEDS: Heparin Injection (Vial) 5,000 UNIT/ML VIAL 5000 UNIT SC ×3 (06:25→21:46)
[2022-04-08] MEDS: metroNIDAZOLE 500 MG/100 ML BAG 100 MG IV (06:25)
[2022-04-08 06:27] LABS: Anion Gap 9 (5-15); BUN 6 mg/dL (7-18); BUN/Creat Ratio 8.8 RATIO (10-20); Calcium,Total 7.8 mg/dL (8.5-10.1); Chloride 109 mmol/L (98-107); Creatinine, Serum 0.68 mg/dL (0.55-1.02); EST Glomerular Filtration Rate 90 mL/min (>60); Est Glom Filt Rate - Afr Amer 108 mL/min (>60); Glucose 105 mg/dL (74-106); Magnesium 1.5 mg/dL (1.6-2.6); Phosphorus 2.8 mg/dL (2.5-4.9); Potassium 3.3 mmol/L (3.5-5.1); Sodium Level 140 mmol/L (136-145)
[2022-04-08 09:00] VITALS: BP 128/68; PULSE 68; RESP 16; TEMP 36.7; O2SAT 97
[2022-04-08] MEDS: Atenolol 25 MG Tablet PO (09:55)
[2022-04-08] MEDS: Potassium Chloride Oral Tablet 20 MEQ 40 MEQ PO (09:55)
[2022-04-08] MEDS: Amox/Clavulanate 875 MG Tablet PO ×2 (09:58→21:46)
--- NOTE | 2022-04-08 10:12 | PCM.PN.HOSP ---
Subjective Subjective Follow-up on medical management/bowel obstruction/acute diverticulitis: Patient was seen and examined.? She complains of pain in her left lower quadrant. Denies any fever or chills. Objective Data Objective Data Vital Signs: Vital Signs Temp Pulse Resp BP Pulse Ox O2 Del Method 97.8 F 61 16 120/67 98 Room Air 04/08/22 05:00 04/08/22 05:00 04/08/22 05:00 04/08/22 05:00 04/08/22 05:00 04/08/22 05:00 Oxygen Delivery Method Room Air Weight: 70.2 kg Body Mass Index (BMI) 25.0 Intake & Output: Intake and Output for Last 24 Hours 04/06/22 04/07/22 04/08/22 23:59 23:59 23:59 Intake Total 800 / 800 2582.92 / 2582.92 1300 / 1300 Balance 800 / 800 2582.92 / 2582.92 1300 / 1300 Medical Nutrition Assessment Dietitian: Malnutrition Criteria Met Start: 04/07/22 10:59 Freq: Status: Active Protocol: Document 04/07/22 10:59 SLA (Rec: 04/07/22 10:59 SLA [id number]) Nutrition Malnutrition Evidence of Malnutrition Exists Yes Malnutrition (severe): Acute Illness/Injury Evidenced By Suboptimal Energy Intake ( Severe),Weight Loss (Severe) Intake Problem Inadequate Oral Intake Etiology related to GI dysfunction: 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 Status Active Problem Recommendation Dietitian Recommendations/Changes As medically able, rec ALAINA to liberal regular d/t signs and symptoms of malnutrition As medically able, rec Ensure Plus High Protein 120 ml 4x/ day w/ medpass for increased nutrition if consumed Rec consider supplemental nutrition support if NPO expected >3 days - consult for rec prn Lab / Micro Data Result Diagrams: 04/07/22 04:45 04/08/22 04:27 Labs: Laboratory Results - last 24 hr 04/08/22 04:27: Sodium 140, Potassium 3.3 L, Chloride 109 H, Carbon Dioxide 22.0, Anion Gap 9, BUN 6 L, Creatinine 0.68, Estim Creat Clear Calc 46.90, Est GFR (MDRD) Af Amer 108, Est GFR (MDRD) Non-Af 90, BUN/Creatinine Ratio 8.8 L, Glucose 105, Calcium 7.8 L, Phosphorus 2.8, Magnesium 1.5 L Radiography Diagnostic Testing: Radiology Impression Abdomen/Pelvis CT 04/07/22 09:18 IMPRESSION: 1. Persistent focal thickening and narrowing of a segment of the descending and proximal sigmoid colon could be due to focal diverticulitis or less likely colitis. Underlying tumor cannot be excluded. Further evaluation with colonoscopy when clinically feasible is recommended. 2. No evidence of drainable abscess or free air. Electronically Signed: Familia Oliveira MD at 13:31 EST , Physical Exam Narrative Physical exam: General: Alert, Oriented x3, Cooperative, No apparent distress HEENT: Atraumatic Oral: Moist Mucosa Neck: Supple Lungs: Clear to auscultation Cardiovascular: HS I+II, regular, no murmurs Abdomen: Bowel Sounds Present, Soft, slight tenderness of the left lower quadrant, no guarding Extremities: No edema Skin: No rashes, No breakdown Neurological: Grossly intact Psych/Mental Status: Appropriate Assessment & Plan Assessment/Plan (1) Diverticulitis large intestine w/o perforation or abscess w/o bleeding: (2) Large bowel obstruction: PLAN: Plan 1. Acute uncomplicated diverticulitis without perforation or abscess/acute large bowel obstruction Patient is currently on clear liquid diet Continue on IV antibiotics, IV fluid Follow-up on general surgery recommendations 2. History of SVTs, history of CAD, continue on oral atenolol 3. Hypokalemia, hypomagnesemia, replace, recheck in a.m. 4. Anemia, acute on chronic likely secondary to hemodilution Will need to trend 5. DVT prophylaxis?heparin subcu Charges/Coding Visit Charges Inpatient E&M: 29788 [facility] Hosp L1
--- NOTE | 2022-04-08 12:45 | PN.SURG_ITS ---
Subjective Subjective Patient seen and examined during AM rounds. She is found resting quietly in bed. I have been notified yesterday patient was provided a burrito from the outside by her despite repeated counseling on maintaining a liquid diet. Patient states that her abdominal pain remains better today. She denies any nausea. She confirms that she did have a normal bowel movement yesterday. Objective Data Objective Data Vital Signs: Vital Signs Temp Pulse Resp BP Pulse Ox O2 Del Method 97.8 F 61 16 120/67 98 Room Air 04/08/22 05:00 04/08/22 05:00 04/08/22 05:00 04/08/22 05:00 04/08/22 05:00 04/08/22 10:00 Oxygen Delivery Method Room Air Weight: 154 lb 12.232 oz Body Mass Index (BMI) 25.0 Intake & Output: Intake and Output for Last 24 Hours 04/06/22 04/07/22 04/08/22 23:59 23:59 23:59 Intake Total 800 / 800 2582.92 / 2582.92 1404 / 1404 Balance 800 / 800 2582.92 / 2582.92 1404 / 1404 Medical Nutrition Assessment Dietitian: Malnutrition Criteria Met Start: 04/07/22 10:59 Freq: Status: Active Protocol: Document 04/07/22 10:59 SLA (Rec: 04/07/22 10:59 SLA [id number]) Nutrition Malnutrition Evidence of Malnutrition Exists Yes Malnutrition (severe): Acute Illness/Injury Evidenced By Suboptimal Energy Intake ( Severe),Weight Loss (Severe) Intake Problem Inadequate Oral Intake Etiology related to GI dysfunction: 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 Status Active Problem Recommendation Dietitian Recommendations/Changes As medically able, rec ALAINA to liberal regular d/t signs and symptoms of malnutrition As medically able, rec Ensure Plus High Protein 120 ml 4x/ day w/ medpass for increased nutrition if consumed Rec consider supplemental nutrition support if NPO expected >3 days - consult for rec prn Lab / Micro Data Result Diagrams: 04/07/22 04:45 04/08/22 04:27 Labs: Laboratory Results - last 24 hr 04/08/22 04:27: Sodium 140, Potassium 3.3 L, Chloride 109 H, Carbon Dioxide 22.0, Anion Gap 9, BUN 6 L, Creatinine 0.68, Estim Creat Clear Calc 46.90, Est GFR (MDRD) Af Amer 108, Est GFR (MDRD) Non-Af 90, BUN/Creatinine Ratio 8.8 L, Glucose 105, Calcium 7.8 L, Phosphorus 2.8, Magnesium 1.5 L Radiography Diagnostic Testing: Radiology Impression Abdomen/Pelvis CT 04/07/22 09:18 IMPRESSION: 1. Persistent focal thickening and narrowing of a segment of the descending and proximal sigmoid colon could be due to focal diverticulitis or less likely colitis. Underlying tumor cannot be excluded. Further evaluation with colonoscopy when clinically feasible is recommended. 2. No evidence of drainable abscess or free air. Electronically Signed: Familia Oliveira MD at 13:31 EST , Physical Exam Const oriented x3 and no apparent distress Resp normal respiratory effort GI GI Narrative: Nondistended, soft, nontender to palpation x4 quadrants Assessment & Plan Assessment/Plan (1) Diverticulitis large intestine w/o perforation or abscess w/o bleeding: PLAN: This is a 72-year-old female with probable recurrent diverticulitis. Although this is technically uncomplicated diverticulitis without any signs of perforation or abscess, it is potentially causing a stricture in this portion of the colon as the more proximal colon is slightly dilated. Fortunately patient is having ongoing bowel function. Repeat CT yesterday with per rectal contrast showed this area to be very limited in its extent. Despite patient advancing diet against recommendations, her abdominal discomfort remains improved and she is having ongoing bowel movements. Neuro: Discontinue as needed Dilaudid, will add p.o. options Pulm/CV: Incentive spirometer, antiarrhythmic agent per hospitalist on consult?b ut patient okay to transition to home regimen if hospitalists in agreement, telemetry FEN/GI: Monitor daily electrolytes?replacing magnesium and potassium today, advance to full liquid diet., Decrease IV fluids, Protonix 40 mg daily, trend abdominal exam : No current issues Heme/ID: Trend CBC, transition to p.o. Cipro Flagyl Endo: No current issues Proph: Apply SCDs, await recommendations from consulting hospitalist regarding patient's recent anticoagulation Dispo: Admit to inpatient (2) Large bowel obstruction: PLAN: Radiographically patient has mild dilatation of the proximal large bowel, however, patient is having ongoing bowel movements and flatus. Last known bowel movement was yesterday. No evidence of obstruction with CT imaging yesterday. Patient does have a stricture and ongoing inflammation at that stricture. It is my hope that if we continue antibiotics and treat this conservatively this opening will remain patent and not pose an obstruction. I would plan for ongoing liquid diet until patient is able to receive intervention. (3) Stricture of colon: PLAN: Repeat CT abdomen pelvis with p.o. contrast to assess this issue (4) Arrhythmia: PLAN: Patient with past history of SVT and atrial fibrillation currently on atenolol. Medicine has patient on metoprolol and lieu of atenolol. Patient also on continuous telemetry. (5) Weight loss: PLAN: Patient and reporting near 30 pound unintentional weight loss secondary to chronic illness. However, review of the chart patient's weight has remained relatively stable from weights obtained in 2020. Yet, when further scrutinizing his records both of the weights from most recent hospitalizations were reported by or estimated by patient. Objective measurement of patient's weight overnight did find her to be nearly 20 pounds down from prior baseline. Further, her prealbumin was quite low at 13.8. With these findings I would be reluctant to perform a primary anastomosis in the event that patient requires inpatient surgery. Transition to full liquid diet with ensures. Patient encouraged to continue protein supplementation.
[2022-04-08 14:00] VITALS: BP 123/64; PULSE 64; RESP 16; TEMP 36.8; O2SAT 97
[2022-04-08 19:52] VITALS: BP 128/68; PULSE 65; RESP 16; TEMP 36.9; O2SAT 100
[2022-04-08 20:13] VITALS: BP 130/70; PULSE 65; RESP 16; TEMP 36.9; O2SAT 100
[2022-04-09] VITALS (9 sets, daily range): BP systolic 105–137; BP diastolic 62–66; PULSE 60–106; RESP 16–18; TEMP 36.6–36.9; O2SAT 97–99
[2022-04-09] MEDS: Heparin Injection (Vial) 5,000 UNIT/ML VIAL 5000 UNIT SC ×3 (06:23→21:10)
[2022-04-09] MEDS: 0.9% Normal Saline 1,000 ML 50 ML IV (06:25)
[2022-04-09 06:38] LABS: Anion Gap 8 (5-15); BUN 5 mg/dL (7-18); BUN/Creat Ratio 7.8 RATIO (10-20); Calcium,Total 8.3 mg/dL (8.5-10.1); Chloride 109 mmol/L (98-107); Creatinine, Serum 0.64 mg/dL (0.55-1.02); EST Glomerular Filtration Rate 96 mL/min (>60); Est Glom Filt Rate - Afr Amer 117 mL/min (>60); Glucose 95 mg/dL (74-106); Magnesium 1.8 mg/dL (1.6-2.6); Phosphorus 2.9 mg/dL (2.5-4.9); Potassium 4.1 mmol/L (3.5-5.1); Sodium Level 139 mmol/L (136-145)
--- NOTE | 2022-04-09 07:32 | PCM.PN.HOSP ---
Subjective Subjective Still having some pain in the left lower quadrant, reports not nauseous but appetite is not very good, does report urinating well, no bowel movement, reports she did not pass gas yet today Objective Data Objective Data Vital Signs: Vital Signs Temp Pulse Resp BP Pulse Ox O2 Del Method 97.9 F 61 18 137/65 H 98 Room Air 04/09/22 02:53 04/09/22 02:53 04/09/22 02:53 04/09/22 02:53 04/09/22 02:53 04/09/22 02:53 Oxygen Delivery Method Room Air Weight: 70.2 kg Body Mass Index (BMI) 25.0 Intake & Output: Intake and Output for Last 24 Hours 04/07/22 04/08/22 04/09/22 23:59 23:59 23:59 Intake Total 2582.92 / 2582.92 3054.83 / 3054.83 808.33 / 808.33 Balance 2582.92 / 2582.92 3054.83 / 3054.83 808.33 / 808.33 Medical Nutrition Assessment Dietitian: Malnutrition Criteria Met Start: 04/07/22 10:59 Freq: Status: Active Protocol: Document 04/07/22 10:59 TONE (Rec: 04/07/22 10:59 TONE [id number]) Nutrition Malnutrition Evidence of Malnutrition Exists Yes Malnutrition (severe): Acute Illness/Injury Evidenced By Suboptimal Energy Intake ( Severe),Weight Loss (Severe) Intake Problem Inadequate Oral Intake Etiology related to GI dysfunction: 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 Status Active Problem Recommendation Dietitian Recommendations/Changes As medically able, rec ALAINA to liberal regular d/t signs and symptoms of malnutrition As medically able, rec Ensure Plus High Protein 120 ml 4x/ day w/ medpass for increased nutrition if consumed Rec consider supplemental nutrition support if NPO expected >3 days - consult for rec prn Lab / Micro Data Result Diagrams: 04/07/22 04:45 04/09/22 05:03 Labs: Laboratory Results - last 24 hr 04/09/22 05:03: Sodium 139, Potassium 4.1, Chloride 109 H, Carbon Dioxide 22.0, Anion Gap 8, BUN 5 L, Creatinine 0.64, Estim Creat Clear Calc 46.90, Est GFR (MDRD) Af Amer 117, Est GFR (MDRD) Non-Af 96, BUN/Creatinine Ratio 7.8 L, Glucose 95, Calcium 8.3 L, Phosphorus 2.9, Magnesium 1.8 Physical Exam Const alert and no apparent distress Constitutional Narrative: Oriented HEENT normocephalic and head/scalp atraumatic Eyes Eyes Narrative: EOM grossly intact, anicteric Neck supple Resp normal respiratory effort and clear to auscultation bilaterally Cardio regular rate and regular rhythm GI GI Narrative: Soft to palpation, tender primarily on the left side of abdomen, no rebound, guarding, rigidity, nondistended Extremity Extremity Narrative: Trace bilateral lower extremity edema Neuro moves all extremities Neuro Narrative: No overt focal deficits appreciated Psych Psych Narrative: Cooperative Assessment & Plan Assessment/Plan (1) Diverticulitis large intestine w/o perforation or abscess w/o bleeding: (2) Large bowel obstruction: PLAN: Plan #Acute uncomplicated diverticulitis without perforation or abscess/acute large bowel obstruction CT initially had mild dilation of proximal large bowel. Has had ongoing bowel movements and flatus and no evidence of obstruction with CT imaging 1/7 Does have a stricture and ongoing inflammation without stricture, remains on conservative treatment at this time On clear liquid diet though yesterday ate a burrito that was brought to her by family IV fluids Status post IV antibiotics, now on Augmentin Management per general surgery #History of SVT On atenolol #Anemia, acute on chronic likely secondary to hemodilution Following CBC #DVT ppx: Heparin subcu Penny Malhotra MD Charges/Coding Visit Charges Inpatient E&M: 70190 Subs Hosp L2
--- NOTE | 2022-04-09 08:37 | PN.SURG_ITS ---
Subjective Subjective Patient seen and examined during AM rounds and then again later towards the afternoon time. She initially reports a bowel movement in the morning and minimal abdominal pain. However, she confesses that she has not eaten much as she was convinced she was disallowed from all eating yesterday despite being on a full liquid diet. When patient was revisited towards noon time, patient's was present and he expressed concern that patient had declared she was in more significant abdominal pain. Apparently she required a dose of IV pain medication and was rating this discomfort out a 7 out of 10. She confessed that her earlier reports bowel movement may have been mistaken as her mind is not so good anymore. She confesses to more recent confusion. Objective Data Objective Data Vital Signs: Vital Signs Temp Pulse Resp BP Pulse Ox O2 Del Method 97.9 F 62 18 137/65 H 98 Room Air 04/09/22 02:53 04/09/22 07:53 04/09/22 02:53 04/09/22 02:53 04/09/22 02:53 04/09/22 02:53 Oxygen Delivery Method Room Air Weight: 154 lb 12.232 oz Body Mass Index (BMI) 25.0 Intake & Output: Intake and Output for Last 24 Hours 04/07/22 04/08/22 04/09/22 23:59 23:59 23:59 Intake Total 2582.92 / 2582.92 3054.83 / 3054.83 808.33 / 808.33 Balance 2582.92 / 2582.92 3054.83 / 3054.83 808.33 / 808.33 Medical Nutrition Assessment Dietitian: Malnutrition Criteria Met Start: 04/07/22 10:59 Freq: Status: Active Protocol: Document 04/07/22 10:59 TONE (Rec: 04/07/22 10:59 TONE [id number]) Nutrition Malnutrition Evidence of Malnutrition Exists Yes Malnutrition (severe): Acute Illness/Injury Evidenced By Suboptimal Energy Intake ( Severe),Weight Loss (Severe) Intake Problem Inadequate Oral Intake Etiology related to GI dysfunction: 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 Status Active Problem Recommendation Dietitian Recommendations/Changes As medically able, rec ALAINA to liberal regular d/t signs and symptoms of malnutrition As medically able, rec Ensure Plus High Protein 120 ml 4x/ day w/ medpass for increased nutrition if consumed Rec consider supplemental nutrition support if NPO expected >3 days - consult for rec prn Lab / Micro Data Result Diagrams: 04/07/22 04:45 04/09/22 05:03 Labs: Laboratory Results - last 24 hr 04/09/22 05:03: Sodium 139, Potassium 4.1, Chloride 109 H, Carbon Dioxide 22.0, Anion Gap 8, BUN 5 L, Creatinine 0.64, Estim Creat Clear Calc 46.90, Est GFR (MDRD) Af Amer 117, Est GFR (MDRD) Non-Af 96, BUN/Creatinine Ratio 7.8 L, Glucose 95, Calcium 8.3 L, Phosphorus 2.9, Magnesium 1.8 Physical Exam Const oriented x3 and no apparent distress Resp normal respiratory effort GI GI Narrative: Nondistended, soft, nontender to palpation x4 quadrants initially, but then patient does express some tenderness of the left lower quadrant on repeat exam which she is rated at a 7 out of 10 Assessment & Plan Assessment/Plan (1) Diverticulitis large intestine w/o perforation or abscess w/o bleeding: PLAN: This is a 72-year-old female with probable recurrent diverticulitis. Although this is technically uncomplicated diverticulitis without any signs of perforation or abscess, it is potentially causing a stricture in this portion of the colon as the more proximal colon is slightly dilated. Fortunately patient is having ongoing bowel function. However, she confesses that her reports of daily bowel movements may not be reliable as her mind is not so good lately. Patient's exam is been reassuring and nonperitoneal. However, patient was reporting more abdominal discomfort today and required as needed Dilaudid. Ther efore we must hold her discharge as had been anticipated for today. Neuro: Discontinue as needed Dilaudid, will add p.o. options Pulm/CV: Incentive spirometer, home regimen for atenolol, telemetry FEN/GI: Monitor daily electrolytes?electrolytes appear improved today, continue full liquid diet., Protonix 40 mg daily, trend abdominal exam : No current issues Heme/ID: Continue p.o. Cipro Flagyl Endo: No current issues Proph: Apply SCDs Dispo: Continue inpatient care (2) Large bowel obstruction: PLAN: Radiographically patient has mild dilatation of the proximal large bowel, however, patient is having ongoing bowel movements and flatus. No evidence of obstruction with CT imaging, but there is evidence of a stricture. It is my hope that if we continue antibiotics and treat this conservatively this opening will remain patent and not pose an obstruction. I would plan for ongoing liquid diet until patient is able to receive intervention. (3) Stricture of colon: PLAN: Believed to be secondary to recurrent diverticulitis, but neoplastic process cannot be excluded. Ideally patient will be discharged and allowed to improve her nutrition/ER: Before diagnostic colonoscopy to better examine this area. (4) Arrhythmia: PLAN: Patient with past history of SVT and atrial fibrillation currently on atenolol. Medicine has patient on metoprolol and lieu of atenolol. Patient also on continuous telemetry. (5) Weight loss: PLAN: Patient and reporting near 30 pound unintentional weight loss secondary to chronic illness. However, review of the chart patient's weight has remained relatively stable from weights obtained in 2020. Yet, when further scrutinizing his records both of the weights from most recent hospitalizations were reported by or estimated by patient. Objective measurement of patient's weight overnight did find her to be nearly 20 pounds down from prior baseline. Further, her prealbumin was quite low at 13.8. With these findings I would be reluctant to perform a primary anastomosis in the event that patient requires inpatient surgery. Transition to full liquid diet with ensures. Patient encouraged to continue protein supplementation. (6) Severe protein-calorie malnutrition: PLAN: As per dietitian and nutritional observations noted #5 above. I have repeatedly stressed the need to prioritize protein supplements with patient. I have reviewed this information and the hearing of her given that I suspect patient is dealing with some memory difficulties. I have offered to patient to transition to an alternative supplement, but patient wishes to continue with Ensure clears as are present at bedside. Charges/Coding Visit Charges Inpatient E&M: 25175 Subs Hosp L2
--- NOTE | 2022-04-09 10:51 | DCINST_ITS ---
Discharge Instructions Diet Discharge Diet: - (Full liquids/low residue diet/soft diet) Activity Discharge Activity: Return to Normal Activity Dressing / Incision Call your doctor if you observe: Fever of 101 or Higher and Uncontrolled pain Follow Up Care Please Follow Up With: Brennan Estrada MD When: 1 week follow-up. Please call to schedule at [phone] Test Results: Test results from this visit will be discussed in further detail at your follow- up appointment, if applicable. Discharge Plan Admission Admit Date/Time: 04/06/22 20:15 Primary Reason for Your Visit: Acute diverticulitis Attending Provider: Brennan Estrada Primary Care Provider: Michelle Hess Consulting Providers: Penny Malhotra Instructions Additional Instructions / Restrictions: Remain on a full liquid/low residue diet until follow-up Examples of foods to eat: protein shakes (ensure, carnation breakfast, premier protein), mashed potatoes, applesauce, yogurt, etc. You will continue to take Augmentin an antibiotic prescribed for diverticulitis for 11 more days You will need to follow-up with Dr. Estrada in 1 week Plan is to complete a colonoscopy in 4 weeks Discharge Orders/Prescriptions Prescriptions: New amoxicillin-pot clavulanate 875-125 mg Tablet 1 tab PO BID Qty: 22 0RF ondansetron 4 mg tablet,disintegrating 4 mg PO Q8H PRN (Reason: nausea and vomiting) Qty: 14 0RF Continued dicyclomine 10 mg capsule 20 mg PO ACHS PRN (Reason: BOWELS) omeprazole 20 mg Capsule,Delayed Release(Dr/Ec) 20 mg PO BID atenolol 25 mg tablet 25 mg PO DAILY pantoprazole 40 mg Tablet,Delayed Release (Dr/Ec) 40 mg PO DAILY multivitamin Tablet 1 tab PO DAILY sertraline 100 mg tablet 100 mg PO DAILY bupropion HCl 150 mg tablet extended release 24 hr 150 mg PO DAILY nitrofurantoin monohyd/m-cryst 100 mg capsule 100 mg PO DAILY PRN (Reason: UTI) potassium chloride 20 mEq tablet extended release 20 meq PO DAILY Referrals / Follow Up: Michelle Hess MD [Primary Care Provider] - Brennan Estrada MD [Med Staff - Active Staff] - (Follow-up in 1 week) Disposition Disposition (needs filled in before D/C Order can be placed): Home, Self Care
[2022-04-09] MEDS: Atenolol 25 MG Tablet PO (10:56)
[2022-04-09] MEDS: Amox/Clavulanate 875 MG Tablet PO ×2 (10:56→21:10)
[2022-04-09] MEDS: Pantoprazole Sodium 40 MG Tablet PO (10:57)
[2022-04-09] MEDS: Acetaminophen 325 MG Tablet 650 MG PO (12:07)
[2022-04-09] MEDS: HYDROmorphone 0.5 MG/0.5 ML SYRINGE IV (12:39)
[2022-04-09] MEDS: Ondansetron 4 MG/2 ML Vial IV ×2 (12:49→17:57)
[2022-04-10] VITALS (8 sets, daily range): BP systolic 105–130; BP diastolic 62–73; PULSE 58–70; RESP 16–18; TEMP 36.3–36.6; O2SAT 99–100
[2022-04-10] MEDS: Heparin Injection (Vial) 5,000 UNIT/ML VIAL 5000 UNIT SC (05:34)
[2022-04-10] MEDS: 0.9% Normal Saline 1,000 ML 50 ML IV (05:34)
--- NOTE | 2022-04-10 07:19 | PN.HOSP_ITS ---
Subjective Subjective Reports passing gas, still poor appetite but no nausea. Had been considered for discharge yesterday but later she was reevaluated by surgery and expressed his concern and she then reported she was not sure if she had had any bowel movements because her mind is not very good anymore. Objective Data Objective Data Vital Signs: Vital Signs Temp Pulse Resp BP Pulse Ox O2 Del Method 97.4 F L 60 16 130/70 H 100 Room Air 04/10/22 03:15 04/10/22 03:43 04/10/22 03:15 04/10/22 03:15 04/10/22 03:15 04/10/22 03:15 Oxygen Delivery Method Room Air Weight: 70.2 kg Body Mass Index (BMI) 25.0 Intake & Output: Intake and Output for Last 24 Hours 04/08/22 04/09/22 04/10/22 23:59 23:59 23:59 Intake Total 3054.83 / 3054.83 1558.33 / 1558.33 1000 / 1000 Balance 3054.83 / 3054.83 1558.33 / 1558.33 1000 / 1000 Medical Nutrition Assessment Dietitian: Malnutrition Criteria Met Start: 04/07/22 10:59 Freq: Status: Active Protocol: Document 04/07/22 10:59 SLA (Rec: 04/07/22 10:59 SLA [id number]) Nutrition Malnutrition Evidence of Malnutrition Exists Yes Malnutrition (severe): Acute Illness/Injury Evidenced By Suboptimal Energy Intake ( Severe),Weight Loss (Severe) Intake Problem Inadequate Oral Intake Etiology related to GI dysfunction: 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 Status Active Problem Recommendation Dietitian Recommendations/Changes As medically able, rec ALAINA to liberal regular d/t signs and symptoms of malnutrition As medically able, rec Ensure Plus High Protein 120 ml 4x/ day w/ medpass for increased nutrition if consumed Rec consider supplemental nutrition support if NPO expected >3 days - consult for rec prn Lab / Micro Data Result Diagrams: 04/07/22 04:45 04/09/22 05:03 Physical Exam Const alert and no apparent distress Constitutional Narrative: Oriented HEENT normocephalic and head/scalp atraumatic Eyes Eyes Narrative: EOM grossly intact, anicteric Neck supple Resp normal respiratory effort and clear to auscultation bilaterally Cardio regular rate and regular rhythm GI GI Narrative: Soft to palpation, mild tenderness, no rebound, guarding, rigidity, nondistended, hypoactive bowel sounds Extremity Extremity Narrative: Trace bilateral lower extremity edema Neuro moves all extremities Neuro Narrative: No overt focal deficits appreciated Psych Psych Narrative: Cooperative Assessment & Plan Assessment/Plan (1) Diverticulitis large intestine w/o perforation or abscess w/o bleeding: (2) Large bowel obstruction: PLAN: Plan #Acute uncomplicated diverticulitis without perforation or abscess/acute large bowel obstruction CT initially had mild dilation of proximal large bowel. Has had ongoing bowel movements and flatus and no evidence of obstruction with CT imaging 04/07 Does have a stricture and ongoing inflammation without stricture, remains on conservative treatment at this time On clear liquid diet though yesterday ate a burrito that was brought to her by family IV fluids Status post IV antibiotics, now on Augmentin Management per general surgery 04/10: Was not discharged yesterday due to her pain in her inconsistent story. She remains on oral Augmentin, abdomen seems benign today. Still on 50 mL/h of normal saline. Further management per surgery #History of SVT On atenolol Heart rate controlled #Anemia, acute on chronic likely secondary to hemodilution No signs or symptoms of bleeding #DVT ppx: Heparin subcu Penny Malhotra MD Charges/Coding Visit Charges Inpatient E&M: 43501 Subs Hosp L2
[2022-04-10] MEDS: Ensure Plus High Protein 120 ML LIQUID PO (08:31)
[2022-04-10] MEDS: Acetaminophen 325 MG Tablet 650 MG PO (08:31)
--- NOTE | 2022-04-10 08:36 | PCM.DC.SUM ---
Providers Date of Admission: 04/06/22 Primary Care Physician: Dr. Michelle Hess MD Reason For Visit: COLITIS Diagnosis Discharge Diagnosis (1) Diverticulitis large intestine w/o perforation or abscess w/o bleeding: Status: Acute Code(s): K57.32 - Diverticulitis of large intestine without perforation or abscess without bleeding (2) Large bowel obstruction: Status: Acute Code(s): K56.609 - Unspecified intestinal obstruction, unspecified as to partial versus complete obstruction Medications at Discharge Home Medications dicyclomine 10 mg capsule 20 mg PO ACHS PRN BOWELS 08/31/19 omeprazole 20 mg capsule,delayed release 20 mg PO BID GERD 03/02/22 atenolol 25 mg tablet 25 mg PO DAILY HEART 03/13/22 pantoprazole 40 mg tablet,delayed release 40 mg PO DAILY GERD 03/13/22 bupropion HCl 150 mg 24 hr tablet, extended release 150 mg PO DAILY DEPRESSION 04/06/22 multivitamin 1 tab PO DAILY HEALTH MAINTENANCE 04/06/22 nitrofurantoin monohydrate/macrocrystals 100 mg capsule 100 mg PO DAILY PRN UTI 04/06/22 potassium chloride 20 mEq tablet,extended release 20 meq PO DAILY SUPPLEMENT 04/06/22 sertraline 100 mg tablet 100 mg PO DAILY DEPRESSION 04/06/22 amoxicillin 875 mg-potassium clavulanate 125 mg tablet 1 tab PO BID #22 tabs 04/09/22 ondansetron 4 mg disintegrating tablet 4 mg PO Q8H PRN nausea and vomiting #14 tabs 04/10/22 Hospital Course Summary of Care Provided Minutes Spent on Discharge: 31 Hospital Course: Patient is a 72 y/o F who presented with 1 day history of abdominal pain. CT scan of the abdomen/pelvis demonstrated Wall thickening and inflammation of the proximal sigmoid colon at the site of previous diverticulitis.? There is mild thickening of the wall of the descending colon may represent colitis.? The ascending transverse colon borderline distended possibly due to a stricture at the site of previous diverticulitis creating a developing obstruction.? There is no abscess or perforation.? Further evaluation with colonoscopy may be beneficial. The following day on 04/07, patient had a repeat CT scan with rectal contrast demonstrating persistent focal thickening and narrowing of a segment of the descending and proximal sigmoid colon due to focal diverticulitis. No evidence of abscess or free air noted. Recommending colonoscopy when feasible. Patient was treated with conservative measures i.e. bowel rest, IV hydration, IV antibiotics transitioned to oral antibiotics and IV pain medication transitioned to oral pain medication. Patient had an uneventful hospitalization. She was able to tolerate a liquid diet without nausea or vomiting. Upon discharge, patient notes minimal amount of abdominal pain. She is agreeable to follow-up with Dr. Estrada as an outpatient in 1 week. She will remain on a soft food/liquid diet until follow-up. Patient has had bowel movements during her hospitalization. She does have some memory issues. Physical Exam Const alert and no apparent distress GI normal to inspection, nondistended, normoactive bowel sounds, soft to palpation and non-tender Medical Records Data Medical Nutrition Assessment Dietitian: Malnutrition Criteria Met Start: 04/07/22 10:59 Freq: Status: Active Protocol: Document 04/07/22 10:59 SLA (Rec: 04/07/22 10:59 [facility] [id number]) Nutrition Malnutrition Evidence of Malnutrition Exists Yes Malnutrition (severe): Acute Illness/Injury Evidenced By Suboptimal Energy Intake ( Severe),Weight Loss (Severe) Intake Problem Inadequate Oral Intake Etiology related to GI dysfunction: 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 Status Active Problem Recommendation Dietitian Recommendations/Changes As medically able, rec ALAINA to liberal regular d/t signs and symptoms of malnutrition As medically able, rec Ensure Plus High Protein 120 ml 4x/ day w/ medpass for increased nutrition if consumed Rec consider supplemental nutrition support if NPO expected >3 days - consult for rec prn Weight / BMI Weight Weight: 154 lb 12.232 oz Body Mass Index (BMI) 25.0 ABG / Lab / Microbiology Data Result Diagrams: 04/07/22 04:45 04/09/22 05:03 D/C Instructions Discharge Diet: - (Full liquids/low residue diet/soft diet) Call your doctor if your incision/area has: Continuous Slow Oozing, Sudden Increased Bleeding, Increased Pain/ Swelling, Increased Redness, Foul Smelling Discharge and Swelling at the incision site Call your doctor if you observe: Fever of 101 or Higher and Uncontrolled pain Please Follow Up With: Brennan Estrada MD When: 1 week follow-up. Please call to schedule at [phone] Meaningful Use Info Meaningful Use Diagnoses (Choose all that apply): None applicable Discharge Plan Admission Admit Date/Time: 04/06/22 20:15 Primary Reason for Your Visit: Acute diverticulitis Attending Provider: Brennan Estrada Primary Care Provider: Michelle Hess Consulting Providers: Penny Malhotra Instructions Additional Instructions / Restrictions: Remain on a full liquid/low residue diet until follow-up Examples of foods to eat: protein shakes (ensure, carnation breakfast, premier protein), mashed potatoes, applesauce, yogurt, etc. You will continue to take Augmentin an antibiotic prescribed for diverticulitis for 11 more days You will need to follow-up with Dr. Estrada in 1 week Plan is to complete a colonoscopy in 4 weeks Discharge Orders/Prescriptions Prescriptions: New amoxicillin-pot clavulanate 875-125 mg Tablet 1 tab PO BID Qty: 22 0RF ondansetron 4 mg tablet,disintegrating 4 mg PO Q8H PRN (Reason: nausea and vomiting) Qty: 14 0RF Continued dicyclomine 10 mg capsule 20 mg PO ACHS PRN (Reason: BOWELS) omeprazole 20 mg Capsule,Delayed Release(Dr/Ec) 20 mg PO BID atenolol 25 mg tablet 25 mg PO DAILY pantoprazole 40 mg Tablet,Delayed Release (Dr/Ec) 40 mg PO DAILY multivitamin Tablet 1 tab PO DAILY sertraline 100 mg tablet 100 mg PO DAILY bupropion HCl 150 mg tablet extended release 24 hr 150 mg PO DAILY nitrofurantoin monohyd/m-cryst 100 mg capsule 100 mg PO DAILY PRN (Reason: UTI) potassium chloride 20 mEq tablet extended release 20 meq PO DAILY Referrals / Follow Up: Michelle Hess MD [Primary Care Provider] - Brennan Estrada MD [Med Staff - Active Staff] - (Follow-up in 1 week) Disposition Disposition (needs filled in before D/C Order can be placed): Home, Self Care Charges/Coding Visit Charges Inpatient E&M: 96619 Disch Hosp >30min
[2022-04-10] MEDS: 0.9% Saline Lock 10 ML Syringe IV (10:14)
[2022-04-10] MEDS: Ondansetron 4 MG/2 ML Vial IV (10:15)
[2022-04-10] MEDS: HYDROmorphone 0.5 MG/0.5 ML SYRINGE IV (10:15)
[2022-04-10] MEDS: Amox/Clavulanate 875 MG Tablet PO (13:43)
[2022-04-10] MEDS: Pantoprazole Sodium 40 MG Tablet PO (13:43)
== END 2022-04-10 15:27 | disposition home or self-care (01) | DRG 391 ==
LOC: ED 19:32 → MS2 20:37
PROVIDERS: Admitting Provider Surgery; Emergency Provider Emergency Medicine; PCP Family Medicine; Visit Provider Surgery
DX: K57.32 Diverticulitis of large intestine without perforation or abscess without bleeding (principal); E43 Unspecified severe protein-calorie malnutrition; I47.1 Supraventricular tachycardia; I48.0 Paroxysmal atrial fibrillation; E87.6 Hypokalemia; I25.10 Atherosclerotic heart disease of native coronary artery without angina pectoris; I10 Essential (primary) hypertension; K52.9 Noninfective gastroenteritis and colitis, unspecified; D64.89 Other specified anemias; R63.4 Abnormal weight loss; Z68.25 Body mass index [BMI] 25.0-25.9, adult; Z90.49 Acquired absence of other specified parts of digestive tract; Z90.710 Acquired absence of both cervix and uterus; Z79.01 Long term (current) use of anticoagulants; Z79.899 Other long term (current) drug therapy
CPT/HCPCS: 36415; 74176; 74177; 80048; 80053; 80076; 81001; 83690; 83735; 84100; 84134; 84484; 85025; 93005; 99252; 99285; J7030; J7050; Q9967; A4216; G0463; J0744; J2405

== ENCOUNTER 2022-05-16 16:02 | Inpatient (IN) | payer MEDICARE, SELFPAY ==
[2022-05-16 16:03] VITALS: BP 111/83; PULSE 66; RESP 18; TEMP 35.8; O2SAT 99; BMI 22.6
--- NOTE | 2022-05-16 16:36 | CT_ITS ---
We are attempting to reach an attending provider to discuss findings. An addendum with communication details will be sent when the communication is complete. STUDY: CT Abdomen And Pelvis W/ Contrast Injection 05/16/2022 7:26 PM REASON FOR EXAM: Female, 72 years old. Abdominal pain Abdominal pain -- IV PO Contrast Individualized dose optimization techniques were used for this CT. COMPARISON: 04.07.22. TECHNIQUE: CT Abdomen And Pelvis W/ Contrast Injection Oral and amp; IV Gastrografin and amp; 100mL [id number] FINDINGS: There are atherosclerotic calcifications of visualized coronary arteries. The visualized portions of the heart are within normal limits. Normal liver. There are surgical clips in the gallbladder fossa consistent with a prior cholecystectomy. Normal spleen. Normal pancreas. Normal bilateral adrenal glands. No acute findings of the right kidney. No acute findings of the left kidney. There is a large hiatal hernia composed mostly of the fundus of the stomach. Normal small intestine. There are multiple colonic diverticula consistent with diverticulosis. There is non-visualization of the appendix. Focal wall thickening of the antrum of stomach. This can suggest a gastritis. 31 mm diameter x 60 mm in length mass lesion occluding the distal descending colon causing colon obstruction. This is concerning for a neoplasm. Mild overlying inflammation. There are calcifications of the abdominal aorta. This is consistent for atherosclerotic disease. There is NO abdominal aortic aneurysm. Vascular workup can be obtained based on clinical correlation. Normal inferior vena cava. Subcentimeter mesenteric lymph nodes. Normal urinary bladder. There is absence of the uterus consistent with a prior hysterectomy. T12 kyphoplasty. There is an umbilical hernia containing fat. There are diffuse degenerative changes of the visualized lumbar spine. CT/Abdomen/Pelvis WITH Contrast IMPRESSION: (NOT LISTED IN ORDER OF SIGNIFICANCE) Gastritis. 31 mm mass like lesion occluding the distal descending colon causing colon obstruction. This is concerning for a neoplasm. Other findings as above. Critical finding called and case discussed. Electronically Signed: Duane Ratliff MD at 19:52 EST ,
[2022-05-16] MEDS: Ondansetron 4 MG/2 ML Vial IV ×2 (16:51→20:40)
[2022-05-16] MEDS: 0.9% Normal Saline 1,000 ML 1000 ML IV (16:51)
[2022-05-16] MEDS: Morphine 4 MG/ML Syringe IV ×2 (16:52→20:45)
[2022-05-16 17:11] LABS: Absolute Lymphocyte Count 1.05 X10^3/uL (0.83-4.51); Absolute Neutrophil Count 9.9 X10^3/uL (2.0-7.7); Basophil# 0.04 X10^3/uL; Basophil% 0.3 % (0-1); Hematocrit 36.8 % (37-47); Hemoglobin 11.9 g/dL (12.0-15.0); Lymphocyte # 1.05 X10^3/ul (0.83-4.51); Mean Corp Hgb Conc 32.3 g/dL (32-36); Mean Corpuscular Hgb 27.5 pg (27.0-32.0); Mean Corpuscular Volume 85.2 fL (81-99); Mean Platelet Vol. 10.2 fl (6.2-12.0); Monocyte# 0.59 X10^3/uL; Monocyte% 5.1 % (0-10); NRBC Flagged by Analyzer 0 % (0-5); Neutrophil % 85.3 % (47-70); Platelet Count 366 K/mm3 (150-450); RBC Distribution Width CV 14.5 % (11.6-14.6); RBC Distribution Width SD 45.1 fl (35.1-43.9); Red Blood Count 4.32 M/mm3 (4.2-5.4); White Blood Count 11.6 K/mm3 (4.4-11.0)
[2022-05-16 17:29] LABS: ALB/GLOB Ratio 0.8 RATIO (0.9-2.4); AST(SGOT) 17 U/L (15-37); Alanine Aminotransfer ALT/SGPT 17 U/L (13-56); Albumin, Serum 3.2 g/dL (3.2-5.0); Alkaline Phosphatase 85 U/L (45-117); Anion Gap 12 (5-15); BUN 16 mg/dL (7-18); BUN/Creat Ratio 15.4 RATIO (10-20); Calcium,Total 9.1 mg/dL (8.5-10.1); Chloride 104 mmol/L (98-107); Creatinine, Serum 1.04 mg/dL (0.55-1.02); EST Glomerular Filtration Rate 55 mL/min (>60); Est Glom Filt Rate - Afr Amer 67 mL/min (>60); Globulin 4.1 g/dL (2.2-4.2); Glucose 135 mg/dL (74-106); Lipase 263 U/L (73-393); Potassium 3.5 mmol/L (3.5-5.1); Protein, Total 7.3 g/dL (6.4-8.2); Sodium Level 141 mmol/L (136-145)
[2022-05-16 19:19] VITALS: BP 146/73; PULSE 78; RESP 18; O2SAT 96
[2022-05-16 19:26] LABS: Bacteria 0 SEEN /hpf (None Seen); Mucous, Urine 0 SEEN /hpf (<or=2+)
[2022-05-16 19:27] LABS: Color, Urine Yellow (Yellow); Glucose, Dipstick Normal (Normal); Leukocyte Esterase-Dipstick 500 /ul (Negative); Nitrite-Dipstick Positive (Negative); Occult Blood-Urine 10 /ul (Negative); Protein-Dipstick 30 mg/dl (Negative); Urine Bilirubin Dipstick Negative (Negative); Urine Clarity Clear (Clear); Urine Urobilinogen Normal (Normal)
[2022-05-16 20:06] LABS: Ketone-Dipstick 150 mg/dl (Negative); Red Blood Cells-Urine 10-25 SEEN /hpf (0-5); White Blood Cells 25-50 SEEN /hpf (0-5)
[2022-05-16 20:07] LABS: Squamous Epithelial Cells - UA 0-5 SEEN /hpf (5-10); Transitional Epithelial - Ur 0-5 SEEN /hpf (0-5)
--- NOTE | 2022-05-16 20:33 | ED.VIS.GI ---
HPI HPI - GI History of Present Illness Chief Complaint: Abd Pain Informant: patient Abdominal Pain/Flank Pain Onset: Yesterday Context: Sudden Onset Timing: Continuous Quality: Aching Location: Diffuse Worsened by: Nothing Relieved by: Nothing Nausea/Vomiting/Emesis GI Symptom: Positive for Nausea and Vomiting Quality: Negative for Blood streaks, Coffee ground or Hematemesis Diarrhea/Melena/Hematochezia GI Symptom: Negative for Diarrhea, Melena or Hematochezia Associated Symptoms Associated Symptoms: Positive for Dysuria; Negative for Frequency or Hematuria Narrative Narrative: Presents with abdominal pain that has been getting worse since yesterday. Patient states it has been constant. Patient describes it as aching. Patient states her pain is diffuse across her abdomen. Patient states nothing makes it better nothing makes it worse. Patient admits to some nausea and vomiting that has gotten worse. Patient denies any hematemesis or coffee-ground emesis. Patient denies any diarrhea, melena, or hematochezia. Patient admits to some dysuria but denies any hematuria or frequency. Patient states she has a known stricture in her colon that she is following with Dr. Estrada and has a procedure planned in the next couple days. [facility] Medical History Arrhythmia Arthritis Chronic anticoagulation Colitis Depression Fatigue GERD (gastroesophageal reflux disease) Hernia, hiatal HTN (hypertension) Hypokalemia Knee pain Large bowel obstruction Shoulder pain Stricture of colon SVT (supraventricular tachycardia) Weight loss Home Medications dicyclomine 10 mg capsule 20 mg PO ACHS PRN BOWELS 08/31/19 [History Last Taken 03/10/22] omeprazole 20 mg capsule,delayed release 20 mg PO BID GERD 03/02/22 [History Last Taken 04/05/22] atenolol 25 mg tablet 25 mg PO DAILY HEART 03/13/22 [History Last Taken 05/16/22 10:00] pantoprazole 40 mg tablet,delayed release 40 mg PO DAILY GERD 03/13/22 [History Last Taken 04/05/22] bupropion HCl 150 mg 24 hr tablet, extended release 150 mg PO DAILY DEPRESSION 04/06/22 [History Last Taken 04/05/22] donepezil 5 mg tablet 5 mg PO QHS 05/16/22 [History Last Taken Unknown] sertraline 100 mg tablet 100 mg PO DAILY 05/16/22 [History Last Taken Unknown] Allergy/AdvReac Type Severity Reaction Status Date / Time No Known Allergies Allergy Verified 05/16/22 16:04 Family History Other CVA (cerebral vascular accident) Cancer Heart disease Surgical History Hx of cholecystectomy Hx of hysterectomy Hx of kyphoplasty (~2017) Social History household members: spouse housing: house Smoking Status: Never smoker alcohol intake: never substance use type: does not use ROS ROS ED Constitutional Constitutional ED: Denies chills or fever(s) Eyes Eyes: Denies blurry vision or change in vision ENT ENT ED: Denies rhinorrhea or sore throat Cardiovascular Cardiovascular: Reports chest pain; Denies palpitations Respiratory/Chest Respiratory/Chest: Denies cough or dyspnea Gastrointestinal Gastrointestinal: Reports abdominal pain, nausea and vomiting; Denies diarrhea or melena Genitourinary Genitourinary ED: Denies dysuria or hematuria Musculoskeletal Musculoskeletal: Denies back pain or neck pain Integumentary Denies abscess or rash Neurologic Neurologic: Denies headache(s) or weakness Allergic/Immunologic Allergic/Immunologic ED: Denies mouth swelling or urticaria EXAM Physical Exam Const Vital Signs: 05/16/22 16:03 05/16/22 19:19 Temperature 96.5 F L Temperature Source Temporal Pulse Rate 66 78 Respiratory Rate 18 18 Blood Pressure 111/83 H 146/73 H Blood Pressure Mean 92 97 Pulse Ox 99 96 Oxygen Delivery Method Room Air Room Air Positive well nourished and well developed General Appearance ED: well developed HEENT Reports moist mucous membranes Neck supple and no JVD Resp normal respiratory effort and clear to auscultation bilaterally Cardio regular rate, regular rhythm and no murmurs GI GI Narrative: There is diffuse tenderness across the abdomen. Bowel sounds are somewhat high-pitched and hyperactive. Auscultation: hyperactive bowel sounds Palpation: soft and tender epigastric, LLQ, RLQ, LUQ, RUQ, periumbilical and suprapubic; Negative for guarding or rebound tenderness present Extremity normal to inspection General Extremety ED: Negative for edema or tenderness General Extremity: Negative for edema Neuro oriented x3, CN's II-XII intact bilaterally and no sensory deficits noted Sensorium / Orientation: alert Motor Exam: strength 5/5 throughout Psych mental status grossly normal Skin no rashes or lesions noted MDM MDM MDM Narrative Medical decision making narrative: Differential diagnosis includes bowel obstruction, perforation, colitis, diverticulitis, abscess, pancreatitis, infection, urinary tract infection, and pyelonephritis. CBC will be obtained to assess for leukocytosis and anemia. Comprehensive metabolic profile will be obtained to assess for hepatic function, renal function, and electrolyte abnormalities. Lipase will be obtained to assess for pancreatitis. Urinalysis will be obtained to assess for urinary tract infection. CT scan of the abdomen pelvis will be obtained to assess for bowel obstruction, perforation, mass, colitis, infection, and diverticulitis. Lab Data Attestation: I reviewed the patient's lab results. Lab results narrative: CBC was reviewed and showed a mild leukocytosis of 11.6. There is also mild anemia with a hemoglobin of 11.9 hematocrit 36.8. Comprehensive metabolic profile was reviewed and was essentially within normal limits. Lipase was reviewed and was normal. Urinalysis was reviewed and showed leukocyte esterases of 500 with positive nitrites. There were 10-25 red blood cells and 25-50 white blood cells. Urine ketones were 150. Urine culture was ordered and is pending. Labs: Laboratory Results - last 24 hr 05/16/22 05/16/22 05/16/22 16:49 16:49 19:20 WBC 11.6 H RBC 4.32 Hgb 11.9 L Hct 36.8 L MCV 85.2 MCH 27.5 MCHC 32.3 RDW Std Deviation 45.1 H RDW Coeff of Nataliia 14.5 Plt Count 366 MPV 10.2 Immature Gran % (Auto) 0.300 Neut % (Auto) 85.3 H Lymph % (Auto) 9.0 L [place] % (Auto) 5.1 Eos % (Auto) 0.0 Baso % (Auto) 0.3 Absolute Neuts (auto) 9.9 H Absolute Lymphs (auto) 1.05 Nucleated RBC % 0 Sodium 141 Potassium 3.5 Chloride 104 Carbon Dioxide 25.0 Anion Gap 12 BUN 16 Creatinine 1.04 H Estim Creat Clear Calc 45.10 Est GFR (MDRD) Af Amer 67 Est GFR (MDRD) Non-Af 55 L BUN/Creatinine Ratio 15.4 Glucose 135 H Calcium 9.1 Total Bilirubin 0.40 AST 17 ALT 17 Alkaline Phosphatase 85 Total Protein 7.3 Albumin 3.2 Globulin 4.1 Albumin/Globulin Ratio 0.8 L Lipase 263 Urine Color Yellow Urine Clarity Clear Urine pH 8.0 Ur Specific [place] 1.010 Urine Protein 30 H Urine Glucose (UA) Normal Urine Ketones 150 A* Urine Occult Blood 10 H Urine Nitrite Positive H Urine Bilirubin Negative Urine Urobilinogen Normal Ur Leukocyte Esterase 500 H Urine RBC 10-25 SEEN Urine WBC 25-50 SEEN Ur Squamous Epith Cells 0-5 SEEN Ur Transition Epith Cell 0-5 SEEN Urine Bacteria 0 SEEN Urine Mucus 0 SEEN Radiography Diagnostic Testing: Clinical Impression(s) from Imaging Studies Abdomen/Pelvis CT 05/16/22 16:36 IMPRESSION: (NOT LISTED IN ORDER OF SIGNIFICANCE) Gastritis. 31 mm mass like lesion occluding the distal descending colon causing colon obstruction. This is concerning for a neoplasm. Other findings as above. Critical finding called and case discussed. Electronically Signed: Duane Ratliff MD at 19:52 EST , ADDENDUM: 05/16/222002 IMPRESSION: (NOT LISTED IN ORDER OF SIGNIFICANCE) Gastritis. 31 mm mass like lesion occluding the distal descending colon causing colon obstruction. This is concerning for a neoplasm. Other findings as above. Critical finding called and case discussed. N.B. : The above Results were Read Back by Duane Ratliff MD to Jourdan Atkins MD, and understanding confirmed on 05/16/2022 19:56:06 (ET). Electronically Signed: Duane Ratliff MD at 19:52 EST , KUB X-Ray 05/16/22 21:25 IMPRESSION: 1. There is a feeding tube/ nasogastric tube noted. The tip is in the region of the stomach. 2. Dilated colon noted. Electronically Signed: Duane Ratliff MD at 21:46 EST , CT scan of the abdomen pelvis was obtained. There is gastritis. There is a masslike lesion occluding the distal descending colon causing a colon obstruction. This is concerning for neoplasm. This was interpreted by the radiologist and was also independently reviewed by myself. Treatment and Re-Evaluation Narrative: Patient was given IV fluids, morphine, and Zofran. Patient was advised of her findings. Patient was advised of the need for nasogastric tube. Patient was given a repeat dose of morphine and Zofran. Patient is agreeable to have nasogastric tube placed. Case was discussed with Dr. Lauren. She will admit the patient to her service. She recommended starting the patient on Zosyn to cover for both urinary tract infection and intra-abdominal infection. This was started. Nurse notified me that the patient was tachycardic. Patient was ordered IV fluids. Patient's tachycardia improved after this. Patient will be admitted to the general floor. Discharge Plan Dx/Rx/DC Orders Clinical Impression: Colon obstruction, Colonic mass, Abdominal pain Disposition Disposition: Acute Care [facility]
[2022-05-16] MEDS: Oxymetazoline 0.05% 1 SPRAY SPRAY.BTL 2 SPRAY NASAL (20:46)
--- NOTE | 2022-05-16 21:25 | RAD_ITS ---
EXAM: XR ABDOMEN, 1 VIEW CLINICAL INDICATION: NG Insertion TECHNIQUE: Frontal supine view of the abdomen/pelvis. This report was created using Familiar report generation technology. COMPARISON: ct of the same day FINDINGS: LOWER THORAX: No acute pathology. GASTROINTESTINAL TRACT: Dilated colon noted. ORGANS: Unremarkable as visualized. No organomegaly. No abnormal calcifications. BONES/JOINTS: T12 kyphoplasty. SOFT TISSUES: No acute pathology. TUBES, LINES AND DEVICES: There is a feeding tube/ nasogastric tube noted. The tip is in the region of the stomach. RAD/Abdomen Single View (Portable) IMPRESSION: 1. There is a feeding tube/ nasogastric tube noted. The tip is in the region of the stomach. 2. Dilated colon noted. Electronically Signed: Duane Ratliff MD at 21:46 EST ,
[2022-05-16 21:50] VITALS: BP 119/79; PULSE 126; RESP 18; O2SAT 93
[2022-05-16] MEDS: Lidocaine Jelly 2% 20 ML Syringe (URO-JET) 1 APPLIC TOPICAL (21:50)
[2022-05-16 22:44] VITALS: BP 111/84; PULSE 130; RESP 18; TEMP 36.4; O2SAT 92
[2022-05-16 23:21] VITALS: PULSE 122; RESP 14
[2022-05-17] VITALS (17 sets, daily range): BP systolic 108–142; BP diastolic 58–86; PULSE 68–124; RESP 15–18; TEMP 36.3–37.1; O2SAT 93–100; BMI 25.4
--- NOTE | 2022-05-17 00:06 | NURSING ---
NG tube advanced [address] Lauren request.
--- NOTE | 2022-05-17 00:07 | RAD_ITS ---
INDICATION: ng tube placement EXAMINATION/TECHNIQUE: X-RAY - XR Abdomen 1 View COMPARISON: May 16, [address] FINDINGS: BOWEL GAS PATTERN: Enteric tube subdiaphragmatic in the stomach. Prominent air-filled colon ascending and transverse colon with paucity of descending colonic gas. FREE AIR: Not well assessed on a supine view. ORGANOMEGALY: Not seen. CALCIFICATIONS: No concerning calcifications. LOWER CHEST: No acute pathology. BONES AND SOFT TISSUES: No acute pathology. Upper lumbar vertebroplasty change. Right upper quadrant surgical clips. RAD/Abdomen Single View IMPRESSION: Enteric tube projects within the stomach in good position. Persistent findings concerning for descending colonic obstruction. Electronically Signed: Leonel Rowland MD at 1:54 EST ,
--- NOTE | 2022-05-17 00:15 | CON.PCM.HO_ITS ---
Assessment & Plan Assessment/Plan (1) Colon obstruction: (2) Colonic mass: (3) Abdominal pain: PLAN: Plan #Large bowel obstruction -CT abdomen pelvis on admission demonstrated colonic mass with obstruction -Surgery primary, NG tube placed with active output and while some abdominal pain still present has improved with NG -Started on Zosyn -Continue IV fluids #Regular narrow complex tachycardia -EKG appears to be possible junctional tachycardia vs avnrt though BP stable, HR low teens primarily, no symptoms -Began after NG tube was placed -Admit to tele -Continue fluids and pain control -Check TSH in a.m. and order echo -BB ordered, can try vagal maneuvers or adenosine if refractory or worsening #LARISSA, likely prerenal -Baseline appears to be 0.68 and on admission creatinine is 1.04 -Continue fluids, if does not improve can consider further work-up though high suspicion for prerenal renal etiology #Abnormal urinalysis -Does have nitrates and leuk esterase however only 25-50 white blood cells and no bacteria seen, Zosyn started on admission to cover for both UTI and intra- abdominal infection, low suspicion for urinary tract infection given mild white blood cell count with no bacteria, urine culture was sent in ED -Did have a white blood cell count of 11.6 however no left shift and all cell lines appeared to be increased which is likely due to her relative volume depletion state #DVT ppx: SCDs Penny Malhotra MD Time spent in the patient's overall evaluation,decision-making process, review of diagnostic data, adjustment of management, discussion with other providers, nursing nursing and ancillary staff involved in patient's care documentation, 52 Minutes HPI Consult Data Date of Consult: 05/17/22 HPI Narrative Reason for Consultation: tachycardia, medical management HPI Narrative: DEBORA BOURGEOIS is a 72 F with a history of a colonic stricture who presented 05/17/2022 with several days of diffuse abdominal pain with nausea and vomiting and poor p.o. intake that has been progressive. Denied diarrhea and has been passing gas and has had some stool output as well but given her progressive abdominal pain she presented to the ED. She follows with Dr. Estrada and has a known colonic stricture and had a procedure planned in the next several days. In the ED lipase was normal, UA did have leuk esterase and nitrates as well as 150 urine ketones, CT abdomen demonstrated gastritis as well as a 31 mm masslike lesion including the distal descending colon causing obstruction. Surgery contacted for admission and plan was for NG tube and admission to [facility]. After NG tube placed she did have sinus tach in low 100s and was given fluids but given lack of significant improvement hospitalist consulted for medical management. Upon evaluation in ED patient still reports abdominal pain but does feel it is better than it had been. Does endorse some nausea and vomiting over several days with poor p.o. but did note she had been passing gas and did have some stool output up until today. NG tube in place and draining, heart rate low 100s and blood pressure stable. Patient had no other complaints at this time [facility] Medical History Arrhythmia Arthritis Chronic anticoagulation Colitis Depression Fatigue GERD (gastroesophageal reflux disease) Hernia, hiatal HTN (hypertension) Hypokalemia Knee pain Large bowel obstruction Shoulder pain Stricture of colon SVT (supraventricular tachycardia) Weight loss Home Medications dicyclomine 10 mg capsule 20 mg PO ACHS PRN BOWELS 08/31/19 [History Last Taken 03/10/22] omeprazole 20 mg capsule,delayed release 20 mg PO BID GERD 03/02/22 [History Last Taken 04/05/22] atenolol 25 mg tablet 25 mg PO DAILY HEART 03/13/22 [History Last Taken 05/16/22 10:00] pantoprazole 40 mg tablet,delayed release 40 mg PO DAILY GERD 03/13/22 [History Last Taken 04/05/22] bupropion HCl 150 mg 24 hr tablet, extended release 150 mg PO DAILY DEPRESSION 04/06/22 [History Last Taken 04/05/22] donepezil 5 mg tablet 5 mg PO QHS 05/16/22 [History Last Taken Unknown] sertraline 100 mg tablet 100 mg PO DAILY 05/16/22 [History Last Taken Unknown] Allergy/AdvReac Type Severity Reaction Status Date / Time No Known Allergies Allergy Verified 05/16/22 16:04 Family History Other CVA (cerebral vascular accident) Cancer Heart disease Surgical History Hx of cholecystectomy Hx of hysterectomy Hx of kyphoplasty (~2016) Social History household members: spouse housing: house Smoking Status: Never smoker alcohol intake: never substance use type: does not use ROS ROS Narrative General: Denies fever or chills, denies weight change HENT: Positive headache, denies stuffy nose, denies sore throat EYES: Denies changes in vision Resp: Denies cough, denies shortness of breath Cardiac: Denies chest pain GI: Positive nausea, vomiting, abdominal pain, denies diarrhea : Denies changes in urination Extremity: Denies swelling MSK: Denies weakness Neuro: Denies any numbness, denies tingling Heme: Denies any bleeding or bruising Skin: Denies rashes Psychiatric: No complaints voiced Physical Exam Narrative General: Alert, oriented, appears slightly uncomfortable HEENT: Atraumatic, normocephalic Eyes: Anicteric, normal conjunctiva, extraocular movements grossly intact Neck: Supple Respiratory: Clear to auscultation bilaterally, normal respiratory effort Cardiovascular: Regular rhythm, mildly tachycardic GI: Soft, mildly tender to palpation diffusely without rebound, guarding, ri gidity Extremities: No edema Musculoskeletal: Moving all extremities Neuro: No overt focal neurological deficits Skin: No rashes appreciated Psych: Cooperative Lab / Micro Data Result Diagrams: 05/16/22 16:49 05/16/22 16:49 Labs: Laboratory Results - last 24 hr 05/16/22 16:49: WBC 11.6 H, RBC 4.32, Hgb 11.9 L, Hct 36.8 L, MCV 85.2, MCH 27.5, MCHC 32.3, RDW Std Deviation 45.1 H, RDW Coeff of Nataliia 14.5, Plt Count 366, MPV 10.2, Immature Gran % (Auto) 0.300, Neut % (Auto) 85.3 H, Lymph % (Auto) 9.0 L, [place] % (Auto) 5.1, Eos % (Auto) 0.0, Baso % (Auto) 0.3, Absolute Neuts (auto) 9.9 H, Absolute Lymphs (auto) 1.05, Nucleated RBC % 0 05/16/22 16:49: Sodium 141, Potassium 3.5, Chloride 104, Carbon Dioxide 25.0, Anion Gap 12, BUN 16, Creatinine 1.04 H, Estim Creat Clear Calc 45.10, Est GFR (MDRD) Af Amer 67, Est GFR (MDRD) Non-Af 55 L, BUN/Creatinine Ratio 15.4, Glucose 135 H, Calcium 9.1, Total Bilirubin 0.40, AST 17, ALT 17, Alkaline Phosphatase 85, Total Protein 7.3, Albumin 3.2, Globulin 4.1, Albumin/Globulin Ratio 0.8 L, Lipase 263 05/16/22 19:20: Urine Color Yellow, Urine Clarity Clear, Urine pH 8.0, Ur Specific [place] 1.010, Urine Protein 30 H, Urine Glucose (UA) Normal, Urine Ketones 150 A*, Urine Occult Blood 10 H, Urine Nitrite Positive H, Urine Bilirubin Negative, Urine Urobilinogen Normal, Ur Leukocyte Esterase 500 H, Urine RBC 10-25 SEEN, Urine WBC 25-50 SEEN, Ur Squamous Epith Cells 0-5 SEEN, Ur Transition Epith Cell 0-5 SEEN, Urine Bacteria 0 SEEN, Urine Mucus 0 SEEN Radiology Impression Abdomen/Pelvis CT 05/16/22 16:36 IMPRESSION: (NOT LISTED IN ORDER OF SIGNIFICANCE) Gastritis. 31 mm mass like lesion occluding the distal descending colon causing colon obstruction. This is concerning for a neoplasm. Other findings as above. Critical finding called and case discussed. Electronically Signed: Duane Ratliff MD at 19:52 EST , ADDENDUM: 05/16/222002 IMPRESSION: (NOT LISTED IN ORDER OF SIGNIFICANCE) Gastritis. 31 mm mass like lesion occluding the distal descending colon causing colon obstruction. This is concerning for a neoplasm. Other findings as above. Critical finding called and case discussed. N.B. : The above Results were Read Back by Duane Ratliff MD to Jourdan Atkins MD, and understanding confirmed on 05/16/2022 19:56:06 (ET). Electronically Signed: Duane Ratliff MD at 19:52 EST , KUB X-Ray 05/16/22 21:25 IMPRESSION: 1. There is a feeding tube/ nasogastric tube noted. The tip is in the region of the stomach. 2. Dilated colon noted. Electronically Signed: Duane Ratliff MD at 21:46 EST Reading Location ID and State: [facility] / [place] , Service support , Charges/Coding Visit Charges Office Visits / Consults: [id number] IP Consult L2
--- NOTE | 2022-05-17 01:44 | ECHOCS_ITS ---
Reason For Study: Arrhythmia Procedure This was a 2D Doppler, Color Flow transthoracic echocardiogram. The study was technically difficult. Contrast injection was performed. Exam performed portable in patient room. Left Ventricle Normal size and thickness. The left ventricular ejection fraction is 65 %. Normal diastology for age. Right Ventricle Normal right ventricle. Atria The left and right atria are normal. Mitral Valve Trivial mitral valve insufficiency. Tricuspid Valve Mild tricuspid valve insufficiency. Normal pulmonary artery pressure. Aortic Valve Normal aortic valve. Pulmonic Valve Mild (1+) pulmonic valve insufficiency. Great Vessels Normal sized aortic root. Pericardium/Pleural No pericardial effusion. Medication Diluted definity 2ml given slow IV push to enhance endocardial definition. MMode/2D Measurements & Calculations LVIDd: 4.2 cm IVSd: 0.90 cm LA dimension: 3.0 cm LVIDs: 2.6 cm LVPWd: 0.73 cm RVDd: 2.9 cm FS: 37.7 % LAV(MOD-bp): 42.4 ml LA A4 area: 19.3 cm2 RA A4 area: 13.9 cm2 LAV(MOD-bp) Indexed: 23.5 ml/m2 LAV(MOD-sp2): 30.6 ml LAV(MOD-sp4): 55.4 ml Time Measurements MV dec time: 0.21 sec Doppler Measurements & Calculations MV E max yoandy: 69.4 cm/sec Lat Peak E' Yoandy: 10.7 cm/sec Med Peak E' Yoandy: 11.1 cm/sec MV A max yoandy: 50.9 cm/sec E/E' lat: 6.5 E/E' med: 6.2 MV E/A: 1.4 MV V2 max: 77.5 cm/sec MV P1/2t max yoandy: 78.6 cm/sec Ao V2 max: 102.8 cm/sec MV max P.4 mmHg MV P1/2t: 62.4 msec Ao max P.2 mmHg MV V2 mean: 41.8 cm/sec MV dec slope: 368.8 cm/sec2 Ao V2 mean: 68.3 cm/sec MV mean P.83 mmHg Ao mean P.2 mmHg MV V2 VTI: 19.9 cm MVA(P1/2t): 3.5 cm2 Ao V2 VTI: 25.3 cm LV V1 max: 89.8 cm/sec PA V2 max: 90.5 cm/sec TR max yoandy: 247.9 cm/sec LV V1 max P.2 mmHg TR max P.6 mmHg ECHO/Echo Complete W/ Contrast Interpretation Summary The left ventricular ejection fraction is 65 %. Mild tricuspid valve insufficiency. Mild (1+) pulmonic valve insufficiency. Ordering Physician: Penny Malhotra Referring Physician: Michelle Hess Performed By: Gerry Gilman RCS
[2022-05-17] MEDS: 0.9% Normal Saline 1,000 ML 120 ML IV (02:22)
[2022-05-17] MEDS: Metoprolol Tartrate 5 MG/5 ML Vial IV (02:25)
[2022-05-17 04:39] LABS: Absolute Lymphocyte Count 1.51 X10^3/uL (0.83-4.51); Absolute Neutrophil Count 9.2 X10^3/uL (2.0-7.7); Basophil# 0.04 X10^3/uL; Basophil% 0.3 % (0-1); Hematocrit 35.7 % (37-47); Hemoglobin 10.9 g/dL (12.0-15.0); Lymphocyte # 1.51 X10^3/ul (0.83-4.51); Lymphocyte % 12.9 % (19-41); Mean Corp Hgb Conc 30.5 g/dL (32-36); Mean Corpuscular Hgb 26.8 pg (27.0-32.0); Mean Corpuscular Volume 87.9 fL (81-99); Mean Platelet Vol. 10.1 fl (6.2-12.0); Monocyte# 0.83 X10^3/uL; Monocyte% 7.1 % (0-10); NRBC Flagged by Analyzer 0 % (0-5); Neutrophil # 9.24 X10^3/uL (2.7-7.7); Neutrophil % 79.3 % (47-70); Platelet Count 321 K/mm3 (150-450); RBC Distribution Width CV 14.6 % (11.6-14.6); Red Blood Count 4.06 M/mm3 (4.2-5.4); White Blood Count 11.7 K/mm3 (4.4-11.0)
[2022-05-17 05:03] LABS: Anion Gap 6 (5-15); BUN 14 mg/dL (7-18); BUN/Creat Ratio 18.1 RATIO (10-20); Calcium,Total 8.3 mg/dL (8.5-10.1); Chloride 108 mmol/L (98-107); Creatinine, Serum 0.77 mg/dL (0.55-1.02); EST Glomerular Filtration Rate 78 mL/min (>60); Est Glom Filt Rate - Afr Amer 94 mL/min (>60); Glucose 104 mg/dL (74-106); Potassium 3.9 mmol/L (3.5-5.1); Sodium Level 140 mmol/L (136-145); Thyroid Stim Hormone (TSH) 1.62 uIU/mL (0.358-3.74)
--- NOTE | 2022-05-17 07:18 | HP.PCM.SX_ITS ---
HPI - General General Date of Admission: 05/16/22 HPI Narrative DEBORA BOURGEOIS, is a 72 F who presents to the ER due to abdominal pain. Patient denies any nausea or vomiting with this. Patient was recently hospitalized found to have sigmoid mass/stricture was trying to have an outpatient co lonoscopy for definitive diagnosis as she was still having flatus and bowel movements. Patient states she has not had a bowel movement for a while unable to give me the exact time. Patient is a poor historian as I did ask her when her last colonoscopy was she said it was a few weeks ago, which it was not. Patient also states that she gets 1 every year. Discussed with patient that colonoscopies are typically not given every year. Patient denies any nausea or vomiting with this. But states she has not been eating well since the hospitalization she has maybe had a quarter of each meal and one of the protein drinks. Patient is unsure if the protein drink contained 10 or 30 g of protein. However for the last week her pain she states has been an 8/10 had stayed about the same and again she is only had maybe 1 protein drink a day with no other food intake for the last week. [facility] Medical History Arrhythmia Arthritis Chronic anticoagulation Colitis Depression Fatigue GERD (gastroesophageal reflux disease) Hernia, hiatal HTN (hypertension) Hypokalemia Knee pain Large bowel obstruction Shoulder pain Stricture of colon SVT (supraventricular tachycardia) Weight loss Home Medications dicyclomine 10 mg capsule 20 mg PO ACHS PRN BOWELS 08/31/19 [History Last Taken 03/10/22] omeprazole 20 mg capsule,delayed release 20 mg PO BID GERD 03/02/22 [History Last Taken 04/05/22] atenolol 25 mg tablet 25 mg PO DAILY HEART 03/13/22 [History Last Taken 05/16/22 10:00] pantoprazole 40 mg tablet,delayed release 40 mg PO DAILY GERD 03/13/22 [History Last Taken 04/05/22] bupropion HCl 150 mg 24 hr tablet, extended release 150 mg PO DAILY DEPRESSION 04/06/22 [History Last Taken 04/05/22] donepezil 5 mg tablet 5 mg PO QHS 05/16/22 [History Last Taken Unknown] sertraline 100 mg tablet 100 mg PO DAILY 05/16/22 [History Last Taken Unknown] Allergy/AdvReac Type Severity Reaction Status Date / Time No Known Allergies Allergy Verified 05/16/22 16:04 Family History Other CVA (cerebral vascular accident) Cancer Heart disease Surgical History Hx of cholecystectomy Hx of hysterectomy Hx of kyphoplasty (~2017) Social History household members: spouse housing: house Smoking Status: Never smoker alcohol intake: never substance use type: does not use ROS Constitutional Constitutional: Reports anorexia Eyes Eyes: Denies loss of central vision ENT HEENT: Denies hearing loss Cardiovascular Cardiovascular: Denies palpitations Respiratory/Chest Respiratory/Chest: Denies shortness of breath at rest Gastrointestinal Gastrointestinal: Reports abdominal pain, constipation and nausea; Denies diarrhea or vomiting Genitourinary Genitourinary: Denies hematuria Musculoskeletal Musculoskeletal: Denies joint swelling Integumentary Integumentary: Denies rash Psychiatric Psychiatric: Denies anxiety or depression Endocrine Endocrinology: Denies palpitations Vital Signs Vital Signs Vital Signs: 05/16/22 16:03 05/16/22 19:19 05/16/22 21:50 Temperature 96.5 F L Temperature Source Temporal Pulse Rate 66 78 126 H Respiratory Rate 18 18 18 Respiratory Effort Respiratory Depth Respiratory Pattern Blood Pressure 111/83 H 146/73 H 119/79 Blood Pressure Mean 92 97 92 Blood Pressure Source Blood Pressure Position Blood Pressure Location Pulse Ox 99 96 93 Oxygen Delivery Method Room Air Room Air Room Air 05/16/22 22:44 05/16/22 23:21 05/17/22 02:25 Temperature 97.5 F L Temperature Source Temporal Pulse Rate 130 H 122 H 124 H Respiratory Rate 18 14 Respiratory Effort Respiratory Depth Respiratory Pattern Blood Pressure 111/84 H 110/78 Blood Pressure Mean 93 Blood Pressure Source Blood Pressure Position Blood Pressure Location Pulse Ox 92 Oxygen Delivery Method Room Air 05/17/22 01:10 05/17/22 02:30 05/17/22 06:17 Temperature 97.8 F 97.8 F Temperature Source Oral Oral Pulse Rate 124 H 117 H Respiratory Rate 18 16 Respiratory Effort Normal Respiratory Depth Normal Respiratory Pattern Normal Blood Pressure 110/78 115/77 Blood Pressure Mean 88 89 Blood Pressure Source Monitor Monitor Blood Pressure Position Semi-Fowlers Supine Blood Pressure Location Left Arm Left Arm Pulse Ox 95 95 Oxygen Delivery Method Room Air Room Air Room Air Weight Weight: 157 lb 6.561 oz Body Mass Index (BMI) 25.4 Results Lab / Micro Data Result Diagrams: 05/17/22 04:32 05/17/22 04:32 Labs: Laboratory Results - last 24 hr 05/16/22 16:49: WBC 11.6 H, RBC 4.32, Hgb 11.9 L, Hct 36.8 L, MCV 85.2, MCH 27.5, MCHC 32.3, RDW Std Deviation 45.1 H, RDW Coeff of Nataliia 14.5, Plt Count 366, MPV 10.2, Immature Gran % (Auto) 0.300, Neut % (Auto) 85.3 H, Lymph % (Auto) 9.0 L, [place] % (Auto) 5.1, Eos % (Auto) 0.0, Baso % (Auto) 0.3, Absolute Neuts (auto) 9.9 H, Absolute Lymphs (auto) 1.05, Nucleated RBC % 0 05/16/22 16:49: Sodium 141, Potassium 3.5, Chloride 104, Carbon Dioxide 25.0, Anion Gap 12, BUN 16, Creatinine 1.04 H, Estim Creat Clear Calc 45.10, Est GFR (MDRD) Af Amer 67, Est GFR (MDRD) Non-Af 55 L, BUN/Creatinine Ratio 15.4, Glucose 135 H, Calcium 9.1, Total Bilirubin 0.40, AST 17, ALT 17, Alkaline Phosphatase 85, Total Protein 7.3, Albumin 3.2, Globulin 4.1, Albumin/Globulin Ratio 0.8 L, Lipase 263 05/16/22 19:20: Urine Color Yellow, Urine Clarity Clear, Urine pH 8.0, Ur Specific [place] 1.010, Urine Protein 30 H, Urine Glucose (UA) Normal, Urine Ketones 150 A*, Urine Occult Blood 10 H, Urine Nitrite Positive H, Urine Bilirubin Negative, Urine Urobilinogen Normal, Ur Leukocyte Esterase 500 H, Urine RBC 10-25 SEEN, Urine WBC 25-50 SEEN, Ur Squamous Epith Cells 0-5 SEEN, Ur Transition Epith Cell 0-5 SEEN, Urine Bacteria 0 SEEN, Urine Mucus 0 SEEN 05/17/22 04:32: Sodium 140, Potassium 3.9, Chloride 108 H, Carbon Dioxide 26.0, Anion Gap 6, BUN 14, Creatinine 0.77, Estim Creat Clear Calc 46.90, Est GFR (MDRD) Af Amer 94, Est GFR (MDRD) Non-Af 78, BUN/Creatinine Ratio 18.1, Glucose 104, Calcium 8.3 L, TSH 1.62 05/17/22 04:32: WBC 11.7 H, RBC 4.06 L, Hgb 10.9 L, Hct 35.7 L, MCV 87.9, MCH 26.8 L, MCHC 30.5 L D, RDW Std Deviation 47.0 H, RDW Coeff of Nataliia 14.6, Plt Count 321, MPV 10.1, Immature Gran % (Auto) 0.400, Neut % (Auto) 79.3 H, Lymph % (Auto) 12.9 L, [place] % (Auto) 7.1, Eos % (Auto) 0.0, Baso % (Auto) 0.3, Absolute Neuts (auto) 9.2 H, Absolute Lymphs (auto) 1.51, Nucleated RBC % 0 Radiology Impression Abdomen/Pelvis CT 05/16/22 16:36 IMPRESSION: (NOT LISTED IN ORDER OF SIGNIFICANCE) Gastritis. 31 mm mass like lesion occluding the distal descending colon causing colon obstruction. This is concerning for a neoplasm. Other findings as above. Critical finding called and case discussed. Electronically Signed: Duane Ratliff MD at 19:52 EST , ADDENDUM: 05/16/222002 IMPRESSION: (NOT LISTED IN ORDER OF SIGNIFICANCE) Gastritis. 31 mm mass like lesion occluding the distal descending colon causing colon obstruction. This is concerning for a neoplasm. Other findings as above. Critical finding called and case discussed. N.B. : The above Results were Read Back by Duane Ratliff MD to Jourdan Atkins MD, and understanding confirmed on 05/16/2022 19:56:06 (ET). Electronically Signed: Duane Ratliff MD at 19:52 EST , KUB X-Ray 05/16/22 21:25 IMPRESSION: 1. There is a feeding tube/ nasogastric tube noted. The tip is in the region of the stomach. 2. Dilated colon noted. Electronically Signed: Duane Ratliff MD at 21:46 EST , KUB X-Ray 05/17/22 00:07 IMPRESSION: Enteric tube projects within the stomach in good position. Persistent findings concerning for descending colonic obstruction. Electronically Signed: Leonel Rowland MD at 1:54 EST , Assessment & Plan Assessment/Plan (1) Colon obstruction: (2) Abdominal pain: (3) Severe protein-calorie malnutrition: (4) Urinary tract infection: QUALIFIERS: Urinary tract infection type: acute cystitis Hematuria presence: without hematuria Qualified Code(s): N30.00 - Acute cystitis without hematuria PLAN: Plan NG/IV fluids/n.p.o. Zosyn IV for UTI on admit, colon mass possible diverticulitis stricture Reviewed CT abdomen pelvis with the patient. We will also plan to talk with is unsure if patient does have some memory issues. Patient has a bowel obstruction due to the sigmoid mass/stricture. Patient states she is passing flatus but last time she had bowel movement was Saturday. Patient has not been eating well since her hospitalization and probably even before. Patient states she is maybe had a quarter of each meal with 1 protein drink a day for the last week she is only had the 1 protein drink a day unsure if there is tender 30 g of protein in that drink. Discussed with patient plan for open sigmoidectomy, possible colectomy including risk but not limited to infection, bleeding, injury to another organ, anastomotic leak if he were to do an anastomosis due to poor nutrition to likely colostomy. Debbie Lauren M.D. Pager: [phone] [facility] [address] [place] [address], [facility], [address] [place] [address] Office: [phone]
--- NOTE | 2022-05-17 07:38 | PN.HOSP_ITS ---
Reason for Visit Reason for Visit: Diagnoses Unspecified intestinal obstruction, unspecified as to partial versus complete o bstruction (05/16/22) Other specified diseases of intestine (05/16/22) Unspecified abdominal pain (05/16/22) Subjective Subjective Follow-up for acute on recurrent bowel obstruction since January 2022. Objective Data Objective Data Vital Signs: Vital Signs Temp Pulse Resp BP Pulse Ox O2 Del Method 97.8 F 117 H 16 115/77 95 Room Air 05/17/22 06:17 05/17/22 06:17 05/17/22 06:17 05/17/22 06:17 05/17/22 06:17 05/17/22 06:17 Oxygen Delivery Method Room Air Weight: 157 lb 6.561 oz Body Mass Index (BMI) 25.4 Intake & Output: Intake and Output for Last 24 Hours 05/15/22 05/16/22 05/17/22 23:59 23:59 23:59 Intake Total 1100 / 1100 140 / 140 Output Total 550 / 550 Balance 1100 / 1100 -410 / -410 Lab / Micro Data Result Diagrams: 05/17/22 04:32 05/17/22 04:32 Labs: Laboratory Results - last 24 hr 05/16/22 16:49: WBC 11.6 H, RBC 4.32, Hgb 11.9 L, Hct 36.8 L, MCV 85.2, MCH 27.5, MCHC 32.3, RDW Std Deviation 45.1 H, RDW Coeff of Nataliia 14.5, Plt Count 366, MPV 10.2, Immature Gran % (Auto) 0.300, Neut % (Auto) 85.3 H, Lymph % (Auto) 9.0 L, [place] % (Auto) 5.1, Eos % (Auto) 0.0, Baso % (Auto) 0.3, Absolute Neuts (auto) 9.9 H, Absolute Lymphs (auto) 1.05, Nucleated RBC % 0 05/16/22 16:49: Sodium 141, Potassium 3.5, Chloride 104, Carbon Dioxide 25.0, Anion Gap 12, BUN 16, Creatinine 1.04 H, Estim Creat Clear Calc 45.10, Est GFR (MDRD) Af Amer 67, Est GFR (MDRD) Non-Af 55 L, BUN/Creatinine Ratio 15.4, Glucose 135 H, Calcium 9.1, Total Bilirubin 0.40, AST 17, ALT 17, Alkaline Phosphatase 85, Total Protein 7.3, Albumin 3.2, Globulin 4.1, Albumin/Globulin R atio 0.8 L, Lipase 263 05/16/22 19:20: Urine Color Yellow, Urine Clarity Clear, Urine pH 8.0, Ur Specific [place] 1.010, Urine Protein 30 H, Urine Glucose (UA) Normal, Urine Ketones 150 A*, Urine Occult Blood 10 H, Urine Nitrite Positive H, Urine Bilirubin Negative, Urine Urobilinogen Normal, Ur Leukocyte Esterase 500 H, Urine RBC 10-25 SEEN, Urine WBC 25-50 SEEN, Ur Squamous Epith Cells 0-5 SEEN, Ur Transition Epith Cell 0-5 SEEN, Urine Bacteria 0 SEEN, Urine Mucus 0 SEEN 05/17/22 04:32: Sodium 140, Potassium 3.9, Chloride 108 H, Carbon Dioxide 26.0, Anion Gap 6, BUN 14, Creatinine 0.77, Estim Creat Clear Calc 46.90, Est GFR (MDRD) Af Amer 94, Est GFR (MDRD) Non-Af 78, BUN/Creatinine Ratio 18.1, Glucose 104, Calcium 8.3 L, TSH 1.62 05/17/22 04:32: WBC 11.7 H, RBC 4.06 L, Hgb 10.9 L, Hct 35.7 L, MCV 87.9, MCH 26.8 L, MCHC 30.5 L D, RDW Std Deviation 47.0 H, RDW Coeff of Nataliia 14.6, Plt C ount 321, MPV 10.1, Immature Gran % (Auto) 0.400, Neut % (Auto) 79.3 H, Lymph % (Auto) 12.9 L, [place] % (Auto) 7.1, Eos % (Auto) 0.0, Baso % (Auto) 0.3, Absolute Neuts (auto) 9.2 H, Absolute Lymphs (auto) 1.51, Nucleated RBC % 0 Radiography Diagnostic Testing: Radiology Impression Abdomen/Pelvis CT 05/16/22 16:36 IMPRESSION: (NOT LISTED IN ORDER OF SIGNIFICANCE) Gastritis. 31 mm mass like lesion occluding the distal descending colon causing colon obstruction. This is concerning for a neoplasm. Other findings as above. Critical finding called and case discussed. Electronically Signed: Duane Ratliff MD at 19:52 EST , ADDENDUM: 05/16/222002 IMPRESSION: (NOT LISTED IN ORDER OF SIGNIFICANCE) Gastritis. 31 mm mass like lesion occluding the distal descending colon causing colon obstruction. This is concerning for a neoplasm. Other findings as above. Critical finding called and case discussed. N.B. : The above Results were Read Back by Duane Ratliff MD to Jourdan Atkins MD, and understanding confirmed on 05/16/2022 19:56:06 (ET). Electronically Signed: Duane Ratliff MD at 19:52 EST , KUB X-Ray 05/16/22 21:25 IMPRESSION: 1. There is a feeding tube/ nasogastric tube noted. The tip is in the region of the stomach. 2. Dilated colon noted. Electronically Signed: Duane Ratliff MD at 21:46 EST , KUB X-Ray 05/17/22 00:07 IMPRESSION: Enteric tube projects within the stomach in good position. Persistent findings concerning for descending colonic obstruction. Electronically Signed: Leonel Rowland MD at 1:54 EST , Physical Exam Narrative Patient has recurrent abdominal pain and partial/incomplete colonic obstructions since January and has been following Dr. Estrada as an outpatient. She has history of right subcostal open cholecystectomy scar and 2 times hysterectomy first partial and the second complete hysterectomy. Patient came to ER with abdominal pain 8/10 intensity mainly mid abdomen without nausea or vomiting. Patient was recently admitted for sigmoid mass/stricture. The last office visit with Dr. Estrada on 04/17/2022. Possible sigmoid recurrent diverticulitis with associated stricture.At that time diagnostic colonoscopy was planned for 5 weeks, since probably admitted before colonoscopy Patient is passing flatus although not having bowel movement exact time unclear. Not a good historian and did not give a good description of abdominal pain or BM.She denies chronic lung disease or heart disease. Physical exam General: Alert, Oriented x3, Cooperative HEENT: Atraumatic, PERRLA, EOMI, Normocephalic Oral: No Gingival or Mucosal Lesions/ Ulcerations Neck: Supple, No JVD, Negative Carotid Bruits Lungs: Air entry diminished in bilateral lung bases. No crepitation/rhonchi Cardiovascular: Regular rate, Regular Rhythm, Normal S1, Normal S2, No murmurs Abdomen: Bowel Sounds Present, Soft, mild abdominal tenderness mainly mid abdomen around umbilical and left side. No palpable mass. : Urine clear no renal angle tenderness. No suprapubic tenderness. Extremities: No edema, Capillary Refill Less than 3 Seconds Skin: No rashes, No breakdown Musculoskeletal: No Tenderness to Palpation of Joints or Extremities Neurological: Cranial nerves II-XII grossly intact, DTR 2+/4 and Symmetrical, Neuro grossly intact Psych/Mental Status: Normal Affect, Appropriate. Assessment & Plan Assessment/Plan (1) Colon obstruction: (2) Colonic mass: (3) Abdominal pain: PLAN: Plan This is a 89-year-old female with history of sigmoid colon diverticulitis complicated with a stricture and intermittent abdominal pain and partial colonic obstruction since January is being admitted for severe abdominal pain. 1. Large bowel/colonic obstruction: Patient is being admitted under surgery. CT abdomen was reviewed shows colonic stricture with obstruction. According to surgeon Dr. Lauren, patient is planned for sigmoidectomy possible colectomy. Patient is NPO. IV fluid. On IV Zosyn.Has NG tube 30 mL output.Having good urine output. 2. Regular narrow complex tachycardia possible junctional tachycardia versus AVNRT possible secondary to abdominal pain: Previous EKG shows sinus rhythm with PAC in April 2022. Heart rate is controlled 77/min, BP normal 116/58. Denies chest pain shortness of breath or chronic heart or lung disease. TSH normal. Electrolytes in normal range. 3. LARISSA prerenal: -Baseline appears to be 0.68 and on admission creatinine is 1.04. Repeat creatinine 0.77. LARISSA resolved after IV fluid rehydration. #Abnormal urinalysis/asymptomatic bacteriuria: Patient denies acute lower urinary tract symptoms including burning micturition. UA shows nitrates and leuk esterase however only 25-50 white blood cells and no bacteria seen, Zosyn started on admission to cover for both UTI and intra-abdominal infection, low suspicion for urinary tract infection given mild white blood cell count with no bacteria, urine culture was sent in ED -Did have a white blood cell count of 11.6 however no left shift and all cell lines appeared to be increased which is likely due to her relative volume depletion state #DVT ppx: SCDs Total time of the visit including total time spent in counseling or coordination of care, (more than 50% of the total time, spent in obtaining medical i nformation from nurses and other ancillary care providers,explaining to the patient about labs, imaging, diagnosis and management of active complex medical conditions), discussion with the surgeon, review of labs and imaging is 50 minutes Charges/Coding Visit Charges Inpatient E&M: 79348 Subs Hosp L3
[2022-05-17 08:39] LABS: Prealbumin 15.6 mg/dL (20.0-40.0)
[2022-05-17] MEDS: Acetaminophen 325 MG Tablet 650 MG PO (10:38)
[2022-05-17] MEDS: buPROPion (XL) 150 MG TABLET.XL PO (10:39)
[2022-05-17] MEDS: Sertraline 100 MG Tablet PO (10:39)
[2022-05-17] MEDS: Atenolol 25 MG Tablet PO (10:39)
--- NOTE | 2022-05-17 10:55 | CASEMGMT ---
RN CM Face to Face with patient for initial transition planning/care coordination assessment. RN CM introduced self and role at [facility]. Patient lying in bed, alert and oriented, at bedside. Patient willing to participate in assessment and is able to answer all questions appropriately. Care providers, pharmacy, and demographics verified. Patient wishes to discharge home, denies need for home health at this time. Patient states she has no further needs or concerns at this time. CM to follow for discharge planning needs that may arise. PCP: Jimena Specialists: none [facility] Benef[facility]: yes Living Will/HPOA: yes, [place] LNOK: [place] Living Arrangements: Patient lives with in a single story home with 3 steps or ramp to enter the home. Patient states she is independent at home. Transportation: self, DME/HHC: Patient has shower chair, raised toilet, cane, walker, and grab bars. No previous HHC or SNF. Disposition Plan: Patient to discharge home with family support and follow-up plans in place. Tonya BELL, RN, CM
--- NOTE | 2022-05-17 11:05 | NURSING ---
Called report to KLAUS Loomis in [place].
--- NOTE | 2022-05-17 12:30 | COL._PTH ---
PATIENT: DEBORA BOURGEOIS LOC: PCU U#:[id number] AGE/SX: 72/F ROOM: [facility] RE05/16/[address]: Dr. Debbie Lauren MD : 1950 BED: 1 DIS: 05/25/2022 SPEC #: [id number] RECD: 05/18/22 08:30 STATUS: YANET REWalter #: [id number] DERIK: 05/17/22 12:[address]: Debbie Lauren DEPT: SURGICAL PATHOLOGY RECD BY: Evi Back ENTERED: 05/18/22 10:17 SP TYPE: COLON OTHR DR: MD Dr. Rolan Guillen MD Dr. Paige Pierce, MD Tissues: A - Colon, NOS B - Colon, NOS C - Colon, NOS Procedures: Surgery Specimen Level V HEADER OPERATION: Laparoscopic hand assist sigmoid colectomy, colostomy PRE-OP DIAGNOSIS: 31 mm mass-like lesion occluding distal descending colon causing colon obstruction, concerning for neoplasm TISSUE SUBMITTED: A - Sigmoid colon, suture almonte distal, B - Distal sigmoid, C - Descending colon MICROSCOPIC DIAGNOSIS A. Sigmoid colon, segmental resection: Diverticular disease of colon. Pericolic acute inflammatory process consistent with microabscess formation. Margins of excision with no pathologic change. B. Distal sigmoid colon, segmental resection. No pathologic change. C. Descending colon, segmental resection: Focal mucosal denudation. Mild chronic inflammation and focal chronic serositis. Five out of five lymph nodes with no pathologic change. AM:amy 05/22/2022 MICROSCOPIC DESCRIPTION Slides are reviewed. GROSS DESCRIPTION A - Received in fixative is one container labeled with the patient's name and designated sigmoid colon, suture almonte distal. The specimen consists of a segment of colon with attached pericolonic adipose tissue measuring 15.0 cm in length. The lumen is filled with solid fecal material. No mucosal lesion is identified. Sections reveal multiple diverticula. A few of the diverticula are filled with fecal material. No obviously ruptured diverticula is noted. Sections will be submitted after fixation. / SJ:amy 05/18/2022 Sections of pericolonic adipose tissue do not reveal any obviously enlarged lymph node. Medical Clerk sections are submitted in six cassettes as follows: 1 - distal resection margin marked with suture, 2??proximal resection margin, 3-5 - diverticula, 6 - pericolonic adipose tissue. / SJ:amy 05/21/2022 B - Received in fixative is one container labeled with the patient's name and designated distal sigmoid. The specimen consists of a small segment of colon measuring 2.5 cm in length. Both resection margins are stapled. Two barbara are also noted in the middle portion of the specimen. The mucosa is focally congested. A small portion of pericolonic adipose tissue is also present and does not show any obvious lymph node. Medical Clerk sections are submitted in four cassettes as follows: 1-3 - colon, 4??pericolonic adipose tissue. / NEHEMIAS:amy 05/18/2022 C - Received in fixative is one container labeled with the patient's name and designated descending colon. The specimen consists of a small segment of colon measuring 3.5 cm in length with attached pericolonic adipose tissue. One resection margin is open and the other resection margin is stapled. The opened resection margin shows hemorrhagic and congested areas of pericolonic adipose tissue. No obvious mucosal lesion is identified. The mucosa appears slightly edematous. Sections of pericolonic adipose tissue do not reveal any obviously enlarged lymph nodes. Medical Clerk sections are submitted in six cassettes as follows: 1 - open resection margin, 2 - stapled margin, 3 & 4 - more tissue adjacent to the open resection margin, 5 - pest control service representative sections from other area, 6 - pericolonic adipose tissue. More sections will be submitted after dissection of the pericolonic adipose tissue. The pericolonic adipose tissue is fixed in lymph node-revealing solution. / NEHEMIAS:amy 05/18/2022 TC:2 CPT: 22082 x3
[2022-05-17] MEDS: Cefotetan 2 GM in 0.9% NS 100 ML IV (16:06)
[2022-05-17] MEDS: Bupivacaine 0.25% 30 ML Vial (16:22)
[2022-05-17] MEDS: BUPIVACAINE LIPOSOME/PF 20 ML VIAL OPERA.SITE (16:23)
[2022-05-17] MEDS: 0.9% Normal Saline (Pres. free 10 ML Vial (16:23)
--- NOTE | 2022-05-17 20:39 | OP.PCM_ITS ---
Report of Operation Date of Procedure: 05/17/22 Pre-Operative Diagnosis: 1. Partial colonic obstruction 2. History of diverticulitis without evidence of ongoing subacute diverticulitis and diverticular stricture Post-Operative Diagnosis: Same Surgery/Procedure Performed:: 1. Hand-assisted laparoscopic sigmoidectomy with creation of end colostomy 2. Mobilization of splenic flexure 3. Adhesiolysis (greater than 60 minutes) Description of Surgical Findings:: ? Dense inflammatory change about the sigmoid colon into the lateral sidewall of the abdomen ? Numerous adhesions between the small bowel in the pelvis ? Inflammatory changes causing distortion of the rectum against the pelvic floor Surgeon: Brennan Estrada area director of home health sales: Debbie Lauren area director of home health sales: Suri Chan Type of Anesthesia: General/Supplemental Anesthesiologist: Stu Jones Specimen's removed: 1. Sigmoid colon 2. Distal sigmoid colon 3. Descending colon 4. Rectum Drains: 15 Irish ZACHARIAH Estimated Blood Loss (mL): 250 Description of Procedure: After appropriate verification in the preoperative holding area the patient was brought to the operating room where she was positioned supine on the operating room table. Preoperative antibiotics with 2 g of cefotetan and were infused. Patient was then induced with a general endotracheal anesthetic. Her nasogastric tube was connected to suction. She was positioned in yellowfin leg holders in lithotomy position. Seeking to remove the bulk of the fecal content from her rectum, I sought to manually disimpact her transanally and introduced a Malecot tube transanally irrigating her rectum with a dilute Betadine solution. I found difficulty in advancing the Malecot drain and found it looping upon itself in the distal rectal vault. Once this procedure was completed, patient underwent placement of a Green catheter with sterile technique. Patient's abdomen was then prepped and draped in usual sterile fashion. I began the operation with a Tejeda entry via a supraumbilical incision. A Tejeda balloon trocar was placed and pneumoperitoneum was established to 15 mmHg. Laparoscopic investigation revealed no inadvertent injury to the viscera below and adequate working room to permit proceeding with a laparoscopic approach. Under this laparoscopic visualization I noted a number of adhesions between the small bowel and the right upper quadrant where the patient had previously underwent open cholecystectomy. I also noted a fat-containing hernia just to the left of the rectus muscle through a defect in patient's prior Pfannenstiel incision. Under laparoscopic visualization I placed a 12 mm port in the right lower quadrant and using the laparoscopic LigaSure as well as some blunt dissection and gentle traction, I reduced the patient's fat-containing incisional hernia. A 5 mm port was placed through a stab incision over her prior Pfannenstiel incision and the port was directed through the hernia defect. Lastly a 5 mm port was placed in the right upper quadrant midclavicular line after taking down some of the right upper quadrant adhesions with the omentum. Patient was then positioned in Trendelenburg with the right side down and I sought to develop the white line of Toldt. However, I quickly encountered a dense inflammatory change of the sigmoid colon involving the lateral sidewall. With this resistance, I decided to extend the patient's suprapubic port site and we re-incised the Pfannenstiel scar. I excised some hernia sac and horizontally incised the anterior rectus sheath. Then the rectus bellies were opened along their access longitudinally and a GelPort was placed. In this configuration I entered the parietal peritoneum along the lateral sidewall adjacent to the inflamed sigmoid colon and then transitioned through the retroperitoneal fat to the proper plane beneath the colon. Superiorly the white line of Toldt was able to be opened all the way to the spleen laparoscopically, but to accomplish this mobilization we required placement of an additional 5 mm port left lower quadrant under laparoscopic visualization. We then divided the omentum and came to the anterior surface of the transverse colon transitioned into the lesser sac and proceeded along the superior border of the transverse colon until the splenic flexure was completely mobilized. Moving inferiorly there were numerous adhesions to the lateral pelvic sidewall and an injected appearance of the little sigmoid colon?suggesting acute diverticulitis. Great care was taken with this dissection and we ultimately did identify the ureter coursing along the pelvic brim then anterolaterally towards the bladder. We were able to use the laparoscopic LigaSure device to divide the mesorectum for short distance from the bowel wall. Once we were beneath the pelvic brim with this dissection, we used the 60 mm MARK stapler to divide the rectum. We then used the LigaSure device to follow the sigmoid colon proximally. With our hand-assisted arrangem ent we palpated the colon to the grossly/palpably normal area approximately 8 cm proximal to the area we first observed inflammation. Taking the mesocolon to this point, we encountered the left colic pedicle and this was secured with several plastic Weck clips before dividing the vessel distally with LigaSure. Our proximal margin of transection was then appointed and the descending colon was divided with a second firing of an Endo MARK stapler. The specimen was passed off the field as sigmoid colon for pathology. The stapled portion of the descending colon was brought to the wound protector/GelPort site and, in an open fashion, we placed the EEA stapler anvil?securing the post using a 2-0 Prolene suture in a pursestring fashion. We then sought to assess our length for an end-to-end stapled anastomosis and found a relatively good match between the caliber of her descending colon and rectum, but found tethering of the rectum to the pelvic floor via part of the inflammatory process. Efforts were made to relieve this tethering, but ultimately we concluded that we needed to take additional bowel distally which seemed to represent the final extent of the sigmoid colon. This was done with further circumferential dissection. Then the bowel was transected with an additional firing of the Endo MARK stapler and was passed off the field for new distal sigmoid colon. Under laparoscopic visualization the EEA stapler was opened anterior to the rectal staple line. Then in the hand-assisted arrangement?simultaneously working to exclude the small bowel from the pelvis?the anvil was to the EEA stapler post with a click. Initially the stapler seemed to close uneventfully, however as the stapler was withdrawn with a twisting motion I observed tearing along the back wall of the colon and the stapler was visible through our new anastomosis. With this disruption of our anastomosis and already limited reach from our resection, we chose to abort another attempt at anastomosis and quickly used the EEA stapler to come across the descending colon to minimize stool contamination of the pelvis. This required 2 firings of the MARK stapler. We then further dissected out the rectum, but still found that the anatomical arrangement was not amenable to stapling in the pelvis so we transitioned to an open approach via our Pfannenstiel incision. Stay sutures were placed on the anterior and posterior hinson of the rectum using 2-0 Prolene. Then an additional 2-0 Prolene suture was used to run the opening closed. Given that there was gross contamination of the pelvis, we copiously irrigated the area with warm sterile saline then placed a 15 Irish ZACHARIAH drain into the pelvis via our right lower quadrant port. Since this was a 12 mm port site, we partially closed the fascia of this port around the drain using 0 Vicryl. The drain was secured at the skin in a Chnace sandal configuration with 2-0 nylon. Next we identified our site on the abdominal wall for our colostomy, created a skin defect then bluntly spread the fat, incised the anterior rectus sheath, bluntly spread the muscle, incised the posterior rectus sheath and delivered the colon in standard fashion through the abdominal wall. This descending colon was pexied to the fascia laterally using 3-0 silk suture. The Pfannenstiel incision was closed using 2-0 Prolene along the rectus given the patient's prior incisional hernia. The remaining anterior rectus sheath was then closed horizontally using a running #1 PDS. The subcutaneous layer was irrigated. The 12 mm supraumbilical port site was closed at the fascia using 0 Vicryl under direct visualization. Skin barbara were used to close the skin of each port site with widely spaced interstices. We then opened the staple line on the descending colon that had been brought out through the abdominal wall, brooked the colon in 4 quadrants using 3-0 Vicryl suture before taking simple bites of the mucosa/submucosa and the dermis radially to mature our colostomy in standard fashion. A colostomy appliance was cut to fit the stoma and was secured to the abdominal wall. Patient's wounds were then dressed and our drain connected to ZACHARIAH bulb suction. Case counts were confirmed as correct. Patient was extubated without event and taken to PACU in stable condition. Complications ? Disruption of end-to-end anastomosis requiring aborting that procedure and creation of end colostomy Admit VTE Documentation VTE Mechan Device Prophylaxis: SCD's
[2022-05-18] VITALS (8 sets, daily range): BP systolic 114–140; BP diastolic 63–71; PULSE 76–97; RESP 13–18; TEMP 36.7–38.1; O2SAT 89–99
[2022-05-18] MEDS: HYDROmorphone 0.5 MG/0.5 ML SYRINGE IV ×4 (02:56→23:20)
[2022-05-18] MEDS: Ondansetron 4 MG/2 ML Vial IV (02:58)
[2022-05-18] MEDS: 0.9% Saline Lock 10 ML Syringe IV ×4 (03:00→23:21)
[2022-05-18 06:06] LABS: Absolute Lymphocyte Count 0.53 X10^3/uL (0.83-4.51); Absolute Neutrophil Count 14.6 X10^3/uL (2.0-7.7); Basophil# 0.03 X10^3/uL; Basophil% 0.2 % (0-1); Hemoglobin 11.3 g/dL (12.0-15.0); Lymphocyte # 0.53 X10^3/ul (0.83-4.51); Lymphocyte % 3.4 % (19-41); Mean Corp Hgb Conc 30.5 g/dL (32-36); Mean Corpuscular Hgb 27.2 pg (27.0-32.0); Mean Corpuscular Volume 89.2 fL (81-99); Mean Platelet Vol. 10.5 fl (6.2-12.0); Monocyte# 0.48 X10^3/uL; Monocyte% 3.1 % (0-10); NRBC Flagged by Analyzer 0 % (0-5); Neutrophil # 14.56 X10^3/uL (2.7-7.7); Neutrophil % 92.9 % (47-70); POSITIVE DIFFERENTIAL YES; POSITIVE MORPHOLOGY YES; Platelet Count 364 K/mm3 (150-450); RBC Distribution Width CV 14.6 % (11.6-14.6); RBC Distribution Width SD 47.3 fl (35.1-43.9); Red Blood Count 4.15 M/mm3 (4.2-5.4); White Blood Count 15.7 K/mm3 (4.4-11.0)
[2022-05-18 06:08] LABS: Differential Indicated SCAN CRITERIA MET
[2022-05-18 06:28] LABS: Differential Comment SCANNED
[2022-05-18 06:37] LABS: Anion Gap 7 (5-15); BUN 13 mg/dL (7-18); BUN/Creat Ratio 11.5 RATIO (10-20); Calcium,Total 8.3 mg/dL (8.5-10.1); Chloride 103 mmol/L (98-107); Creatinine, Serum 1.13 mg/dL (0.55-1.02); EST Glomerular Filtration Rate 50 mL/min (>60); Est Glom Filt Rate - Afr Amer 61 mL/min (>60); Estimated Creatinine Clearance 41.51 ml/min; Glucose 134 mg/dL (74-106); Magnesium 1.7 mg/dL (1.6-2.6); Phosphorus 3.7 mg/dL (2.5-4.9); Potassium 4.2 mmol/L (3.5-5.1); Sodium Level 137 mmol/L (136-145)
--- NOTE | 2022-05-18 09:49 | WOUNDNOTE ---
wound/stoma photo: abdomen
--- NOTE | 2022-05-18 09:50 | WOUNDNOTE ---
In to assess the stoma to the left upper abdomen. there is some drainage noted on the appliance. appears to be from the umbilical incision. removed the appliance and opsite. barbara are intact to the small incision. cleansed site and applied a new opsite. stoma is beefy red and sits slightly above the skin level. stoma measures approx 1 3/4 and is slightly oval in shape. peristomal skin is intact. patient c/o some mild abdominal discomfort. the transverse incision to the mid lower abdomen is well approximated with barbara intact. there was a large amount of serosanguineous drainage noted from the right lower quadrant ZACHARIAH site. drainage appears to be leaking around the drain. this nurse did strip the tubing which appears to have helped. cleansed ZACHARIAH site and pat dry. new dry dressings applied the incision and ZACHARIAH site. pt tolerated well. present at bedside and observer ostomy change and dressing change. very appreciative of care. see wound/stoma photos.
[2022-05-18] MEDS: 0.9% Normal Saline 1,000 ML 100 ML IV ×2 (10:47→23:24)
--- NOTE | 2022-05-18 10:55 | NURSING ---
1045 In room with patient and Dr. Estrada. Doctor ordered normal saline to run @ 100ml/hr continuous. NG tube taken out by Dr. Estrada, patient tolerated well. Patient now able to take sips or water or other drinks. PT/OT need to work with patient, Dr. Estrada stated he wants to see patient up to chair by [facility] (formerly [facility]3]nilda.
--- NOTE | 2022-05-18 11:36 | PN.SURG_ITS ---
Subjective Subjective Patient seen and examined during AM rounds. She is found resting relatively comfortably in bed. She acknowledges some mid abdominal tenderness, but otherwise is without complaint. She expresses hunger, but is uncertain whether or not she has passed any flatus into her ostomy appliance. Wound and ostomy nursing of already changed the appliance on the account of some bleeding from her supraumbilical port site incision and communicated that everything appears well. Objective Data Objective Data Vital Signs: Vital Signs Temp Pulse Resp BP Pulse Ox O2 Del Method O2 Flow Rate 99.4 F H 86 13 114/64 93 Nasal Cannula 1 05/18/22 09:00 05/18/22 09:00 05/18/22 09:00 05/18/22 09:00 05/18/22 09:00 05/18/22 09:00 05/18/22 09:00 Oxygen Flow Rate (L/min) 1 Oxygen Delivery Method Nasal Cannula Weight: 157 lb 6.561 oz Body Mass Index (BMI) 25.4 Intake & Output: Intake and Output for Last 24 Hours 05/16/22 05/17/22 05/18/22 23:59 23:59 23:59 Intake Total 1100 / 1100 5610 / 5640 150 / 150 Output Total 1385 / 1985 950 / 950 Balance 1100 / 1100 4225 / 3655 -800 / -800 Lab / Micro Data Result Diagrams: 05/18/22 05:28 05/18/22 05:28 Labs: Laboratory Results - last 24 hr 05/18/22 05:28: WBC 15.7 H, RBC 4.15 L, Hgb 11.3 L, Hct 37.0, MCV 89.2, MCH 27.2, MCHC 30.5 L, RDW Std Deviation 47.3 H, RDW Coeff of Nataliia 14.6, Plt Count 364, MPV 10.5, Immature Gran % (Auto) 0.400, Neut % (Auto) 92.9 H, Lymph % (Auto) 3.4 L, [place] % (Auto) 3.1, Eos % (Auto) 0.0, Baso % (Auto) 0.2, Absolute Neuts (auto) 14.6 H, Absolute Lymphs (auto) 0.53 L, Nucleated RBC % 0, Differential Comment SCANNED 05/18/22 05:28: Sodium 137, Potassium 4.2, Chloride 103, Carbon Dioxide 27.0, Anion Gap 7, BUN 13, Creatinine 1.13 H, Estim Creat Clear Calc 41.51, Est GFR (MDRD) Af Amer 61, Est GFR (MDRD) Non-Af 50 L, BUN/Creatinine Ratio 11.5, Glucose 134 H, Calcium 8.3 L, Phosphorus 3.7, Magnesium 1.7 Micro: Microbiology 05/16/22 19:20 Urine, Clean Catch Urine Culture - Final Mixed Gram Positive Organisms Radiography Diagnostic Testing: Radiology Impression Echocardiogram 05/17/22 01:44 Interpretation Summary The left ventricular ejection fraction is 65 %. Mild tricuspid valve insufficiency. Mild (1+) pulmonic valve insufficiency. Ordering Physician: Penny Malhotra Referring Physician: Michelle Hess Performed By: Gerry Gilman RCS Physical Exam Const no apparent distress Resp normal respiratory effort Resp Narrative: Nasal cannula in place GI GI Narrative: Patient with dressings intact without strikethrough or drainage. Left abdominal ostomy exhibits good perfusion to the mucosa. There is no gas or stool in the bag on my check. Patient's abdomen is soft and nondistended, but appropriately tender with palpation. Right lower quadrant drain with serosanguineous output. There is some slight clot in the tubing which is milked free. Patient with nasogastric tube in place with slight amount of bilious fluid in the tubing, but minimal volume in collection canister. Bladder / Kidney Exam: catheter in place urethral (Draining clear yellow urine) Assessment & Plan Assessment/Plan (1) Colon obstruction: PLAN: Patient is a 72-year-old female who is admitted on 05/16/2022 due to findings of partial bowel obstruction with stricture versus possible neoplasm of the sigmoid colon. Given her presentation, and second admission to the hospital, she was taken yesterday for a hand assist laparoscopic sigmoid colectomy with creation of end colostomy (after intraoperative failure of end-to-end anastomosis). Patient appears to have done well overnight and has scant output to her nasogastric tube. She is still at risk for developing a postoperative ileus, but expresses hunger at this time. I confirmed function with her nasogastric tube and then removed it after noting that she had less than 50 mL overnight. I have asked nursing to begin a sips of clears diet as well as initiate IV fluids. Maintenance IV fluids were not applied yesterday due to confusion with the orders, but patient's urinary output remains good. We will closely watch her creatinine. Neuro: As needed Dilaudid, will add p.o. pain medication once patient improves d iet tolerance and ongoing bowel function Pulm/CV: Incentive spirometer, wean supplemental O2 as needed, monitor blood pressure FEN/GI: Daily labs for electrolytes and replete as needed, advance to sips of clears diet, nasogastric tube discontinued 05/18/2022, wound and ostomy nursing for ostomy maintenance : Continue Green catheter today while patient's mobility is limited, but look to discontinue tomorrow Heme/ID: Patient's hemoglobin remained stable postop, but white blood cell count is elevated?likely owing to postoperative state and possible intraoperative contamination within the pelvis. Antibiotics are empirically continued and we will continue the presence of the pelvic drain. Nursing has been informed of what to look for with this drain. Endo: No current issues Proph: Patient encouraged to ambulate and be in a chair is much as possible. PT OT ordered. Dispo: Continue inpatient stay (2) Status post colectomy:
--- NOTE | 2022-05-18 12:03 | PCM.PN.HOSP ---
Reason for Visit Reason for Visit: Follow-up perioperative after sigmoid colectomy and colostomy. Diagnoses Unspecified severe protein-calorie malnutrition (05/16/22) Unspecified intestinal obstruction, unspecified as to partial versus complete obstruction (05/16/22) Other specified diseases of intestine (05/16/22) Acute cystitis without hematuria (05/16/22) Unspecified abdominal pain (05/16/22) Acquired absence of other specified parts of digestive tract (05/16/22) Subjective Subjective Patient is still has severe pain around whole abdomen mainly on left side. Has ZACHARIAH drain. NG tube. Objective Data Objective Data Vital Signs: Vital Signs Temp Pulse Resp BP Pulse Ox O2 Del Method O2 Flow Rate 99.4 F H 86 13 114/64 93 Nasal Cannula 1 05/18/22 09:00 05/18/22 09:00 05/18/22 09:00 05/18/22 09:00 05/18/22 09:00 05/18/22 09:00 05/18/22 09:00 Oxygen Flow Rate (L/min) 1 Oxygen Delivery Method Nasal Cannula Weight: 157 lb 6.561 oz Body Mass Index (BMI) 25.4 Intake & Output: Intake and Output for Last 24 Hours 05/16/22 05/17/22 05/18/22 23:59 23:59 23:59 Intake Total 1100 / 1100 5610 / 5640 150 / 150 Output Total 1385 / 1985 950 / 950 Balance 1100 / 1100 4225 / 3655 -800 / -800 Lab / Micro Data Result Diagrams: 05/18/22 05:28 05/18/22 05:28 Labs: Laboratory Results - last 24 hr 05/18/22 05:28: WBC 15.7 H, RBC 4.15 L, Hgb 11.3 L, Hct 37.0, MCV 89.2, MCH 27.2, MCHC 30.5 L, RDW Std Deviation 47.3 H, RDW Coeff of Nataliia 14.6, Plt Count 364, MPV 10.5, Immature Gran % (Auto) 0.400, Neut % (Auto) 92.9 H, Lymph % (Auto) 3.4 L, [place] % (Auto) 3.1, Eos % (Auto) 0.0, Baso % (Auto) 0.2, Absolute Neuts (auto) 14.6 H, Absolute Lymphs (auto) 0.53 L, Nucleated RBC % 0, Differential Comment SCANNED 05/18/22 05:28: Sodium 137, Potassium 4.2, Chloride 103, Carbon Dioxide 27.0, Anion Gap 7, BUN 13, Creatinine 1.13 H, Estim Creat Clear Calc 41.51, Est GFR (MDRD) Af Amer 61, Est GFR (MDRD) Non-Af 50 L, BUN/Creatinine Ratio 11.5, Glucose 134 H, Calcium 8.3 L, Phosphorus 3.7, Magnesium 1.7 Micro: Microbiology 05/16/22 19:20 Urine, Clean Catch Urine Culture - Final Mixed Gram Positive Organisms Radiography Diagnostic Testing: Radiology Impression Echocardiogram 05/17/22 01:44 Interpretation Summary The left ventricular ejection fraction is 65 %. Mild tricuspid valve insufficiency. Mild (1+) pulmonic valve insufficiency. Physical Exam Narrative Patient has slight leakage around right ZACHARIAH drain which was stopped. Small drainage from the umbilical midline incision. Dharmesh intact. Physical exam General: Alert, Oriented x3, Cooperative HEENT: Atraumatic, PERRLA, EOMI, Normocephalic Oral: NG tube. Neck: Supple, No JVD, Negative Carotid Bruits Lungs: Air entry diminished in bilateral lung bases. No crepitation/rhonchi Cardiovascular: Regular rate, Regular Rhythm, Normal S1, Normal S2, No murmurs Abdomen: Bowel sounds absent. Colostomy beefy red in color. Healthy looking stoma. Large serosanguineous drainage from ZACHARIAH drain. Slight leakage around the ZACHARIAH drain which was controlled. Significant tenderness. No guarding. Dressing changed : Urine clear no renal angle tenderness. No suprapubic tenderness. Extremities: No edema, Capillary Refill Less than 3 Seconds Skin: No rashes, No breakdown Musculoskeletal: No Tenderness to Palpation of Joints or Extremities Neurological: Cranial nerves II-XII grossly intact, DTR 2+/4 and Symmetrical Psych/Mental Status: Flat affect Assessment & Plan Assessment/Plan (1) Colon obstruction: (2) Colonic mass: (3) Abdominal pain: PLAN: Plan This is a 89-year-old female with history of sigmoid colon diverticulitis complicated with a stricture and intermittent abdominal pain and partial colonic obstruction since January is being admitted for severe abdominal pain. 1. Large bowel/colonic obstruction: Patient is being admitted under surgery. CT abdomen was reviewed shows colonic stricture with obstruction. According to surgeon Dr. Lauren, patient is planned for sigmoidectomy possible colectomy. Patient is NPO. IV fluid. On IV Zosyn.Has NG tube 30 mL output.Having good urine output. 05/18: Patient had laparoscopic sigmoidectomy converted open with end colostomy and adhesiolysis more than 60 minutes on 05/17. Partial colonic obstruction with dense inflammatory changes about sigmoid colon to lateral sidewall of abdomen and numerous adhesions between small bowel and pelvis causing distortion of rectum against pelvic floor. Operative note reviewed. Patient has long hours of surgery. Bowel sounds silent as expected. Dressing changed. Beefy red colostomy with fecal matter seen in the lumen. ZACHARIAH drain serosanguineous fluid. Discussed with the surgeon. On IV Zosyn. 2. Regular narrow complex tachycardia possible junctional tachycardia versus AVNRT possible secondary to abdominal pain: Previous EKG shows sinus rhythm with PAC in April 2022. Heart rate is controlled 77/min, BP normal 116/58. Denies chest pain shortness of breath or chronic heart or lung disease. TSH normal. Electrolytes in normal range. 05/18: Patient heart rate and blood pressure is controlled.Electrolytes in normal range. 3. LARISSA prerenal: -Baseline appears to be 0.68 and on admission creatinine is 1.04. Repeat creatinine 0.77. LARISSA resolved after IV fluid rehydration. Creatinine increased from 0.77 to 1.13. #Abnormal urinalysis/asymptomatic bacteriuria: Patient denies acute lower urinary tract symptoms including burning micturition. UA shows nitrates and leuk esterase however only 25-50 white blood cells and no bacteria seen, Zosyn started on admission to cover for both UTI and intra-abdominal infection, low suspicion for urinary tract infection given mild white blood cell count with no bacteria, urine culture was sent in ED -Did have a white blood cell count of 11.6 however no left shift and all cell lines appeared to be increased which is likely due to her relative volume depletion state #DVT ppx: SCDs Total time of the visit including total time spent in counseling or coordination of care, (more than 50% of the total time, spent in obtaining medical information from nurses and other ancillary care providers,explaining to the patient about labs, imaging, diagnosis and management of active complex medical conditions), discussion with the surgeon and wound nurse, wound inspection, review of labs and imaging is 50 minutes Charges/Coding Visit Charges Inpatient E&M: 76276 Subs Hosp L3
[2022-05-18] MEDS: Acetaminophen 325 MG Tablet 650 MG PO (16:45)
[2022-05-19] VITALS (15 sets, daily range): BP systolic 92–127; BP diastolic 60–82; PULSE 75–156; RESP 16–18; TEMP 36.6–37.4; O2SAT 93–96
--- NOTE | 2022-05-19 03:16 | EKG12_ITS ---
Test Reason : TACHYCARDIA Blood Pressure : / mmHG Vent. Rate : 133 BPM Atrial Rate : 000 BPM P-R Int : 000 ms QRS Dur : 092 ms QT Int : 272 ms P-R-T Axes : 000 023 -67 degrees QTc Int : 404 ms Supraventricular tachycardia RSR' or QR pattern in V1 suggests right ventricular conduction delay Nonspecific T wave abnormality Abnormal ECG When compared with ECG of 19-MAY-2022 03:24, MANUAL COMPARISON REQUIRED, DATA IS UNCONFIRMED Confirmed by SANDOVAL QUINONES, GAVIOTA ([id number]), school photograph editor LAURA HARRINGTON ([id number]) on 05/22/2022 11:09:35 AM Referred By: ALLEGRA Confirmed By:GAVIOTA NICK MD
[2022-05-19] MEDS: Metoprolol Tartrate 5 MG/5 ML Vial 2.5 MG IV (03:35)
[2022-05-19] MEDS: 0.9% Saline Lock 10 ML Syringe IV (03:36)
[2022-05-19] MEDS: HYDROmorphone 0.5 MG/0.5 ML SYRINGE IV ×3 (05:09→15:10)
[2022-05-19 05:14] LABS: Absolute Lymphocyte Count 0.73 X10^3/uL (0.83-4.51); Absolute Neutrophil Count 15.8 X10^3/uL (2.0-7.7); Basophil# 0.03 X10^3/uL; Basophil% 0.2 % (0-1); Hematocrit 29.2 % (37-47); Hemoglobin 9.4 g/dL (12.0-15.0); Lymphocyte # 0.73 X10^3/ul (0.83-4.51); Lymphocyte % 4.3 % (19-41); Mean Corp Hgb Conc 32.2 g/dL (32-36); Mean Corpuscular Hgb 28.1 pg (27.0-32.0); Mean Corpuscular Volume 87.2 fL (81-99); Mean Platelet Vol. 10.6 fl (6.2-12.0); Monocyte# 0.44 X10^3/uL; Monocyte% 2.6 % (0-10); NRBC Flagged by Analyzer 0 % (0-5); Neutrophil # 15.81 X10^3/uL (2.7-7.7); Neutrophil % 92.1 % (47-70); Platelet Count 141 K/mm3 (150-450); RBC Distribution Width CV 14.9 % (11.6-14.6); RBC Distribution Width SD 47.6 fl (35.1-43.9); Red Blood Count 3.35 M/mm3 (4.2-5.4); White Blood Count 17.1 K/mm3 (4.4-11.0)
--- NOTE | 2022-05-19 05:29 | PCM.HOSP.N ---
Hospitalist Note Received call about elevated heart rate, patient had similar rhythm which appeared to be possibly AVNRT while in the ED and converted she is now back in similar rhythm, did not respond to dose of beta-vicente, given amnio bolus which has began to slow heart rate down, vitals being monitored
[2022-05-19 05:38] LABS: Anion Gap 8 (5-15); BUN 19 mg/dL (7-18); BUN/Creat Ratio 22.7 RATIO (10-20); Calcium,Total 8.5 mg/dL (8.5-10.1); Chloride 105 mmol/L (98-107); Creatinine, Serum 0.84 mg/dL (0.55-1.02); EST Glomerular Filtration Rate 71 mL/min (>60); Est Glom Filt Rate - Afr Amer 86 mL/min (>60); Estimated Creatinine Clearance 55.84 ml/min; Glucose 110 mg/dL (74-106); Phosphorus 2.8 mg/dL (2.5-4.9); Potassium 3.7 mmol/L (3.5-5.1); Sodium Level 139 mmol/L (136-145)
--- NOTE | 2022-05-19 07:30 | PN.SURG_ITS ---
Subjective Subjective Patient complains of some pain in her lower abdomen near the Pfannenstiel incision. Patient's colostomy is beefy red no gas or stool. ZACHARIAH serosanguineous Objective Data Objective Data Vital Signs: Vital Signs Temp Pulse Resp BP Pulse Ox O2 Del Method O2 Flow Rate 98.8 F 138 H 18 106/70 93 Nasal Cannula 2 05/19/22 02:54 05/19/22 05:02 05/19/22 05:02 05/19/22 05:02 05/19/22 05:02 05/19/22 05:02 05/19/22 05:02 Oxygen Flow Rate (L/min) 2 Oxygen Delivery Method Nasal Cannula Weight: 157 lb 6.561 oz Body Mass Index (BMI) 25.4 Intake & Output: Intake and Output for Last 24 Hours 05/17/22 05/18/22 05/19/22 23:59 23:59 23:59 Intake Total 5610 / 5640 1383.34 / 1383.34 153 / 153 Output Total 1385 / 1985 1490 / 1490 165 / 165 Balance 4225 / 3655 -106.66 / -106.66 -12 / -12 Lab / Micro Data Result Diagrams: 05/19/22 04:05 05/19/22 04:05 Labs: Laboratory Results - last 24 hr 05/19/22 04:05: WBC 17.1 H, RBC 3.35 L, Hgb 9.4 L, Hct 29.2 L, MCV 87.2, MCH 28.1, MCHC 32.2 D, RDW Std Deviation 47.6 H, RDW Coeff of Nataliia 14.9 H, Plt Count 141 L, MPV 10.6, Immature Gran % (Auto) 0.800, Neut % (Auto) 92.1 H, Lymph % (Auto) 4.3 L, [place] % (Auto) 2.6, Eos % (Auto) 0.0, Baso % (Auto) 0.2, Absolute Neuts (auto) 15.8 H, Absolute Lymphs (auto) 0.73 L, Nucleated RBC % 0 05/19/22 04:05: Sodium 139, Potassium 3.7, Chloride 105, Carbon Dioxide 26.0, Anion Gap 8, BUN 19 H, Creatinine 0.84, Estim Creat Clear Calc 55.84, Est GFR (MDRD) Af Amer 86, Est GFR (MDRD) Non-Af 71, BUN/Creatinine Ratio 22.7 H, Glucose 110 H, Calcium 8.5, Phosphorus 2.8, Magnesium 2.0 Micro: Microbiology 05/16/22 19:20 Urine, Clean Catch Urine Culture - Final Mixed Gram Positive Organisms Physical Exam Resp normal respiratory effort Cardio regular rate GI GI Narrative: Abdomen: Soft, nondistended, tender near incision's dressed clean dry and intact with barbara, no peritoneal signs, serosanguineous drainage on dressing around ZACHARIAH?change?ZACHARIAH serosanguineous, left colostomy beefy red no gas or stool in bag Narrative: Green catheter in place Assessment & Plan Assessment/Plan (1) Status post colectomy: (2) Colon obstruction: (3) Severe protein-calorie malnutrition: PLAN: Plan We will continue n.p.o./IV fluids until patient has bowel function from her colostomy. Patient white blood count 17.1 will change to meropenem if this does not change by tomorrow patient may need a repeat CT abdomen pelvis. Patient's ZACHARIAH drainage is serosanguineous. Continue pain control. Lovenox for DVT prophylaxis/PPI for GI prophylaxis. Debbie Lauren M.D. Pager: [phone] [facility] [address] [place] [address], [facility], [address] [place] [id number] Office: [phone]
[2022-05-19] MEDS: Atenolol 25 MG Tablet PO (08:54)
[2022-05-19] MEDS: Enoxaparin 40 MG/0.4 ML Syringe SC (11:08)
[2022-05-19] MEDS: 0.9% Normal Saline 1,000 ML 100 ML IV ×2 (11:08→20:07)
[2022-05-19] MEDS: Acetaminophen 325 MG Tablet 650 MG PO ×2 (11:16→17:39)
--- NOTE | 2022-05-19 13:14 | EKG12_ITS ---
Test Reason : RHY CHANGE Blood Pressure : / mmHG Vent. Rate : 154 BPM Atrial Rate : 000 BPM P-R Int : 000 ms QRS Dur : 090 ms QT Int : 272 ms P-R-T Axes : 000 016 263 degrees QTc Int : 435 ms Supraventricular tachycardia Nonspecific ST and T wave abnormality Abnormal ECG When compared with ECG of 17-MAY-2022 00:16, MANUAL COMPARISON REQUIRED, DATA IS UNCONFIRMED Confirmed by SANDOVAL QUINONES, GAVIOTA ([id number]), newspaper copy editor LAURA HARRINGTON ([id number]) on 05/22/2022 11:11:56 AM Referred By: Confirmed By:GAVIOTA NICK MD
[2022-05-19] MEDS: Digoxin 250 MCG/ML Ampul 500 MCG IV (13:55)
[2022-05-19 14:19] LABS: Troponin-I HS 57 pg/mL (3.0-54.0)
--- NOTE | 2022-05-19 17:11 | PN.HOSP_ITS ---
Reason for Visit Reason for Visit: Abdominal pain Subjective Subjective Mrs. Trinidad is a 72-year-old white female who progressed presented to the emergency department at [facility] on 05/16/2022 Objective Data Objective Data Vital Signs: Vital Signs Temp Pulse Resp BP Pulse Ox O2 Del Method O2 Flow Rate 99.1 F 129 H 18 104/62 96 Room Air 2 05/19/22 14:58 05/19/22 14:58 05/19/22 14:58 05/19/22 14:58 05/19/22 14:58 05/19/22 14:58 05/19/22 14:01 Oxygen Flow Rate (L/min) 2 Oxygen Delivery Method Room Air Weight: 71.4 kg Body Mass Index (BMI) 25.4 Intake & Output: Intake and Output for Last 24 Hours 05/17/22 05/18/22 05/19/22 23:59 23:59 23:59 Intake Total 5610 / 5640 1383.34 / 1383.34 1629.29 / 1629.29 Output Total 1385 / 1985 1490 / 1490 590 / 590 Balance 4225 / 3655 -106.66 / -106.66 1039.29 / 1039.29 Lab / Micro Data Result Diagrams: 05/19/22 04:05 05/19/22 04:05 Labs: Laboratory Results - last 24 hr 05/19/22 04:05: WBC 17.1 H, RBC 3.35 L, Hgb 9.4 L, Hct 29.2 L, MCV 87.2, MCH 28.1, MCHC 32.2 D, RDW Std Deviation 47.6 H, RDW Coeff of Nataliia 14.9 H, Plt Count 141 L, MPV 10.6, Immature Gran % (Auto) 0.800, Neut % (Auto) 92.1 H, Lymph % (Auto) 4.3 L, [place] % (Auto) 2.6, Eos % (Auto) 0.0, Baso % (Auto) 0.2, Absolute Neuts (auto) 15.8 H, Absolute Lymphs (auto) 0.73 L, Nucleated RBC % 0 05/19/22 04:05: Sodium 139, Potassium 3.7, Chloride 105, Carbon Dioxide 26.0, Anion Gap 8, BUN 19 H, Creatinine 0.84, Estim Creat Clear Calc 55.84, Est GFR (MDRD) Af Amer 86, Est GFR (MDRD) Non-Af 71, BUN/Creatinine Ratio 22.7 H, Glucose 110 H, Calcium 8.5, Phosphorus 2.8, Magnesium 2.0 05/19/22 13:50: Troponin I High Sens 57 H Micro: Microbiology 05/16/22 19:20 Urine, Clean Catch Urine Culture - Final Mixed Gram Positive Organisms Assessment & Plan Assessment/Plan (1) Colon obstruction: (2) Status post colectomy: (3) SVT (supraventricular tachycardia): (4) Leukocytosis: (5) Ileus, postoperative: (6) Acute anemia: (7) Thrombocytopenia: (8) Elevated serum creatinine: (9) Elevated troponin I level: PLAN: Plan Colonic obstruction -Postop day 2 colectomy with colostomy -Patient still with no flatus or output of her ostomy -Continue n.p.o. -Continue IV fluids until return of bowel function -General surgery is following-appreciate input Postoperative ileus -See above Leukocytosis -Etiology unclear -Doubt this is reactive as she is 2 days postop -Check UA -Check chest x-ray -Check blood cultures -Antibiotics were switched by general surgery to meropenem -If white count remains elevated or continues to trend up over the next 24 hours may need to consider CT of the abdomen pelvis tomorrow -Fluid out of ZACHARIAH drain from pelvis is serosanguineous History of PAF with intermittent SVT -Patient is on atenolol chronically -Not chronically anticoagulated at this time -Had been on Eliquis previously but this appears to be of discontinued -Uncertain as to why -Appears that it was discontinued between her discharge on 03/14/2022 and her admission on 04/06/2022 -Discontinue oral atenolol -Digoxin x1 dose given -We will schedule 5 milligrams of metoprolol with hold parameters for blood pressure and heart rate -Patient did have echocardiogram on 05/17/2022 which showed an EF of 65% and mild tricuspid valve insufficiency as well as mild pulmonic valve insufficiency -TSH is normal Mild troponin elevation -Currently cycling -Suspect related to SVT -EKG without any ST-T wave changes concerning for acute ischemia Serum creatinine elevation -Resolved -Continue IV fluids until able to take p.o. Acute anemia -Hemoglobin 9.4 this morning -Suspect blood loss in OR plus dilutional -Repeat in a.m. for stability -No signs of acute blood loss Thrombocytopenia -Mild -Suspect delusional -Repeat CBC in a.m. GERD -Continue IV PPI Depression -Home duloxetine and sertraline reinitiated DVT prophylaxis -SCDs -Chemoprophylaxis per surgical service CODE STATUS -DNR with no intubation Charges/Coding Visit Charges Inpatient E&M: 84922 Subs Hosp L2
--- NOTE | 2022-05-19 17:15 | RAD_ITS ---
EXAM: XR CHEST, 1 VIEW CLINICAL INDICATION: Leukocytosis TECHNIQUE: Frontal view of the chest. This report was created using [employer] report generation technology. COMPARISON: May 17, 2022 FINDINGS: Moderate left pleural effusion with adjacent passive atelectasis. Small right pleural effusion with adjacent passive atelectasis. No pneumothorax. Transesophageal catheter has been discontinued. No other change compared to the prior study. RAD/Chest 1 View (Portable) IMPRESSION: 1. Moderate left pleural effusion with adjacent passive atelectasis. Small right pleural effusion with adjacent passive atelectasis. 2. No other interval change. Electronically Signed: Shahid Perry MD at 19:23 [facility] ,
[2022-05-19] MEDS: Metoprolol Tartrate 5 MG/5 ML Vial IV (17:39)
[2022-05-19 19:17] LABS: Troponin-I HS 80 pg/mL (3.0-54.0)
[2022-05-19 21:07] LABS: Troponin-I HS 106 pg/mL (3.0-54.0)
[2022-05-20] VITALS (10 sets, daily range): BP systolic 127–159; BP diastolic 60–73; PULSE 77–93; RESP 18; TEMP 36.7–37.2; O2SAT 96–98
[2022-05-20 01:01] LABS: Mucous, Urine 0 SEEN /hpf (<or=2+); Red Blood Cells-Urine 0 SEEN /hpf (0-5)
[2022-05-20 01:02] LABS: Color, Urine Yellow (Yellow); Glucose, Dipstick Normal (Normal); Ketone-Dipstick 50 mg/dl (Negative); Leukocyte Esterase-Dipstick 25 /ul (Negative); Nitrite-Dipstick Negative (Negative); Occult Blood-Urine 25 /ul (Negative); Protein-Dipstick 30 mg/dl (Negative); Specific Gravity, Urine 1.025 (1.002-1.030); Urine Bilirubin Dipstick Negative (Negative); Urine Clarity Clear (Clear); Urine Urobilinogen Normal (Normal)
[2022-05-20 01:45] LABS: Amorphous Sediment 1+; Fine Granular Cast- Urine 0-5 SEEN /lpf (0-5); Squamous Epithelial Cells - UA 0-5 SEEN /hpf (5-10); White Blood Cells 0-5 SEEN /hpf (0-5)
[2022-05-20 01:46] LABS: Bacteria 1+ /hpf (None Seen)
[2022-05-20] MEDS: Ondansetron 4 MG/2 ML Vial IV (05:48)
[2022-05-20] MEDS: 0.9% Saline Lock 10 ML Syringe IV ×3 (05:49→23:24)
[2022-05-20] MEDS: 0.9% Normal Saline 1,000 ML 100 ML IV (05:49)
[2022-05-20 06:26] LABS: Absolute Lymphocyte Count 0.69 X10^3/uL (0.83-4.51); Absolute Neutrophil Count 13.9 X10^3/uL (2.0-7.7); Basophil# 0.03 X10^3/uL; Basophil% 0.2 % (0-1); Hematocrit 23.4 % (37-47); Hemoglobin 7.3 g/dL (12.0-15.0); Lymphocyte # 0.69 X10^3/ul (0.83-4.51); Lymphocyte % 4.6 % (19-41); Mean Corp Hgb Conc 31.2 g/dL (32-36); Mean Corpuscular Hgb 27.7 pg (27.0-32.0); Mean Corpuscular Volume 88.6 fL (81-99); Mean Platelet Vol. 10.6 fl (6.2-12.0); Monocyte# 0.42 X10^3/uL; Monocyte% 2.8 % (0-10); NRBC Flagged by Analyzer 0 % (0-5); Neutrophil # 13.85 X10^3/uL (2.7-7.7); Neutrophil % 91.7 % (47-70); Platelet Count 101 K/mm3 (150-450); RBC Distribution Width SD 48.8 fl (35.1-43.9); Red Blood Count 2.64 M/mm3 (4.2-5.4); White Blood Count 15.1 K/mm3 (4.4-11.0)
[2022-05-20 06:49] LABS: ALB/GLOB Ratio 0.4 RATIO (0.9-2.4); AST(SGOT) 30 U/L (15-37); Alanine Aminotransfer ALT/SGPT 13 U/L (13-56); Albumin, Serum 1.5 g/dL (3.2-5.0); Alkaline Phosphatase 60 U/L (45-117); Anion Gap 7 (5-15); BUN 17 mg/dL (7-18); BUN/Creat Ratio 30.1 RATIO (10-20); Chloride 107 mmol/L (98-107); Creatinine, Serum 0.56 mg/dL (0.55-1.02); EST Glomerular Filtration Rate 112 mL/min (>60); Est Glom Filt Rate - Afr Amer 135 mL/min (>60); Globulin 3.4 g/dL (2.2-4.2); Glucose 84 mg/dL (74-106); Magnesium 2.2 mg/dL (1.6-2.6); Phosphorus 1.8 mg/dL (2.5-4.9); Potassium 3.5 mmol/L (3.5-5.1); Protein, Total 4.9 g/dL (6.4-8.2); Sodium Level 138 mmol/L (136-145)
[2022-05-20] MEDS: Metoprolol Tartrate 5 MG/5 ML Vial IV ×5 (06:55→23:24)
--- NOTE | 2022-05-20 08:41 | PCM.PN.SRG ---
Subjective Subjective No flatus out of the colostomy. Patient states that she wants to give up patient not wanting to get up into the chair this morning, patient's at bedside. Patient's hemoglobin was 7.3 we will recheck. Patient did require straight cath after trying to remove the Green. Objective Data Objective Data Vital Signs: Vital Signs Temp Pulse Resp BP Pulse Ox O2 Del Method O2 Flow Rate 98.6 F 78 18 129/60 H 97 Nasal Cannula 1 05/20/22 06:00 05/20/22 06:55 05/20/22 06:00 05/20/22 06:00 05/20/22 07:55 05/20/22 07:55 05/20/22 07:55 Oxygen Flow Rate (L/min) 1 Oxygen Delivery Method Nasal Cannula Weight: 157 lb 6.561 oz Body Mass Index (BMI) 25.4 Intake & Output: Intake and Output for Last 24 Hours 05/18/22 05/19/22 05/20/22 23:59 23:59 23:59 Intake Total 1383.34 / 1383.34 2880.49 / 2930.49 1141.25 / 1141.25 Output Total 1490 / 1490 730 / 770 440 / 440 Balance -106.66 / -106.66 2150.49 / 2160.49 701.25 / 701.25 Lab / Micro Data Result Diagrams: 05/20/22 09:13 05/20/22 05:24 Labs: Laboratory Results - last 24 hr 05/19/22 13:50: Troponin I High Sens 57 H 05/19/22 18:33: Troponin I High Sens 80 H 05/19/22 20:23: Troponin I High Sens 106 H 05/20/22 00:54: Urine Color Yellow, Urine Clarity Clear, Urine pH 6.0, Ur Specific [place] 1.025, Urine Protein 30 H, Urine Glucose (UA) Normal, Urine Ketones 50 H, Urine Occult Blood 25 H, Urine Nitrite Negative, Urine Bilirubin Negative, Urine Urobilinogen Normal, Ur Leukocyte Esterase 25 H, Urine RBC 0 SEEN, Urine WBC 0-5 SEEN, Ur Squamous Epith Cells 0-5 SEEN, Amorphous Sediment 1+, Urine Bacteria 1+, Fine Granular Casts 0-5 SEEN, Urine Mucus 0 SEEN 05/20/22 05:24: WBC 15.1 H, RBC 2.64 L, Hgb 7.3 L, Hct 23.4 L, MCV 88.6, MCH 27.7, MCHC 31.2 L, RDW Std Deviation 48.8 H, RDW Coeff of Nataliia 15.0 H, Plt Count 101 L, MPV 10.6, Immature Gran % (Auto) 0.700, Neut % (Auto) 91.7 H, Lymph % (Auto) 4.6 L, [place] % (Auto) 2.8, Eos % (Auto) 0.0, Baso % (Auto) 0.2, Absolute Neuts (auto) 13.9 H, Absolute Lymphs (auto) 0.69 L, Nucleated RBC % 0 05/20/22 05:24: Sodium 138, Potassium 3.5, Chloride 107, Carbon Dioxide 24.0, Anion Gap 7, BUN 17, Creatinine 0.56, Estim Creat Clear Calc 46.90, Est GFR (MDRD) Af Amer 135, Est GFR (MDRD) Non-Af 112, BUN/Creatinine Ratio 30.1 H, Glucose 84, Calcium 8.0 L, Phosphorus 1.8 L, Magnesium 2.2, Total Bilirubin 0.50, AST 30, ALT 13, Alkaline Phosphatase 60, Total Protein 4.9 L, Albumin 1.5 L, Globulin 3.4, Albumin/Globulin Ratio 0.4 L Micro: Microbiology 05/16/22 19:20 Urine, Clean Catch Urine Culture - Final Mixed Gram Positive Organisms Radiography Diagnostic Testing: Radiology Impression Chest X-Ray 05/19/22 17:15 IMPRESSION: 1. Moderate left pleural effusion with adjacent passive atelectasis. Small right pleural effusion with adjacent passive atelectasis. 2. No other interval change. Electronically Signed: Shahid Perry MD at 19:23 EST , Physical Exam Resp normal respiratory effort Cardio regular rate GI GI Narrative: Abdomen: Soft, nondistended, tender near incision's dressed clean dry and intact with barbara, no peritoneal signs, ZACHARIAH serosanguineous, left colostomy pink no stool or flatus in bag Narrative: Green catheter in place Assessment & Plan Assessment/Plan (1) Status post colectomy: (2) Colon obstruction: (3) Severe protein-calorie malnutrition: PLAN: Plan We will continue n.p.o./IV fluids until patient has bowel function from her colostomy. Patient's white blood count is down to 15 with the meropenem, ZACHARIAH drainage still serosanguineous. Patient's hemoglobin is 7.3 we will recheck H&H if still close to 7 would transfuse 1 unit. Addendum: Repeat is 7.8 we will hold off on transfusion currently Continue pain control. Lovenox for DVT prophylaxis?hold Lovenox due to hemoglobin/PPI for GI prophylaxis. Debbie Lauren M.D. Pager: [phone] [facility] [address] [place] [address], [facility], [address] [place] [address] Office: [phone]
[2022-05-20] MEDS: proCHLORPERazine 10 MG/2 ML Vial IV (08:55)
[2022-05-20] MEDS: HYDROmorphone 0.5 MG/0.5 ML SYRINGE IV ×4 (08:55→23:53)
[2022-05-20 09:39] LABS: Hematocrit 25.2 % (37-47); Hemoglobin 7.8 g/dL (12.0-15.0)
[2022-05-20] MEDS: Acetaminophen 325 MG Tablet 650 MG PO ×3 (11:32→23:27)
--- NOTE | 2022-05-20 13:12 | PN.HOSP_ITS ---
Reason for Visit Reason for Visit: Abdominal pain Subjective Subjective No issues overnight. Heart rate have improved since yesterday afternoon and patient is no longer tachycardic. We did find a pleural effusion on the left side on her chest x-ray. I did discuss the need for thoracentesis with her and she was agreeable. We will plan on this for tomorrow. Patient's only complaint at this time is abdominal pain related to her surgery. Objective Data Objective Data Vital Signs: Vital Signs Temp Pulse Resp BP Pulse Ox O2 Del Method O2 Flow Rate 98.8 F 80 18 127/61 H 98 Nasal Cannula 2 05/20/22 11:30 05/20/22 11:33 05/20/22 11:30 05/20/22 11:33 05/20/22 11:30 05/20/22 11:30 05/20/22 11:30 Oxygen Flow Rate (L/min) 2 Oxygen Delivery Method Nasal Cannula Weight: 71.4 kg Body Mass Index (BMI) 25.4 Intake & Output: Intake and Output for Last 24 Hours 05/18/22 05/19/22 05/20/22 23:59 23:59 23:59 Intake Total 1383.34 / 1383.34 2880.49 / 2930.49 1261.25 / 1261.25 Output Total 1490 / 1490 730 / 770 750 / 750 Balance -106.66 / -106.66 2150.49 / 2160.49 511.25 / 511.25 Lab / Micro Data Result Diagrams: 05/20/22 09:13 05/20/22 05:24 Labs: Laboratory Results - last 24 hr 05/19/22 13:50: Troponin I High Sens 57 H 05/19/22 18:33: Troponin I High Sens 80 H 05/19/22 20:23: Troponin I High Sens 106 H 05/20/22 00:54: Urine Color Yellow, Urine Clarity Clear, Urine pH 6.0, Ur Specific [place] 1.025, Urine Protein 30 H, Urine Glucose (UA) Normal, Urine Ketones 50 H, Urine Occult Blood 25 H, Urine Nitrite Negative, Urine Bilirubin Negative, Urine Urobilinogen Normal, Ur Leukocyte Esterase 25 H, Urine RBC 0 SEEN, Urine WBC 0-5 SEEN, Ur Squamous Epith Cells 0-5 SEEN, Amorphous Sediment 1+, Urine Bacteria 1+, Fine Granular Casts 0-5 SEEN, Urine Mucus 0 SEEN 05/20/22 05:24: WBC 15.1 H, RBC 2.64 L, Hgb 7.3 L, Hct 23.4 L, MCV 88.6, MCH 27.7, MCHC 31.2 L, RDW Std Deviation 48.8 H, RDW Coeff of Nataliia 15.0 H, Plt Count 101 L, MPV 10.6, Immature Gran % (Auto) 0.700, Neut % (Auto) 91.7 H, Lymph % (Auto) 4.6 L, [place] % (Auto) 2.8, Eos % (Auto) 0.0, Baso % (Auto) 0.2, Absolute Neuts (auto) 13.9 H, Absolute Lymphs (auto) 0.69 L, Nucleated RBC % 0 05/20/22 05:24: Sodium 138, Potassium 3.5, Chloride 107, Carbon Dioxide 24.0, Anion Gap 7, BUN 17, Creatinine 0.56, Estim Creat Clear Calc 46.90, Est GFR (MDRD) Af Amer 135, Est GFR (MDRD) Non-Af 112, BUN/Creatinine Ratio 30.1 H, Glucose 84, Calcium 8.0 L, Phosphorus 1.8 L, Magnesium 2.2, Total Bilirubin 0.50, AST 30, ALT 13, Alkaline Phosphatase 60, Total Protein 4.9 L, Albumin 1.5 L, Globulin 3.4, Albumin/Globulin Ratio 0.4 L 05/20/22 09:13: Hgb 7.8 L, Hct 25.2 L Micro: Microbiology 05/16/22 19:20 Urine, Clean Catch Urine Culture - Final Mixed Gram Positive Organisms Radiography Diagnostic Testing: Radiology Impression Chest X-Ray 05/19/22 17:15 IMPRESSION: 1. Moderate left pleural effusion with adjacent passive atelectasis. Small right pleural effusion with adjacent passive atelectasis. 2. No other interval change. Electronically Signed: Shahid Perry MD at 19:23 EST , Physical Exam Const alert, oriented x3 and no apparent distress Constitutional Narrative: Older white female lying in bed, appears comfortable and nontoxic HEENT head/scalp atraumatic and moist oral mucous membranes Head and Scalp: normocephalic Resp normal respiratory effort, no retractions and no use of accessory muscles Resp Narrative: Diminished breath sounds left base greater than right base with few crackles noted Auscultation: crackles; Negative for rhonchi or wheezes Cardio regular rate, regular rhythm, S1 normal heart sound, S2 normal heart sound, no murmurs, no rub, no gallops and no clicks GI GI Narrative: Ostomy bag with minimal output, bowel sounds were normal active, tenderness di ffusely related to surgery, no significant distention, soft Extremity no clubbing, cyanosis or edema Extremity Narrative: 2+ pedal pulses Neuro oriented x3, moves all extremities and no focal motor deficits Speech: speech normal Psych Psych Narrative: Affect is flat, mood seems depressed Assessment & Plan Assessment/Plan (1) Colon obstruction: (2) Status post colectomy: (3) SVT (supraventricular tachycardia): (4) Leukocytosis: (5) Ileus, postoperative: (6) Acute anemia: (7) Thrombocytopenia: (8) Elevated serum creatinine: (9) Elevated troponin I level: (10) Hypophosphatemia: (11) Pleural effusion: PLAN: Plan Colonic obstruction -Postop day 3 colectomy with colostomy -Patient still with no flatus or output of her ostomy -Continue n.p.o. -Continue IV fluids until return of bowel function--> but decrease rate from 100 to 70 cc/h as patient seems to be getting element of volume overload -General surgery is following-appreciate input Postoperative ileus -See above -Improving Leukocytosis -Etiology unclear -Doubt this is reactive as she is 2 days postop -UA is unremarkable -No significant infiltrate on chest x-ray however she does have pleural effusion -Blood cultures are pending -Continue meropenem -White count is somewhat improved today -Fluid out of ZACHARIAH drain from pelvis remains serosanguineous History of PAF with intermittent SVT -Patient is on atenolol chronically -Not chronically anticoagulated at this time -Had been on Eliquis previously but this appears to be of discontinued -Uncertain as to why -Appears that it was discontinued between her discharge on 03/14/2022 and her admission on 04/06/2022 -Heart rates are better -Continue IV metoprolol every 6 hours until we can assure absorption from is improved -Will likely transition her from atenolol to metoprolol at that time -Patient did have echocardiogram on 05/17/2022 which showed an EF of 65% and mild tricuspid valve insufficiency as well as mild pulmonic valve insufficiency -TSH is normal Mild troponin elevation -Peaked at 108 -Suspect related to SVT -No chest pain -EKG without any ST-T wave changes concerning for acute ischemia -Rhythm is improved -Repeat troponin in a.m. -Patient did have echocardiogram and not currently having any wall motion abnormality Serum creatinine elevation -Resolved -Continue IV fluids until able to take p.o. Hypophosphatemia -K-Phos bolus given -Repeat lab in a.m. Acute anemia -Hemoglobin 7.3 this morning with repeat at 7.8 showing stability -Suspect blood loss in OR plus dilutional -Repeat in a.m. for stability -No signs of acute blood loss Thrombocytopenia -Trending down -Etiology unclear however may be related to antibiotic use and fluids -Repeat CBC in a.m. GERD -Continue IV PPI Depression -Continue Home duloxetine and sertraline DVT prophylaxis -SCDs -Chemoprophylaxis per surgical service--> currently on hold CODE STATUS -DNR with no intubation Charges/Coding Visit Charges Inpatient E&M: 14408 [facility] Hosp L2
[2022-05-20] MEDS: 0.9% Normal Saline 1,000 ML 70 ML IV (19:52)
--- NOTE | 2022-05-20 22:52 | NURSING ---
Patient needs a lot of encouragement to participate in care. Patient does not want to get out of bed, RN frequently encouraging IS and educated about importance of moving and IS after surgery. Patient verbalizes understands.
[2022-05-21] VITALS (12 sets, daily range): BP systolic 123–155; BP diastolic 66–75; PULSE 83–97; RESP 14–18; TEMP 36.7–37.9; O2SAT 90–96
[2022-05-21] MEDS: 0.9% Saline Lock 10 ML Syringe IV ×4 (05:32→23:43)
[2022-05-21] MEDS: Metoprolol Tartrate 5 MG/5 ML Vial IV ×4 (05:32→23:38)
[2022-05-21 05:52] LABS: Absolute Lymphocyte Count 0.63 X10^3/uL (0.83-4.51); Absolute Neutrophil Count 12.7 X10^3/uL (2.0-7.7); Basophil# 0.02 X10^3/uL; Basophil% 0.1 % (0-1); Hematocrit 25.5 % (37-47); Lymphocyte # 0.63 X10^3/ul (0.83-4.51); Lymphocyte % 4.4 % (19-41); Mean Corp Hgb Conc 31.4 g/dL (32-36); Mean Corpuscular Hgb 27.7 pg (27.0-32.0); Mean Corpuscular Volume 88.2 fL (81-99); Mean Platelet Vol. 11.3 fl (6.2-12.0); Monocyte# 0.71 X10^3/uL; NRBC Flagged by Analyzer 0 % (0-5); Neutrophil % 89.8 % (47-70); Platelet Count 124 K/mm3 (150-450); RBC Distribution Width CV 14.9 % (11.6-14.6); RBC Distribution Width SD 48.9 fl (35.1-43.9); Red Blood Count 2.89 M/mm3 (4.2-5.4); White Blood Count 14.2 K/mm3 (4.4-11.0)
[2022-05-21 06:25] LABS: Troponin-I HS 32 pg/mL (3.0-54.0)
--- NOTE | 2022-05-21 07:00 | US_ITS ---
STUDY: SUPERFICIAL ULTRASOUND - LEFT PLEURA. REASON FOR EXAM: Female, 72 years old. L effusion TECHNIQUE: A superficial ultrasound was performed with real-time and static ojeda-scale imaging. COMPARISON: None. FINDINGS: Trace amount of left pleural effusion. Not enough for safe thoracentesis. US/Chest IMPRESSION: Trace amount of left pleural effusion. Not enough for safe thoracentesis. Electronically Signed: Fabian Massey MD at 10:04 EST ,
[2022-05-21 07:30] LABS: ALB/GLOB Ratio 0.4 RATIO (0.9-2.4); AST(SGOT) 24 U/L (15-37); Alanine Aminotransfer ALT/SGPT 11 U/L (13-56); Albumin, Serum 1.5 g/dL (3.2-5.0); Alkaline Phosphatase 65 U/L (45-117); Anion Gap 10 (5-15); BUN 14 mg/dL (7-18); BUN/Creat Ratio 27.4 RATIO (10-20); Calcium,Total 8.2 mg/dL (8.5-10.1); Chloride 109 mmol/L (98-107); Creatinine, Serum 0.51 mg/dL (0.55-1.02); EST Glomerular Filtration Rate 125 mL/min (>60); Est Glom Filt Rate - Afr Amer 152 mL/min (>60); Globulin 3.6 g/dL (2.2-4.2); Glucose 74 mg/dL (74-106); LDH 392 U/L (84-246); Potassium 3.5 mmol/L (3.5-5.1); Protein, Total 5.1 g/dL (6.4-8.2); Sodium Level 140 mmol/L (136-145)
--- NOTE | 2022-05-21 08:48 | PN.SURG_ITS ---
Subjective Subjective Patient seen and examined during AM rounds. She initially reports that she is not doing well. By this she acknowledges feeling down and still has significant postoperative abdominal pain. Nursing reports that patient has had flatus but no stool in her bag. Mrs. Trinidad reports hunger and denies any recent nausea, belching, or hiccups. Objective Data Objective Data Vital Signs: Vital Signs Temp Pulse Resp BP Pulse Ox O2 Del Method O2 Flow Rate 98.9 F 89 18 155/74 H 96 Nasal Cannula 2 05/21/22 05:20 05/21/22 05:32 05/21/22 05:20 05/21/22 05:20 05/21/22 05:20 05/21/22 05:20 05/21/22 05:20 Oxygen Flow Rate (L/min) 2 Oxygen Delivery Method Nasal Cannula Weight: 157 lb 6.561 oz Body Mass Index (BMI) 25.4 Intake & Output: Intake and Output for Last 24 Hours 05/19/22 05/20/22 05/21/22 23:59 23:59 23:59 Intake Total 2880.49 / 2930.49 3153.25 / 3153.25 604.53 / 604.53 Output Total 730 / 770 1010 / 1480 870 / 870 Balance 2150.49 / 2160.49 2143.25 / 1673.25 -265.47 / -265.47 Lab / Micro Data Result Diagrams: 05/21/22 05:10 05/21/22 05:10 Labs: Laboratory Results - last 24 hr 05/20/22 09:13: Hgb 7.8 L, Hct 25.2 L 05/21/22 05:10: Sodium 140, Potassium 3.5, Chloride 109 H, Carbon Dioxide 21.0, Anion Gap 10, BUN 14, Creatinine 0.51 L, Estim Creat Clear Calc 46.90, Est GFR (MDRD) Af Amer 152, Est GFR (MDRD) Non-Af 125, BUN/Creatinine Ratio 27.4 H, Glucose 74, Calcium 8.2 L, Total Bilirubin 0.50, AST 24, ALT 11 L, Alkaline Phosphatase 65, Lactate Dehydrogenase 392 H, Total Protein 5.1 L, Albumin 1.5 L, Globulin 3.6, Albumin/Globulin Ratio 0.4 L 05/21/22 05:10: WBC 14.2 H, RBC 2.89 L, Hgb 8.0 L, Hct 25.5 L, MCV 88.2, MCH 27.7, MCHC 31.4 L, RDW Std Deviation 48.9 H, RDW Coeff of Nataliia 14.9 H, Plt Count 124 L, MPV 11.3, Immature Gran % (Auto) 0.700, Neut % (Auto) 89.8 H, Lymph % (Auto) 4.4 L, [place] % (Auto) 5.0, Eos % (Auto) 0.0, Baso % (Auto) 0.1, Absolute Neuts (auto) 12.7 H, Absolute Lymphs (auto) 0.63 L, Nucleated RBC % 0 05/21/22 05:10: Phosphorus 2.0 L, Troponin I High Sens 32 Micro: Microbiology 05/16/22 19:20 Urine, Clean Catch Urine Culture - Final Mixed Gram Positive Organisms Physical Exam Const oriented x3 Constitutional Narrative: Depressed mood Resp normal respiratory effort Resp Narrative: 2 L nasal cannula in place GI GI Narrative: Mildly distended, operative sites remain dressed and Pfannenstiel and drain site in right lower quadrant both they are saturated dressings with serosanguineous fluid. Right lower quadrant drain with serosanguineous output. Left abdominal ostomy with lots of gas distending ostomy appliance. Stoma is digitized and I feel stool right at the level of the fascia. Patient has diffuse tenderness with palpation, but her abdominal wall is soft. Assessment & Plan Assessment/Plan (1) Colon obstruction: PLAN: Patient is a 72-year-old female who is admitted on 05/16/2022 due to f indings of partial bowel obstruction with stricture versus possible neoplasm of the sigmoid colon. Given her presentation, and second admission to the hospital, she was taken 05/17/22 for a hand assist laparoscopic sigmoid colectomy with creation of end colostomy (after intraoperative failure of end-to-end anastomosis). Patient has experienced partial return of bowel function with gas in her ostomy appliance. On digitizing her ostomy I do feel stool right at the level of the fascia. She expresses hunger and denies any signs of ileus. Therefore I will advance her to clear liquids, but hold at this point until she is fully demonstrating return of bowel function. Otherwise she is on the [facility] for thoracentesis later today for drainage and further evaluation of the pleural effusion. I have discussed with her the need for more mobilization to improve her pulmonary toilet. She appears depressed postoperatively and I have tried to encourage her that if we are able to resume bowel function today this would be a significant step forward in her recovery. From an ID standpoint, she has experienced a downtrend of her white count. Her abdominal exam remains appropriate and her right lower quadrant drain output remains benign. Neuro: As needed Dilaudid, will add p.o. pain medication once patient improves diet tolerance and ongoing bowel function Pulm/CV: Incentive spirometer, wean supplemental O2 as needed, awaiting thoracentesis today, monitor blood pressure FEN/GI: Daily labs for electrolytes?hypophosphatemia today?replace. Advance to clear liquid diet without carbonation, nasogastric tube discontinued 05/18/2022, wound and ostomy nursing for ostomy maintenance : Patient voiding status post Green catheter removal, treated for community- acquired UTI Heme/ID: Patient's hemoglobin down trended postop, but appears to be rebounding, white blood cell count appears to be trending down with change to antibiotics. I would like to continue patient's drain until she is having regular bowel function and tolerating a regular diet?anticipate for at least another 24 hours. Nursing has been informed of what to look for with this drain. Endo: No current issues Proph: Patient encouraged to ambulate and be in a chair is much as possible. PT OT ordered. Dispo: Continue inpatient stay (2) Status post colectomy: Charges/Coding Visit Charges Inpatient E&M: 63366 Init Hosp L2
[2022-05-21] MEDS: HYDROmorphone 0.5 MG/0.5 ML SYRINGE IV (10:19)
[2022-05-21] MEDS: Furosemide 20 MG/2 ML VIAL IV (10:20)
--- NOTE | 2022-05-21 11:48 | WOUNDNOTE ---
Pt currently being taken down for thoracentesis. plan to change ostomy appliance later today with .
--- NOTE | 2022-05-21 14:30 | CASEMGMT ---
RN CM updated by wound nurse that patient would benefit from HHC for ostomy teaching. RN CM in to patient's room to discuss discharge needs. Therapy at bedside and recommending HHC at discharge as well. A list of HHC providers including quality and resource use data and consistent with the patient?s preferred geographical region, medical needs, and insurance network were provided from the [employer] Guide. and patient to review list and provide preferences.
--- NOTE | 2022-05-21 15:04 | WOUNDNOTE ---
stoma photo: left lower abdomen
--- NOTE | 2022-05-21 15:05 | WOUNDNOTE ---
wound photo: lower abdomen
--- NOTE | 2022-05-21 15:07 | WOUNDNOTE ---
In to change the colostomy appliance with patient and . there is a small amount of unformed brown stool noted in the appliance. stoma is dark pink and moist. stoma sits just above the skin level. no mucocutaneous separation noted. peristomal skin is intact. gently cleansed skin with warm water. pat dry. placed a new 2 piece flat Jabier appliance. new pattern made for . did discuss that the stoma will most likely still decrease in size. very involved in care and very willing to learn. did still recommend home health care at home to further ostomy teaching with them. pt tolerated well. change dressing to the lower abdomen and ZACHARIAH dressing as well. there was a moderate amount of drainage noted on the old ZACHARIAH dressing. pt tolerated well. see wound/stoma photos.
--- NOTE | 2022-05-21 15:21 | PN.HOSP_ITS ---
Reason for Visit Reason for Visit: Abdominal pain Subjective Subjective Still having some abdominal pain however patient is out of bed today. Was s tarted on a clear liquid diet and did fairly well with breakfast. No other significant complaints. White count continues to trend down with antibiotic change. No fevers. Objective Data Objective Data Vital Signs: Vital Signs Temp Pulse Resp BP Pulse Ox O2 Del Method O2 Flow Rate 98.6 F 88 14 140/75 H 93 Room Air 2 05/21/22 11:24 05/21/22 15:05 05/21/22 11:24 05/21/22 11:24 05/21/22 14:21 05/21/22 15:05 05/21/22 05:20 Oxygen Flow Rate (L/min) 2 Oxygen Delivery Method Room Air Weight: 71.4 kg Body Mass Index (BMI) 25.4 Intake & Output: Intake and Output for Last 24 Hours 05/19/22 05/20/22 05/21/22 23:59 23:59 23:59 Intake Total 2880.49 / 2930.49 3153.25 / 3153.25 1189.69 / 1189.69 Output Total 730 / 770 1010 / 1480 3510 / 3510 Balance 2150.49 / 2160.49 2143.25 / 1673.25 -2320.31 / -2320.31 Medical Nutrition Assessment Dietitian: Malnutrition Criteria Met Start: 05/21/22 13:58 Freq: Status: Active Protocol: Document 05/21/22 13:58 LO (Rec: 05/21/22 13:58 [id number]) Nutrition Malnutrition Evidence of Malnutrition Exists Yes Malnutrition (severe): Chronic Evidenced By Suboptimal Energy Intake ( Severe),Weight Loss (Severe) Intake Problem Inadequate Oral Intake Etiology related to inability to consume sufficient energy Signs/Symptoms as evidenced by NPO/Clear Liquid diet for 4 days Status Active Problem Clinical Problem Chronic Disease or Condition Related Malnutrition Etiology related to altered GI function Signs/Symptoms as evidenced by 15.9lbs (10.1% weight loss in 2 months and < 75% PO intake of estimated needs for >1 month Status Active Problem Unintended Weight Loss Etiology related to unknown etiology Signs/Symptoms as evidenced by 15.9lbs (10.1% ) weight loss in 2 months Status Inactive Problem Recommendation Dietitian Recommendations/Changes ADAT To Low Fiber diet when medically able to manage medical conditions. Recommend 120mL EPHP TID when diet advances >Clear Liquid. RD will order 120mL Ensure Clear 4x with medpass to provide supplemental energy. Lab / Micro Data Result Diagrams: 05/21/22 05:10 05/21/22 05:10 Labs: Laboratory Results - last 24 hr 05/21/22 05:10: Sodium 140, Potassium 3.5, Chloride 109 H, Carbon Dioxide 21.0, Anion Gap 10, BUN 14, Creatinine 0.51 L, Estim Creat Clear Calc 46.90, Est GFR (MDRD) Af Amer 152, Est GFR (MDRD) Non-Af 125, BUN/Creatinine Ratio 27.4 H, Glucose 74, Calcium 8.2 L, Total Bilirubin 0.50, AST 24, ALT 11 L, Alkaline Phosphatase 65, Lactate Dehydrogenase 392 H, Total Protein 5.1 L, Albumin 1.5 L, Globulin 3.6, Albumin/Globulin Ratio 0.4 L 05/21/22 05:10: WBC 14.2 H, RBC 2.89 L, Hgb 8.0 L, Hct 25.5 L, MCV 88.2, MCH 27.7, MCHC 31.4 L, RDW Std Deviation 48.9 H, RDW Coeff of Nataliia 14.9 H, Plt Count 124 L, MPV 11.3, Immature Gran % (Auto) 0.700, Neut % (Auto) 89.8 H, Lymph % (Auto) 4.4 L, [place] % (Auto) 5.0, Eos % (Auto) 0.0, Baso % (Auto) 0.1, Absolute Neuts (auto) 12.7 H, Absolute Lymphs (auto) 0.63 L, Nucleated RBC % 0 05/21/22 05:10: Phosphorus 2.0 L, Troponin I High Sens 32 Micro: Microbiology 05/16/22 19:20 Urine, Clean Catch Urine Culture - Final Mixed Gram Positive Organisms Physical Exam Const alert, oriented x3 and no apparent distress Constitutional Narrative: Older white female, sitting up in a chair at the bedside, appears comfortable and nontoxic, is at bedside HEENT head/scalp atraumatic and moist oral mucous membranes HEENT Narrative: Mallampati 2-3, no thrush Head and Scalp: normocephalic Resp normal respiratory effort, no retractions and no use of accessory muscles Resp Narrative: Diminished breath sounds left base greater than right base with few crackles noted Auscultation: crackles; Negative for rhonchi or wheezes Cardio regular rate, regular rhythm, S1 normal heart sound, S2 normal heart sound, no murmurs, no rub, no gallops and no clicks GI GI Narrative: Ostomy bag with minimal output, bowel sounds were normal active, tenderness d iffusely related to surgery, no significant distention, soft Extremity no clubbing, cyanosis or edema Extremity Narrative: 2+ pedal pulses Neuro oriented x3, moves all extremities and no focal motor deficits Speech: speech normal Psych Psych Narrative: Affect remains flat but mood seems a bit less depressed today with at bedside, she was joking some with him today Assessment & Plan Assessment/Plan (1) Colon obstruction: (2) Status post colectomy: (3) SVT (supraventricular tachycardia): (4) Leukocytosis: (5) Ileus, postoperative: (6) Acute anemia: (7) Thrombocytopenia: (8) Elevated serum creatinine: (9) Elevated troponin I level: (10) Hypophosphatemia: (11) Pleural effusion: PLAN: Plan Colonic obstruction -Postop day 4 colectomy with colostomy -Bowel sounds are improving no significant ostomy output yet -Liquid diet initiated -Continue IV fluids -General surgery is following-appreciate input Postoperative ileus -See above -Improving Leukocytosis -Etiology unclear -UA is unremarkable -Urine culture shows contaminated specimen with mixed gram-positive organisms at 1000-10,000 CFU's per mL -No significant infiltrate on chest x-ray however she does have pleural effusion -Blood cultures remain pending -Continue meropenem -White count down again today but not normalized -Fluid out of ZACHARIAH drain from pelvis remains serosanguineous History of PAF with intermittent SVT -Patient is on atenolol chronically -Not chronically anticoagulated at this time -Had been on Eliquis previously but this appears to be of discontinued -Uncertain as to why -Appears that it was discontinued between her discharge on 03/14/2022 and her admission on 04/06/2022 -Would like to reinitiate Eliquis when okay with general surgery -Heart rates are controlled and patient is currently in sinus rhythm -Continue IV metoprolol every 6 hours until we can assure absorption from is improved -Will likely transition her from atenolol to metoprolol at that time -Patient did have echocardiogram on 05/17/2022 which showed an EF of 65% and mild tricuspid valve insufficiency as well as mild pulmonic valve insufficiency -TSH is normal Mild troponin elevation -Peaked at 108--> and normalized rapidly once SVT had resolved -Suspect related to SVT -No chest pain -EKG without any ST-T wave changes concerning for acute ischemia -Patient back in sinus rhythm -Patient did have echocardiogram and not currently having any wall motion abnormality Hypophosphatemia -Repeat K-Phos bolus given -Repeat lab in a.m. Acute anemia -Hemoglobin 8.0 this morning and up from 7.8 yesterday afternoon -Suspect blood loss in OR plus dilutional -Repeat in a.m. for stability -No signs of acute blood loss Thrombocytopenia -Appears to have stabilized -Etiology unclear however may be related to antibiotic use and fluids -Repeat CBC in a.m. GERD -Continue IV PPI Depression -Continue Home duloxetine and sertraline DVT prophylaxis -SCDs -Chemoprophylaxis per surgical service--> currently on hold CODE STATUS -DNR with no intubation Charges/Coding Visit Charges Inpatient E&M: 94781 Subs Hosp L2
[2022-05-21] MEDS: Ensure Clear 120 ML Liquid PO ×3 (16:08→22:07)
[2022-05-21] MEDS: Furosemide 40 MG/4 ML Vial IV (17:47)
[2022-05-21] MEDS: Acetaminophen 325 MG Tablet 650 MG PO (18:03)
--- NOTE | 2022-05-21 18:23 | NURSING ---
c/o feeling dizzy while sitting in recliner, assisted her back to bed. bp is 146/73. heart rate 96. blood glucose 183, states it is starting to resolve.
--- NOTE | 2022-05-21 18:32 | NURSING ---
Dr Estrada update: pt c/o dizziness while giviing lasix, assisted her back to bed bp 146/73, hr 96, had received lopressor about 15 minutes prior to lasix. blood glucose is 183, and dizziness is starting to resolve.
[2022-05-21 18:45] LABS: Bedside Glucose 183 mg/dL (74-106)
[2022-05-22] VITALS (9 sets, daily range): BP systolic 120–151; BP diastolic 66–81; PULSE 80–95; RESP 16–18; TEMP 36.9–37.5; O2SAT 91–95; BMI 26.8
[2022-05-22] MEDS: Acetaminophen 325 MG Tablet 650 MG PO ×3 (01:44→19:25)
[2022-05-22 05:54] LABS: Absolute Lymphocyte Count 0.73 X10^3/uL (0.83-4.51); Absolute Neutrophil Count 11.6 X10^3/uL (2.0-7.7); Basophil# 0.02 X10^3/uL; Basophil% 0.2 % (0-1); Hematocrit 27.5 % (37-47); Hemoglobin 9.1 g/dL (12.0-15.0); Lymphocyte # 0.73 X10^3/ul (0.83-4.51); Lymphocyte % 5.5 % (19-41); Mean Corp Hgb Conc 33.1 g/dL (32-36); Mean Corpuscular Hgb 27.5 pg (27.0-32.0); Mean Corpuscular Volume 83.1 fL (81-99); Mean Platelet Vol. 11.4 fl (6.2-12.0); Monocyte# 0.74 X10^3/uL; Monocyte% 5.6 % (0-10); NRBC Flagged by Analyzer 0.2 % (0-5); Neutrophil % 87.6 % (47-70); Platelet Count 150 K/mm3 (150-450); RBC Distribution Width CV 14.7 % (11.6-14.6); RBC Distribution Width SD 44.8 fl (35.1-43.9); Red Blood Count 3.31 M/mm3 (4.2-5.4); White Blood Count 13.2 K/mm3 (4.4-11.0)
[2022-05-22] MEDS: Metoprolol Tartrate 5 MG/5 ML Vial IV ×2 (06:06→13:33)
[2022-05-22 06:47] LABS: Anion Gap 7 (5-15); BUN 10 mg/dL (7-18); BUN/Creat Ratio 17.2 RATIO (10-20); Calcium,Total 8.2 mg/dL (8.5-10.1); Chloride 97 mmol/L (98-107); Creatinine, Serum 0.58 mg/dL (0.55-1.02); EST Glomerular Filtration Rate 108 mL/min (>60); Est Glom Filt Rate - Afr Amer 130 mL/min (>60); Glucose 118 mg/dL (74-106); Phosphorus 1.4 mg/dL (2.5-4.9); Potassium 2.8 mmol/L (3.5-5.1); Sodium Level 135 mmol/L (136-145)
--- NOTE | 2022-05-22 08:27 | PN.SURG_ITS ---
Subjective Subjective Patient seen and examined during AM rounds and again during the afternoon. In the morning she reported that she was no better than yesterday and complained of abdominal pain. She also reported minimal oral intake as she simply did not have an appetite. She denies significant nausea, hiccuping, or burping. Objective Data Objective Data Vital Signs: Vital Signs Temp Pulse Resp BP Pulse Ox O2 Del Method O2 Flow Rate 98.6 F 82 18 132/74 H 91 Room Air 2 05/22/22 06:04 05/22/22 06:06 05/22/22 06:04 05/22/22 06:06 05/22/22 07:57 05/22/22 07:57 05/21/22 05:20 Oxygen Flow Rate (L/min) 2 Oxygen Delivery Method Room Air Weight: 166 lb 3.657 oz Body Mass Index (BMI) 26.8 Intake & Output: Intake and Output for Last 24 Hours 05/20/22 05/21/22 05/22/22 23:59 23:59 23:59 Intake Total 3153.25 / 3153.25 1709.69 / 1709.69 300 / 300 Output Total 1010 / 1480 6680 / 6680 370 / 370 Balance 2143.25 / 1673.25 -4970.31 / -4970.31 -70 / -70 Medical Nutrition Assessment Dietitian: Malnutrition Criteria Met Start: 05/21/22 13:58 Freq: Status: Active Protocol: Document 05/21/22 13:58 (Rec: 05/21/22 13:58 [id number]) Nutrition Malnutrition Evidence of Malnutrition Exists Yes Malnutrition (severe): Chronic Evidenced By Suboptimal Energy Intake ( Severe),Weight Loss (Severe) Intake Problem Inadequate Oral Intake Etiology related to inability to consume sufficient energy Signs/Symptoms as evidenced by NPO/Clear Liquid diet for 4 days Status Active Problem Clinical Problem Chronic Disease or Condition Related Malnutrition Etiology related to altered GI function Signs/Symptoms as evidenced by 15.9lbs (10.1% weight loss in 2 months and < 75% PO intake of estimated needs for >1 month Status Active Problem Unintended Weight Loss Etiology related to unknown etiology Signs/Symptoms as evidenced by 15.9lbs (10.1% ) weight loss in 2 months Status Inactive Problem Recommendation Dietitian Recommendations/Changes ADAT To Low Fiber diet when medically able to manage medical conditions. Recommend 120mL EPHP TID when diet advances >Clear Liquid. RD will order 120mL Ensure Clear 4x with medpass to provide supplemental energy. Lab / Micro Data Result Diagrams: 05/22/22 04:52 05/22/22 04:52 Labs: Laboratory Results - last 24 hr 05/21/22 18:27: POC Glucose 183 H 05/22/22 04:52: WBC 13.2 H, RBC 3.31 L, Hgb 9.1 L, Hct 27.5 L, MCV 83.1 D, MCH 27.5, MCHC 33.1 D, RDW Std Deviation 44.8 H, RDW Coeff of Nataliia 14.7 H, Plt Count 150, MPV 11.4, Immature Gran % (Auto) 1.100 H, Neut % (Auto) 87.6 H, Lymph % (Auto) 5.5 L, [place] % (Auto) 5.6, Eos % (Auto) 0.0, Baso % (Auto) 0.2, Absolute Neuts (auto) 11.6 H, Absolute Lymphs (auto) 0.73 L, Nucleated RBC % 0.2 05/22/22 04:52: Sodium 135 L, Potassium 2.8 L, Chloride 97 L, Carbon Dioxide 31.0, Anion Gap 7, BUN 10, Creatinine 0.58, Estim Creat Clear Calc 46.90, Est GF R (MDRD) Af Amer 130, Est GFR (MDRD) Non-Af 108, BUN/Creatinine Ratio 17.2, Glucose 118 H, Calcium 8.2 L, Phosphorus 1.4 L, Magnesium 2.0 Micro: Microbiology 05/16/22 19:20 Urine, Clean Catch Urine Culture - Final Mixed Gram Positive Organisms Physical Exam Const oriented x3 Constitutional Narrative: Depressed mood Resp normal respiratory effort Resp Narrative: No longer requiring nasal cannula GI GI Narrative: Not distended, operative sites remain dressed and Pfannenstiel and drain site in right lower quadrant both clean and dry. Right lower quadrant drain with serosanguineous output. Left abdominal ostomy with gas and light brown stool in appliance. Abdominal wall is soft. Bladder / Kidney Exam: catheter in place Assessment & Plan Assessment/Plan (1) Colon obstruction: PLAN: Patient is a 72-year-old female who is admitted on 05/16/2022 due to findings of partial bowel obstruction with stricture versus possible neoplasm of the sigmoid colon. Given her presentation, and second admission to the hospital, she was taken 05/17/22 for a hand assist laparoscopic sigmoid colectomy with creation of end colostomy (after intraoperative failure of end-to-end anastomosis). Patient has experienced complete return of bowel function and I have advanced her diet to regular, bite sized level. She was scheduled for thoracentesis yesterday, however, this did not happen because no fluid was seen with ultrasound. I have, again, discussed with her the need for more mobilization to improve her pulmonary toilet as well as decrease her risk for DVT, and improve her return of spontaneous micturition. She still appears depressed postoperatively and I have again tried to encourage her that if she tolerates her diet we may be able to discontinue IV fluid support. From an ID standpoint, she has experienced a further downtrend of her white count. Her abdominal exam remains appropriate and her right lower quadrant drain output remains benign. Therefore, I am inclined to stop her antibiotics tomorrow if her white count continues this downtrend in her drain output remains benign. Neuro: As needed Dilaudid, as needed oxycodone and acetaminophen Pulm/CV: Incentive spirometer, patient encouraged out of bed to chair positioning is much as possible FEN/GI: Daily labs for electrolytes?hypophosphatemia again today?replaced. Hypokalemia?replaced. Advance to regular soft diet without carbonation, nasogastric tube discontinued 05/18/2022, wound and ostomy nursing for ostomy maintenance : Brisk diuresis yesterday?we will hold on further supplemental Lasix today. Discontinue Green catheter and follow-up for spontaneous void Heme/ID: Patient's hemoglobin down trended postop, but it again appears to be rebounding, white blood cell count continues to downtrend on meropenem. If further decrease tomorrow would plan to discontinue antibiotics. I would like to continue patient's drain until she is having regular bowel function and tolerating a regular diet?anticipate for at least another 24 hours. Nursing has been informed of what to look for with this drain. Endo: No current issues Proph: Patient encouraged to ambulate and be in a chair is much as possible. With an additional CBC is stable hemoglobin, will consider adding Eliquis anticoagulation given patient's history of paroxysmal atrial fibrillation. PT OT ordered. Dispo: Continue inpatient stay (2) Status post colectomy: Charges/Coding Visit Charges Inpatient E&M: 34722 Subs Hosp L2
[2022-05-22] MEDS: HYDROmorphone 0.5 MG/0.5 ML SYRINGE IV ×3 (08:28→20:45)
[2022-05-22] MEDS: 0.9% Saline Lock 10 ML Syringe IV ×2 (08:29→13:35)
[2022-05-22] MEDS: Potassium Chloride Oral Tablet 20 MEQ 60 MEQ PO (08:38)
[2022-05-22] MEDS: Furosemide 40 MG/4 ML Vial IV (08:42)
--- NOTE | 2022-05-22 11:16 | WOUNDNOTE ---
In to reassess the ostomy appliance. there was a small amount of pasty brown stool noted in the appliance. pt's stated the bag was just emptied. dressing to lower abdomen is D&I. patient denies much discomfort at this time. will continue to monitor. patient and deny further needs at this time.
--- NOTE | 2022-05-22 15:18 | PCM.PN.HOSP ---
Reason for Visit Reason for Visit: Abdominal pain Subjective Subjective Patient states she is feeling better overall. She diuresed well yesterday and has continued to do so far today. She was started on a regular diet and tolerated this well however she states she was not able to eat much. I did discuss that she would need to be on Eliquis. The states it was just stopped and not restarted. She was on it for 6 weeks. He thought that was all she was supposed to be on it. Objective Data Objective Data Vital Signs: Vital Signs Temp Pulse Resp BP Pulse Ox O2 Del Method O2 Flow Rate 98.6 F 82 18 133/66 H 95 Room Air 2 05/22/22 12:00 05/22/22 13:33 05/22/22 12:00 05/22/22 13:33 05/22/22 12:00 05/22/22 12:00 05/21/22 05:20 Oxygen Flow Rate (L/min) 2 Oxygen Delivery Method Room Air Weight: 75.4 kg Body Mass Index (BMI) 26.8 Intake & Output: Intake and Output for Last 24 Hours 05/20/22 05/21/22 05/22/22 23:59 23:59 23:59 Intake Total 3153.25 / 3153.25 1709.69 / 1709.69 440 / 440 Output Total 1010 / 1480 6680 / 6680 370 / 370 Balance 2143.25 / 1673.25 -4970.31 / -4970.31 70 / 70 Medical Nutrition Assessment Dietitian: Malnutrition Criteria Met Start: 05/21/22 13:58 Freq: Status: Active Protocol: Document 05/21/22 13:58 JILLIAN (Rec: 05/21/22 13:58 [id number]) Nutrition Malnutrition Evidence of Malnutrition Exists Yes Malnutrition (severe): Chronic Evidenced By Suboptimal Energy Intake ( Severe),Weight Loss (Severe) Intake Problem Inadequate Oral Intake Etiology related to inability to consume sufficient energy Signs/Symptoms as evidenced by NPO/Clear Liquid diet for 4 days Status Active Problem Clinical Problem Chronic Disease or Condition Related Malnutrition Etiology related to altered GI function Signs/Symptoms as evidenced by 15.9lbs (10.1% weight loss in 2 months and < 75% PO intake of estimated needs for >1 month Status Active Problem Unintended Weight Loss Etiology related to unknown etiology Signs/Symptoms as evidenced by 15.9lbs (10.1% ) weight loss in 2 months Status Inactive Problem Recommendation Dietitian Recommendations/Changes ADAT To Low Fiber diet when medically able to manage medical conditions. Recommend 120mL EPHP TID when diet advances >Clear Liquid. RD will order 120mL Ensure Clear 4x with medpass to provide supplemental energy. Lab / Micro Data Result Diagrams: 05/22/22 04:52 05/22/22 04:52 Labs: Laboratory Results - last 24 hr 05/21/22 18:27: POC Glucose 183 H 05/22/22 04:52: WBC 13.2 H, RBC 3.31 L, Hgb 9.1 L, Hct 27.5 L, MCV 83.1 D, MCH 27.5, MCHC 33.1 D, RDW Std Deviation 44.8 H, RDW Coeff of Nataliia 14.7 H, Plt Count 150, MPV 11.4, Immature Gran % (Auto) 1.100 H, Neut % (Auto) 87.6 H, Lymph % (Auto) 5.5 L, [place] % (Auto) 5.6, Eos % (Auto) 0.0, Baso % (Auto) 0.2, Absolute Neuts (auto) 11.6 H, Absolute Lymphs (auto) 0.73 L, Nucleated RBC % 0.2 05/22/22 04:52: Sodium 135 L, Potassium 2.8 L, Chloride 97 L, Carbon Dioxide 31.0, Anion Gap 7, BUN 10, Creatinine 0.58, Estim Creat Clear Calc 46.90, Est GFR (MDRD) Af Amer 130, Est GFR (MDRD) Non-Af 108, BUN/Creatinine Ratio 17.2, Glucose 118 H, Calcium 8.2 L, Phosphorus 1.4 L, Magnesium 2.0 Micro: Microbiology 05/19/22 18:22 Blood Culture (Wb) - Left Hand Blood Culture - Preliminary No growth in 48 hours. 05/19/22 18:16 Blood Culture (Wb) - Anticubital Left Blood Culture - Preliminary No growth in 48 hours. 05/16/22 19:20 Urine, Clean Catch Urine Culture - Final Mixed Gram Positive Organisms Radiography Diagnostic Testing: Radiology Impression Chest Ultrasound 05/21/22 07:00 IMPRESSION: Trace amount of left pleural effusion. Not enough for safe thoracentesis. Electronically Signed: Fabian Massey MD at 10:04 EST , Physical Exam Const alert, oriented x3 and no apparent distress Constitutional Narrative: Older white female, sitting up in a chair at the bedside, appears comfortable and nontoxic, is at bedside HEENT head/scalp atraumatic and moist oral mucous membranes HEENT Narrative: Mallampati 3, dentition is fair for age, no thrush Head and Scalp: normocephalic Resp normal respiratory effort, no retractions, no use of accessory muscles and clear to auscultation bilaterally Auscultation: Negative for crackles, rhonchi or wheezes Cardio regular rate, regular rhythm, S1 normal heart sound, S2 normal heart sound, no murmurs, no rub, no gallops and no clicks GI GI Narrative: Ostomy bag with good stool output, bowel sounds are normal, mild diffuse tenderness with no specific focal tenderness, abdomen is soft and not distended Extremity no clubbing, cyanosis or edema Extremity Narrative: 2+ pedal pulses Neuro oriented x3, moves all extremities and no focal motor deficits Neuro Narrative: Mild generalized weakness Speech: speech normal Psych Psych Narrative: Still flat affect but seems to be improving Assessment & Plan Assessment/Plan (1) Colon obstruction: (2) Status post colectomy: (3) SVT (supraventricular tachycardia): (4) Leukocytosis: (5) Ileus, postoperative: (6) Acute anemia: (7) Thrombocytopenia: (8) Elevated serum creatinine: (9) Elevated troponin I level: (10) Hypophosphatemia: (11) Pleural effusion: PLAN: Plan Colonic obstruction -Postop day 4 colectomy with colostomy -Patient with good bowel sounds and ostomy output at this time -Patient advance to regular diet -Discontinue IV fluids -General surgery is following-appreciate input Postoperative ileus -Resolved Leukocytosis -Etiology unclear but continuing to improve -UA is unremarkable -Urine culture shows contaminated specimen with mixed gram-positive organisms at 1000-10,000 CFU's per mL -Chest x-ray was overall unremarkable -Blood cultures with no growth to date -Continue meropenem per general surgery recommendations -Fluid out of ZACHARIAH drain from pelvis remains serosanguineous and amount seems to be decreasing History of PAF with intermittent SVT -Patient is on atenolol chronically will discontinue at discharge -Had been on Eliquis previously but this appears to be of discontinued - states it was stopped after 6 weeks -Appears that it was discontinued between her discharge on 03/14/2022 and her admission on 04/06/2022 -Okay to restart Eliquis tomorrow if hemoglobin is stable per discussion with general surgery -Discontinue IV metoprolol and transition to oral metoprolol 50 mg p.o. twice daily -Patient did have echocardiogram on 05/17/2022 which showed an EF of 65% and mild tricuspid valve insufficiency as well as mild pulmonic valve insufficiency -TSH is normal Mild troponin elevation -Peaked at 108--> and normalized rapidly once SVT had resolved -Suspect related to SVT -No chest pain -EKG without any ST-T wave changes concerning for acute ischemia -Patient back in sinus rhythm -Patient did have echocardiogram and not currently having any wall motion abnormality Hypophosphatemia -Resolved Acute anemia -Hemoglobin 9.1 this morning and up from 8.0 yesterday -Suspect blood loss in OR plus dilutional -Repeat in a.m. for stability -No signs of acute blood loss Thrombocytopenia -Resolved GERD -Transition to oral Protonix 40 mg daily Depression -Continue Home duloxetine and sertraline DVT prophylaxis -SCDs -Chemoprophylaxis per surgical service--> currently on hold CODE STATUS -DNR with no intubation Charges/Coding Visit Charges Inpatient E&M: 70708 Subs Hosp L2
[2022-05-22] MEDS: Metoprolol Tartrate 50 MG Tablet PO (20:56)
[2022-05-23] VITALS (7 sets, daily range): BP systolic 113–138; BP diastolic 65–71; PULSE 86–97; RESP 16–18; TEMP 36.9–37.2; O2SAT 83–96; BMI 27.3
[2022-05-23] MEDS: HYDROmorphone 0.5 MG/0.5 ML SYRINGE IV (03:32)
[2022-05-23] MEDS: Ondansetron 4 MG/2 ML Vial IV (03:39)
[2022-05-23 06:39] LABS: Absolute Lymphocyte Count 0.68 X10^3/uL (0.83-4.51); Absolute Neutrophil Count 12.3 X10^3/uL (2.0-7.7); Basophil# 0.03 X10^3/uL; Basophil% 0.2 % (0-1); Hematocrit 28.3 % (37-47); Hemoglobin 9.1 g/dL (12.0-15.0); Lymphocyte # 0.68 X10^3/ul (0.83-4.51); Lymphocyte % 4.9 % (19-41); Mean Corp Hgb Conc 32.2 g/dL (32-36); Mean Corpuscular Hgb 26.8 pg (27.0-32.0); Mean Corpuscular Volume 83.5 fL (81-99); Mean Platelet Vol. 11.8 fl (6.2-12.0); Monocyte% 5.7 % (0-10); NRBC Flagged by Analyzer 0.2 % (0-5); Neutrophil # 12.27 X10^3/uL (2.7-7.7); Neutrophil % 88.1 % (47-70); Platelet Count 203 K/mm3 (150-450); RBC Distribution Width CV 14.6 % (11.6-14.6); RBC Distribution Width SD 44.3 fl (35.1-43.9); Red Blood Count 3.39 M/mm3 (4.2-5.4); White Blood Count 13.9 K/mm3 (4.4-11.0)
[2022-05-23 07:28] LABS: BUN 12 mg/dL (7-18); Creatinine, Serum 0.55 mg/dL (0.55-1.02); Glucose 107 mg/dL (74-106)
[2022-05-23 07:29] LABS: Anion Gap 5 (5-15); BUN/Creat Ratio 21.7 RATIO (10-20); Calcium,Total 8.6 mg/dL (8.5-10.1); Chloride 97 mmol/L (98-107); EST Glomerular Filtration Rate 114 mL/min (>60); Est Glom Filt Rate - Afr Amer 138 mL/min (>60); Magnesium 1.8 mg/dL (1.6-2.6); Phosphorus 1.8 mg/dL (2.5-4.9); Potassium 3.6 mmol/L (3.5-5.1); Sodium Level 130 mmol/L (136-145)
--- NOTE | 2022-05-23 08:19 | PN.SURG_ITS ---
Subjective Subjective Patient seen and examined during AM rounds. She reports that she is feeling better today. She has less abdominal pain. She states that she still does not have much of an appetite, but did eat her 1 Ensure yesterday. She confirms that she is voiding spontaneously, but also confirms incontinence. Objective Data Objective Data Vital Signs: Vital Signs Temp Pulse Resp BP Pulse Ox O2 Del Method O2 Flow Rate 99.5 F H 86 16 120/68 94 Room Air 2 05/22/22 20:00 05/23/22 03:55 05/23/22 03:55 05/22/22 20:56 05/23/22 03:55 05/23/22 03:55 05/21/22 05:20 Oxygen Flow Rate (L/min) 2 Oxygen Delivery Method Room Air Weight: 169 lb 8.568 oz Body Mass Index (BMI) 27.3 Intake & Output: Intake and Output for Last 24 Hours 05/21/22 05/22/22 05/23/22 23:59 23:59 23:59 Intake Total 1709.69 / 1709.69 1057 / 1117 260 / 260 Output Total 6680 / 6680 2595 / 2600 Balance -4970.31 / -4970.31 -1538 / -1483 245 / 245 Medical Nutrition Assessment Dietitian: Malnutrition Criteria Met Start: 05/21/22 1 3:58 Freq: Status: Active Protocol: Document 05/21/22 13:58 LO (Rec: 05/21/22 13:58 LO [id number]) Nutrition Malnutrition Evidence of Malnutrition Exists Yes Malnutrition (severe): Chronic Evidenced By Suboptimal Energy Intake ( Severe),Weight Loss (Severe) Intake Problem Inadequate Oral Intake Etiology related to inability to consume sufficient energy Signs/Symptoms as evidenced by NPO/Clear Liquid diet for 4 days Status Active Problem Clinical Problem Chronic Disease or Condition Related Malnutrition Etiology related to altered GI function Signs/Symptoms as evidenced by 15.9lbs (10.1% weight loss in 2 months and < 75% PO intake of estimated needs for >1 month Status Active Problem Unintended Weight Loss Etiology related to unknown etiology Signs/Symptoms as evidenced by 15.9lbs (10.1% ) weight loss in 2 months Status Inactive Problem Recommendation Dietitian Recommendations/Changes ADAT To Low Fiber diet when medically able to manage medical conditions. Recommend 120mL EPHP TID when diet advances >Clear Liquid. RD will order 120mL Ensure Clear 4x with medpass to provide supplemental energy. Lab / Micro Data Result Diagrams: 05/23/22 05:23 05/23/22 05:23 Labs: Laboratory Results - last 24 hr 05/23/22 05:23: WBC 13.9 H, RBC 3.39 L, Hgb 9.1 L, Hct 28.3 L, MCV 83.5, MCH 26.8 L, MCHC 32.2, RDW Std Deviation 44.3 H, RDW Coeff of Nataliia 14.6, Plt Count 203, MPV 11.8, Immature Gran % (Auto) 1.100 H, Neut % (Auto) 88.1 H, Lymph % (Auto) 4.9 L, [place] % (Auto) 5.7, Eos % (Auto) 0.0, Baso % (Auto) 0.2, Absolute Neuts (auto) 12.3 H, Absolute Lymphs (auto) 0.68 L, Nucleated RBC % 0.2 05/23/22 05:23: Sodium 130 L, Potassium 3.6, Chloride 97 L, Carbon Dioxide 28.0, Anion Gap 5, BUN 12, Creatinine 0.55, Estim Creat Clear Calc 46.90, Est GFR (MDRD) Af Amer 138, Est GFR (MDRD) Non-Af 114, BUN/Creatinine Ratio 21.7 H, Glucose 107 H, Calcium 8.6, Phosphorus 1.8 L, Magnesium 1.8 Micro: Microbiology 05/19/22 18:22 Blood Culture (Wb) - Left Hand Blood Culture - Preliminary No growth in 48 hours. 05/19/22 18:16 Blood Culture (Wb) - Anticubital Left Blood Culture - Preliminary No growth in 48 hours. 05/16/22 19:20 Urine, Clean Catch Urine Culture - Final Mixed Gram Positive Organisms Radiography Diagnostic Testing: Radiology Impression Chest Ultrasound 05/21/22 07:00 IMPRESSION: Trace amount of left pleural effusion. Not enough for safe thoracentesis. Electronically Signed: Fabian Massey MD at 10:04 EST , Physical Exam Const oriented x3 Constitutional Narrative: Improved mood Resp normal respiratory effort Resp Narrative: No longer requiring nasal cannula GI GI Narrative: SignNot distended, operative sites remain dressed and Pfannenstiel?there is serosanguineous drainage to the bandages. Right lower quadrant drain with serosanguineous output. Left abdominal ostomy with gas and light brown stool in appliance. Abdominal wall is soft and less tender with palpation. Bladder / Kidney Exam: catheter in place Assessment & Plan Assessment/Plan (1) Colon obstruction: PLAN: Patient is a 72-year-old female who is admitted on 05/16/2022 due to findings of partial bowel obstruction with stricture versus possible neoplasm of the sigmoid colon. Given her presentation, and second admission to the hospital, she was taken 05/17/22 for a hand assist laparoscopic sigmoid colectomy with creation of end colostomy (after intraoperative failure of end-to-end anastomosis). Patient has experienced complete return of bowel function and I advanced her to a regular diet on 05/22/2022. She reports ongoing difficulty with an appetite, but is not- strictly speaking- experiencing an intolerance. I have, again, discussed with her the need for more mobilization to improve her pulmonary toilet as well as decrease her risk for DVT. She is now urinating spontaneously, but experiencing incontinence. She states that she does not have the mobility to get to the commode to urinate. With this report I have asked her to continue to work on her mobility, but if this continues to be a hindrance then we would do well to look for a noninvasive urinary collection system to mitigate her risk for infection due to cross-contamination with her surgical wounds. Also this end, I have recommended we pursue a shower with a shower chair today. She still appears depressed postoperatively and I have again tried to encourage her that if she tolerates her diet we may be able to discontinue IV fluid support. From an ID standpoint, she has experienced a plateau in her white count. Her abdominal exam remains appropriate and her right lower quadrant drain output remains benign. Therefore, I am inclined to stop her antibiotics today and further trend her white count/exam to determine the site of her surgical drain. Neuro: As needed Dilaudid, as needed oxycodone and acetaminophen Pulm/CV: Incentive spirometer, patient encouraged out of bed to chair positioning is much as possible FEN/GI: Daily labs for electrolytes?hypophosphatemia hypomagnesemia?replaced. Regular soft diet without carbonation, nasogastric tube discontinued 05/18/2022, wound and ostomy nursing for ostomy maintenance : Patient voiding spontaneously but experiencing urinary incontinence, may need to employ a pure wick system to avoid cross-contamination patient's surgical wounds Heme/ID: Patient's hemoglobin down trended postop, now appears to have leveled out at 9.1 from 9.1 yesterday, white blood cell count roughly stable today at 13.9 from 13.2 yesterday on meropenem. Patient was treated with Zosyn initially postoperatively then transition to meropenem. Given that there should be no further source of contamination, I am inclined to stop the antibiotic and trend her CBC. If there is an increase in her white blood cell count I would like to pursue CT imaging of the abdomen and pelvis tomorrow to assess for possible abscess that the drain has simply not been able to contact. I would like to continue patient's drain until we are able to determine the fate of her WBC. Endo: No current issues Proph: Patient encouraged to ambulate and be in a chair is much as possible. Given stability of patient's hemoglobin will add Eliquis today. PT OT ordered. Dispo: Continue inpatient stay, patient and preferring home health visits post discharge (2) Status post colectomy: (3) Acute anemia: PLAN: Multifactorial. Likely combined effect of postoperative state, decreased anabolic capacity, and volume overload. Hemoglobin now appears stable and there are no signs of ongoing losses. (4) Ileus, postoperative: PLAN: Appears resolved as patient now having bowel function and tolerating regular diet (5) Leukocytosis: PLAN: Largely stable?13.9 from 13.2 yesterday. Patient remains afebrile with Tmax of 99.5 overnight (previously this was 100.3). We will stop meropenem today and trend WBC. If elevated tomorrow pursue CT imaging of the abdomen pelvis to investigate for possible source (6) Severe protein-calorie malnutrition: PLAN: Patient now advance to regular diet. Should be supplemented at least 3 times daily with Ensure compact. Have instructed patient to prioritize intake of Ensure Charges/Coding Visit Charges Inpatient E&M: 92499 Init Hosp L2
[2022-05-23] MEDS: Furosemide 40 MG/4 ML Vial IV (09:47)
[2022-05-23] MEDS: Pantoprazole Sodium 40 MG Tablet PO (09:47)
[2022-05-23] MEDS: Metoprolol Tartrate 50 MG Tablet PO ×2 (09:48→21:02)
[2022-05-23] MEDS: APIXABAN 5 MG TABLET PO ×2 (09:48→21:02)
[2022-05-23] MEDS: 0.9% Saline Lock 10 ML Syringe IV ×3 (09:56→21:02)
[2022-05-23] MEDS: Acetaminophen 325 MG Tablet 650 MG PO ×2 (10:04→21:02)
--- NOTE | 2022-05-23 14:34 | PN.HOSP_ITS ---
Reason for Visit Reason for Visit: Abdominal pain Subjective Subjective No issues overnight. Patient continues to tolerate solid food. Ostomy output is good. Still complaining of postoperative abdominal pain. Volume status is much improved. Objective Data Objective Data Vital Signs: Vital Signs Temp Pulse Resp BP Pulse Ox O2 Del Method O2 Flow Rate 98.4 F 91 18 138/71 H 92 Room Air 2 05/23/22 08:30 05/23/22 09:48 05/23/22 08:30 05/23/22 09:48 05/23/22 12:59 05/23/22 09:00 05/21/22 05:20 Oxygen Flow Rate (L/min) 2 Oxygen Delivery Method Room Air Weight: 76.9 kg Body Mass Index (BMI) 27.3 Intake & Output: Intake and Output for Last 24 Hours 05/21/22 05/22/22 05/23/22 23:59 23:59 23:59 Intake Total 1709.69 / 1709.69 1057 / 1117 260 / 260 Output Total 6680 / 6680 2595 / 2600 15 / Balance -4970.31 / -4970.31 -1538 / -1483 245 / 245 Medical Nutrition Assessment Dietitian: Malnutrition Criteria Met Start: 05/21/22 1 3:58 Freq: Status: Active Protocol: Document 05/21/22 13:58 JILLIAN (Rec: 05/21/22 13:58 [id number]) Nutrition Malnutrition Evidence of Malnutrition Exists Yes Malnutrition (severe): Chronic Evidenced By Suboptimal Energy Intake ( Severe),Weight Loss (Severe) Intake Problem Inadequate Oral Intake Etiology related to inability to consume sufficient energy Signs/Symptoms as evidenced by NPO/Clear Liquid diet for 4 days Status Active Problem Clinical Problem Chronic Disease or Condition Related Malnutrition Etiology related to altered GI function Signs/Symptoms as evidenced by 15.9lbs (10.1% weight loss in 2 months and < 75% PO intake of estimated needs for >1 month Status Active Problem Unintended Weight Loss Etiology related to unknown etiology Signs/Symptoms as evidenced by 15.9lbs (10.1% ) weight loss in 2 months Status Inactive Problem Recommendation Dietitian Recommendations/Changes ADAT To Low Fiber diet when medically able to manage medical conditions. Recommend 120mL EPHP TID when diet advances >Clear Liquid. RD will order 120mL Ensure Clear 4x with medpass to provide supplemental energy. Lab / Micro Data Result Diagrams: 05/23/22 05:23 05/23/22 05:23 Labs: Laboratory Results - last 24 hr 05/23/22 05:23: WBC 13.9 H, RBC 3.39 L, Hgb 9.1 L, Hct 28.3 L, MCV 83.5, MCH 26.8 L, MCHC 32.2, RDW Std Deviation 44.3 H, RDW Coeff of Nataliia 14.6, Plt Count 203, MPV 11.8, Immature Gran % (Auto) 1.100 H, Neut % (Auto) 88.1 H, Lymph % (Auto) 4.9 L, [place] % (Auto) 5.7, Eos % (Auto) 0.0, Baso % (Auto) 0.2, Absolute Neuts (auto) 12.3 H, Absolute Lymphs (auto) 0.68 L, Nucleated RBC % 0.2 05/23/22 05:23: Sodium 130 L, Potassium 3.6, Chloride 97 L, Carbon Dioxide 28.0, Anion Gap 5, BUN 12, Creatinine 0.55, Estim Creat Clear Calc 46.90, Est GFR (MDRD) Af Amer 138, Est GFR (MDRD) Non-Af 114, BUN/Creatinine Ratio 21.7 H, Glucose 107 H, Calcium 8.6, Phosphorus 1.8 L, Magnesium 1.8 Micro: Microbiology 05/19/22 18:22 Blood Culture (Wb) - Left Hand Blood Culture - Preliminary No growth in 48 hours. 05/19/22 18:16 Blood Culture (Wb) - Anticubital Left Blood Culture - Preliminary No growth in 48 hours. 05/16/22 19:20 Urine, Clean Catch Urine Culture - Final Mixed Gram Positive Organisms Physical Exam Const alert, oriented x3 and no apparent distress Constitutional Narrative: Older white female, sitting up in a chair at the bedside, appears comfortable and nontoxic, is at bedside HEENT head/scalp atraumatic and moist oral mucous membranes Resp normal respiratory effort, no retractions, no use of accessory muscles and clear to auscultation bilaterally Auscultation: Negative for crackles, rhonchi or wheezes Cardio regular rate, regular rhythm, S1 normal heart sound, S2 normal heart sound, no murmurs, no rub, no gallops and no clicks GI GI Narrative: Ostomy bag with good stool output and air in the bag, bowel sounds are normal, mild diffuse tenderness with no specific focal tenderness, abdomen is soft and not distended, ZACHARIAH drain with mild serosanguineous fluid Extremity no clubbing, cyanosis or edema Extremity Narrative: 2+ pedal pulses Neuro oriented x3 and moves all extremities Neuro Narrative: Mild generalized weakness Speech: speech normal Psych Psych Narrative: Affect remains flat however patient is interacting more and more Assessment & Plan Assessment/Plan (1) Colon obstruction: (2) Status post colectomy: (3) SVT (supraventricular tachycardia): (4) Leukocytosis: (5) Ileus, postoperative: (6) Acute anemia: (7) Thrombocytopenia: (8) Elevated serum creatinine: (9) Elevated troponin I level: (10) Hypophosphatemia: (11) Pleural effusion: PLAN: Plan Colonic obstruction -Postop day 6 colectomy with colostomy -Ostomy output and bowel sounds remain good -Tolerating regular diet without any difficulty -ZACHARIAH pain with 45 cc out in the last 24 hours-decreasing daily Leukocytosis -Etiology unclear suspect leukemoid reaction at this time -UA is unremarkable -Urine culture shows contaminated specimen with mixed gram-positive organisms at 1000-10,000 CFU's per mL -Chest x-ray was overall unremarkable -Blood cultures with no growth to date -Biotics have been discontinued History of PAF with intermittent SVT -Patient is on atenolol chronically will discontinue at discharge -Had been on Eliquis previously but this appears to be of discontinued - states it was stopped after 6 weeks -Appears that it was discontinued between her discharge on 03/14/2022 and her admission on 04/06/2022 -Start Eliquis 5 mg p.o. twice daily today -Continue oral metoprolol 50 mg p.o. twice daily -Patient did have echocardiogram on 05/17/2022 which showed an EF of 65% and mild tricuspid valve insufficiency as well as mild pulmonic valve insufficiency Mild troponin elevation -Peaked at 108--> and normalized rapidly once SVT had resolved -Suspect related to SVT -No chest pain -EKG without any ST-T wave changes concerning for acute ischemia -Patient back in sinus rhythm -Patient did have echocardiogram and not currently having any wall motion abnormality Hypophosphatemia -K-Phos bolus given -Recheck in a.m. Acute anemia -Hemoglobin stable at 9.1 today -Repeat in a.m. for stability especially with the addition of Eliquis today -No signs of acute blood loss GERD -Continue Protonix 40 mg daily Depression -Continue Home duloxetine and sertraline DVT prophylaxis -SCDs -Discontinue Lovenox which had been held -Start Eliquis 5 mg p.o. twice daily CODE STATUS -DNR with no intubation Charges/Coding Visit Charges Inpatient E&M: 85481 [facility] Hosp L2
--- NOTE | 2022-05-23 15:27 | CASEMGMT ---
RN CM spoke with patient's and they would prefer [facility] for HHC at discharge. Message left with [facility] regarding referral, awaiting call back. CM will continue to follow this patient plan for a safe discharge.
[2022-05-24] VITALS (8 sets, daily range): BP systolic 119–125; BP diastolic 61–67; PULSE 82–96; RESP 16–18; TEMP 36.4–37.6; O2SAT 96–98; BMI 27.1
[2022-05-24 05:08] LABS: Absolute Lymphocyte Count 0.79 X10^3/uL (0.83-4.51); Absolute Neutrophil Count 11.4 X10^3/uL (2.0-7.7); Basophil# 0.04 X10^3/uL; Basophil% 0.3 % (0-1); Hematocrit 27.1 % (37-47); Hemoglobin 8.8 g/dL (12.0-15.0); Lymphocyte # 0.79 X10^3/ul (0.83-4.51); Mean Corp Hgb Conc 32.5 g/dL (32-36); Mean Corpuscular Hgb 27.2 pg (27.0-32.0); Mean Corpuscular Volume 83.6 fL (81-99); Mean Platelet Vol. 11.2 fl (6.2-12.0); Monocyte# 0.72 X10^3/uL; Monocyte% 5.5 % (0-10); NRBC Flagged by Analyzer 0 % (0-5); Neutrophil # 11.37 X10^3/uL (2.7-7.7); Neutrophil % 87.1 % (47-70); Platelet Count 270 K/mm3 (150-450); RBC Distribution Width CV 14.6 % (11.6-14.6); RBC Distribution Width SD 44.2 fl (35.1-43.9); Red Blood Count 3.24 M/mm3 (4.2-5.4); White Blood Count 13.1 K/mm3 (4.4-11.0)
[2022-05-24 05:45] LABS: Anion Gap 6 (5-15); BUN 12 mg/dL (7-18); BUN/Creat Ratio 18.5 RATIO (10-20); Calcium,Total 8.2 mg/dL (8.5-10.1); Chloride 100 mmol/L (98-107); Creatinine, Serum 0.65 mg/dL (0.55-1.02); EST Glomerular Filtration Rate 95 mL/min (>60); Est Glom Filt Rate - Afr Amer 115 mL/min (>60); Glucose 103 mg/dL (74-106); Magnesium 2.4 mg/dL (1.6-2.6); Phosphorus 2.5 mg/dL (2.5-4.9); Potassium 3.5 mmol/L (3.5-5.1); Sodium Level 133 mmol/L (136-145)
--- NOTE | 2022-05-24 08:29 | PN.SURG_ITS ---
Subjective Subjective Patient is a 72 y/o F who was evaluated resting comfortably in bed. Her mood seems improved this morning. She seems more perky. She did have a shower yesterday. She did ambulate yesterday. She is tolerating her diet well. She denies nausea, vomiting. She is having excellent output from her colostomy. She notes minimal amount of incisional pain/discomfort. Objective Data Objective Data Vital Signs: Vital Signs Temp Pulse Resp BP Pulse Ox O2 Del Method O2 Flow Rate 97.6 F L 82 18 125/65 H 96 Room Air 2 05/24/22 03:06 05/24/22 03:06 05/24/22 03:06 05/24/22 03:06 05/24/22 07:45 05/24/22 07:45 05/21/22 05:20 Oxygen Flow Rate (L/min) 2 Oxygen Delivery Method Room Air Weight: 168 lb 6.931 oz Body Mass Index (BMI) 27.1 Intake & Output: Intake and Output for Last 24 Hours 05/22/22 05/23/22 05/24/22 23:59 23:59 23:59 Intake Total 1057 / 1117 1204 / 1204 Output Total 2595 / 2600 80 / 80 5 / 5 Balance -1538 / -1483 1124 / 1124 -5 / -5 Medical Nutrition Assessment Dietitian: Malnutrition Criteria Met Start: 05/21/22 13:58 Freq: Status: Active Protocol: Document 05/21/22 13:58 LO (Rec: 05/21/22 13:58 LO [id number]) Nutrition Malnutrition Evidence of Malnutrition Exists Yes Malnutrition (severe): Chronic Evidenced By Suboptimal Energy Intake ( Severe),Weight Loss (Severe) Intake Problem Inadequate Oral Intake Etiology related to inability to consume sufficient energy Signs/Symptoms as evidenced by NPO/Clear Liquid diet for 4 days Status Active Problem Clinical Problem Chronic Disease or Condition Related Malnutrition Etiology related to altered GI function Signs/Symptoms as evidenced by 15.9lbs (10.1% weight loss in 2 months and < 75% PO intake of estimated needs for >1 month Status Active Problem Unintended Weight Loss Etiology related to unknown etiology Signs/Symptoms as evidenced by 15.9lbs (10.1% ) weight loss in 2 months Status Inactive Problem Recommendation Dietitian Recommendations/Changes ADAT To Low Fiber diet when medically able to manage medical conditions. Recommend 120mL EPHP TID when diet advances >Clear Liquid. RD will order 120mL Ensure Clear 4x with medpass to provide supplemental energy. Lab / Micro Data Result Diagrams: 05/24/22 04:13 05/24/22 04:13 Labs: Laboratory Results - last 24 hr 05/24/22 04:13: WBC 13.1 H, RBC 3.24 L, Hgb 8.8 L, Hct 27.1 L, MCV 83.6, MCH 27.2, MCHC 32.5, RDW Std Deviation 44.2 H, RDW Coeff of Nataliia 14.6, Plt Count 270, MPV 11.2, Immature Gran % (Auto) 1.100 H, Neut % (Auto) 87.1 H, Lymph % (Auto) 6.0 L, [place] % (Auto) 5.5, Eos % (Auto) 0.0, Baso % (Auto) 0.3, Absolute Neuts (auto) 11.4 H, Absolute Lymphs (auto) 0.79 L, Nucleated RBC % 0 05/24/22 04:13: Sodium 133 L, Potassium 3.5, Chloride 100, Carbon Dioxide 27.0, Anion Gap 6, BUN 12, Creatinine 0.65, Estim Creat Clear Calc 46.90, Est GFR (MDRD) Af Amer 115, Est GFR (MDRD) Non-Af 95, BUN/Creatinine Ratio 18.5, Glucose 103, Calcium 8.2 L, Phosphorus 2.5, Magnesium 2.4 Micro: Microbiology 05/19/22 18:22 Blood Culture (Wb) - Left Hand Blood Culture - Preliminary No growth in 48 hours. 05/19/22 18:16 Blood Culture (Wb) - Anticubital Left Blood Culture - Preliminary No growth in 48 hours. 05/16/22 19:20 Urine, Clean Catch Urine Culture - Final Mixed Gram Positive Organisms Physical Exam GI soft to palpation GI Narrative: colostomy intact Incisions c/d/i. No infection noted ZACHARIAH drain was removed Auscultation: normoactive bowel sounds Palpation: tender other (slightly tender) Assessment & Plan Assessment/Plan (1) Diverticulitis large intestine w/o perforation or abscess w/o bleeding: PLAN: Patient making excellent progress WBC trending down after stopping antibiotic Remaining labs reviewed Hgb stable with restarting Eliquis ZACHARIAH drain removed at bedside today Continue ambulation Plan for discharge tomorrow We will continue to monitor this patient Charges/Coding Visit Charges Inpatient E&M: 32222 Subs Hosp L1 (no charge; post-op)
[2022-05-24] MEDS: Pantoprazole Sodium 40 MG Tablet PO (09:47)
[2022-05-24] MEDS: Menthol/Lanolin/Calamine/Znox 113 GM Tube 1 APPLIC TOPICAL ×2 (09:47→21:58)
[2022-05-24] MEDS: Acetaminophen 325 MG Tablet 650 MG PO ×2 (09:47→17:18)
[2022-05-24] MEDS: APIXABAN 5 MG TABLET PO ×2 (09:47→21:58)
[2022-05-24] MEDS: Metoprolol Tartrate 50 MG Tablet PO ×2 (09:47→21:57)
--- NOTE | 2022-05-24 14:34 | WOUNDNOTE ---
In to assess incision and colostomy appliance. patient has a small amount of soft unformed brown stool in the appliance. feels he will be able to empty the appliance just fine at home. wanted to see the appliance change again before going home. plan is most likely discharge home tomorrow with home health starting on Saturday. removed the appliance. gently cleansed the skin with warm water and pat dry. had made a pattern for patient's to cut for opening. did explain to the that the size can change especially the first 6-8 weeks. states understanding. placed the pattern around the stoma to be sure the size was still accurate. placed the pattern then on the back of the flange for the to trace and cut out. once this was completed, removed the backing and applied a small amount of stoma paste. placed the flange around the stoma and snapped on the pouch. pt tolerated well. denies questions. will check in again with patient and tomorrow before discharge. both very appreciative of care.
--- NOTE | 2022-05-24 14:51 | PCM.PN.HOSP ---
Reason for Visit Reason for Visit: Abdominal pain Subjective Subjective Appetite still not great. Patient has been getting up and moving around. Has not yet been up to a chair today. I strongly encouraged her to continue to move. Plan is for probable discharge home tomorrow with home health care as long as she can likely remain stable. Is taking in supplements 3 times a day with Ensure. No significant overnight issues. Patient is still complaining out of abdominal pain and currently rating it at 7 out of 10. Objective Data Objective Data Vital Signs: Vital Signs Temp Pulse Resp BP Pulse Ox O2 Del Method O2 Flow Rate 99.7 F H 96 16 121/67 H 98 Room Air 2 05/24/22 09:05 05/24/22 09:47 05/24/22 09:05 05/24/22 09:05 05/24/22 11:40 05/24/22 14:01 05/21/22 05:20 Oxygen Flow Rate (L/min) 2 Oxygen Delivery Method Room Air Weight: 76.4 kg Body Mass Index (BMI) 27.1 Intake & Output: Intake and Output for Last 24 Hours 05/22/22 05/23/22 05/24/22 23:59 23:59 23:59 Intake Total 1057 / 1117 1204 / 1204 360 / 360 Output Total 2595 / 2600 80 / 80 130 / 130 Balance -1538 / -1483 1124 / 1124 230 / 230 Medical Nutrition Assessment Dietitian: Malnutrition Criteria Met Start: 05/21/22 13:58 Freq: Status: Active Protocol: Document 05/21/22 13:58 LO (Rec: 05/21/22 13:58 [id number]) Nutrition Malnutrition Evidence of Malnutrition Exists Yes Malnutrition (severe): Chronic Evidenced By Suboptimal Energy Intake ( Severe),Weight Loss (Severe) Intake Problem Inadequate Oral Intake Etiology related to inability to consume sufficient energy Signs/Symptoms as evidenced by NPO/Clear Liquid diet for 4 days Status Active Problem Clinical Problem Chronic Disease or Condition Related Malnutrition Etiology related to altered GI function Signs/Symptoms as evidenced by 15.9lbs (10.1% weight loss in 2 months and < 75% PO intake of estimated needs for >1 month Status Active Problem Unintended Weight Loss Etiology related to unknown etiology Signs/Symptoms as evidenced by 15.9lbs (10.1% ) weight loss in 2 months Status Inactive Problem Recommendation Dietitian Recommendations/Changes ADAT To Low Fiber diet when medically able to manage medical conditions. Recommend 120mL EPHP TID when diet advances >Clear Liquid. RD will order 120mL Ensure Clear 4x with medpass to provide supplemental energy. Lab / Micro Data Result Diagrams: 05/24/22 04:13 05/24/22 04:13 Labs: Laboratory Results - last 24 hr 05/24/22 04:13: WBC 13.1 H, RBC 3.24 L, Hgb 8.8 L, Hct 27.1 L, MCV 83.6, MCH 27.2, MCHC 32.5, RDW Std Deviation 44.2 H, RDW Coeff of Nataliia 14.6, Plt Count 270, MPV 11.2, Immature Gran % (Auto) 1.100 H, Neut % (Auto) 87.1 H, Lymph % (Auto) 6.0 L, [place] % (Auto) 5.5, Eos % (Auto) 0.0, Baso % (Auto) 0.3, Absolute Neuts (auto) 11.4 H, Absolute Lymphs (auto) 0.79 L, Nucleated RBC % 0 05/24/22 04:13: Sodium 133 L, Potassium 3.5, Chloride 100, Carbon Dioxide 27.0, Anion Gap 6, BUN 12, Creatinine 0.65, Estim Creat Clear Calc 46.90, Est GFR (MDRD) Af Amer 115, Est GFR (MDRD) Non-Af 95, BUN/Creatinine Ratio 18.5, Glucose 103, Calcium 8.2 L, Phosphorus 2.5, Magnesium 2.4 Micro: Microbiology 05/19/22 18:22 Blood Culture (Wb) - Left Hand Blood Culture - Preliminary No growth in 48 hours. 05/19/22 18:16 Blood Culture (Wb) - Anticubital Left Blood Culture - Preliminary No growth in 48 hours. 05/16/22 19:20 Urine, Clean Catch Urine Culture - Final Mixed Gram Positive Organisms Physical Exam Const alert, oriented x3 and no apparent distress Constitutional Narrative: Older white female, lying in bed, is sitting at the bedside, appears comfortable and nontoxic HEENT head/scalp atraumatic and moist oral mucous membranes HEENT Narrative: Dentition is fair, Mallampati is 2, no thrush Head and Scalp: normocephalic Resp normal respiratory effort, no retractions, no use of accessory muscles and clear to auscultation bilaterally Auscultation: Negative for crackles, rhonchi or wheezes Cardio regular rate, regular rhythm, S1 normal heart sound, S2 normal heart sound, no murmurs, no rub, no gallops and no clicks GI GI Narrative: Ostomy bag with good stool output and air in the bag, bowel sounds are normal, mild diffuse tenderness with no specific focal tenderness, abdomen is soft and not distended-ZACHARIAH drain removed Extremity no clubbing, cyanosis or edema Extremity Narrative: 2+ pedal pulses Neuro oriented x3, moves all extremities and no focal motor deficits Neuro Narrative: Mild generalized weakness Speech: speech normal Psych Psych Narrative: Affect remains flat however patient is interacting more and more, motivation is somewhat of an issue Assessment & Plan Assessment/Plan (1) Colon obstruction: (2) Status post colectomy: (3) SVT (supraventricular tachycardia): (4) Leukocytosis: (5) Ileus, postoperative: (6) Acute anemia: (7) Thrombocytopenia: (8) Elevated serum creatinine: (9) Elevated troponin I level: (10) Hypophosphatemia: (11) Pleural effusion: PLAN: Plan Colonic obstruction -Postop day 7 colectomy with colostomy -Ostomy output and bowel sounds remain good -Tolerating regular diet without any difficulty -ZACHARIAH drain removed today by general surgery Leukocytosis -Etiology unclear suspect leukemoid reaction at this time -UA is unremarkable -Urine culture shows contaminated specimen with mixed gram-positive organisms at 1000-10,000 CFU's per mL -Chest x-ray was overall unremarkable -Blood cultures with no growth to date -Antibiotics were discontinued on 05/23/2022 History of PAF with intermittent SVT -Patient is on atenolol chronically will discontinue at discharge -Had been on Eliquis previously but this appears to be of discontinued - states it was stopped after 6 weeks -Appears that it was discontinued between her discharge on 03/14/2022 and her admission on 04/06/2022 -Continue Eliquis 5 mg p.o. twice daily and would do so indefinitely -Continue oral metoprolol 50 mg p.o. twice daily -Patient did have echocardiogram on 05/17/2022 which showed an EF of 65% and mild tricuspid valve insufficiency as well as mild pulmonic valve insufficiency Mild troponin elevation -Peaked at 108--> and normalized rapidly once SVT had resolved -Suspect related to SVT -No chest pain -EKG without any ST-T wave changes concerning for acute ischemia -Patient remains in normal sinus rhythm -Patient did have echocardiogram and not currently having any wall motion abnormality Hypophosphatemia -Resolved Acute anemia -Hemoglobin stable at 8.8 from 9.1 yesterday -Repeat in a.m. for stability especially with the addition of Eliquis today -No signs of acute blood loss GERD -Continue Protonix 40 mg daily Depression -Continue Home duloxetine and sertraline DVT prophylaxis -Okay to discontinue SCDs -Continue Eliquis 5 mg p.o. twice daily CODE STATUS -DNR with no intubation Disposition: -Patient is medically stable for discharge. I have discussed this with general surgery-Dr. Estrada. I am switching her atenolol to metoprolol and restarting her Eliquis as she did have bouts of A-fib in her postoperative course and she has had this previously. Prescriptions were sent to the [facility] pharmacy and I have discussed with case management to try to get them a 30-month discount of Eliquis as the stated it was expensive previously. Charges/Coding Visit Charges Inpatient E&M: 11868 Subs Hosp L2
--- NOTE | 2022-05-24 15:02 | CASEMGMT ---
KLAUS KIRK updated by [facility] is able to accept patient with planned start of care for Saturday05/26/22. RN YELENA updated patient and . Patient and had no further questions or concerns. CM will continue to follow this patient and plan for a safe discharge.
--- NOTE | 2022-05-24 15:27 | CASEMGMT ---
KLAUS KIRK updated by hospitalist that patient will be discharging on Eliquis and sent to [facility]. KLAUS KIRK called retail pharmacy and cost is $47 and patient has already used savings card. KLAUS KIRK in to updated patient and , states they can afford medication. KLAUS KIRK updated hospitalist regarding Eliquis copay.
[2022-05-25 03:05] VITALS: BP 111/66; PULSE 88; RESP 16; TEMP 37.4; O2SAT 97
[2022-05-25 05:04] VITALS: BMI 25.3
[2022-05-25 07:56] VITALS: O2SAT 96
--- NOTE | 2022-05-25 08:34 | PCM.DC ---
Discharge Instructions Diet Discharge Diet: Soft diet Activity Discharge Activity: May Shower Lifting Restrictions: No lifting greater than 10 pounds for the next 4 weeks Dressing / Incision Call your doctor if your incision/area has: Continuous Slow Oozing, Sudden Increased Bleeding, Increased Pain/ Swelling, Increased Redness and Foul Smelling Discharge Call your doctor if you observe: Fever of 101 or Higher, Inability to urinate, Inability to have a bowel movement and Uncontrolled pain Suture Line Care: Avoid Pulling/Pushing Cleanse incision/area with: Soap & Water Follow Up Care Please Follow Up With: Brennan Estrada MD When: 7-10 days Test Results: Test results from this visit will be discussed in further detail at your follow-up appointment, if applicable. Discharge Plan Admission Admit Date/Time: 05/16/22 21:28 Primary Reason for Your Visit: Sigmoid colon stricture and partial large bowel obstruction Attending Provider: Debbie Lauren Primary Care Provider: Michelle Hess Consulting Providers: Rolan Harrison ; Penny Malhotra ; Stephanie Oconnell Discharge Orders/Prescriptions Prescriptions: New Eliquis 5 mg Tablet 5 mg PO BID Qty: 60 0RF metoprolol tartrate 50 mg Tablet 50 mg PO BID Qty: 60 2RF Continued dicyclomine 10 mg capsule 20 mg PO ACHS PRN (Reason: BOWELS) omeprazole 20 mg Capsule,Delayed Release(Dr/Ec) 20 mg PO BID pantoprazole 40 mg Tablet,Delayed Release (Dr/Ec) 40 mg PO DAILY bupropion HCl 150 mg tablet extended release 24 hr 150 mg PO DAILY donepezil 5 mg tablet 5 mg PO QHS Label Comments: TAKE 1 TABLET BY MOUTH EVERY NIGHT AT BEDTIME sertraline 100 mg tablet 100 mg PO DAILY Discontinued atenolol 25 mg tablet 25 mg PO DAILY Referrals / Follow Up: Michelle Hess MD [Primary Care Provider] - Within 2 Weeks Disposition Disposition (needs filled in before D/C Order can be placed): Home Health Service
--- NOTE | 2022-05-25 08:39 | PCM.DC.SUM ---
Providers Date of Admission: 05/16/22 Primary Care Physician: Dr. Michelle Hess MD Consultations 05/16/22 23:56 Consult: Hospitalist Routine Consulting Provider: Penny Malhotra Reason for Consult: management of pt needs EMERGENT Consult: No MD Notified: Yes Date Notified: 05/16/22 Time Notified: 23:56 Method of Notification: Verbal 05/17/22 20:42 Consult: Onc/Wound/manager family Routine Comment: Reason for Consult:: new colostomy Reason For Visit: COLON OBSTRUCTION Diagnosis Discharge Diagnosis (1) Colon obstruction: Status: Acute Code(s): K56.609 - Unspecified intestinal obstruction, unspecified as to partial versus complete obstruction (2) Status post colectomy: Status: Acute Code(s): Z90.49 - Acquired absence of other specified parts of digestive tract (3) SVT (supraventricular tachycardia): Status: Acute Code(s): I47.1 - Supraventricular tachycardia (4) Leukocytosis: Status: Acute Code(s): D72.829 - Elevated white blood cell count, unspecified Plan: Largely stable?13.9 from 13.2 yesterday. Patient remains afebrile with Tmax of 99.5 overnight (previously this was 100.3). We will stop meropenem today and trend WBC. If elevated tomorrow pursue CT imaging of the abdomen pelvis to investigate for possible source (5) Ileus, postoperative: Status: Acute Code(s): K91.89 - Other postprocedural complications and disorders of digestive system; K56.7 - Ileus, unspecified Plan: Appears resolved as patient now having bowel function and tolerating regular diet (6) Acute anemia: Status: Acute Code(s): D64.9 - Anemia, unspecified Plan: Multifactorial. Likely combined effect of postoperative state, decreased anabolic capacity, and volume overload. Hemoglobin now appears stable and there are no signs of ongoing losses. (7) Thrombocytopenia: Status: Acute Code(s): D69.6 - Thrombocytopenia, unspecified (8) Elevated serum creatinine: Status: Acute Code(s): R79.89 - Other specified abnormal findings of blood chemistry (9) Elevated troponin I level: Status: Acute Code(s): R77.8 - Other specified abnormalities of plasma proteins (10) Hypophosphatemia: Status: Acute Code(s): E83.39 - Other disorders of phosphorus metabolism (11) Pleural effusion: Status: Acute Code(s): J90 - Pleural effusion, not elsewhere classified Medications at Discharge Home Medications dicyclomine 10 mg capsule 20 mg PO ACHS PRN BOWELS 08/31/19 omeprazole 20 mg capsule,delayed release 20 mg PO BID GERD 03/02/22 pantoprazole 40 mg tablet,delayed release 40 mg PO DAILY GERD 03/13/22 bupropion HCl 150 mg 24 hr tablet, extended release 150 mg PO DAILY DEPRESSION 04/06/22 donepezil 5 mg tablet 5 mg PO QHS 05/16/22 sertraline 100 mg tablet 100 mg PO DAILY 05/16/22 apixaban 5 mg tablet (Eliquis) 5 mg PO BID #60 tabs 05/24/22 metoprolol tartrate 50 mg tablet 50 mg PO BID #60 tabs 05/24/22 Hospital Course Operations colectomy (Hand-assisted laparoscopic sigmoid colectomy with end colostomy 05/17/2022) Procedures 2-D Echocardiogram (05/17/2022) Summary of Care Provided Hospital Course: Patient is a 72-year-old female who was admitted on 05/16/2022 due to findings of partial bowel obstruction with stricture versus possible neoplasm of the sigmoid colon. Given her presentation, and second admission to the hospital, she was taken 05/17/22 for a hand assist laparoscopic sigmoid colectomy with creation of end colostomy (after intraoperative failure of end-to-end anastomosis). She was returned to the progressive care unit postoperatively for recovery. She continued on IV antibiotics postoperatively due to contamination after her end and anastomosis tore through on the colonic side during creation. Concurrently, a pelvic drain?left at the time of surgery?was monitored for any changes. Her white blood cell count was, likewise, monitored during this time. Antibiotics were initially Zosyn, but transition to meropenem with a increase in this latter value. Ultimately, after a sustained downtrend and stability with the drain output, antibiotics were discontinued on postoperative day 6. While inpatient, Mrs. Trinidad was followed actively by our hospitalist service for her other comorbidities?most notably her history of tachyarrhythmias?SVT and PAF. This issue came to light particularly during patient's hospital day 1? and then again postoperatively on 05/19/2022. Troponins were trended following the second event, but peaked at 108 and no further intervention was felt to be warranted. Concerning her nutrition, Mrs. Trinidad presented with evidence of severe protein calorie malnutrition, but there was evidence that her nutrition actually improved over previous admission in April 2022 with a slight increase in her prealbumin from that time. Given this observation of malnutrition, I sought to return patient to enteral nutrition as quickly as possible. Her postoperative nasogastric tube was discontinued on 05/18/2022, but there was a slight delay to her return of bowel function so her transition to a diet was a very gradual 1 starting with liquids. Patient experienced complete return of bowel function and I advanced her to a regular diet on 05/22/2022. Her dietary tolerance has slowly improved and over the previous 2 days she confirmed tolerance of 3 Ensure supplements plus additional dietary intake so her IV fluid support was stopped. Also during the course of her stay, Mrs. Trinidad exhibited evidence of acute anemia. This is felt to be multifactorial?given both her postoperative state as well as her clear evidence of volume overload with a postoperative weight greater than 10 pounds of her presentation weight. She was thus monitored for any signs of postoperative hemorrhage and diuresed with several doses of IV Lasix. No signs of hemorrhage were identified and she exhibited a brisk diuresis resulting in rebound of her hemoglobin. Once this level stabilized at greater than 9 mg/dL, she was reinitiated on anticoagulation for history of the above tachyarrhythmias by the hospitalist service. Today, postoperative day 8, patient was found resting comfortably in bed. She denies any significant abdominal pain. Her is at bedside and, together, they confirm feeling comfortable with the idea of her discharge. They are asked specifically about home arrangements and their ability to provide ongoing care. They assure me that they are comfortable with the care expectations and have family that are at the ready and willing to help. We have also confirmed that home health services are already contracted and arranged to see patient tomorrow, 05/26/2022. Lastly, I have confirmed the expectation that Mrs. Trinidad will make an outpatient follow-up with me in 7 to 10 days post hospital discharge for review of her recovery as well as wound check. They agreed to these terms and expressed appreciation for their care. Physical Exam Const alert, oriented x3 and no apparent distress General Appearance: cooperative Resp normal respiratory effort GI GI Narrative: Nondistended, soft, minimally tender to palpation incisions. Incisions are nonerythematous and nondraining. A dressing remains over patient's right lower quadrant drain site, but this is clean and dry. Patient has regular ostomy output and gas in her ostomy appliance in the left abdomen. Medical Records Data Medical Nutrition Assessment Dietitian: Malnutrition Criteria Met Start: 05/21/22 13:58 Freq: Status: Active Protocol: Document 05/21/22 13:58 (Rec: 05/21/22 13:58 [id number]) Nutrition Malnutrition Evidence of Malnutrition Exists Yes Malnutrition (severe): Chronic Evidenced By Suboptimal Energy Intake ( Severe),Weight Loss (Severe) Intake Problem Inadequate Oral Intake Etiology related to inability to consume sufficient energy Signs/Symptoms as evidenced by NPO/Clear Liquid diet for 4 days Status Active Problem Clinical Problem Chronic Disease or Condition Related Malnutrition Etiology related to altered GI function Signs/Symptoms as evidenced by 15.9lbs (10.1% weight loss in 2 months and < 75% PO intake of estimated needs for >1 month Status Active Problem Unintended Weight Loss Etiology related to unknown etiology Signs/Symptoms as evidenced by 15.9lbs (10.1% ) weight loss in 2 months Status Inactive Problem Recommendation Dietitian Recommendations/Changes ADAT To Low Fiber diet when medically able to manage medical conditions. Recommend 120mL EPHP TID when diet advances >Clear Liquid. RD will order 120mL Ensure Clear 4x with medpass to provide supplemental energy. Weight / BMI Weight Weight: 157 lb 3.033 oz Body Mass Index (BMI) 25.3 ABG / Lab / Microbiology Data Result Diagrams: 05/24/22 04:13 05/24/22 04:13 Microbiology: Microbiology 05/19/22 18:16 Blood Culture (Wb) - Anticubital Left Blood Culture - Final No growth in 5 days. 05/19/22 18:22 Blood Culture (Wb) - Left Hand Blood Culture - Final No growth in 5 days. 05/16/22 19:20 Urine, Clean Catch Urine Culture - Final Mixed Gram Positive Organisms D/C Instructions Discharge Diet: Soft diet Call your doctor if your incision/area has: Continuous Slow Oozing, Sudden Increased Bleeding, Increased Pain/ Swelling, Increased Redness and Foul Smelling Discharge Call your doctor if you observe: Fever of 101 or Higher, Inability to urinate, Inability to have a bowel movement and Uncontrolled pain Suture Line Care: Avoid Pulling/Pushing Cleanse incision/area with: Soap & Water Please Follow Up With: Brennan Estrada MD When: 7-10 days Meaningful Use Info Meaningful Use Diagnoses (Choose all that apply): None applicable Discharge Plan Admission Admit Date/Time: 05/16/22 21:28 Primary Reason for Your Visit: Sigmoid colon stricture and partial large bowel obstruction Attending Provider: Debbie Lauren Primary Care Provider: Michelle Hess Consulting Providers: Rolan Harrison ; Penny Malhotra ; Stephanie Oconnell Discharge Orders/Prescriptions Prescriptions: New Eliquis 5 mg Tablet 5 mg PO BID Qty: 60 0RF metoprolol tartrate 50 mg Tablet 50 mg PO BID Qty: 60 2RF Continued dicyclomine 10 mg capsule 20 mg PO ACHS PRN (Reason: BOWELS) omeprazole 20 mg Capsule,Delayed Release(Dr/Ec) 20 mg PO BID pantoprazole 40 mg Tablet,Delayed Release (Dr/Ec) 40 mg PO DAILY bupropion HCl 150 mg tablet extended release 24 hr 150 mg PO DAILY donepezil 5 mg tablet 5 mg PO QHS Label Comments: TAKE 1 TABLET BY MOUTH EVERY NIGHT AT BEDTIME sertraline 100 mg tablet 100 mg PO DAILY Discontinued atenolol 25 mg tablet 25 mg PO DAILY Referrals / Follow Up: Michelle Hess MD [Primary Care Provider] - Within 2 Weeks Disposition Disposition (needs filled in before D/C Order can be placed): Home Health Service
[2022-05-25 09:01] VITALS: PULSE 91
[2022-05-25] MEDS: Metoprolol Tartrate 50 MG Tablet PO (09:01)
[2022-05-25] MEDS: APIXABAN 5 MG TABLET PO (09:02)
[2022-05-25] MEDS: Pantoprazole Sodium 40 MG Tablet PO (09:02)
[2022-05-25] MEDS: Menthol/Lanolin/Calamine/Znox 113 GM Tube 1 APPLIC TOPICAL (09:04)
[2022-05-25 09:05] VITALS: BP 134/72; PULSE 91; RESP 14; TEMP 37.4; O2SAT 96
--- NOTE | 2022-05-25 10:41 | PCM.PN.HOSP ---
Reason for Visit Reason for Visit: Abdominal pain Subjective Subjective Patient states her pain is better. Appetite is slowly improving. Plan is for discharge home today. No issues overnight. Ostomy continues to have good output. Objective Data Objective Data Vital Signs: Vital Signs Temp Pulse Resp BP Pulse Ox O2 Del Method O2 Flow Rate 99.3 F H 91 14 134/72 H 96 Room Air 2 05/25/22 09:05 05/25/22 09:05 05/25/22 09:05 05/25/22 09:05 05/25/22 09:05 05/25/22 09:05 05/21/22 05:20 Oxygen Flow Rate (L/min) 2 Oxygen Delivery Method Room Air Weight: 71.3 kg Body Mass Index (BMI) 25.3 Intake & Output: Intake and Output for Last 24 Hours 05/23/22 05/24/22 05/25/22 23:59 23:59 23:59 Intake Total 1204 / 1204 600 / 600 Output Total 80 / 80 130 / 130 Balance 1124 / 1124 470 / 470 Medical Nutrition Assessment Dietitian: Malnutrition Criteria Met Start: 05/21/22 13:58 Freq: Status: Active Protocol: Document 05/21/22 13:58 LO (Rec: 05/21/22 13:58 LO [id number]) Nutrition Malnutrition Evidence of Malnutrition Exists Yes Malnutrition (severe): Chronic Evidenced By Suboptimal Energy Intake ( Severe),Weight Loss (Severe) Intake Problem Inadequate Oral Intake Etiology related to inability to consume sufficient energy Signs/Symptoms as evidenced by NPO/Clear Liquid diet for 4 days Status Active Problem Clinical Problem Chronic Disease or Condition Related Malnutrition Etiology related to altered GI function Signs/Symptoms as evidenced by 15.9lbs (10.1% weight loss in 2 months and < 75% PO intake of estimated needs for >1 month Status Active Problem Unintended Weight Loss Etiology related to unknown etiology Signs/Symptoms as evidenced by 15.9lbs (10.1% ) weight loss in 2 months Status Inactive Problem Recommendation Dietitian Recommendations/Changes ADAT To Low Fiber diet when medically able to manage medical conditions. Recommend 120mL EPHP TID when diet advances >Clear Liquid. RD will order 120mL Ensure Clear 4x with medpass to provide supplemental energy. Lab / Micro Data Result Diagrams: 05/24/22 04:13 05/24/22 04:13 Micro: Microbiology 05/19/22 18:16 Blood Culture (Wb) - Anticubital Left Blood Culture - Final No growth in 5 days. 05/19/22 18:22 Blood Culture (Wb) - Left Hand Blood Culture - Final No growth in 5 days. 05/16/22 19:20 Urine, Clean Catch Urine Culture - Final Mixed Gram Positive Organisms Physical Exam Const alert, oriented x3 and no apparent distress Constitutional Narrative: Older white female, lying in bed, is sitting at the bedside, appears comfortable and nontoxic HEENT head/scalp atraumatic and moist oral mucous membranes HEENT Narrative: Mallampati 2-3, dentition is fair with several missing teeth, no thrush Head and Scalp: normocephalic Resp normal respiratory effort, no retractions, no use of accessory muscles and clear to auscultation bilaterally Auscultation: Negative for crackles, rhonchi or wheezes Cardio regular rate, regular rhythm, S1 normal heart sound, S2 normal heart sound, no murmurs, no rub, no gallops and no clicks GI GI Narrative: Ostomy bag with good stool output and air in the bag, bowel sounds are normal, mild diffuse tenderness with no specific focal tenderness, visible incisions are clean dry and intact Extremity no clubbing, cyanosis or edema Extremity Narrative: 2+ pedal pulses Neuro oriented x3, moves all extremities and no focal motor deficits Neuro Narrative: Mild generalized weakness Speech: speech normal Psych Psych Narrative: Affect is flat and mood seems overall depressed which has been throughout her hospital course however she is more interactive than she had been previously Assessment & Plan Assessment/Plan (1) Colon obstruction: (2) Status post colectomy: (3) SVT (supraventricular tachycardia): (4) Leukocytosis: (5) Ileus, postoperative: (6) Acute anemia: (7) Thrombocytopenia: (8) Elevated serum creatinine: (9) Elevated troponin I level: (10) Hypophosphatemia: (11) Pleural effusion: PLAN: Plan Colonic obstruction -Postop day 8 colectomy with colostomy -Ostomy output and bowel sounds remain good -Tolerating regular diet without any difficulty -Plan is for discharge home per discussion with general surgery Leukocytosis -Etiology unclear suspect leukemoid reaction at this time -UA is unremarkable -Urine culture shows contaminated specimen with mixed gram-positive organisms at 1000-10,000 CFU's per mL -Chest x-ray was overall unremarkable -Blood cultures with no growth to date -Antibiotics were discontinued on 05/23/2022 History of PAF with intermittent SVT -Patient is on atenolol chronically will discontinue at discharge -Had been on Eliquis previously but this appears to be of discontinued - states it was stopped after 6 weeks -Appears that it was discontinued between her discharge on 03/14/2022 and her admission on 04/06/2022 -Continue Eliquis 5 mg p.o. twice daily and would do so indefinitely -Continue oral metoprolol 50 mg p.o. twice daily -Patient did have echocardiogram on 05/17/2022 which showed an EF of 65% and mild tricuspid valve insufficiency as well as mild pulmonic valve insufficiency Mild troponin elevation -Peaked at 108--> and normalized rapidly once SVT had resolved -Suspect related to SVT -No chest pain -EKG without any ST-T wave changes concerning for acute ischemia -Patient remains in normal sinus rhythm -Patient did have echocardiogram and not currently having any wall motion abnormality Acute anemia -Hemoglobin stable at 8.8 from 9.1 yesterday -Repeat in a.m. for stability especially with the addition of Eliquis today -No signs of acute blood loss GERD -Continue Protonix 40 mg daily Depression -Continue Home duloxetine and sertraline DVT prophylaxis -Okay to discontinue SCDs -Continue Eliquis 5 mg p.o. twice daily CODE STATUS -DNR with no intubation Disposition: -Patient is medically stable for discharge. New prescriptions were faxed to her pharmacy yesterday. Eliquis is $49 a month and discount card was applied to the first month prescription. Charges/Coding Visit Charges Inpatient E&M: 69781 Subs Hosp L2
--- NOTE | 2022-05-25 11:20 | CASEMGMT ---
KLAUS KIRK in to discuss discharge needs with patient and . [facility] is setup to see patient tomorrow for start of care. concerned for transport home due to truck being too high for patient to get in. requesting wheelchair ambulance for discharge home. KLAUS KIRK updated that transport to be setup by community service officer coordinator once discharge is placed. KLAUS KIRK updated charge nurse and community service officer coordinator regarding request for transport for discharge home.
[2022-05-25 11:33] VITALS: BP 120/72; PULSE 94; RESP 16; TEMP 37.5; O2SAT 97
--- NOTE | 2022-05-25 11:36 | WOUNDNOTE ---
Pt being discharged home today with home health care. ostomy script and 4 appliances sent home with . YELENA Castaneda faxed ostomy script over to home health as well. denies questions. colostomy teaching booklet had been given to the as well as a step by step instruction sheet for ostomy change. pt and very appreciative of care. denies further questions or concerns at this time.
== END 2022-05-25 12:37 | disposition home health service (06) | DRG 329 ==
LOC: ED 20:41 → MS3 22:02 → PCU 05-17 04:17
PROVIDERS: Internal Medicine; Surgery; Admitting Provider Surgery; Emergency Provider Emergency Medicine; PCP Family Medicine; Visit Provider Surgery
PROC: 0DTN0ZZ Resection of Sigmoid Colon, Open Approach (ICD-10-PCS; CPT 44204; principal; 2022-05-17 12:10)
DX: K56.600 Partial intestinal obstruction, unspecified as to cause (principal); E43 Unspecified severe protein-calorie malnutrition; I47.1 Supraventricular tachycardia; J90 Pleural effusion, not elsewhere classified; K57.32 Diverticulitis of large intestine without perforation or abscess without bleeding; D69.6 Thrombocytopenia, unspecified; E83.39 Other disorders of phosphorus metabolism; D63.8 Anemia in other chronic diseases classified elsewhere; I48.0 Paroxysmal atrial fibrillation; Z93.3 Colostomy status; I10 Essential (primary) hypertension; K21.9 Gastro-esophageal reflux disease without esophagitis; D72.829 Elevated white blood cell count, unspecified; K43.2 Incisional hernia without obstruction or gangrene; K66.0 Peritoneal adhesions (postprocedural) (postinfection); K63.89 Other specified diseases of intestine; F32.A Depression, unspecified; R82.71 Bacteriuria; Z68.27 Body mass index [BMI] 27.0-27.9, adult; Z90.49 Acquired absence of other specified parts of digestive tract; Z79.01 Long term (current) use of anticoagulants; Z79.899 Other long term (current) drug therapy; Z66 Do not resuscitate
CPT/HCPCS: 36415; 71045; 74018; 74177; 76604; 80048; 80053; 81001; 82962; 83615; 83690; 83735; 84100; 84134; 84443; 84484; 85014; 85018; 85025; 87040; 87086; 87088; 88305; 88307; 88309; 93005; 93306; 94668; 97110; 97116; 97162; 97530; 99252; 99285; J2185; J7030; J7050; J7120; Q9957; Q9967; A4216; C8929; G0463; J0330; J1940; J2405; J3490

== ENCOUNTER → 2022-06-15 | Outpatient (CLI) | payer MEDICARE, SELFPAY ==
[2022-06-15 17:44] LABS: Absolute Lymphocyte Count 2.09 X10^3/uL (0.83-4.51); Absolute Neutrophil Count 7.7 X10^3/uL (2.0-7.7); Basophil# 0.09 X10^3/uL; Basophil% 0.8 % (0-1); Hemoglobin 10.4 g/dL (12.0-15.0); Lymphocyte # 2.09 X10^3/ul (0.83-4.51); Lymphocyte % 19.4 % (19-41); Mean Corp Hgb Conc 30.6 g/dL (32-36); Mean Corpuscular Hgb 26.4 pg (27.0-32.0); Mean Corpuscular Volume 86.3 fL (81-99); Mean Platelet Vol. 9.7 fl (6.2-12.0); Monocyte# 0.87 X10^3/uL; Monocyte% 8.1 % (0-10); NRBC Flagged by Analyzer 0 % (0-5); Neutrophil # 7.72 X10^3/uL (2.7-7.7); Neutrophil % 71.4 % (47-70); Platelet Count 598 K/mm3 (150-450); RBC Distribution Width SD 47.3 fl (35.1-43.9); Red Blood Count 3.94 M/mm3 (4.2-5.4); White Blood Count 10.8 K/mm3 (4.4-11.0)
[2022-06-15 18:35] LABS: ALB/GLOB Ratio 0.6 RATIO (0.9-2.4); AST(SGOT) 20 U/L (15-37); Alanine Aminotransfer ALT/SGPT 21 U/L (13-56); Albumin, Serum 2.8 g/dL (3.2-5.0); Alkaline Phosphatase 97 U/L (45-117); Anion Gap 8 (5-15); BUN 15 mg/dL (7-18); BUN/Creat Ratio 16.7 RATIO (10-20); Calcium,Total 9.4 mg/dL (8.5-10.1); Chloride 104 mmol/L (98-107); EST Glomerular Filtration Rate 65 mL/min (>60); Est Glom Filt Rate - Afr Amer 79 mL/min (>60); Glucose 127 mg/dL (74-106); Prealbumin 24.9 mg/dL (20.0-40.0); Protein, Total 7.8 g/dL (6.4-8.2); Sodium Level 136 mmol/L (136-145)
== END | disposition home or self-care (01) ==
LOC: BFHLAB 16:04
PROVIDERS: PCP Family Medicine; Referring Provider Family Medicine; Visit Provider Family Medicine
DX: K57.32 Diverticulitis of large intestine without perforation or abscess without bleeding (principal); I21.4 Non-ST elevation (NSTEMI) myocardial infarction
CPT/HCPCS: 36415; 80053; 84134; 85025

== ENCOUNTER → 2022-06-27 | Outpatient (CLI) | payer MEDICARE, SELFPAY ==
--- NOTE | 2022-06-27 12:40 | RAD_ITS ---
STUDY: X-RAY - UNILATERAL RIBS ( RIGHT ) WITH CHEST REASON FOR EXAM: Female, 72 years old. Fall. Breast hematoma. TECHNIQUE - RIBS: 4 view(s) of the ribs. TECHNIQUE - CHEST: Single frontal view of the chest. COMPARISON: Chest dated March 02, 2022. FINDINGS - RIBS: Generalized osteopenia. No displaced rib fracture identified. FINDINGS - CHEST: Elevation of both hemidiaphragms, left greater than right with atelectasis at the left base, relatively unchanged from prior study. Cardiomegaly with aortic tortuosity and calcification unchanged. Thoracolumbar scoliosis with vertebroplasty changes. No demonstrated abnormality of the visualized soft tissue structures of the upper abdomen. RAD/Ribs Uni Min 3V w/PA Chest IMPRESSION: RIBS: Generalized osteopenia with no displaced rib fracture identified. CHEST: Stable cardiomegaly with atelectasis. No acute finding. Electronically Signed: Jason Knox, at 12:34 EDT ,
== END | disposition home or self-care (01) ==
LOC: RAD 12:19
PROVIDERS: PCP Family Medicine; Referring Provider Family Medicine; Visit Provider Family Medicine
DX: R07.81 Pleurodynia (principal)
CPT/HCPCS: 71101

== ENCOUNTER → 2023-05-14 | Outpatient (CLI) | payer MEDICARE, SELFPAY ==
[2023-05-14 15:02] LABS: Absolute Neutrophil Count 6.1 X10^3/uL (2.0-7.7); Basophil# 0.07 X10^3/uL; Basophil% 0.8 % (0-1); Hematocrit 33.7 % (37-47); Hemoglobin 9.8 g/dL (12.0-15.0); Lymphocyte % 21.6 % (19-41); Mean Corp Hgb Conc 29.1 g/dL (32-36); Mean Corpuscular Volume 82.6 fL (81-99); Mean Platelet Vol. 10.4 fl (6.2-12.0); Monocyte# 0.72 X10^3/uL; Monocyte% 8.2 % (0-10); NRBC Flagged by Analyzer 0 % (0-5); Neutrophil # 6.05 X10^3/uL (2.7-7.7); Neutrophil % 68.9 % (47-70); Platelet Count 404 K/mm3 (150-450); RBC Distribution Width CV 16.2 % (11.6-14.6); Red Blood Count 4.08 M/mm3 (4.2-5.4); White Blood Count 8.8 K/mm3 (4.4-11.0)
[2023-05-14 15:28] LABS: ALB/GLOB Ratio 0.8 RATIO (0.9-2.4); AST(SGOT) 17 U/L (15-37); Alanine Aminotransfer ALT/SGPT 19 U/L (13-56); Albumin, Serum 3.3 g/dL (3.2-5.0); Alkaline Phosphatase 82 U/L (45-117); Anion Gap 7 (5-15); BUN 18 mg/dL (7-18); BUN/Creat Ratio 14.5 RATIO (10-20); Calcium,Total 8.9 mg/dL (8.5-10.1); Chloride 108 mmol/L (98-107); Cholesterol 232 mg/dL (200); Creatinine, Serum 1.24 mg/dL (0.55-1.02); EST Glomerular Filtration Rate 45 mL/min (>60); Est Glom Filt Rate - Afr Amer 54 mL/min (>60); Globulin 4.2 g/dL (2.2-4.2); Glucose 90 mg/dL (74-106); High Density Lipoprotein 64 mg/dL; Protein, Total 7.5 g/dL (6.4-8.2); Sodium Level 141 mmol/L (136-145); Thyroid Stim Hormone (TSH) 1.04 uIU/mL (0.358-3.74); Triglycerides 234 mg/dL; Very Low Density Lipoprotein 47 mg/dL (5-40)
== END | disposition home or self-care (01) ==
LOC: BFHLAB 13:39
PROVIDERS: PCP Family Medicine; Visit Provider Family Medicine
DX: Z00.00 Encounter for general adult medical examination without abnormal findings (principal); F03.90 Unspecified dementia, unspecified severity, without behavioral disturbance, psychotic disturbance, mood disturbance, and anxiety; I48.0 Paroxysmal atrial fibrillation; I21.4 Non-ST elevation (NSTEMI) myocardial infarction; N18.31 Chronic kidney disease, stage 3a
CPT/HCPCS: 36415; 80053; 80061; 84443; 85025

== ENCOUNTER → 2024-03-10 | Outpatient (CLI) | payer MEDICARE, SELFPAY ==
[2024-03-10 15:31] LABS: Absolute Lymphocyte Count 1.55 X10^3/uL (0.83-4.51); Absolute Neutrophil Count 5.8 X10^3/uL (2.0-7.7); Basophil# 0.07 X10^3/uL; Basophil% 0.9 % (0-1); Hematocrit 40.3 % (37-47); Hemoglobin 12.5 g/dL (12.0-15.0); Lymphocyte # 1.55 X10^3/ul (0.83-4.51); Lymphocyte % 19.1 % (19-41); Mean Corpuscular Hgb 28.3 pg (27.0-32.0); Mean Corpuscular Volume 91.4 fL (81-99); Monocyte# 0.66 X10^3/uL; Monocyte% 8.1 % (0-10); NRBC Flagged by Analyzer 0 % (0-5); Neutrophil # 5.82 X10^3/uL (2.7-7.7); Neutrophil % 71.5 % (47-70); Platelet Count 347 K/mm3 (150-450); RBC Distribution Width CV 13.1 % (11.6-14.6); RBC Distribution Width SD 44.1 fl (35.1-43.9); Red Blood Count 4.41 M/mm3 (4.2-5.4); White Blood Count 8.1 K/mm3 (4.4-11.0)
[2024-03-10 16:01] LABS: ALB/GLOB Ratio 0.9 RATIO (0.9-2.4); AST(SGOT) 18 U/L (15-37); Alanine Aminotransfer ALT/SGPT 18 U/L (13-56); Albumin, Serum 3.6 g/dL (3.2-5.0); Alkaline Phosphatase 79 U/L (45-117); Anion Gap 6 (5-15); BUN 16 mg/dL (7-18); BUN/Creat Ratio 13.7 RATIO (10-20); Calcium,Total 9.6 mg/dL (8.5-10.1); Chloride 106 mmol/L (98-107); Cholesterol 262 mg/dL (200); Creatinine, Serum 1.17 mg/dL (0.55-1.02); EST Glomerular Filtration Rate 48 mL/min (>60); Est Glom Filt Rate - Afr Amer 58 mL/min (>60); Ferritin 58 ng/mL (8-252); Glucose 105 mg/dL (74-106); High Density Lipoprotein 54 mg/dL; Potassium 4.1 mmol/L (3.5-5.1); Protein, Total 7.6 g/dL (6.4-8.2); Sodium Level 137 mmol/L (136-145); Triglycerides 313 mg/dL; Very Low Density Lipoprotein 63 mg/dL (5-40)
== END | disposition home or self-care (01) ==
LOC: BFHLAB 13:43
PROVIDERS: PCP Family Medicine; Referring Provider Family Medicine; Visit Provider Family Medicine
DX: Z00.00 Encounter for general adult medical examination without abnormal findings (principal); F03.90 Unspecified dementia, unspecified severity, without behavioral disturbance, psychotic disturbance, mood disturbance, and anxiety; I48.0 Paroxysmal atrial fibrillation; N18.31 Chronic kidney disease, stage 3a; I25.2 Old myocardial infarction; D64.9 Anemia, unspecified
CPT/HCPCS: 36415; 80053; 80061; 82728; 85025